=== PATIENT | male | born 1955 | race Hispanic/Latino ===

== ENCOUNTER 2016-10-16 15:32 | Observation (INO) | payer MEDICARE ==
[2016-10-16 15:43] VITALS: BMI 37.2
--- NOTE | 2016-10-16 16:02 | ED PDOC ---
Arrival/HPI - General Chief Complaint: Groin Pain Time Seen by Provider: 10/16/16 15:49 Historian: Patient - History of Present Illness Narrative History of Present Illness (Text): 10/16/16 15:58 60yo male with PMHx of hypertension, CAD with cardiac stent, TIA BIBA for right groin pain that radiates anteriorly to his lower leg. He notes history of chronic back pain. States he took Oxycodone today without relieve. He is currently under a care of a pain management. Denies previous history of this pain in the past. He denies calf pain, redness, abdominal pain, nausea, vomiting , any other complaint. Past Medical History - Provider Review Nursing Documentation Reviewed: Yes - Infectious Disease Hx of Infectious Diseases: None - Tetanus Immunization Tetanus Immunization: Unknown - Cardiac Hx Cardiac Disorders: Yes Hx Circulatory Problems: Yes Hx Congestive Heart Failure: Yes Hx Hypertension: Yes - Pulmonary Hx Pneumonia: Yes - Neurological Hx Dizziness: Yes Hx Transient Ischemic Attacks (TIA): Yes - HEENT Hx HEENT Disorder: No - Renal Hx Renal Disorder: No - Endocrine/Metabolic Hx Diabetes Mellitus Type 1: Yes (insulin dependant) - Hematological/Oncological Hx Anemia: Yes Hx Blood Transfusions: Yes (2012) - Integumentary Hx Dermatological Disorder: No Other/Comment: cellulitis rle, gangrene 1st and 2nd toes r ft, dressing intact to right foot, large dressing to inner right leg from thigh to knee - Musculoskeletal/Rheumatological Hx Falls: Yes - Gastrointestinal Hx Gastrointestinal Disorders: No - Genitourinary/Gynecological Hx Genitourinary Disorders: No - Psychiatric Hx Anxiety: Yes Hx Bipolar Disorder: Yes Hx Depression: Yes Hx Emotional Abuse: No Hx Physical Abuse: No Hx Schizophrenia: Yes Hx Substance Use: No - Surgical History Hx Cardiac Catheterization: Yes Hx Coronary Artery Bypass Graft: Yes Hx Coronary Stent: Yes Hx Orthopedic Surgery: Yes Other/Comment: graft in left leg - Anesthesia Hx Anesthesia: Yes Hx Anesthesia Reactions: No Hx Malignant Hyperthermia: No - Suicidal Assessment Feels Threatened In Home Enviroment: No Family/Social History - Physician Review Nursing Documentation Reviewed: Yes Family/Social History: Unknown Family HX Smoking Status: Former Smoker Hx Alcohol Use: (will be sober 25 yrs 11/07/2016) Hx Substance Use: No Hx Substance Use Treatment: No Allergies/Home Meds Allergies/Adverse Reactions: Allergies No Known Allergies Allergy (Verified 10/16/16 15:43) Home Medications: Home Meds Medication Instructions Recorded Confirmed Insulin Detemir [Levemir] 85 unit SC TID 12/31/15 10/16/16 Omeprazole 20 mg PO DAILY 12/31/15 10/16/16 Insulin Aspart, Recombinant 45 unit SQ ACTID 01/20/16 10/16/16 [Novolog] Liraglutide [Victoza 2-Dangelo] 6 mg SC DAILY 01/20/16 10/16/16 Clopidogrel [Plavix] 75 mg PO DAILY 06/09/16 10/16/16 Losartan [Cozaar] 50 mg PO BID 06/09/16 10/16/16 Oxycodone HCl [Roxicodone] 5 mg PO TID PRN 10/16/16 10/16/16 Review of Systems - Physician Review All systems were reviewed & negative as marked: Yes - Review of Systems Constitutional: Normal Eyes: Normal ENT: Normal Respiratory: Normal Cardiovascular: Normal Gastrointestinal: Normal Genitourinary Male: Normal Musculoskeletal: Arthralgias (Right groin pain) Skin: Normal Neurological: Normal Endocrine: Normal Hemo/Lymphatic: Normal Psychiatric: Normal Physical Exam Vital Signs Reviewed: Yes Vital Signs Temp Pulse Resp BP Pulse Ox 10/16/16 17:18 87 18 183/90 H 95 10/16/16 15:35 98.1 F 93 H 15 189/105 H 95 Temperature: Afebrile Blood Pressure: Normal Pulse: Regular Respiratory Rate: Normal Appearance: Positive for: Well-Appearing, Non-Toxic, Comfortable Pain Distress: None Mental Status: Positive for: Alert and Oriented X 3 - Systems Exam Head: Present: Atraumatic, Normocephalic Pupils: Present: PERRL Extroacular Muscles: Present: EOMI Conjunctiva: Present: Normal Mouth: Present: Moist Mucous Membranes Neck: Present: Normal Range of Motion Respiratory/Chest: Present: Clear to Auscultation, Good Air Exchange. No: Respiratory Distress, Accessory Muscle Use Cardiovascular: Present: Regular Rate and Rhythm, Normal S1, S2. No: Murmurs Abdomen: Present: Normal Bowel Sounds. No: Tenderness, Distention, Peritoneal Signs Back: Present: Normal Inspection Upper Extremity: Present: Normal Inspection. No: Cyanosis, Edema Lower Extremity: Present: NORMAL PULSES, Normal ROM, Tenderness (Right groin), Neurovascularly Intact. No: Edema, CALF TENDERNESS, Cyanosis, German's Sign, Swelling, Temperature Abnormalties Neurological: Present: GCS=15, CN II-XII Intact, Speech Normal Skin: Present: Warm, Dry, Normal Color. No: Rashes Psychiatric: Present: Alert, Oriented x 3, Normal Insight, Normal Concentration Medical Decision Making ED Course and Treatment: 10/16/16 17:54 Pt in ED for right groin pain that radiates to his lower leg. Hip CT was negative. Percocet was given for pain. On re evaluation patient states he still have pain. Patient's called and expressed concern about her . States he has been unable to move from a chair in few days. Also notes elevated BP and BS today. states the FS was in the 300's today and BP was 200/110 at home. Lab was ordered EKG NSR with left ventricular hypertrophy @ 89bpm his BP was 183/90 in ED Pt will be placed in OBS for intractable pain Case was DW Dr. jarrell, who was covering Dr. Cavazos and he accepted admission. - Lab Interpretations Lab Results: Lab Results 10/16/16 17:26: POC Glucose (mg/dL) 322 H - RAD Interpretation Radiology Orders: 10/16/16 15:49 CT HIP W/O CONTRAST BILATERAL [CT] Stat - Medication Orders Current Medication Orders: Discontinued Medications Oxycodone/Acetaminophen (Percocet 5/325 Mg Tab) 1 tab PO STAT STA Stop: 10/16/16 17:06 Last Admin: 10/16/16 17:21 Dose: 1 tab Disposition/Present on Arrival - Present on Arrival Any Indicators Present on Arrival: No History of DVT/PE: No History of Uncontrolled Diabetes: No Urinary Catheter: No History of Decub. Ulcer: No History Surgical Site Infection Following: None - Disposition Have Diagnosis and Disposition been Completed?: Yes Diagnosis: Hyperglycemia, Intractable pain Disposition: HOSPITALIZED Disposition Time: 18:00 Condition: STABLE Referrals: Rasta Cavazos MD [Primary Care Provider] - Follow up with primary
--- NOTE | 2016-10-16 17:01 | CT ---
PROCEDURE: CT hip without intravenous or IV contrast HISTORY: Right hip/pelvic Pain. No history of recent/ related trauma provided COMPARISON: None. No plain film radiographs available for correlation. TECHNIQUE: 2.5 mm axial acquisition and display. Coronal and sagittal reconstructions. Dose report (mGy-cm): 1057.74 FINDINGS: There are no osseous abnormalities to suggest fracture. The pelvic ring is intact. Preserved femoral-acetabular relationship. Negative study for protrusio, subluxation or dislocation. Degenerative changes: Mild and bilaterally symmetrical. No lytic or blastic abnormalities. Unremarkable pelvic viscera as visualized. This includes prostate, urinary bladder, seminal vesicles. Pelvic loops of colon, small bowel and appendix within normal limits without focal or diffuse abnormalities. Incidental finding(s): Postoperative findings likely related to vascular surgery bilateral inguinal region. IMPRESSION: No acute findings related to/accounting for the clinical presentation.
[2016-10-16] MEDS ORDERED: Oxycodone/Acetaminophen 5/325 mg Tab PO STA (17:05)
[2016-10-16 17:55] LABS: ADD MANUAL DIFF? NO
[2016-10-16 17:58] LABS: BASO # 0.03 K/mm3 (0.0-2.0); BASO % 0.3 % (0.0-3.0); EOS % 0.4 % (1.5-5.0); GRAN # 8.84 (1.4-6.5); GRAN % 84.5 % (50.0-68.0); HEMATOCRIT 38.6 % (42.0-52.0); LYMPH % 9.9 % (22.0-35.0); MEAN CELL VOLUME 83.2 fL (80.0-105.0); MEAN CORPUSCULAR HEMOGLOBIN 29.7 pg (25.0-35.0); MEAN CORPUSCULAR HGB CONC 35.8 g/dl (31.0-37.0); MEAN PLATELET VOLUME 9.4 fl (7.0-11.0); MONO # 0.5 (0.1-0.6); MONO % 4.9 % (1.0-6.0); PLATELET COUNT 241 10^3/uL (120.0-450.0); RED CELL DISTRIBUTION WIDTH 14.3 % (11.5-14.5); URINE BILIRUBIN NEGATIVE (NEGATIVE); URINE BLOOD MODERATE (NEGATIVE); URINE GLUCOSE (UA) >=1000 mg/dL (NEGATIVE); URINE KETONE TRACE mg/dL (NEGATIVE); URINE LEUKOCYTE ESTERASE NEGATIVE Leu/uL (NEGATIVE); URINE PROTEIN 100 mg/dL (<30 mg/dL); URINE UROBILINOGEN 0.2 E.U./dL (<1 E.U./dL); WHITE BLOOD COUNT 10.5 10^3/ul (4.5-11.0)
[2016-10-16 18:00] LABS: URINE APPEARANCE CLEAR (CLEAR); URINE COLOR YELLOW (YELLOW)
[2016-10-16 18:03] LABS: URINE BACTERIA FEW (NEG); URINE WBC 0 - 2 /hpf (0-6)
[2016-10-16 18:04] LABS: URINE AMORPHOUS SEDIMENT FEW
[2016-10-16 18:10] LABS: ALB/GLOB RATIO 1.1 (1.1-1.8); ALKALINE PHOSPHATASE 109 U/L (38-133); ALT/SGPT 32 U/L (7-56); AST/SGOT 27 U/L (15-59); BILIRUBIN,TOTAL 0.8 mg/dL (0.2-1.3); BLOOD UREA NITROGEN 14 mg/dL (7-21); CALCIUM 9.6 mg/dL (8.4-10.5); CARBON DIOXIDE 22 mmol/L (21-33); CHLORIDE 100 mmol/L (98-107); GFR AFRICAN-AMERICAN > 60; POTASSIUM 4.3 mmol/L (3.6-5.0); SODIUM 133 mmol/L (132-148); TOTAL PROTEIN 8.1 g/dL (5.8-8.3)
[2016-10-16 18:13] LABS: INR 1.06 (0.93-1.08); PARTIAL THROMBOPLASTIN TIME 27.1 Seconds (23.7-30.8)
[2016-10-16 18:16] LABS: GLUCOSE,RANDOM 390 mg/dL (70-110)
[2016-10-16 18:22] LABS: TROPONIN I 0.02 ng/mL
[2016-10-16] MEDS: Insulin Regular 1 UNITS/0.01 ML ML IV STA ×2 (18:25→18:31)
[2016-10-16] MEDS ORDERED: oxyCODONE 5 mg Immediate Release Tab PO PRN (18:44)
[2016-10-16] MEDS: Insulin Reg-HIGH-Coverage SC SCH (22:54)
[2016-10-17] MEDS ORDERED: Insulin Regular 1 UNITS/0.01 ML ML SC STA (08:05)
[2016-10-17] MEDS: Insulin Reg-HIGH-Coverage SC SCH ×3 (08:18→17:06)
[2016-10-17] MEDS: Insulin Lispro 1 UNITS/0.01 ML SC SCH ×2 (09:14→12:30)
[2016-10-17 09:49] VITALS: BP 196/114; PULSE 81; RESP 18; TEMP 97.6; O2SAT 96
[2016-10-17] MEDS ORDERED: LIRAGLUTIDE 6 MG SC SCH (10:00)
--- NOTE | 2016-10-17 10:48 | CARD ---
APPROVED REPORT EKG Measurement Heart [id number] DC 170P50 [id number] <Conclusion> Normal sinus rhythm PRWP IVCD Left anterior fascicular block STTW changes c/w ischemia Prolonged QTc
--- NOTE | 2016-10-17 15:22 | HP ---
A 60-year-old white male admitted to the hospital with right lower extremity pain, difficulty walking . 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 The patient had a negative CT of the hip on admission. His laboratory data showed abelino vated blood sugar, normal H and H, normal liver enzymes. The patient also is somewhat hypertensive. Blood pressure is as high as 171/95. The blood sugars will be controlled. The patient will be eval uated by physical therapy and Dr. Norman. He will be discharged home if patient is able to sta nd and walk. PHYSICAL EXAMINATION: GENERAL: Shows a well-developed, but obese white male, in mild distress. HEENT: Essentially within normal limits. HEART: Regular sinus rhythm, , no murmurs. CHEST: Clear to auscultation and percussion. ABDOMEN: Obese but benign. EXTREMITIES: Without cyanosis, clubbing, edema. There are some missing toes bilaterally. Pulses ar e weak bilaterally, but present. There is some decreased strength in the right lower extremity secon karon to pain. There is normal range of motion. There is some difficulty on straight leg raise. IMPRESSION: Sciatica versus bursitis of the right hip, uncontrolled diabetes, uncontrolled blood pre ssure in a 60-year-old white male. Rasta Cavazos MD cc: [id number] TT: 10/17/2016 15:22:13 en
[2016-10-18] MEDS ORDERED: LIRAGLUTIDE 6 MG SC SCH (10:00)
== END 2016-10-17 16:30 | disposition home or self-care (01) ==
LOC: ED 15:32 → ERH 18:08 → 3RSO 21:33
PROVIDERS: ADMIT Internal Medicine; ATTEND Internal Medicine
DX: M54.31 Sciatica, right side (principal); M70.71 Other bursitis of hip, right hip; E10.65 Type 1 diabetes mellitus with hyperglycemia; F20.9 Schizophrenia, unspecified; F31.9 Bipolar disorder, unspecified; I11.0 Hypertensive heart disease with heart failure; I50.9 Heart failure, unspecified; I25.10 Atherosclerotic heart disease of native coronary artery without angina pectoris; Z79.02 Long term (current) use of antithrombotics/antiplatelets; Z79.4 Long term (current) use of insulin; Z79.899 Other long term (current) drug therapy; Z86.73 Personal history of transient ischemic attack (TIA), and cerebral infarction without residual deficits; Z87.01 Personal history of pneumonia (recurrent); Z95.1 Presence of aortocoronary bypass graft; Z95.5 Presence of coronary angioplasty implant and graft; R42 Dizziness and giddiness; D64.9 Anemia, unspecified; L03.115 Cellulitis of right lower limb; I96 Gangrene, not elsewhere classified; F41.9 Anxiety disorder, unspecified; Z87.891 Personal history of nicotine dependence; R40.2412 Glasgow coma scale score 13-15, at arrival to emergency department; I51.7 Cardiomegaly
CPT/HCPCS: 73700; 80053; 81001; 82550; 82553; 82948; 83615; 84484; 85025; 85610; 85730; 93005; 97161; 99283; G0378; G8978; G8979; G8980

== ENCOUNTER 2016-11-07 19:27 | Emergency (ER) | payer MEDICARE ==
[2016-11-07 19:34] VITALS: TEMP 98.7; BMI 35.9
[2016-11-07 20:14] VITALS: RESP 18
[2016-11-07] MEDS ORDERED: Sodium Chloride 0.9% 1,000 ML IV SCH (21:19)
[2016-11-07 21:47] LABS: BASO # 0.02 K/mm3 (0.0-2.0); BASO % 0.3 % (0.0-3.0); EOS # 0.2 (0.0-0.7); EOS % 2.4 % (1.5-5.0); GRAN # 4.56 (1.4-6.5); GRAN % 69.3 % (50.0-68.0); HEMOGLOBIN 11.4 gm/dL (14.0-18.0); LYMPH # 1.4 (1.2-3.4); LYMPH % 20.9 % (22.0-35.0); MEAN CELL VOLUME 85.4 fL (80.0-105.0); MEAN CORPUSCULAR HEMOGLOBIN 29.2 pg (25.0-35.0); MEAN CORPUSCULAR HGB CONC 34.2 g/dl (31.0-37.0); MEAN PLATELET VOLUME 9.2 fl (7.0-11.0); MONO # 0.5 (0.1-0.6); MONO % 7.1 % (1.0-6.0); PLATELET COUNT 231 10^3/uL (120.0-450.0); WHITE BLOOD COUNT 6.6 10^3/ul (4.5-11.0)
[2016-11-07 21:55] LABS: ALBUMIN 3.7 g/dL (3.0-4.8); ALT/SGPT 25 U/L (7-56); AST/SGOT 22 U/L (15-59); BLOOD UREA NITROGEN 16 mg/dL (7-21); CALCIUM 8.8 mg/dL (8.4-10.5); GFR AFRICAN-AMERICAN > 60; GFR NON-AFRICAN AMERICAN > 60
--- NOTE | 2016-11-07 22:26 | ED PDOC ---
Arrival/HPI - General Historian: Patient <Rupal Messina PA-C - Last Filed: 11/07/16 22:18> <Kulwinder Gordon - Last Filed: 11/07/16 22:49> - General Chief Complaint: Wound Check Time Seen by Provider: 11/07/16 20:32 - History of Present Illness Narrative History of Present Illness (Text): 11/07/16 22:29 60-year-old male with past medical history diabetes and hypertension, presents for evaluation of redness to the right foot where his right great toe and second toe was amputated, states that the amputation was performed on April 2016. Otherwise the patient denies any fever, chills, pain, joint pain or swelling. Has no other complaints. Podiatry [facility] (Rupal Messina PA-C) Past Medical History - Provider Review Nursing Documentation Reviewed: Yes - Infectious Disease Hx of Infectious Diseases: None - Tetanus Immunization Tetanus Immunization: Unknown - Cardiac Hx Cardiac Disorders: Yes Hx Congestive Heart Failure: Yes Hx Hypertension: Yes - Pulmonary Hx Respiratory Disorders: Yes Hx Pneumonia: Yes - Neurological Hx Neurological Disorder: Yes Hx Dizziness: Yes Hx Transient Ischemic Attacks (TIA): Yes - HEENT Hx HEENT Disorder: No - Renal Hx Renal Disorder: No - Endocrine/Metabolic Hx Diabetes Mellitus Type 1: Yes (insulin dependant) - Hematological/Oncological Hx Anemia: Yes Hx Blood Transfusions: Yes (2012) - Integumentary Hx Dermatological Disorder: No Other/Comment: cellulitis rle,. gangrene 1st and 2nd toes R foot (toes amputated in apr 2016) - Musculoskeletal/Rheumatological Hx Musculoskeletal Disorders: Yes Hx Falls: Yes - Gastrointestinal Hx Gastrointestinal Disorders: No - Genitourinary/Gynecological Hx Genitourinary Disorders: No - Psychiatric Hx Psychophysiologic Disorder: Yes Hx Anxiety: Yes Hx Bipolar Disorder: Yes Hx Depression: Yes Hx Emotional Abuse: No Hx Physical Abuse: No Hx Schizophrenia: Yes Hx Substance Use: No - Surgical History Hx Cardiac Catheterization: Yes Hx Coronary Artery Bypass Graft: Yes Hx Coronary Stent: Yes Hx Orthopedic Surgery: Yes Other/Comment: graft in left leg. 1st and 2nd toes amputated on R foot in Apr 2016 - Anesthesia Hx Anesthesia: Yes Hx Anesthesia Reactions: No Hx Malignant Hyperthermia: No - Suicidal Assessment Feels Threatened In Home Enviroment: No <Rupal Messina PA-C - Last Filed: 11/07/16 22:18> Family/Social History - Physician Review Nursing Documentation Reviewed: Yes Family/Social History: No Known Family HX Smoking Status: Former Smoker Hx Alcohol Use: No Hx Substance Use: No Hx Substance Use Treatment: No <Rupal Messina PA-C - Last Filed: 11/07/16 22:18> Allergies/Home Meds <Rupal Messina PA-C - Last Filed: 11/07/16 22:18> <Kulwinder Gordon - Last Filed: 11/07/16 22:49> Allergies/Adverse Reactions: Allergies No Known Allergies Allergy (Verified 11/07/16 19:34) Home Medications: Home Meds Medication Instructions Recorded Confirmed Clopidogrel [Plavix] 75 mg PO DAILY 11/07/16 11/07/16 Dexlansoprazole [Dexilant] 60 mg PO DAILY 11/07/16 11/07/16 Insulin Aspart, Recombinant 45 units SQ TID 11/07/16 11/07/16 [Novolog] Insulin Detemir [Levemir] 85 units SQ BID 11/07/16 11/07/16 Isosorbide [Isosorbide] 60 mg PO DAILY 11/07/16 11/07/16 Liraglutide [Victoza 2-Dangelo] 0.6 mg SQ BID 11/07/16 11/07/16 Losartan [Cozaar] 50 mg PO BID 11/07/16 11/07/16 Pregabalin [Lyrica] 75 mg PO BID 11/07/16 11/07/16 Risperidone [Risperdal] 1 mg PO HS 11/07/16 11/07/16 Tamsulosin [Flomax] 0.4 mg PO TID 11/07/16 11/07/16 oxyCODONE [oxyCODONE Immediate 1 tab PO DAILY 11/07/16 11/07/16 Release Tab] Review of Systems - Review of Systems Constitutional: Normal. absent: Fatigue, Weight Change, Fevers Musculoskeletal: Normal, Arthralgias. absent: Back Pain, Neck Pain Skin: Normal. absent: Rash, Pruritis, Skin Lesions <Rupal Messina PA-C - Last Filed: 11/07/16 22:18> Physical Exam Finger Stick Blood Glucose: 310 <Rupal Messina PA-C - Last Filed: 11/07/16 22:18> <Kulwinder Gordon - Last Filed: 11/07/16 22:49> - Physical Exam Narrative Physical Exam (Text): 11/07/16 22:27 GENERAL APPEARANCE: Patient is awake, alert, oriented x 3, in no acute distress. SKIN: Warm, dry, (-) skin lesions or rashes. LOWER EXTREMITY: (-) Tenderness, (-) swelling, (-) ecchymosis, (+) erythema to the wound edges of the R foot at the amputation site with scant amount of yellow serosanguinous d/c, (-) crepitus, (-) deformity. Tendon function intact. (-) distal neurovascular deficit. +2 point discrimination. Remainder of foot, digits and ankle: (-) injury except. (Rupal Messina PA-C ) Vital Signs Temp Pulse Resp BP Pulse Ox 11/07/16 20:14 79 18 167/97 H 99 11/07/16 19:34 98.7 F 88 19 169/100 H 99 Medical Decision Making <Rupal Messina PA-C - Last Filed: 11/07/16 22:18> <Kulwinder Gordon - Last Filed: 11/07/16 22:49> ED Course and Treatment: 11/07/16 22:21 60-year-old male with past medical history diabetes and hypertension, presents for evaluation of redness to the right foot where his right great toe and second toe was amputated, states that the amputation was performed on April 2016. Based on history to consider cellulitis, wound infection, and osteomyelitis. FS 310. Call placed to Dr. Car. Wound culture and clean dressing applied to the wound. Case discussed with Dr. Car she recommends at this time to order labs, x- ray of the right foot, states as long as the labs and x-rays are normal and show no acute findings, the patient can be discharged on Augmentin and she will follow-up with the patient in 2 days for reevaluation of the wound care center. Labs, right foot x-ray ordered. XR right foot: amputation noted of the distal 1st phalanx and 2nd phalanx, no fracture, no evidence of osteomyelitis, as read by HUGO. Lab results are reviewed, glucose 237, rest of the labs are within normal limits. x-ray results show no acute findings. Diagnostic results discussed with the patient in great detail. Further plan of care for outpatient follow-up with Dr. Car discussed with patient and he agrees with current plan and disposition. Prescription provided for Augmentin. Patient states he fully agrees with and understands discharge instructions. States that he agrees with the plan and disposition. Verbalized and repeated discharge instructions and plan. I have given the patient opportunity to ask any additional questions. Follow up with Dr. Singh in 2 days without fail. Advised to take medication as prescribed. Return to the emergency room at any time for any new or worsening symptoms. (Siddharth DUMONT,Rupal Perez) - Lab Interpretations Lab Results: 11/07/16 21:33 11/07/16 21:33 Lab Results 11/07/16 21:33: Sodium 135, Potassium 4.1, Chloride 103, Carbon Dioxide 23, Anion Gap 13, BUN 16, Creatinine 1.1, Est GFR ( Amer) > 60, Est GFR (Non- Af Amer) > 60, Random Glucose 237 H, Calcium 8.8, Total Bilirubin 0.5, AST 22, ALT 25, Alkaline Phosphatase 80, Total Protein 7.3, Albumin 3.7, Globulin 3.6, Albumin/Globulin Ratio 1.0 L 11/07/16 21:33: WBC 6.6 D, RBC 3.90, Hgb 11.4 L, Hct 33.3 L, MCV 85.4, MCH 29.2 , MCHC 34.2, RDW 14.0, Plt Count 231, MPV 9.2, Gran % 69.3 H, Lymph % (Auto) 20.9 L, Grand % (Auto) 7.1 H, Eos % (Auto) 2.4, Baso % (Auto) 0.3, Gran # 4.56, Lymph # 1.4, Grand # 0.5, Eos # 0.2, Baso # 0.02 - RAD Interpretation Radiology Orders: 11/07/16 21:18 FOOT RIGHT 3 VIEWS ROUTINE [RAD] Stat - Medication Orders Current Medication Orders: Sodium Chloride (Sodium Chloride 0.9%) 1,000 mls @ 1,000 mls/hr IV .Q1H LANRE Last Admin: 11/07/16 21:38 Dose: 1,000 mls/hr Discontinued Medications Amoxicillin/Clavulanate Potassium (Augmentin 500 Mg-125 Mg Tab) 1 tab PO STAT STA PRN Reason: Protocol Stop: 11/07/16 22:32 - PA / [employer] / Resident Statement COLBY has reviewed & agrees with the documentation as recorded. <Rupal Messina PA-C - Last Filed: 11/07/16 22:18> - PA / [employer] / Resident Statement COLBY has reviewed & agrees with the documentation as recorded. COLBY has examined the patient and agrees with the treatment plan. <Kulwinder Gordon - Last Filed: 11/07/16 22:49> Disposition/Present on Arrival - Present on Arrival Any Indicators Present on Arrival: Yes History of DVT/PE: No History of Uncontrolled Diabetes: Yes Urinary Catheter: No History of Decub. Ulcer: No History Surgical Site Infection Following: None - Disposition Have Diagnosis and Disposition been Completed?: Yes Disposition Time: 22:00 Patient Plan: Discharge <Rupal Messina PA-C - Last Filed: 11/07/16 22:18> <Kulwinder Gordon - Last Filed: 11/07/16 22:49> - Disposition Diagnosis: Wound infection Patient Problems: Current Active Problems Problem Status Onset Wound infection Acute Condition: STABLE Discharge Instructions (ExitCare): Wound Infection (ED), Acute Wound Care (ED) Print Language: ESTONIAN Additional Instructions: Thank you for letting us take care of you today. You were treated for wound infection of the right foot status post toe amputation. The emergency medical care you received today was directed at your acute symptoms. If you were prescribed any medication, please fill it and take as directed. It may take several days for your symptoms to resolve. Return to the Emergency Department if your symptoms worsen, do not improve, or if you have any other problems. Please contact your foot doctor in 2 days for re-evaluation and follow up. Bring any paperwork you were given at discharge with you along with any medications you are taking to your follow up visit. Our treatment cannot replace ongoing medical care by a primary care provider (PCP) outside of the emergency department. Thank you for allowing the [facility] team to be part of your care today. Prescriptions: Amoxicillin/Potassium Clav [Augmentin 500-125 Tablet] 1 each PO TID #30 tablet Referrals: Connie Car DPM [Primary Care Provider] - Follow up with primary Forms: WORK NOTE
[2016-11-07] MEDS ORDERED: Amoxicillin-Clav 500-125 mg Tab PO STA (22:31)
[2016-11-07 23:27] VITALS: BP 162/90; PULSE 80; O2SAT 100
--- NOTE | 2016-11-08 10:47 | RAD ---
PROCEDURE: Right Foot Radiographs. HISTORY: pain COMPARISON: 05/04/2016 FINDINGS: BONES: The patient is status post amputation of 1st and 2nd digits at the level of the distal end of the metatarsal. There is no acute fracture identified. There is periosteal reaction seen about the proximal and distal diaphysis of 1st metatarsal and its medial aspect and about the distal aspect of the metatarsal at its lateral aspect. This is a nonspecific finding. . There is periosteal reaction seen about the distal aspect of 2nd metatarsal, as on prior examination. No periosteal reaction is appreciated elsewhere. JOINTS: Normal. SOFT TISSUES: Soft tissue swelling anterior to the amputation site of 1st and 2nd metatarsal. Nonspecific. OTHER FINDINGS: None. IMPRESSION: Status post amputation 1st and 2nd distal metatarsals. Periosteal reaction about 1st and 2nd metatarsal. First metatarsal periosteal reaction is new. This is a nonspecific finding. Consider osteomyelitis.
== END 2016-11-07 23:10 | disposition home or self-care (01) ==
LOC: ED 19:27
DX: T81.4XXA Infection following a procedure, initial encounter (principal); Y83.8 Other surgical procedures as the cause of abnormal reaction of the patient, or of later complication, without mention of misadventure at the time of the procedure; Y92.89 Other specified places as the place of occurrence of the external cause; I10 Essential (primary) hypertension; E11.9 Type 2 diabetes mellitus without complications; Z79.4 Long term (current) use of insulin

== ENCOUNTER 2016-12-05 19:18 | Observation (INO) | payer MEDICARE, OTHER ==
[2016-12-05 19:36] VITALS: BMI 37.4
--- NOTE | 2016-12-05 20:22 | ED PDOC ---
Arrival/HPI - General Chief Complaint: High Blood Sugar Time Seen by Provider: 12/05/16 19:29 Historian: Patient - History of Present Illness Narrative History of Present Illness (Text): 12/05/16 20:00 Malik Holley is a 61 year old male, whose past medical history includes hypertension, diabetes,CAD,CABG and peripheral vascular disease, presents to the Emergency department complaining of elevated blood sugar in the 400's and elevation of blood pressure. Patient reports feeling dizzy,faint at times today.States that he is compliant with his medication. Patient denies chest pain , shortness of breath, headache, fever, chills, cough, nausea, vomiting, diarrhea, abdominal pain, or other complaints. Time/Duration: Other (earlier today) Symptom Onset: Sudden Symptom Course: Unchanged Modifying Factors (Text): None Associated Symptoms (Text): dizziness and elevated blood pressure Past Medical History - Provider Review Nursing Documentation Reviewed: Yes - Infectious Disease Hx of Infectious Diseases: None - Tetanus Immunization Tetanus Immunization: Unknown - Cardiac Hx Cardiac Disorders: Yes Hx Congestive Heart Failure: Yes Hx Hypertension: Yes Other/Comment: open heart srugery. 3 stents - Pulmonary Hx Respiratory Disorders: Yes Hx Pneumonia: Yes Other/Comment: Former smoker - Neurological Hx Neurological Disorder: Yes Hx Dizziness: Yes Hx Transient Ischemic Attacks (TIA): Yes - HEENT Hx HEENT Disorder: No - Renal Hx Renal Disorder: No - Endocrine/Metabolic Hx Diabetes Mellitus Type 1: Yes (insulin dependant) - Hematological/Oncological Hx Anemia: Yes Hx Blood Transfusions: Yes (2012) - Integumentary Hx Dermatological Disorder: No Other/Comment: cellulitis rle,. gangrene 1st and 2nd toes R foot (toes amputated in apr 2016) - Musculoskeletal/Rheumatological Hx Musculoskeletal Disorders: Yes Hx Falls: Yes - Gastrointestinal Hx Gastrointestinal Disorders: No - Genitourinary/Gynecological Hx Genitourinary Disorders: No - Psychiatric Hx Psychophysiologic Disorder: Yes Hx Anxiety: Yes Hx Bipolar Disorder: Yes Hx Depression: Yes Hx Emotional Abuse: No Hx Physical Abuse: No Hx Schizophrenia: Yes Hx Substance Use: No - Surgical History Hx Cardiac Catheterization: Yes Hx Coronary Artery Bypass Graft: Yes Hx Coronary Stent: Yes Hx Orthopedic Surgery: Yes Other/Comment: graft in left leg. 1st and 2nd toes amputated on R foot in Apr 2016 - Anesthesia Hx Anesthesia: Yes Hx Anesthesia Reactions: No Hx Malignant Hyperthermia: No - Suicidal Assessment Feels Threatened In Home Enviroment: No Family/Social History - Physician Review Nursing Documentation Reviewed: Yes Family/Social History: Unknown Family HX Smoking Status: Former Smoker Hx Alcohol Use: Yes (former) Hx Substance Use: No Hx Substance Use Treatment: No Allergies/Home Meds Allergies/Adverse Reactions: Allergies No Known Allergies Allergy (Verified 11/07/16 19:34) Home Medications: Home Meds Medication Instructions Recorded Confirmed Clopidogrel [Plavix] 75 mg PO DAILY 11/07/16 12/05/16 Dexlansoprazole [Dexilant] 60 mg PO DAILY 11/07/16 12/05/16 Insulin Aspart, Recombinant 45 units SQ TID 11/07/16 12/05/16 [Novolog] Insulin Detemir [Levemir] 85 units SQ BID 11/07/16 12/05/16 Isosorbide [Isosorbide] 60 mg PO DAILY 11/07/16 12/05/16 Liraglutide [Victoza 2-Dangelo] 0.6 mg SQ BID 11/07/16 12/05/16 Losartan [Cozaar] 50 mg PO BID 11/07/16 12/05/16 Pregabalin [Lyrica] 75 mg PO BID 11/07/16 12/05/16 Risperidone [Risperdal] 1 mg PO HS 11/07/16 12/05/16 Tamsulosin [Flomax] 0.4 mg PO DAILY 11/07/16 12/05/16 Furosemide [Lasix] 1 tab PO DAILY 12/05/16 12/05/16 Metoprolol Tartrate [Lopressor] 1 cap PO BID 12/05/16 12/05/16 Potassium Chloride [Klor-Con 10] 1 cap PO DAILY 12/05/16 12/05/16 oxyCODONE/Acetaminophen [Percocet 1 cap PO BID 12/05/16 12/05/16 5/325 mg Tab] Review of Systems - Physician Review All systems were reviewed & negative as marked: Yes - Review of Systems Constitutional: Other (elevated blood sugar and slight elevated blood pressure) . absent: Fevers Respiratory: absent: SOB Cardiovascular: absent: Chest Pain Neurological: Dizziness Physical Exam Vital Signs Temp Pulse Resp BP Pulse Ox 12/05/16 22:29 91 H 16 179/92 H 97 12/05/16 22:15 83 16 174/108 H 97 12/05/16 21:18 87 191/101 H 12/05/16 20:45 82 16 197/100 H 97 12/05/16 19:29 98.2 F 80 18 130/102 H 99 Temperature: Afebrile Blood Pressure: Hypertensive Pulse: Regular Respiratory Rate: Normal Appearance: Positive for: Well-Appearing, Non-Toxic, Comfortable Pain Distress: None Mental Status: Positive for: Alert and Oriented X 3 Finger Stick Blood Glucose: 461 - Systems Exam Head: Present: Atraumatic, Normocephalic Pupils: Present: PERRL Extroacular Muscles: Present: EOMI Conjunctiva: Present: Normal Mouth: Present: Moist Mucous Membranes Neck: Present: Normal Range of Motion Respiratory/Chest: Present: Clear to Auscultation, Good Air Exchange. No: Respiratory Distress, Accessory Muscle Use Cardiovascular: Present: Regular Rate and Rhythm, Normal S1, S2. No: Murmurs Abdomen: Present: Normal Bowel Sounds. No: Tenderness, Distention, Peritoneal Signs Back: Present: Normal Inspection Upper Extremity: Present: Normal Inspection. No: Cyanosis, Edema Lower Extremity: Present: Normal Inspection. No: Edema Neurological: Present: GCS=15, CN II-XII Intact, Speech Normal Skin: Present: Warm, Dry, Normal Color. No: Rashes Psychiatric: Present: Alert, Oriented x 3, Normal Insight, Normal Concentration Medical Decision Making ED Course and Treatment: 12/05/16 20:10 Impression: 61 year old male with dizziness and elevated blood sugar and blood pressure. Plan: -- EKG -- CT Head without contrast -- Labs -- Reassess and disposition Progress Notes: EKG: Ordered, reviewed, and independently interpreted the EKG. Rate : 87 BPM Rhythm : NSR Interpretation : LVH and inferior infarct. 12/05/16 23:04 CT Head results reviewed: Dictated and Authenticated by: Zhou Zraco MD FINDINGS: Brain: Mild atrophy. No intracranial hemorrhage. No mass. Calcifications of basal ganglia, occipital lobes, cerebellum, stable. Several scattered foci of decreased attenuation within periventricular/subcortical white matter. No definite edema. Ventricles: No hydrocephalus. Bones/joints: No acute fracture. Soft tissues: Unremarkable. Vasculature: Atherosclerotic disease of intracranial arteries. Sinuses: No acute sinusitis. Mastoid air cells: No mastoid effusion. Orbits: Unremarkable as visualized. IMPRESSION: 1. Nonspecific white matter changes. Acute infarction may be CT occult within first 24 hours. If a focal deficit persists, consider followup CT or MRI for further evaluation. 2. Incidental/non-acute findings are described above. 12/05/16 23:[address] Cavazos who is aware and agrees with the plan to observe patient at telemetry for near-syncope. Accepts patient under his service. - Lab Interpretations Lab Results: 12/05/16 20:20 12/05/16 20:20 Lab Results 12/05/16 20:20: WBC 7.7, RBC 4.20, Hgb 12.3 L, Hct 34.7 L, MCV 82.6, MCH 29.3, MCHC 35.4, RDW 13.4, Plt Count 235, MPV 9.5 12/05/16 20:20: Sodium 131 L, Potassium 4.4, Chloride 95 L, Carbon Dioxide 26, Anion Gap 14, BUN 23 H, Creatinine 1.2, Est GFR ( Amer) > 60, Est GFR ( Non-Af Amer) > 60, Random Glucose 525 H* D, Calcium 9.3, Total Bilirubin 0.7, AST 29, ALT 26, Alkaline Phosphatase 95, Lactate Dehydrogenase 355, Total Creatine Kinase 41, Troponin I < 0.01 D, Total Protein 8.0, Albumin 4.1, Globulin 3.8, Albumin/Globulin Ratio 1.1 12/05/16 20:20: PT 11.2, INR 1.04, APTT 26.1 12/05/16 19:26: POC Glucose (mg/dL) 461 H* I have reviewed the lab results: Yes - RAD Interpretation Radiology Orders: 12/05/16 19:36 HEAD W/O CONTRAST [CT] Stat 12/05/16 21:53 CHEST PORTABLE [RAD] Stat Making Line Worker: Radiologist - EKG Interpretation Interpreted by ED Physician: Yes Type: 12 lead EKG - Medication Orders Current Medication Orders: Sodium Chloride (Sodium Chloride 0.9%) 1,000 mls @ 100 mls/hr IV .Q10H [facility] Last Admin: 12/05/16 22:29 Dose: 100 mls/hr Insulin Human Regular (Humulin R Med) 0 units SC ACHS [facility] PRN Reason: Protocol Discontinued Medications Clonidine HCl (Catapres) 0.2 mg PO STAT STA Stop: 12/05/16 20:46 Last Admin: 12/05/16 21:18 Dose: 0.2 mg Insulin Human Regular (Humulin R) 10 units SC STAT STA Stop: 12/05/16 21:32 Last Admin: 12/05/16 22:23 Dose: 10 units - Scribe Statement The provider has reviewed the documentation as recorded by the Scribe 12/05/2016 Reina Wendy Provider Scribe Attestation: All medical record entries made by the Scribe were at my direction and personally dictated by me. I have reviewed the chart and agree that the record accurately reflects my personal performance of the history, physical exam, medical decision making, and the department course for this patient. I have also personally directed, reviewed, and agree with the discharge instructions and disposition. Disposition/Present on Arrival - Present on Arrival Any Indicators Present on Arrival: No History of DVT/PE: No History of Uncontrolled Diabetes: Yes Urinary Catheter: No History of Decub. Ulcer: No History Surgical Site Infection Following: None - Disposition Have Diagnosis and Disposition been Completed?: Yes Diagnosis: Near syncope, Uncontrolled diabetes mellitus Disposition: HOSPITALIZED Disposition Time: 23:10 Patient Plan: Observation Condition: STABLE Referrals: Rasta Cavazos MD [Primary Care Provider] - Follow up with primary Forms: [employer] (Congolese)
[2016-12-05 20:29] LABS: HEMATOCRIT 34.7 % (42.0-52.0); MEAN CELL VOLUME 82.6 fL (80.0-105.0); MEAN CORPUSCULAR HEMOGLOBIN 29.3 pg (25.0-35.0); MEAN CORPUSCULAR HGB CONC 35.4 g/dl (31.0-37.0); MEAN PLATELET VOLUME 9.5 fl (7.0-11.0); RED CELL DISTRIBUTION WIDTH 13.4 % (11.5-14.5); WHITE BLOOD COUNT 7.7 10^3/ul (4.5-11.0)
[2016-12-05 20:41] LABS: INR 1.04 (0.93-1.08); PARTIAL THROMBOPLASTIN TIME 26.1 Seconds (23.7-30.8)
[2016-12-05 20:50] LABS: ALB/GLOB RATIO 1.1 (1.1-1.8); ALKALINE PHOSPHATASE 95 U/L (38-133); ALT/SGPT 26 U/L (7-56); AST/SGOT 29 U/L (15-59); BILIRUBIN,TOTAL 0.7 mg/dL (0.2-1.3); BLOOD UREA NITROGEN 23 mg/dL (7-21); CALCIUM 9.3 mg/dL (8.4-10.5); CARBON DIOXIDE 26 mmol/L (21-33); CHLORIDE 95 mmol/L (98-107); GFR AFRICAN-AMERICAN > 60; POTASSIUM 4.4 mmol/L (3.6-5.0); SODIUM 131 mmol/L (132-148)
[2016-12-05 20:53] LABS: GLUCOSE,RANDOM 525 mg/dL (70-110)
[2016-12-05 21:04] LABS: TROPONIN I < 0.01 ng/mL
[2016-12-05] MEDS ORDERED: Insulin Regular 1 UNITS/0.01 ML ML SC STA (21:31)
--- NOTE | 2016-12-05 22:24 | CT ---
EXAM: CT Head Without Intravenous Contrast CLINICAL HISTORY: 61 years old, male; Pain; Headache; Tension TECHNIQUE: Axial computed tomography images of the head/brain without intravenous contrast. This CT exam was performed using one or more of the following dose reduction techniques: automated exposure control, adjustment of the mA and/or kV according to patient size, and/or use of iterative reconstruction technique. COMPARISON: CT - HEAD W/O (CODE STROKE) 06/09/2016 12:51:22 PM FINDINGS: Brain: Mild atrophy. No intracranial hemorrhage. No mass. Calcifications of basal ganglia, occipital lobes, cerebellum, stable. Several scattered foci of decreased attenuation within periventricular/subcortical white matter. No definite edema. Ventricles: No hydrocephalus. Bones/joints: No acute fracture. Soft tissues: Unremarkable. Vasculature: Atherosclerotic disease of intracranial arteries. Sinuses: No acute sinusitis. Mastoid air cells: No mastoid effusion. Orbits: Unremarkable as visualized. IMPRESSION: 1. Nonspecific white matter changes. Acute infarction may be CT occult within first 24 hours. If a focal deficit persists, consider followup CT or MRI for further evaluation. 2. Incidental/non-acute findings are described above.
[2016-12-05] MEDS: Sodium Chloride 0.9% 1,000 ML IV SCH (22:29)
[2016-12-06] MEDS: Sodium Chloride 0.9% 1,000 ML IV SCH ×3 (05:06→19:59)
[2016-12-06] MEDS ORDERED: Insulin Reg-MEDIUM-Coverage SC SCH (07:30)
--- NOTE | 2016-12-06 07:59 | RAD ---
HISTORY: dizzy COMPARISON: Portable chest radiograph 06/09/2016. FINDINGS: LUNGS: No active pulmonary disease. Improved history volume noted. PLEURA: No significant pleural effusion identified, no pneumothorax apparent. CARDIOVASCULAR: Normal. OSSEOUS STRUCTURES: Median sternotomy again evident. VISUALIZED UPPER ABDOMEN: Normal. OTHER FINDINGS: None. IMPRESSION: No acute cardiopulmonary disease appreciated in the interval. Improved inspiratory volume is noted bilaterally.
--- NOTE | 2016-12-06 09:58 | CARD ---
APPROVED REPORT EKG Measurement Heart [id number] <Conclusion> Normal sinus rhythm Left anterior fascicular block PRWP STTW changes c/w ischemia No change except normal QTC now.
[2016-12-06] MEDS ORDERED: Insulin Lispro 1 UNITS/0.01 ML SC SCH (10:00)
[2016-12-06] MEDS ORDERED: Insulin Detemir 100 units/ml Vial (Levemir) SC SCH (10:00)
[2016-12-06] MEDS: Potassium Chloride 10 mEq ER Tab PO SCH (10:12)
[2016-12-06] MEDS: Insulin Detemir 100 units/ml Vial (Levemir) SC SCH ×2 (10:22→21:43)
[2016-12-06] MEDS: Insulin Lispro 1 UNITS/0.01 ML SC SCH ×2 (11:48→18:10)
[2016-12-06] MEDS: Insulin Lispro (humaLOG) LOW Coverage SC SCH ×3 (11:49→21:43)
[2016-12-06] MEDS ORDERED: Oxycodone/Acetaminophen 10/325 mg Tab PO STA (20:19)
--- NOTE | 2016-12-06 20:23 | CP.PCM.PN ---
Subjective - Date & Time of Evaluation Date of Evaluation: 12/06/16 Time of Evaluation: 20:19 - Subjective Subjective: Patient was seen because he requested pain medication for his foot. Has no other complaints now. Denies chest pain, sob. ROS:Negative except as mentioned above. This 61 year old white male was admitted Has PMH of HTN, obesity, IDDM, CAD S/P stent, PVD S/P stent, bipolar disorder, amputation of several toes of both feet, renal insufficiency. Objective - Vital Signs/Intake and Output Vital Signs (last 24 hours): Temp Pulse Resp BP Pulse Ox 98.7 F 71 18 131/59 L 97 12/06/16 17:52 12/06/16 18:11 12/06/16 17:52 12/06/16 18:11 12/06/16 12:00 Intake and Output: 12/06/16 12/07/16 18:59 06:59 Intake Total 960 Output Total 1175 Balance -215 - Medications Medications: Current Medications Clopidogrel Bisulfate (Plavix) 75 mg PO DAILY [facility] Last Admin: 12/06/16 10:10 Dose: 75 mg Furosemide (Lasix) 40 mg PO DAILY [facility] Last Admin: 12/06/16 10:28 Dose: 40 mg Sodium Chloride (Sodium Chloride 0.9%) 1,000 mls @ 100 mls/hr IV .Q10H [facility] Last Admin: 12/06/16 19:59 Dose: Not Given Insulin Detemir (Levemir) 90 unit SC Q12H [facility] Last Admin: 12/06/16 10:22 Dose: 90 unit Insulin Human Lispro (Humalog Low) 0 units SC ACHS [facility] PRN Reason: Protocol Last Admin: 12/06/16 18:14 Dose: Not Given Insulin Human Lispro (Humalog) 40 units SC AC [facility] Last Admin: 12/06/16 18:10 Dose: 40 units Isosorbide Mononitrate (Imdur) 60 mg PO DAILY [facility] Last Admin: 12/06/16 10:12 Dose: 60 mg Losartan Potassium (Cozaar) 50 mg PO BID [facility] Last Admin: 12/06/16 18:11 Dose: 50 mg Metoprolol Tartrate (Lopressor) 25 mg PO BID [facility] Last Admin: 12/06/16 18:11 Dose: 25 mg Pantoprazole Sodium (Protonix Ec Tab) 40 mg PO DAILY [facility] Potassium Chloride (Klor-Con 10) 10 meq PO DAILY [facility] Last Admin: 12/06/16 10:12 Dose: 10 meq Pregabalin (Lyrica) 75 mg PO BID [facility] Last Admin: 12/06/16 18:11 Dose: 75 mg Risperidone (Risperdal Tab) 1 mg PO HS [facility] PRN Reason: Protocol Tamsulosin HCl (Flomax) 0.4 mg PO DAILY [facility] Last Admin: 12/06/16 10:13 Dose: 0.4 mg - Labs Labs: PT 11.2 Seconds (9.9-11.8) 12/05/16 20:20 INR 1.04 (0.93-1.08) 12/05/16 20:20 APTT 26.1 Seconds (23.7-30.8) 12/05/16 20:20 Most Recent Lab Values WBC 7.7 10^3/ul (4.5-11.0) 12/05/16 20:20 RBC 4.20 10^6/uL (3.5-6.1) 12/05/16 20:20 Hgb 12.3 gm/dL (14.0-18.0) L 12/05/16 20:20 Hct 34.7 % (42.0-52.0) L 12/05/16 20:20 MCV 82.6 fL (80.0-105.0) 12/05/16 20:20 MCH 29.3 pg (25.0-35.0) 12/05/16 20:20 MCHC 35.4 g/dl (31.0-37.0) 12/05/16 20:20 RDW 13.4 % (11.5-14.5) 12/05/16 20:20 Plt Count 235 10^3/uL (120.0-450.0) 12/05/16 20:20 MPV 9.5 fl (7.0-11.0) 12/05/16 20:20 PT 11.2 Seconds (9.9-11.8) 12/05/16 20:20 INR 1.04 (0.93-1.08) 12/05/16 20:20 APTT 26.1 Seconds (23.7-30.8) 12/05/16 20:20 Sodium 131 mmol/L (132-148) L 12/05/16 20:20 Potassium 4.4 mmol/L (3.6-5.0) 12/05/16 20:20 Chloride 95 mmol/L (98-107) L 12/05/16 20:20 Carbon Dioxide 26 mmol/L (21-33) 12/05/16 20:20 Anion Gap 14 (10-20) 12/05/16 20:20 BUN 23 mg/dL (7-21) H 12/05/16 20:20 Creatinine 1.2 mg/dL (0.5-1.4) 12/05/16 20:20 Est GFR ( Amer) > 60 12/05/16 20:20 Est GFR (Non-Af Amer) > 60 12/05/16 20:20 POC Glucose (mg/dL) 86 mg/dL (65-110) 12/06/16 21:27 Random Glucose 525 mg/dL (70-110) H* D 12/05/16 20:20 Calcium 9.3 mg/dL (8.4-10.5) 12/05/16 20:20 Total Bilirubin 0.7 mg/dL (0.2-1.3) 12/05/16 20:20 AST 29 U/L (15-59) 12/05/16 20:20 ALT 26 U/L (7-56) 12/05/16 20:20 Alkaline Phosphatase 95 U/L (38-133) 12/05/16 20:20 Lactate Dehydrogenase 355 U/L (333-699) 12/05/16 20:20 Total Creatine Kinase 41 U/L (35-230) 12/05/16 20:20 Troponin I < 0.01 ng/mL D 12/05/16 20:20 Total Protein 8.0 g/dL (5.8-8.3) 12/05/16 20:20 Albumin 4.1 g/dL (3.0-4.8) 12/05/16 20:20 Globulin 3.8 gm/dL 12/05/16 20:20 Albumin/Globulin Ratio 1.1 (1.1-1.8) 12/05/16 20:20 - Constitutional Appears: Well, No Acute Distress - Head Exam Head Exam: ATRAUMATIC, NORMAL INSPECTION, NORMOCEPHALIC - Eye Exam Eye Exam: Normal appearance - ENT Exam ENT Exam: Normal External Ear Exam - Neck Exam Neck Exam: Normal Inspection - Cardiovascular Exam Cardiovascular Exam: absent: JVD - GI/Abdominal Exam GI & Abdominal Exam: absent: Distended - Rectal Exam Rectal Exam: Deferred - Exam Additional comments: Deferred. - Extremities Exam Additional comments: Right foot 3rd toe redness positive. right foot hallux and 2nd toe have been amputated. - Back Exam Back Exam: NORMAL INSPECTION - Neurological Exam Neurological Exam: Alert, Oriented x3 - Psychiatric Exam Psychiatric exam: Normal Affect, Normal Mood - Skin Skin Exam: Normal Color Assessment and Plan - Assessment and Plan (Free Text) Assessment: Foot pain. IDDM. Obesity. HTN. CAD. PVD. Plan: Percocet I PO stat. Continue present management.
--- NOTE | 2016-12-07 01:20 | HP ---
HISTORY OF PRESENT ILLNESS: The patient is a 61-year-old white male with a long history of insulin-dependent diabetes mellitus, coronary artery disease status post stents, peripheral vascular disease status post PTCA and amputation of several toes of both feet, history of bipolar disorder, hypertension, orthostatic hypotension, mild renal insufficiency and poorly controlled diabetes. The patient was complaining over the last 24 to 48 hours of headaches, dizziness and was found to have blood sugars over 400 and approaching 500 an elevated blood sugar by the visiting nurse. The patient was unable to be controlled at home, was brought to the emergency room, again was found to be severely hyperglycemic and hypertensive and admitted to hospital. PHYSICAL EXAMINATION GENERAL: This is a well-developed, slightly obese white male in no apparent distress. HEENT: . CARDIOPULMONARY: Regular sinus. No S3, S4, murmur. CHEST: Clear to auscultation and percussion. ABDOMEN: Obese, but benign. EXTREMITIES: No cyanosis, clubbing or edema. There is ongoing podiatric treatment of the right foot for recent history of cellulitis and ischemic joint disease. There were several missing toes on both feet. NEUROLOGIC: Grossly intact. LABORATORY DATA: On admission showed a 525 blood sugar which is now 236. BUN and creatinine normal. Troponin has been negative. He did have a head CT which showed mild atrophy. No mass. No hemorrhage. Definitely calcification and perivascular subcortical white matter disease, no hydrocephalus, otherwise unremarkable. Chest x-ray was normal. IMPRESSION: The patient admitted to emergency room. As his blood sugars attempted to be controlled, his blood pressure medications restarted and increased to control his blood pressure. PLAN: To control blood sugars, endocrinology consult, blood pressure control, podiatry consultation and beginning of physical therapy. Rasta Cavazos MD
[2016-12-07] MEDS: Sodium Chloride 0.9% 1,000 ML IV SCH (01:50)
--- NOTE | 2016-12-07 01:59 | CON ---
ENDOCRINOLOGY CONSULTATION ROOM: 276. HISTORY OF PRESENT ILLNESS: This is a 61-year-old male with known history of type 2 insulin-requiring diabetes and hypertension with significant cardiac vasculopathy who presents with near syncopal episode and associated hyperglycemic acceleration and is now being referred for diabetic evaluation and management. PAST MEDICAL HISTORY: As mentioned above history of type 2 insulin-requiring diabetes on high-dose insulin drug combination using Levemir at 85 units subcutaneous t.i.d. with NovoLog given at 45 units subcutaneous t.i.d. before meals as noted. He is also on Victoza injection given at 0.6 mg subcutaneous twice daily as ordered. History of diabetic retinopathy, polyneuropathy and nephropathy as noted. He also has painful nocturnal paresthesias and has been using Lyrica given at 75 mg b.i.d., history of coronary artery disease with previous coronary artery bypass graft surgery and subsequent stent placement for stenosis, history of transient ischemic events with prior cerebrovascular disease as noted, history of significant peripheral arterial disease and vasculopathy and had a prior toe amputation first and second toe of the right foot in 2016, history of COPD related to nicotine dependence, history of generalized anxiety and depression currently on Risperdal medication as noted. FAMILY HISTORY: Positive for hypertension and diabetes. SOCIAL HISTORY: Patient admits to previous nicotine dependence, but quit 13 years ago. The patient has a supportive family. Otherwise, no known substance abuse. REVIEW OF SYSTEMS: As mentioned above, admits to generalized body weakness with easy fatigability and tiredness and suboptimal energy level. Also admits to episodic bouts dizziness and lightheadedness, worse on the day of admission with an apparent near syncopal event. No recent chest pain, palpitations or PND. His oral intake has been variable and suboptimal with nausea, dyspepsia and vague upper abdominal pain. He also admits to habitual constipation with persistent polyuria, nocturia, and polydipsia. PHYSICAL EXAMINATION: GENERAL: This is an overweight male, in no apparent distress. VITAL SIGNS: Blood pressure 190/112, pulse of 76 per minute and regular, temperature is 99, respirations are 20, height is 5 feet 8 inches, weight is 243 pounds. HEENT: Head normocephalic. Eyes anicteric with pink conjunctivae. Funduscopy not possible at this time. Ears, nose and throat otherwise normal. NECK: Supple. Thyroid gland is normal in size. No carotid bruits or cervical adenopathy. CARDIOPULMONARY: Adynamic precordium. S1 and S2 is rapid and regular. LUNGS: Clear to auscultation. ABDOMEN: Flat and soft with positive bowel sounds. EXTREMITIES: No peripheral edema. Pulses are +2 bilaterally. LABORATORY DATA: Chemistry showed BUN of 23, sodium 131, potassium 4.4, chloride 95, CO2 of 27, glucose 525, creatinine 1.2. His glucose levels have ranged from 227 to 318 and 361 mg/dL. ASSESSMENT: This is a 61-year-old male with uncontrolled, decompensated type 2 insulin-requiring diabetes with detrimental increased insulin resistance and presenting here with persistent hyperglycemic acceleration and a witnessed near syncopal event, currently undergoing neurological workup. He also has diabetic microvascular complications of retinopathy, polyneuropathy and early nephropathy. He also has microvascular complications of cerebrovascular disease with previous transient ischemic event and significant coronary artery disease with prior coronary artery bypass graft surgery and subsequent stent placement with marked peripheral arterial vasculopathy and prior toe amputation of the right first and second toe. Plan and management was discussed with the patent and staff. We will modify his current basal and bolus insulin regimen and modify the Humalog to 40 units subcutaneous t.i.d. before meals as ordered to start today. We will also modify the Levemir to 90 units subcutaneous every 12 hours at 10 a.m. and 10 p.m. daily as ordered. We will modify the coverage scale to avoid hypoglycemia and detailed orders have been given. We will discuss with the patient the possibility of using an insulin pump for more optimal metabolic control as indicated. We will obtain serial chemistries and supplement accordingly as needed. We will followup again with the patient. Maki Marmolejo MD
[2016-12-07 06:12] VITALS: O2SAT 94
[2016-12-07 07:02] LABS: ALB/GLOB RATIO 0.9 (1.1-1.8); ALKALINE PHOSPHATASE 82 U/L (38-133); ALT/SGPT 24 U/L (7-56); AST/SGOT 21 U/L (15-59); BILIRUBIN,TOTAL 0.5 mg/dL (0.2-1.3); BLOOD UREA NITROGEN 16 mg/dL (7-21); CALCIUM 8.4 mg/dL (8.4-10.5); CARBON DIOXIDE 23 mmol/L (21-33); CHLORIDE 102 mmol/L (98-107); CHOLESTEROL 149 mg/dL (130-200); GFR AFRICAN-AMERICAN > 60; GLUCOSE,RANDOM 172 mg/dL (70-110); POTASSIUM 3.6 mmol/L (3.6-5.0); SODIUM 134 mmol/L (132-148); TOTAL PROTEIN 6.8 g/dL (5.8-8.3)
[2016-12-07] MEDS: Insulin Lispro (humaLOG) LOW Coverage SC SCH ×2 (07:46→11:49)
[2016-12-07] MEDS: Insulin Lispro 1 UNITS/0.01 ML SC SCH ×2 (07:56→12:07)
[2016-12-07] MEDS: Potassium Chloride 10 mEq ER Tab PO SCH (09:30)
[2016-12-07] MEDS: Insulin Detemir 100 units/ml Vial (Levemir) SC SCH (09:41)
[2016-12-07] MEDS ORDERED: Pantoprazole 40 mg EC Tab PO SCH (10:00)
--- NOTE | 2016-12-07 10:20 | PN ---
DATE: SUBJECTIVE: A 61-year-old male admitted to the hospital with hypertension and hyperglycemia. The patient is markedly improved today. Blood sugar is down to 172. PHYSICAL EXAMINATION GENERAL: He is awake, alert and oriented x3. VITAL SIGNS: Blood pressure is down to 133/75. The patient is afebrile. Vital signs stable. NEUROLOGIC: Grossly intact CHEST: Clear to auscultation and percussion. HEART: Regular sinus rhythm. unremarkable DIAGNOSTIC DATA: X-rays including CT of the head, chest x-ray were normal. The patient is seen in consultation by Dr. Chaves for his chronic ongoing ischemic and diabetic foot disease. The patient is tolerating diet well. The patient most likely will be discharged after seen by Dr. Chaves today. Rasta Cavazos MD
[2016-12-07 12:09] VITALS: BP 156/87; PULSE 68; RESP 20; TEMP 98.6
--- NOTE | 2016-12-07 13:36 | RAD ---
PROCEDURE: Right Foot Radiographs. HISTORY: right 2nd toe ulcer COMPARISON: 11/29/2016 FINDINGS: BONES: There has been amputation at the level of the neck of the 1st and 2nd metatarsal JOINTS: Normal. SOFT TISSUES: Normal. OTHER FINDINGS: None. IMPRESSION: There has been amputation at the level of the neck of the 1st and 2nd metatarsal
--- NOTE | 2016-12-07 15:11 | CON ---
HISTORY OF PRESENT ILLNESS: A 61-year-old male, well known to the [facility] team, seen at bedside for consultation, evaluation and management of chronic diabetic ulceration to his right amputation site and his hallux and on a dorsal aspect of his second toe. PAST MEDICAL HISTORY: Significant for long-standing uncontrolled insulin-dependant diabetes with peripheral arterial disease and peripheral neuropathy, essential hypertension, and cardiac vasculopathy. SOCIAL HISTORY: The patient was a former heavy smoker; quit approximately 13 years ago. Denies illicit drug use. Does not drink alcohol. FAMILY HISTORY: Has a strong family history for diabetes and hypertension. HOME MEDICATIONS: Noted in JUL. ALLERGIES: THE PATIENT HAS NO KNOWN DRUG ALLERGIES. PHYSICAL EXAMINATION: VITAL SIGNS: Reveal temperature of 98.9, pulse rate of 65, blood pressure of 133/75, respiratory rate of 18. LABORATORY FINDINGS: Reveal a white count of 7.7, hemoglobin of 12.3, hematocrit of 34.7 and platelet count of 235. OBJECTIVE: Nonpalpable pedal pulses noted bilaterally. Absent pedal hair growth noted bilaterally. The patient is unable to detect 5.07 gram monofilament wire testing bilaterally. There is no amputated right hallux. Right hallux amputation side presents with a small non-stageable ulceration that measures approximately 0.3 x 0.3 x 0.2 cm. The base of the ulceration is granular with minimal serous drainage. The wound does not probe to tendon or bone. There is no purulence. Right second digit presents with a full thickness ulceration at the proximal interphalangeal joint dorsally that measures approximately 0.3 x 0.3 x 0.2 cm. The base of the ulceration is a mixture of fibrotic and necrotic tissue. There is no drainage. There is no purulence. The wound does not probe to tendon or bone. ASSESSMENT: Diabetic ulcerations to the right foot with no clinical signs of acute bacterial infection. PLAN: The patient was examined. The wounds were cleansed with normal sterile saline. We applied to the right second digit with a dry sterile dressing and a dry sterile dressing to the resolving hallux ulceration. We will order x-rays to rule out osteomyelitis at the right second digit. The patient will be seen in followup daily. Gerson Chaves DPM [facility] # [id number] KADEEM
--- NOTE | 2016-12-07 19:05 | PN ---
LOCATION: Room 276. SUBJECTIVE: This is a 61-year-old male with recent uncontrolled type 2 insulin requiring diabetes, presenting here with near syncope and undergoing a cardiac and neurologic workup and is also being followed closely for metabolic management. His glycemic levels are fluctuating but much improved at this time and the latest glucose levels have ranged from 86 to 196 mg/dL. The latest chemistry shows a BUN of 16, sodium 134, potassium 3.6, chloride 102, CO2 of 23, glucose 122, and creatinine 1.1. His TSH is 3.29. ASSESSMENT: This is a 61-year-old male with uncontrolled and decompensated type 2 insulin requiring diabetes with tremendous increased insulin resistance and very hefty insulin requirements as noted. He also is diabetic microvascular complications of retinopathy, polyneuropathy, and nephropathy. As noted, he also has diabetic macrovascular complications of coronary artery disease with the previous coronary artery bypass graft surgery and stent placement with cerebrovascular disease in the previous transient ischemic event and also underlying peripheral arterial disease and vasculopathy with previous toe amputations in the right foot as mentioned. PLAN OF MANAGEMENT: As discussed with the patient and staff, we will modify his current basal and bolus insulin regimen and keep the same dose to allow for dose equilibration with Levemir to be given as 90 units subQ every 12 hours at 10 a.m. and 10 p.m. daily as ordered. We will continue the Humalog given as 40 units subQ t.i.d. before meals as given. We will modify the coverage scale using a low-dose algorithm to avoid hypoglycemia and detailed orders have been given. We will obtain serial chemistries and supplement accordingly as needed. We will follow. Maki Marmolejo MD
--- NOTE | 2016-12-08 04:13 | DS ---
HISTORY OF PRESENT ILLNESS: A 61-year-old white male with insulin-dependent diabetes mellitus, peripheral vascular disease and CAD. The patient was admitted with hypertension and hyperglycemia, improved significantly. He is being discharged home in improved condition. He was seen in consultation by Dr. Chaves. Enzymes were negative. CT of the head and chest were normal and vital signs were stable. The patient will be discharged home in improved condition to follow as an outpatient. FINAL DISCHARGE DIAGNOSES: Accelerated hypertension, hyperglycemia, insulin-dependent diabetes mellitus, coronary artery diseases, peripheral vascular disease, diabetic ischemic foot disease, obesity and bipolar depression. Rasta Cavazos MD
== END 2016-12-07 16:26 | disposition home or self-care (01) ==
LOC: ED 19:18 → ERH 23:06 → 2RSO 12-06 00:37
PROVIDERS: ADMIT Internal Medicine; ATTEND Internal Medicine
DX: E11.65 Type 2 diabetes mellitus with hyperglycemia (principal); E11.621 Type 2 diabetes mellitus with foot ulcer; L97.519 Non-pressure chronic ulcer of other part of right foot with unspecified severity; E11.51 Type 2 diabetes mellitus with diabetic peripheral angiopathy without gangrene; E11.42 Type 2 diabetes mellitus with diabetic polyneuropathy; E11.21 Type 2 diabetes mellitus with diabetic nephropathy; E11.319 Type 2 diabetes mellitus with unspecified diabetic retinopathy without macular edema; R55 Syncope and collapse; I25.10 Atherosclerotic heart disease of native coronary artery without angina pectoris; F31.9 Bipolar disorder, unspecified; J44.9 Chronic obstructive pulmonary disease, unspecified; F41.9 Anxiety disorder, unspecified; I10 Essential (primary) hypertension; Z79.4 Long term (current) use of insulin; E66.9 Obesity, unspecified; Z89.422 Acquired absence of other left toe(s); Z89.421 Acquired absence of other right toe(s); Z95.5 Presence of coronary angioplasty implant and graft; Z95.1 Presence of aortocoronary bypass graft; Z87.891 Personal history of nicotine dependence
CPT/HCPCS: 36415; 70450; 71010; 73630; 80053; 80061; 82550; 82948; 83036; 83615; 84443; 84484; 85027; 85610; 85730; 93005; 96372; 99285; G0378; J7040

== ENCOUNTER 2017-07-04 14:25 | Inpatient (IN) | payer MEDICARE, OTHER ==
--- NOTE | 2017-07-04 14:58 | ED PDOC ---
Arrival/HPI - General Chief Complaint: Medical Clearance Time Seen by Provider: 07/04/17 14:33 Historian: Patient - History of Present Illness Narrative History of Present Illness (Text): 07/04/17 14:54 Malik Holley is a 61 year old male, whose past medical history includes hypertension, diabetes,CAD,CABG and peripheral vascular disease, presents to the Emergency department complaining of generalized weakness since yesterday. Patient stated symptoms have been progressively worsen. He feels his blood pressure is low, and he is urinating " a lot". He feels his "sugar is elevated ". Patient stated to be compliant with his medication. Patient denies sob, cp , abdominal pain, hematuria, dysuria, syncope, n/v, dizziness or abnormal gait. Time/Duration: Other (see hpi) Context: Home Past Medical History - Provider Review Nursing Documentation Reviewed: Yes - Infectious Disease Hx of Infectious Diseases: None - Tetanus Immunization Tetanus Immunization: Unknown - Cardiac Hx Cardiac Disorders: Yes Hx Hypertension: Yes - Pulmonary Hx Respiratory Disorders: Yes Hx Pneumonia: Yes - Neurological Hx Neurological Disorder: Yes Hx Transient Ischemic Attacks (TIA): Yes - HEENT Hx HEENT Disorder: No - Renal Hx Renal Disorder: No - Endocrine/Metabolic Hx Endocrine Disorders: Yes Hx Diabetes Mellitus Type 1: Yes (insulin dependant) - Hematological/Oncological Hx Blood Disorders: Yes Hx Anemia: Yes - Integumentary Hx Dermatological Disorder: No Other/Comment: cellulitis rle,. gangrene 1st and 2nd toes R foot (toes amputated in apr 2016) - Musculoskeletal/Rheumatological Hx Musculoskeletal Disorders: Yes Hx Unsteady Gait: Yes (cane/walker) - Gastrointestinal Hx Gastrointestinal Disorders: Yes Hx Gastroesophageal Reflux: Yes - Genitourinary/Gynecological Hx Genitourinary Disorders: No Hx Prostate Problems: No - Psychiatric Hx Psychophysiologic Disorder: Yes Hx Substance Use: No - Surgical History Hx Amputation: No Other/Comment: toes apmutated on R foot due to diabetes. - Anesthesia Hx Anesthesia: Yes Hx Anesthesia Reactions: No Hx Malignant Hyperthermia: No - Suicidal Assessment Feels Threatened In Home Enviroment: No Family/Social History - Physician Review Nursing Documentation Reviewed: Yes Family/Social History: Other (noncontributory) Smoking Status: Former Smoker Hx Alcohol Use: Yes (former) Hx Substance Use: No Hx Substance Use Treatment: No Allergies/Home Meds Allergies/Adverse Reactions: Allergies No Known Allergies Allergy (Verified 07/04/17 14:39) Home Medications: Home Meds Medication Instructions Recorded Confirmed Clopidogrel [Plavix] 75 mg PO DAILY 11/07/16 12/05/16 Dexlansoprazole [Dexilant] 60 mg PO DAILY 11/07/16 12/05/16 Insulin Aspart, Recombinant 45 units SQ TID 11/07/16 12/05/16 [Novolog] Isosorbide 60 mg PO DAILY 11/07/16 12/05/16 Liraglutide [Victoza 2-Dangelo] 0.6 mg SQ BID 11/07/16 12/05/16 Losartan [Cozaar] 50 mg PO BID 11/07/16 12/05/16 Tamsulosin [Flomax] 0.4 mg PO DAILY 11/07/16 12/05/16 Furosemide [Lasix] 1 tab PO DAILY 12/05/16 12/05/16 Metoprolol Tartrate [Lopressor] 1 cap PO BID 12/05/16 12/05/16 oxyCODONE/Acetaminophen [Percocet 1 cap PO BID 12/05/16 12/05/16 5/325 mg Tab] Review of Systems - Review of Systems Constitutional: Fatigue. absent: Weight Change, Fevers Eyes: Normal ENT: Normal. absent: Sore Throat, Rhinorrhea Respiratory: Normal. absent: SOB, Cough, Sputum, Wheezing Cardiovascular: Normal. absent: Chest Pain, Palpitations Gastrointestinal: Normal. absent: Abdominal Pain, Nausea, Vomiting Genitourinary Male: Normal. absent: Dysuria, Frequency, Hematuria Musculoskeletal: Normal. absent: Back Pain, Neck Pain Skin: Normal. absent: Rash Neurological: absent: Headache, Dizziness, Focal Weakness, Gait Changes, Speech Changes, Facial Droop, Disequilibrium, Seizure Endocrine: Normal Hemo/Lymphatic: Normal Psychiatric: Normal Physical Exam Vital Signs Temp Pulse Resp BP Pulse Ox 07/04/17 17:08 68 18 136/65 99 07/04/17 14:44 98.0 F 70 18 138/66 99 Temperature: Afebrile Blood Pressure: Normal Pulse: Regular Respiratory Rate: Normal Appearance: Positive for: Well-Appearing, Non-Toxic, Comfortable Pain Distress: None Mental Status: Positive for: Alert and Oriented X 3 Finger Stick Blood Glucose: 208 - Systems Exam Head: Present: Atraumatic, Normocephalic Pupils: Present: PERRL Extroacular Muscles: Present: EOMI Conjunctiva: Present: Normal Mouth: Present: Moist Mucous Membranes Neck: Present: Normal Range of Motion Respiratory/Chest: Present: Clear to Auscultation, Good Air Exchange. No: Respiratory Distress, Accessory Muscle Use, Wheezes, Retracting, Rhonchi Cardiovascular: Present: Regular Rate and Rhythm, Normal S1, S2. No: Murmurs Abdomen: Present: Normal Bowel Sounds. No: Tenderness, Distention, Peritoneal Signs, Rebound, Guarding Back: Present: Normal Inspection. No: CVA Tenderness Upper Extremity: Present: Normal Inspection, Normal ROM, NORMAL PULSES, Neurovascularly Intact, Capillary Refill < 2s. No: Cyanosis, Edema Lower Extremity: Present: Normal Inspection, NORMAL PULSES, Normal ROM. No: Edema Neurological: Present: GCS=15, CN II-XII Intact, Speech Normal, Motor Func Grossly Intact, Normal Sensory Function, Normal Cerebellar Funct, Gait Normal Skin: Present: Warm, Dry, Normal Color. No: Rashes Psychiatric: Present: Alert, Oriented x 3, Normal Insight, Normal Concentration Medical Decision Making ED Course and Treatment: 07/04/17 18:15 I spoke with Courtney Mccrary, Nurse practitioner, who is taking calls from Dr. Cavazos's office. I reviewed case with her including labs, cxr, and regarding generalized weakness, with elevated BNP. And changes of EKG with t- wave inversion , not seen on previous EKG. She agrees with remote telemetry, admission. Re-evaluation Time: 18:18 Reassessment Condition: Re-examined, Improving,but remains with symptoms - Lab Interpretations Lab Results: 07/04/17 15:20 07/04/17 15:20 Lab Results 07/04/17 15:20: Sodium 137, Potassium 4.9, Chloride 100, Carbon Dioxide 27, Anion Gap 15, BUN 16, Creatinine 1.5, Est GFR ( Amer) 58, Est GFR (Non- Af Amer) 48, Random Glucose 308 H* D, Calcium 10.0, Total Bilirubin 0.8, AST 25 , ALT 37, Alkaline Phosphatase 123, Lactate Dehydrogenase 450, Total Creatine Kinase 42, Troponin I 0.02 D, NT-Pro-B Natriuret Pep 1190 H, Total Protein 7.9 , Albumin 4.1, Globulin 3.9, Albumin/Globulin Ratio 1.1 07/04/17 15:20: WBC 9.6 D, RBC 4.75, Hgb 14.2, Hct 40.9 L, MCV 86.1, MCH 29.9, MCHC 34.7, RDW 14.5, Plt Count 254, MPV 9.8, Gran % 81.8 H, Lymph % (Auto) 11.9 L, [place] % (Auto) 5.0, Eos % (Auto) 0.9 L, Baso % (Auto) 0.4, Gran # 7.87 H, Lymph # (Auto) 1.1 L, [place] # (Auto) 0.5, Eos # (Auto) 0.1, Baso # (Auto) 0.04 07/04/17 14:39: POC Glucose (mg/dL) 208 H I have reviewed the lab results: Yes Interpretation: Abnormal lab values - RAD Interpretation Narrative RAD Interpretations (Text): 07/04/17 15:09 Chest x-rays: NAD Radiology Orders: 07/04/17 14:52 CHEST PORTABLE [RAD] Stat - EKG Interpretation Interpreted by ED Physician: Yes (Sinus bradycardia @ [address] changes) Type: 12 lead EKG Comparison: Different from prev. EKG (new t-wave inversions, V1, V2, V3) Disposition/Present on Arrival - Present on Arrival Any Indicators Present on Arrival: No History of DVT/PE: No History of Uncontrolled Diabetes: Yes Urinary Catheter: No History of Decub. Ulcer: No History Surgical Site Infection Following: None - Disposition Have Diagnosis and Disposition been Completed?: Yes Diagnosis: Generalized weakness, Hyperglycemia, CHF exacerbation Disposition: HOSPITALIZED Disposition Time: 18:21 Patient Plan: Admission Condition: STABLE Discharge Instructions (ExitCare): Weakness (ED), Heart Failure (ED) Referrals: [facility], [Non-Staff] - Follow up with primary Rasta Cavazos MD [Primary Care Provider] - Follow up with primary Forms: [facility] (Cuban)
[2017-07-04 15:38] LABS: BASO # 0.04 K/mm3 (0.0-2.0); BASO % 0.4 % (0.0-3.0); EOS # 0.1 (0.0-0.7); EOS % 0.9 % (1.5-5.0); GRAN # 7.87 (1.4-6.5); GRAN % 81.8 % (50.0-68.0); HEMOGLOBIN 14.2 g/dL (14.0-18.0); LYMPH # 1.1 (1.2-3.4); LYMPH % 11.9 % (22.0-35.0); MEAN CELL VOLUME 86.1 fl (80.0-105.0); MEAN CORPUSCULAR HEMOGLOBIN 29.9 pg (25.0-35.0); MEAN CORPUSCULAR HGB CONC 34.7 g/dl (31.0-37.0); MEAN PLATELET VOLUME 9.8 fl (7.0-11.0); MONO # 0.5 (0.1-0.6); RBC 4.75 10^6/uL (3.5-6.1); RED CELL DISTRIBUTION WIDTH 14.5 % (11.5-14.5); WHITE BLOOD COUNT 9.6 10^3/ul (4.5-11.0)
--- NOTE | 2017-07-04 15:40 | RAD ---
HISTORY: generalized weakness COMPARISON: 12/05/2016 FINDINGS: LUNGS: No active pulmonary disease. PLEURA: No significant pleural effusion identified, no pneumothorax apparent. CARDIOVASCULAR: Mild cardiomegaly OSSEOUS STRUCTURES: Sternal wires VISUALIZED UPPER ABDOMEN: Normal. OTHER FINDINGS: None. IMPRESSION: No active disease.
[2017-07-04 16:16] LABS: ALB/GLOB RATIO 1.1 (1.1-1.8); ALBUMIN 4.1 g/dL (3.0-4.8); TROPONIN I 0.02 ng/mL
[2017-07-04] MEDS: Sodium Chloride 0.9% 1,000 ML IV STA ×2 (19:11→22:40)
--- NOTE | 2017-07-04 21:14 | CT ---
EXAM: CT Head Without Intravenous Contrast EXAM DATE/TIME: 07/04/2017 6:46 PM CLINICAL HISTORY: 61 years old, male; Signs and symptoms; Malaise or fatigue; Additional info: Generalized weakness TECHNIQUE: Axial computed tomography images of the head/brain without intravenous contrast. All CT scans at this facility use one or more dose reduction techniques, viz.: automated exposure control; ma/kV adjustment per patient size (including targeted exams where dose is matched to indication; i.e. head); or iterative reconstruction technique. COMPARISON: Prior head CT of 2016-12-05 FINDINGS: BRAIN: Stable appearance of extensive calcifications in the cerebellum bilaterally, involving the deep cerebellar nuclei, symmetric in appearance. Stable appearance of faint, curvilinear areas of hyperdensity in the occipital lobes bilaterally, greater on the right, which have a gyriform configuration, and most likely represent bilateral chronic cortical calcification. Areas of hypodensity in the white matter bilaterally, nonspecific in appearance, but most likely representing chronic small vessel ischemic changes, in a patient of this age. No significant acute abnormality identified. No acute hemorrhage seen within the brain. No acute extra-axial fluid collections visualized. No evidence of significant mass effect within the brain. VENTRICLES: No evidence of significant hydrocephalus. BONES/JOINTS: No acute fractures or other acute bony abnormality noted. SOFT TISSUES: No acute abnormality of the visualized soft tissues is seen. VASCULATURE: Atherosclerotic calcification. SINUSES: Visualized paranasal sinuses appear clear. MASTOID AIR CELLS: Mastoid air cells appear clear. IMPRESSION: - No acute findings seen within the brain. - Stable appearance of the brain compared to a prior CT. - Chronic cortical calcifications in the occipital lobes bilaterally, of uncertain etiology, but could represent cortical laminar necrosis related to a remote episode of cerebral hypoperfusion. - Extensive bilateral cerebellar calcifications, which may be physiologic in nature. - See above for remaining findings.
[2017-07-04] MEDS ORDERED: Oxycodone/Acetaminophen 5/325 mg Tab PO PRN (23:46)
[2017-07-05 00:07] VITALS: BMI 35.9
[2017-07-05] MEDS ORDERED: Insulin Detemir 100 units/ml Vial (Levemir) SC SCH (00:15)
--- NOTE | 2017-07-05 08:41 | CARD ---
APPROVED REPORT EKG Measurement Heart [id number] <Conclusion> Normal sinus rhythm with sinus arrhythmia Inferior infarct, age undetermined ST & T wave abnormality, LVH.
[2017-07-05] MEDS: Insulin Detemir 100 units/ml Vial (Levemir) SC SCH ×2 (09:05→21:41)
[2017-07-05] MEDS ORDERED: Insulin Lispro 1 UNITS/0.01 ML SC SCH ×2 (10:00)
[2017-07-05] MEDS ORDERED: INSULIN ASPART RECOMBINANT SQ SCH (10:00)
[2017-07-05] MEDS ORDERED: ISOSORBIDE 60 MG PO SCH (10:00)
[2017-07-05] MEDS: Potassium Chloride 10 mEq ER Tab PO SCH (10:01)
[2017-07-05 11:22] LABS: ALBUMIN 3.4 g/dL (3.0-4.8); ALT/SGPT 28 U/L (7-56); AST/SGOT 18 U/L (17-59); BLOOD UREA NITROGEN 15 mg/dL (7-21); CALCIUM 8.9 mg/dL (8.4-10.5); GFR AFRICAN-AMERICAN > 60; GFR NON-AFRICAN AMERICAN > 60
[2017-07-05 11:32] LABS: TROPONIN I 0.02 ng/mL
[2017-07-05] MEDS: Insulin Lispro 1 UNITS/0.01 ML SC SCH ×2 (11:43→17:28)
[2017-07-05] MEDS: Insulin Lispro (humaLOG) LOW Coverage SC SCH ×2 (17:07→21:41)
--- NOTE | 2017-07-05 20:53 | HP ---
HISTORY OF PRESENT ILLNESS: A 61-year-old white male with history of bipolar depression; CAD, history of open heart surgery; history of diabetic foot infection; insulin-dependent diabetes mellitus, poorly controlled; peripheral vascular disease; hypertension. The patient was seen recently in the office complaining of some shortness of breath. The patient was found to have blood sugars over 600 and became more severely short of breath, came to the hospital, found to have BNP elevated over 1200 consistent with congestive heart failure. Normal chest x-ray, normal BUN and creatinine, normal white count, H and H 14.2 and 40.9, blood pressure 105/65. Patient was admitted with mild congestive heart failure and severely uncontrolled hyperglycemia without DKA. Patient states that he has not been feeling well over the last 3 to 7 days. He denies fever or chills, did complain of shortness of breath. No chest pain. Positive lightheadedness, dizziness, and poorly controlled blood sugar. FAMILY HISTORY: Unremarkable. SOCIAL HISTORY: There is no travel history. PAST SURGICAL HISTORY: Only for heart surgery, diabetic foot infections and amputations, and recently healed foot infection. The patient is ambulatory and walking with a walker. PHYSICAL EXAMINATION: GENERAL: Shows a well-developed, slightly obese white male, in mild distress. HEENT: Essentially within normal limits. HEART: Regular sinus rhythm with ectopy. CHEST: Shows decreased breath sounds with some creps at both bases. ABDOMEN: Obese, soft, benign. EXTREMITIES: Without cyanosis, clubbing, or edema. There are poor pulses bilaterally and decreased sensation bilaterally consistent with diabetic neuropathy. IMPRESSION: Hyperglycemia, poorly controlled diabetes mellitus, mild congestive heart failure, coronary artery disease, bipolar depression, peripheral vascular disease, diabetic foot infection, and peripheral neuropathy. Rasta Cavazos MD
--- NOTE | 2017-07-05 23:30 | CON ---
DATE: 07/05/2017 REQUESTING PHYSICIAN: Dr. Cavazos. REASON FOR CONSULTATION: Syncope. HISTORY OF PRESENT ILLNESS: This is a 61-year-old man with complex past medical history including prior PCI with coronary bypass surgery, peripheral vascular disease, diabetes, and hypertension as well as prior syncope who was admitted after a near syncopal event at home. He also complains of generalized weakness. He had a syncopal event several months ago, but did not seek medical attention at that time. He denies any chest pain. He is unaware of any palpitations. PAST MEDICAL HISTORY: His past history is notable for the problems mentioned above. He has undergone prior peripheral vascular intervention as well as amputation of the two toes on his right foot. His gait is unstable and he requires a brace on his right leg. CURRENT MEDICATIONS AT HOME: Include Plavix, Dexilant, insulin, isosorbide, Victoza, Cozaar, Flomax, Lasix, metoprolol, and Percocet. ALLERGIES: NONE. SOCIAL HISTORY: He is a former smoker. He also has a history of alcohol abuse in the past. FAMILY HISTORY: Both parents were from age-related illness. REVIEW OF SYSTEMS: Ten-point review of systems is, otherwise, unremarkable. PHYSICAL EXAMINATION: GENERAL: He is a middle-aged male who appears comfortable at rest. VITAL SIGNS: His blood pressure is 132/70. The pulse is 70 in sinus, respirations of 16. He is afebrile. HEENT: No JVD. CHEST: Bilateral scattered rhonchi. HEART: PMI displaced laterally with systolic murmur in the lower left sternal border. ABDOMEN: Soft, nontender. Normoactive bowel sounds. EXTREMITIES: No edema. Amputation of the first two toes on the right foot are noted. Diminished pulses are noted distally. PSYCHIATRIC: Normal mood and affect. NEUROLOGIC: No gross motor or sensory is appreciable. DIAGNOSTIC DATA: Potassium is 3.8, BUN and creatinine 15 and 1.1, glucose 289. White count 9.6, hemoglobin and hematocrit 14.2 and 40.9 with a platelet count of 254,000. Two sets of cardiac enzymes were negative. BNP is 1190. Chest x-ray is a poor quality film with under penetration. Cardiac silhouette appears normal. Lung hoang appear unremarkable, but are not adequately visualized. Electrocardiogram reveals sinus rhythm with remote possibility for myocardial infarction, nonspecific ST-T abnormalities as well as LVH. IMPRESSION: 1. Near syncope, etiology unclear. 2. Known coronary artery disease, status post prior bypass surgery, appears stable at present. 3. Gait instability due to neuropathy and prior amputation. 4. History of diabetes with evidence of end-organ damage. RECOMMENDATIONS: Telemetry monitoring should continue. An echocardiogram will be ordered and reviewed. His current medications should continue for now. Further recommendations will be made based upon the review of the above and his clinical course. Thank you for this consultation. Santhosh Vazquez MD MTDD
--- NOTE | 2017-07-05 23:53 | CON ---
DATE: ENDOCRINOLOGY CONSULTATION LOCATION: Room 362. HISTORY OF PRESENT ILLNESS: This is a 61-year-old male with known history of type 2 insulin-requiring diabetes, admitted here with generalized body weakness and supervening hyperglycemic accelerations and is now being referred for diabetic evaluation and management. PAST MEDICAL HISTORY: As mentioned above, history of type 2 insulin-requiring diabetes, actually on a combination of Levemir given as 90 units b.i.d. with NovoLog given as 45 units b.i.d. as noted; history of hypertensive cardiovascular disease and dyslipidemia; history of previous transient ischemic event with no residual weakness; also history of coronary artery disease with coronary artery bypass graft surgery and also significant peripheral arterial disease and vasculopathy. He underwent a prior amputation of the first and second toes in the right foot as noted. History of previous admissions for right lower extremity cellulitis as noted. FAMILY HISTORY: Positive for hypertension and diabetes. SOCIAL HISTORY: Patient admits to being a previous smoker, but has quit some years ago, has a supportive family otherwise and no other substance use. REVIEW OF SYSTEMS: As mentioned above. Admits to generalized body weakness with progressively worsening dizziness and lightheadedness, worse on the day of admission. Also admits to bifrontal headaches and visual blurring as noted. No chest pains or palpitations or PNDs, but admits to progressive shortness of breath especially on exertion. His oral intake has been variable with nausea and dyspepsia and episodic vague upper abdominal pain. Also admits to persistent polyuria and nocturia as noted. Also admits to habitual constipation. PHYSICAL EXAMINATION: GENERAL: This is an overweight male, in no apparent distress. VITAL SIGNS: Blood pressure of 150/90, pulse of 80 beats per minute and regular, temperature 98, respirations 20, height is 5 feet 8 inches, weight is 236 pounds. HEENT: Head normocephalic. Eyes anicteric with pink conjunctivae. Funduscopy not possible at this time. Ears, nose and throat otherwise normal. NECK: Supple. Thyroid gland is normal size. No carotid bruits or cervical adenopathy. CARDIOPULMONARY: Some adynamic precordium. S1, S2 is rapid and regular. LUNGS: Clear to auscultation. ABDOMEN: Flat, soft with positive bowel sounds. EXTREMITIES: No peripheral edema. Pulses are diminished peripherally. LABORATORY DATA: Chemistry showed initial BUN of 16, sodium 137, potassium 4.9, chloride 100, CO2 of 27, glucose 308 and creatinine 1.5. His ProBNP is 1190. The subsequent glucose levels have ranged from 226 to 294 mg/dL. ASSESSMENT: This is a 61-year-old male with recent uncontrolled type 2 insulin requiring diabetes, presenting here with generalized body weakness and supervening congestive heart failure on the background of significant ischemic cardiomyopathy as noted. He also has diabetic microvascular complications of retinopathy and polyneuropathy with diabetic microvascular complications of cerebrovascular disease with coronary artery disease and peripheral arterial disease and vasculopathy as mentioned. PLAN OF MANAGEMENT: As discussed with the patient's staff, we will modify his current insulin regimen as he clearly has marked insulin resistance with supervening higher insulin requirements as noted thereof to override the underlying insulin resistance. We will add Humalog given as 12 units subcu at lunch time to start today as ordered. We will also increase the Humalog to 48 units subcu b.i.d. before breakfast and dinner as ordered to start tonight. We will modify the coverage scale to obviate hypoglycemia and detailed orders have been given for very low-dose algorithm using Humalog insulin as ordered. We will continue the basal insulin with Levemir given as 90 units subcu every 12 hours as ordered. We will obtain serial chemistries and supplement accordingly needed. We will also obtain a hemoglobin A1c if not already ordered to document his previous outpatient diabetic control. A lipid panel and thyroid studies will also be ordered for tomorrow. We will initiate diabetic education and dietary instructions also at the time of this admission. Maki Marmolejo MD
[2017-07-06 08:41] LABS: ALBUMIN 3.3 g/dL (3.0-4.8); ALT/SGPT 27 U/L (7-56); AST/SGOT 20 U/L (17-59); BLOOD UREA NITROGEN 17 mg/dL (7-21); CALCIUM 8.9 mg/dL (8.4-10.5); GFR AFRICAN-AMERICAN > 60; GFR NON-AFRICAN AMERICAN > 60; HDL CHOLESTEROL 28 mg/dL (29-60)
[2017-07-06] MEDS: Insulin Lispro (humaLOG) LOW Coverage SC SCH ×4 (08:48→22:20)
--- NOTE | 2017-07-06 08:51 | CP.PCM.PN ---
Subjective - Date & Time of Evaluation Date of Evaluation: 07/06/17 Time of Evaluation: 07:00 - Subjective Subjective: Stable on 3R. He feels better. No CP or SOB. V/S noted. RSR PE: Lungs: clear Cor.: S1S2 Abd.: benign Ext.: no edema Neuro.: alert Labs noted. Echo done. Will read. Objective - Vital Signs/Intake and Output Vital Signs (last 24 hours): Temp Pulse Resp BP Pulse Ox 97.5 F L 80 18 153/74 H 97 07/06/17 08:31 07/06/17 08:31 07/06/17 08:31 07/06/17 08:31 07/06/17 08:31 Intake and Output: 07/06/17 07/06/17 06:59 18:59 Intake Total 400 Balance 400 - Medications Medications: Current Medications Clopidogrel Bisulfate (Plavix) 75 mg PO DAILY [facility] Last Admin: 07/05/17 10:03 Dose: 75 mg Furosemide (Lasix) 40 mg PO DAILY [facility] Last Admin: 07/05/17 10:01 Dose: 40 mg Insulin Detemir (Levemir) 90 unit SC Q12H [facility] Last Admin: 07/05/17 21:41 Dose: Not Given Insulin Human Lispro (Humalog) 12 units SC ACL [facility] Last Admin: 07/05/17 11:43 Dose: 12 units Insulin Human Lispro (Humalog) 48 units SC ACBD [facility] Last Admin: 07/05/17 17:28 Dose: 48 units Insulin Human Lispro (Humalog Low) 0 units SC ACHS [facility] PRN Reason: Protocol Last Admin: 07/05/17 21:41 Dose: Not Given Isosorbide Mononitrate (Imdur) 60 mg PO DAILY [facility] Last Admin: 07/05/17 10:01 Dose: 60 mg Losartan Potassium (Cozaar) 50 mg PO BID [facility] Last Admin: 07/05/17 17:36 Dose: Not Given Metoprolol Tartrate (Lopressor) 25 mg PO BID [facility] Last Admin: 07/05/17 17:37 Dose: Not Given Non-Formulary Medication (Dexlansoprazole [Dexilant]) 60 mg PO DAILY [facility] Last Admin: 07/05/17 10:00 Dose: Not Given Oxycodone/Acetaminophen (Percocet 5/325 Mg Tab) 1 tab PO Q6H PRN PRN Reason: Pain, severe (8-10) Stop: 07/07/17 23:47 Last Admin: 07/05/17 00:24 Dose: 1 tab Potassium Chloride (Klor-Con 10) 10 meq PO DAILY [facility] Last Admin: 07/05/17 10:01 Dose: 10 meq Pregabalin (Lyrica) 75 mg PO BID [facility] Last Admin: 07/05/17 17:35 Dose: 75 mg Risperidone (Risperdal Tab) 1 mg PO HS [facility] PRN Reason: Protocol Last Admin: 07/05/17 20:55 Dose: 1 mg Tamsulosin HCl (Flomax) 0.4 mg PO DAILY [facility] Last Admin: 07/05/17 10:00 Dose: 0.4 mg - Labs Labs: 07/06/17 08:00 Assessment and Plan - Assessment and Plan (Free Text) Assessment: Weakness/Unstable Gait/Syncope CAD/PCI/CABG 2011 Diabetes PN PAD/Toes amputated right LE HBP COPD/Former smoker H/O ETOH Plan: As per Endocrine/Dr. Dirk SKINNER as carina Check postural V/S Continue current cardiac meds Will read echo
[2017-07-06 08:52] LABS: LDL CHOLESTEROL 124 mg/dL (0-129)
--- NOTE | 2017-07-06 09:00 | CARD ---
APPROVED REPORT EXAM: Two-dimensional and M-mode echocardiogram with Doppler and color Doppler. Other Information Quality : AverageRhythm : INDICATION Syncope 2D DIMENSIONS Left Atrium (2D)4.2 (1.6-4.0cm)IVSd1.3 (0.7-1.1cm) LVDd5.1 (3.9-5.9cm)PWd1.3 (0.7-1.1cm) LVDs3.7 (2.5-4.0cm)FS (%) 26.3 % LVEF (%)51.0 (>50%) M-Mode DIMENSIONS Aortic Root3.40 (2.2-3.7cm)Aortic Cusp Exc.1.80 (1.5-2.0cm) Aortic Valve AoV Peak Shspgxtz809.0cm/s Mitral Valve MV E Iyarsxdz48.3cm/sMV A Xmhmhlck82.6cm/sE/A ratio1.3 TDI Lateral E' Peak V8.29cm/sMedial E' Peak V4.68cm/sE/Lateral E'11.0 E/Medial E'19.5 Pulmonary Valve PV Peak Xjkutdjz33.3cm/sPV Peak Grad.2mmHg Tricuspid Valve TR Peak Aqmmfqna189cc/sRAP [id number] Peak Gr.35mmHg [id number] LEFT VENTRICLE The left ventricle is normal size. There is mild concentric left ventricular hypertrophy. The left ventricular function is normal. The left ventricular ejection fraction is within the normal range. There is normal LV segmental wall motion. RIGHT VENTRICLE The right ventricle is normal size. ATRIA The left atrium is mildly dilated. The right atrium size is normal. The interatrial septum is intact with no evidence for an atrial septal defect. AORTIC VALVE The aortic valve is normal in structure. MITRAL VALVE The mitral valve is normal in structure. Mitral regurgitation is trace. TRICUSPID VALVE The tricuspid valve is normal in structure. There is mild tricuspid regurgitation. PULMONIC VALVE The pulmonic valve is not well visualized. GREAT VESSELS The aortic root is normal in size. PERICARDIAL EFFUSION There is no pericardial effusion. <Conclusion> The left ventricle is normal size. There is mild concentric left ventricular hypertrophy. The left ventricular function is normal.
[2017-07-06] MEDS: Insulin Lispro 1 UNITS/0.01 ML SC SCH ×3 (09:36→17:22)
[2017-07-06] MEDS: Potassium Chloride 10 mEq ER Tab PO SCH (09:37)
[2017-07-06] MEDS: Insulin Detemir 100 units/ml Vial (Levemir) SC SCH ×2 (09:38→21:14)
--- NOTE | 2017-07-07 02:27 | PN ---
DATE: ENDOCRINOLOGY FOLLOWUP NOTE SUBJECTIVE: This is a 61-year-old male with recent uncontrolled type 2 insulin-requiring diabetes, presenting here with congestive heart failure and underlying generalized body weakness and is now being followed closely for metabolic management. His glycemic levels are fluctuating, but much improved at this time and the latest glucose levels have ranged from 129 to 201 mg/dL. His latest chemistry showed a BUN of 17, sodium 141, potassium 4.1, chloride 109, CO2 21, glucose 146 and creatinine 1.2. So at this time, we will continue the same modified basal and bolus insulin regimen to allow for dose equilibration and keep him on the Humalog given as 48 units a.c. breakfast and 12 units a.c. lunch and 48 units a.c. dinner as ordered. We will continue also the basal insulin given twice daily with Levemir given as 90 units every 12 hours at 10:00 a.m. and 10:00 p.m. daily as ordered. We will also continue the low-dose correction scale using insulin as given. We will obtain serial chemistries and supplement accordingly needed. We will follow with you. Maki Marmolejo MD
--- NOTE | 2017-07-07 07:28 | DS ---
SUMMARY: A 61-year-old white male. The patient admitted with hyperglycemia, blood sugar is over 600, mild congestive heart failure. The patient has done well. Blood sugars are under 150. He is controlled. He has blood sugar . He has been tolerating physical therapy and occupational therapy. Patient was seen in consultation by Dr. Maki Marmolejo and Dr. Marino. The patient will be discharged home in improved condition to follow a diabetic diet. No snacks. No sugars. Insulin 90 units twice a day and before both meals. FINAL DISCHARGE DIAGNOSES: Poorly controlled insulin-dependent diabetes mellitus, hyperglycemia, congestive heart failure, coronary artery disease, bipolar depression, peripheral vascular disease and diabetic neuropathy. Rasta Cavazos MD
--- NOTE | 2017-07-07 08:26 | CP.PCM.PN ---
Subjective - Date & Time of Evaluation Date of Evaluation: 07/07/17 Time of Evaluation: 07:00 - Subjective Subjective: Stable on 3R. He feels better. No CP or SOB. V/S noted. RSR PE: Lungs: clear Cor.: S1S2 Abd.: benign Ext.: no edema Neuro.: alert I/O 120/925 recorded Labs noted. Echo: Nl LV with mild conc. LVH Objective - Vital Signs/Intake and Output Vital Signs (last 24 hours): Temp Pulse Resp BP Pulse Ox 98.1 F 77 19 137/65 98 07/06/17 16:00 07/06/17 18:00 07/06/17 16:00 07/06/17 17:23 07/06/17 16:00 Intake and Output: 07/07/17 07/07/17 06:59 18:59 Intake Total 540 120 Output Total 600 925 Balance -60 -805 - Medications Medications: Current Medications Clopidogrel Bisulfate (Plavix) 75 mg PO DAILY [facility] Last Admin: 07/06/17 09:40 Dose: 75 mg Furosemide (Lasix) 40 mg PO DAILY [facility] Last Admin: 07/06/17 09:37 Dose: 40 mg Insulin Detemir (Levemir) 90 unit SC Q12H [facility] Last Admin: 07/06/17 21:14 Dose: 90 unit Insulin Human Lispro (Humalog) 12 units SC ACL [facility] Last Admin: 07/06/17 12:08 Dose: 12 units Insulin Human Lispro (Humalog) 48 units SC ACBD [facility] Last Admin: 07/06/17 17:22 Dose: 48 units Insulin Human Lispro (Humalog Low) 0 units SC ACHS [facility] PRN Reason: Protocol Last Admin: 07/06/17 22:20 Dose: Not Given Isosorbide Mononitrate (Imdur) 60 mg PO DAILY [facility] Last Admin: 07/06/17 09:37 Dose: 60 mg Losartan Potassium (Cozaar) 50 mg PO BID [facility] Last Admin: 07/06/17 17:21 Dose: 50 mg Metoprolol Tartrate (Lopressor) 25 mg PO BID [facility] Last Admin: 07/06/17 17:23 Dose: 25 mg Non-Formulary Medication (Dexlansoprazole [Dexilant]) 60 mg PO DAILY [facility] Last Admin: 07/06/17 17:22 Dose: Not Given Oxycodone/Acetaminophen (Percocet 5/325 Mg Tab) 1 tab PO Q6H PRN PRN Reason: Pain, severe (8-10) Stop: 07/07/17 23:47 Last Admin: 07/05/17 00:24 Dose: 1 tab Potassium Chloride (Klor-Con 10) 10 meq PO DAILY [facility] Last Admin: 07/06/17 09:37 Dose: 10 meq Pregabalin (Lyrica) 75 mg PO BID [facility] Last Admin: 07/06/17 17:23 Dose: 75 mg Risperidone (Risperdal Tab) 1 mg PO HS [facility] PRN Reason: Protocol Last Admin: 07/06/17 22:24 Dose: 1 mg Tamsulosin HCl (Flomax) 0.4 mg PO DAILY [facility] Last Admin: 07/06/17 09:36 Dose: 0.4 mg - Labs Labs: 07/06/17 08:00 Assessment and Plan - Assessment and Plan (Free Text) Assessment: Weakness/Unstable Gait/Syncope CAD/PCI/CABG 2012 Diabetes, improved BS's now PN PAD/Toes amputated right LE HBP COPD/Former smoker H/O ETOH Plan: As per Endocrine/Dr. Dirk SKINNER as carina Continue current cardiac meds Home vs. Rehab being decided Out-pt cardiology F/U in our office if he wants.
[2017-07-07 08:36] VITALS: BP 160/95; PULSE 102; RESP 20; TEMP 98.4; O2SAT 97
[2017-07-07] MEDS: Insulin Lispro 1 UNITS/0.01 ML SC SCH (09:32)
[2017-07-07] MEDS: Potassium Chloride 10 mEq ER Tab PO SCH (09:33)
[2017-07-07] MEDS: Insulin Lispro (humaLOG) LOW Coverage SC SCH (09:33)
[2017-07-07] MEDS: Insulin Detemir 100 units/ml Vial (Levemir) SC SCH (09:34)
--- NOTE | 2017-07-07 14:30 | PN ---
DATE: SUBJECTIVE: This 61-year-old white male did not get discharged home yesterday because of evaluation by Physical Therapy the patient needed [facility]. The patient is being transferred to [facility] today. His blood sugars are better controlled. PHYSICAL EXAMINATION VITAL SIGNS: Stable. CHEST: Clear to auscultation and percussion. EXTREMITIES: Without cyanosis, clubbing or edema. IMPRESSION 1. Uncontrolled diabetes mellitus. 2. Peripheral vascular disease. Rasta Cavazos MD
--- NOTE | 2017-07-10 09:48 | PN ---
DATE: 07/07/2017 LOCATION: Room 362. SUBJECTIVE: This is a 61-year-old male with recent uncontrolled type 2 insulin-requiring diabetes, now being followed closely for metabolic management. His glucose levels are fluctuating but much improved at this time and the latest glucose levels have ranged from 92-121 and 154 mg/dL. His latest chemistry showed a BUN of 17, sodium 141, potassium 4.1, chloride 109, CO2 of 21, glucose 146 and creatinine 1.2. His hemoglobin A1c is 12.5%, which is actually markedly elevated and indicative of suboptimal metabolic control of his diabetic condition even prior to this admission. So at this time, we will continue the modified basal and bolus insulin regimen and keep his Levemir at 90 units subcu every 12 hours at 10:00 a.m. and 10:00 p.m. daily as given. We will also continue the Humalog given at a dosing of 48 units a.c. breakfast, 12 units a.c. lunch and 48 units a.c. dinner as ordered. We will titrate incrementally as indicated to optimize metabolic control. We will obtain serial chemistries and supplement accordingly as needed. We will follow this. Maki Marmolejo MD
== END 2017-07-07 12:35 | DRG 639 ==
LOC: ED 14:25 → ERH 18:22 → 3RNO 22:18
PROVIDERS: ADMIT Internal Medicine; ATTEND Internal Medicine
DX: E11.65 Type 2 diabetes mellitus with hyperglycemia (principal); I11.0 Hypertensive heart disease with heart failure; I50.9 Heart failure, unspecified; E11.42 Type 2 diabetes mellitus with diabetic polyneuropathy; E11.51 Type 2 diabetes mellitus with diabetic peripheral angiopathy without gangrene; E11.319 Type 2 diabetes mellitus with unspecified diabetic retinopathy without macular edema; I25.5 Ischemic cardiomyopathy; I25.10 Atherosclerotic heart disease of native coronary artery without angina pectoris; F31.9 Bipolar disorder, unspecified; R26.81 Unsteadiness on feet; J44.9 Chronic obstructive pulmonary disease, unspecified; R55 Syncope and collapse; Z79.4 Long term (current) use of insulin; Z95.1 Presence of aortocoronary bypass graft; Z87.891 Personal history of nicotine dependence

== ENCOUNTER 2017-12-23 20:46 | Inpatient (IN) | payer MEDICARE, OTHER ==
[2017-12-23 20:47] VITALS: BMI 25.5
[2017-12-23] MEDS ORDERED: Nitroglycerin 2% Ointment Foilpak UD TOP STA (21:03)
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
[2017-12-23 21:19] LABS: BASO # 0.04 K/mm3 (0.0-2.0); BASO % 0.4 % (0.0-3.0); EOS # 0.1 (0.0-0.7); EOS % 1.2 % (1.5-5.0); GRAN # 6.84 (1.4-6.5); GRAN % 74.5 % (50.0-68.0); LYMPH # 1.5 (1.2-3.4); LYMPH % 16.5 % (22.0-35.0); MEAN CELL VOLUME 81.4 fl (80.0-105.0); MEAN CORPUSCULAR HEMOGLOBIN 28.8 pg (25.0-35.0); MEAN CORPUSCULAR HGB CONC 35.4 g/dl (31.0-37.0); MEAN PLATELET VOLUME 9.6 fl (7.0-11.0); MONO # 0.7 (0.1-0.6); MONO % 7.4 % (1.0-6.0); RBC 4.51 10^6/uL (3.5-6.1); RED CELL DISTRIBUTION WIDTH 14.4 % (11.5-14.5); WHITE BLOOD COUNT 9.2 10^3/ul (4.5-11.0)
[2017-12-23 21:29] LABS: INR 1.15; PARTIAL THROMBOPLASTIN TIME 28.9 Seconds (25.1-36.5); PROTHROMBIN TIME 13.2 SECONDS (9.4-12.5)
[2017-12-23 21:38] LABS: ALBUMIN 3.8 g/dL (3.0-4.8); ALT/SGPT 17 U/L (7-56); AST/SGOT 22 U/L (17-59); BLOOD UREA NITROGEN 25 mg/dL (7-21); CALCIUM 9.5 mg/dL (8.4-10.5); GFR AFRICAN-AMERICAN > 60; GFR NON-AFRICAN AMERICAN 51
[2017-12-23 21:49] LABS: TROPONIN I < 0.01 ng/mL
[2017-12-23] MEDS ORDERED: Nitroglycerin 50mg in D5W 50 MG/250 ML BOTTLE IV PRN (21:49)
[2017-12-23] MEDS ORDERED: Aspirin 325 mg EC Tablets PO STA (22:03)
[2017-12-24] MEDS ORDERED: Insulin Reg-LOW-Coverage SC SCH (07:30)
--- NOTE | 2017-12-24 08:44 | CP.PCM.CON ---
History of Present Illness - History of Present Illness History of Present Illness: Awake, alert, complaints of chest pressure Reason for consultation:Cardiac evaluation of chest pain, history of coronary artery disease Brief history of present illness: A 62 year old male who came in to the ER due to chest pain at rest, while watching television. mid chest, non radiating. 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 Calzada Review of Systems - Review of Systems All systems: reviewed and no additional remarkable complaints except Review of Systems: HPI Past Patient History - Infectious Disease Hx of Infectious Diseases: None - Tetanus Immunizations Tetanus Immunization: Unknown - Past Social History Smoking Status: Former Smoker - CARDIAC Hx Cardiac Disorders: Yes Hx Hypertension: Yes Hx Peripheral Edema: Yes (PITTING) Hx Peripheral Vascular Disease: Yes (STENT TO RIGHT LEG) - PULMONARY Hx Respiratory Disorders: Yes Hx Pneumonia: Yes - NEUROLOGICAL Hx Neurological Disorder: Yes HX Cerebrovascular Accident: Yes Hx Transient Ischemic Attacks (TIA): Yes - HEENT Hx HEENT Problems: No - RENAL Hx Chronic Kidney Disease: No - ENDOCRINE/METABOLIC Hx Endocrine Disorders: Yes Hx Diabetes Mellitus Type 1: Yes - HEMATOLOGICAL/ONCOLOGICAL Hx Blood Disorders: Yes Hx Anemia: Yes (BLOOD TRANSFUSION) - INTEGUMENTARY Hx Dermatological Problems: Yes - MUSCULOSKELETAL/RHEUMATOLOGICAL Hx Falls: Yes - GASTROINTESTINAL Hx Gastrointestinal Disorders: Yes Hx Gastroesophageal Reflux: Yes - GENITOURINARY/GYNECOLOGICAL Hx Genitourinary Disorders: Yes Hx Prostate Problems: Yes (BPH) - PSYCHIATRIC Hx Substance Use: No - SURGICAL HISTORY Hx Surgeries: Yes Hx Amputation: Yes (RIGHT FIRST AND SECOND DIGIT) Hx Coronary Stent: Yes (2) Hx Open Heart Surgery: Yes - ANESTHESIA Hx Anesthesia: Yes Hx Anesthesia Reactions: No Hx Malignant Hyperthermia: No Meds Allergies/Adverse Reactions: Allergies Allergy/AdvReac Type Severity Reaction Status Date / Time No Known Allergies Allergy Verified 12/23/17 20:51 - Medications Medications: Current Medications Acetaminophen (Tylenol 325mg Tab) 650 mg PO Q4H PRN PRN Reason: Pain, Mild (1-3) Nitroglycerin/Dextrose (Nitroglycerin 50 Mg/250 Ml D5w) 50 mg in 250 mls @ 1.5 mls/hr IV .Q24H PRN; Protocol; 5 MCG/MIN PRN Reason: Systolic Blood Pressure Last Titration: 12/23/17 23:39 Dose: 10 mcg/min, 3 mls/hr Insulin Human Regular (Humulin R Low) 0 units SC ACHS [facility] PRN Reason: Protocol Last Admin: 12/24/17 08:09 Dose: 2 unit Physical Exam - Constitutional Appears: No Acute Distress - Eye Exam Eye Exam: Normal appearance - ENT Exam ENT Exam: Mucous Membranes Moist - Respiratory Exam Respiratory Exam: Decreased Breath Sounds, NORMAL BREATHING PATTERN - Cardiovascular Exam Cardiovascular Exam: REGULAR RHYTHM, +S1, +S2 Additional comments: chest pressure mid chest - GI/Abdominal Exam GI & Abdominal Exam: Normal Bowel Sounds, Soft - Neurological Exam Neurological exam: Alert, Oriented x3 - Psychiatric Exam Psychiatric exam: Normal Affect - Skin Skin Exam: Dry, Warm Results - Vital Signs Recent Vital Signs: Last Vital Signs Temp 98 F 12/24/17 06:00 Pulse 99 H 12/24/17 06:00 Resp 20 12/24/17 06:00 BP 148/106 H 12/24/17 06:00 Pulse Ox 97 12/24/17 06:00 - Labs Result Diagrams: 12/23/17 20:54 12/23/17 20:54 Assessment & Plan - Assessment and Plan (Free Text) Assessment: A 62 year old male who came in to the ER due to chest pain at rest, while watching television. mid chest, non radiating. history of coronary artery disease,post stents, open heart surgery, diabetes, peripheral vascular disease, post stent of right leg (03/2016) hypertension, bipolar disease,former smoker, CVA/TIA,anemia,GERD, BPH, right first and 2nd toe amputation.Admitted for unstable angina, started on nitroglycerin drip. [place] [facility] [place] [facility] [place] ECHO- LVEF 51 % Trace MR/TR, RVSP 45 mmHg 08/06/15-Stress test- Abnormal myocardial perfusion fixed mid anterior defectsuggestive of previous NC LVEF 53% 08/05/15-Carotid studies- 40 -59% proximal right ICA stenosis 20-39% proximal left ICA stenosis antegrade flow in both vertebral arteries Plan: Unstable angina, on Nitroglycerin Drip Increase Nitro drip Complaints of chest pressure non radiating at rest Troponin normal x 1 , will order 2 more levels Will order Stress test If abnormal troponin levels, will do cardiac cath in AM On Lipitor 20 mg daily,Plavix 75 mg daily,Lasix 40 mg daily, Lisinopril 40 mg daily Lopressor 50 mg BID Heart rate controlled Blood pressure uncontrolled, give morning antihypertensive, will reevaluate and adjust medications TSH and lipid panel continue current treatment Continue current medications Will follow up Plan and treatment discussed with Dr. Calzada Thank you for the opportunity of taking care of Mr. Malik Holley. - Date & Time Date: 12/24/17 Time: 07:00
--- NOTE | 2017-12-24 09:09 | RAD ---
Date of service: 12/23/2017 PROCEDURE: CHEST RADIOGRAPH, 1 VIEW HISTORY: Chest pain COMPARISON: Comparison chest 11/24/2017 FINDINGS: LUNGS: Mild bibasilar atelectasis and or scarring left greater than right. PLEURA: There appears to some mild pleural thickening right CP angle region. . CARDIOVASCULAR: Cardiomegaly. Sternotomy wires and CABG clips present OSSEOUS STRUCTURES: No significant abnormalities. VISUALIZED UPPER ABDOMEN: Normal. OTHER FINDINGS: None. IMPRESSION: Mild bibasilar atelectasis and or scarring left greater than right. Suspect mild right pleural thickening
[2017-12-24] MEDS ORDERED: Non Formulary Medication (Simvastatin [Zocor] 40 MG) PO SCH (10:00)
[2017-12-24] MEDS ORDERED: INSULIN ASPART RECOMBINANT SQ SCH (10:00)
[2017-12-24 10:15] LABS: TROPONIN I 0.06 ng/mL
[2017-12-24] MEDS: Enoxaparin 100 mg Syringe SC SCH ×2 (10:37→21:39)
--- NOTE | 2017-12-24 11:20 | CARD ---
APPROVED REPORT Date of service: 12/23/2017 EKG Measurement Heart [id number] ID [id number] <Conclusion> Sinus rhythm with premature atrial complexes Left anterior fascicular block Left ventricular hypertrophy with repolarization abnormality Inferior infarct, age undetermined Abnormal ECG
[2017-12-24] MEDS: Insulin Lispro (humaLOG) LOW Coverage SC SCH ×3 (12:18→21:39)
[2017-12-24] MEDS: Insulin Lispro 1 UNITS/0.01 ML SC SCH ×2 (12:25→17:00)
[2017-12-24 17:08] LABS: TROPONIN I 0.14 ng/mL
--- NOTE | 2017-12-24 19:56 | US ---
HISTORY: Leg pain and swelling. Evaluate for DVT PHYSICIAN(S): Gianni Massey MD. TECHNIQUE: Duplex sonography and color-flow Doppler with graded compression were used to evaluate the deep venous systems of both lower extremities. The exam is limited by body habitus and edema. FINDINGS: The visualized deep venous systems of both lower extremities are sonographically normal and compressible. Normal wave forms and augmentation are seen. There is no sonographic evidence for deep venous thrombosis in the visualized segments of both lower extremities. IMPRESSION: No sonographic evidence for deep venous thrombosis in the visualized segments of both lower extremities.
--- NOTE | 2017-12-24 22:15 | HP ---
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 Patient is wearing a right foot brace because of footdrop. He was admitted with recurrent chest pain, shortness of breath, nausea, some diaphoresis. He has a history of CAD and stent in the past. Patient has symptoms over the last 4 to 5 days. Denies any syncope, any fever, chills, nausea, vomiting or diarrhea. PHYSICAL EXAMINATION: GENERAL: Shows a well-developed, but slightly obese white male in no apparent distress. HEENT: Essentially within normal limits. HEART: Regular sinus rhythm. No significant murmurs. CHEST: Clear to auscultation and percussion. NECK: Carotids are without bruits. EXTREMITIES: Show decreased pulse bilaterally. Multiple toe amputations bilaterally, right foot brace for footdrop. Decreased sensation bilaterally. NEUROLOGIC: Otherwise grossly intact. IMPRESSION: This is a 62-year-old white male with insulin-dependent diabetes mellitus, peripheral neuropathy, diabetic foot infections, ischemic heart disease in the past, bipolar, depression, hypertension, admitted with chest pain. Rasta Cavazos MD
[2017-12-25 06:22] LABS: BASO # 0.03 K/mm3 (0.0-2.0); BASO % 0.3 % (0.0-3.0); EOS # 0.2 (0.0-0.7); EOS % 1.8 % (1.5-5.0); GRAN # 6.78 (1.4-6.5); GRAN % 77.4 % (50.0-68.0); HEMOGLOBIN 12.5 g/dL (14.0-18.0); LYMPH # 1.3 (1.2-3.4); LYMPH % 15.2 % (22.0-35.0); MEAN CELL VOLUME 81.8 fl (80.0-105.0); MEAN CORPUSCULAR HEMOGLOBIN 28.7 pg (25.0-35.0); MEAN CORPUSCULAR HGB CONC 35.1 g/dl (31.0-37.0); MEAN PLATELET VOLUME 9.3 fl (7.0-11.0); MONO # 0.5 (0.1-0.6); MONO % 5.3 % (1.0-6.0); RBC 4.35 10^6/uL (3.5-6.1); RED CELL DISTRIBUTION WIDTH 14.3 % (11.5-14.5); WHITE BLOOD COUNT 8.8 10^3/ul (4.5-11.0)
[2017-12-25 06:33] LABS: ALBUMIN 3.4 g/dL (3.0-4.8); ALT/SGPT 29 U/L (7-56); AST/SGOT 17 U/L (17-59); BLOOD UREA NITROGEN 19 mg/dL (7-21); CALCIUM 8.7 mg/dL (8.4-10.5); GFR AFRICAN-AMERICAN > 60; GFR NON-AFRICAN AMERICAN > 60; HDL CHOLESTEROL 26 mg/dL (29-60)
[2017-12-25 06:43] LABS: LDL CHOLESTEROL 102 mg/dL (0-129)
[2017-12-25 06:44] LABS: TROPONIN I 0.08 ng/mL
[2017-12-25] MEDS: Insulin Lispro (humaLOG) LOW Coverage SC SCH ×4 (07:47→23:04)
--- NOTE | 2017-12-25 07:47 | CP.PCM.PN ---
Subjective - Date & Time of Evaluation Date of Evaluation: 12/25/17 Time of Evaluation: 06:35 - Subjective Subjective: No distress, awake, alert, mild chest pressure Reason for consultation:Cardiac evaluation of chest pain, history of coronary artery disease, CVA, PVD, diabetes Seen and examined by me and Dr. Calzada Objective - Vital Signs/Intake and Output Vital Signs (last 24 hours): Temp Pulse Resp BP Pulse Ox 97.8 F 73 20 166/95 H 97 12/25/17 06:00 12/25/17 06:00 12/25/17 06:00 12/25/17 06:00 12/25/17 06:00 Intake and Output: 12/25/17 12/25/17 06:59 18:59 Intake Total 72 Balance 72 - Medications Medications: Current Medications Acetaminophen (Tylenol 325mg Tab) 650 mg PO Q4H PRN PRN Reason: Pain, Mild (1-3) Atorvastatin Calcium (Lipitor) 20 mg PO DIN [facility] Last Admin: 12/24/17 17:42 Dose: 20 mg Clopidogrel Bisulfate (Plavix) 75 mg PO DAILY [facility] Last Admin: 12/24/17 10:42 Dose: 75 mg Furosemide (Lasix) 40 mg PO DAILY [facility] Last Admin: 12/24/17 10:41 Dose: 40 mg Nitroglycerin/Dextrose (Nitroglycerin 50 Mg/250 Ml D5w) 50 mg in 250 mls @ 1.5 mls/hr IV .Q24H PRN; Protocol; 5 MCG/MIN PRN Reason: Systolic Blood Pressure Last Titration: 12/23/17 23:39 Dose: 10 mcg/min, 3 mls/hr Insulin Human Lispro (Humalog Low) 0 units SC ACHS [facility] PRN Reason: Protocol Last Admin: 12/24/17 21:39 Dose: Not Given Insulin Human Lispro (Humalog) 45 units SC BIDAC [facility] Last Admin: 12/24/17 17:00 Dose: Not Given Lisinopril (Zestril) 40 mg PO DAILY [facility] Last Admin: 12/24/17 10:41 Dose: 40 mg Metoprolol Tartrate (Lopressor) 50 mg PO BID [facility] Last Admin: 12/24/17 17:42 Dose: 50 mg - Labs Labs: 12/25/17 05:40 12/25/17 05:40 PT 13.2 SECONDS (9.4-12.5) H 12/23/17 20:54 INR 1.15 12/23/17 20:54 APTT 28.9 Seconds (25.1-36.5) 12/23/17 20:54 - Constitutional Appears: No Acute Distress - Eye Exam Eye Exam: Normal appearance - ENT Exam ENT Exam: Mucous Membranes Moist - Respiratory Exam Respiratory Exam: Decreased Breath Sounds, NORMAL BREATHING PATTERN - Cardiovascular Exam Cardiovascular Exam: REGULAR RHYTHM, +S1, +S2 Additional comments: mild chest pressure better than yesterday but still there - GI/Abdominal Exam GI & Abdominal Exam: Soft, Normal Bowel Sounds - Extremities Exam Extremities Exam: Normal Capillary Refill - Neurological Exam Neurological Exam: Alert, Awake, Oriented x3 - Psychiatric Exam Psychiatric exam: Normal Affect - Skin Skin Exam: Dry, Warm Assessment and Plan - Assessment and Plan (Free Text) Assessment: A 62 year old male who came in to the ER due to chest pain at rest, while watching television. mid chest, non radiating. 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 - ECHO- LVEF 51 %, Trace MR/TR, RVSP 45 mmHg. Plan: For cardiac cath today, keep NPO NSTEMI, positive troponin Unstable angina, on Nitroglycerin Drip Still complaining of chest pressure but less than yesterday at rest Continue Nitroglycerin drip On Lipitor 20 mg daily,Plavix 75 mg daily,Lasix 40 mg daily, Lisinopril 40 mg daily Lopressor 50 mg BID Heart rate controlled Normal TSH level Continue current treatment Continue current medications Will follow up Plan and treatment discussed with Dr. Calzada
[2017-12-25] MEDS: Insulin Lispro 1 UNITS/0.01 ML SC SCH ×2 (07:55→16:38)
[2017-12-25 08:08] LABS: PH,URINE 6.5 (4.7-8.0); URINE BILIRUBIN NEGATIVE (NEGATIVE); URINE BLOOD SMALL (NEGATIVE); URINE GLUCOSE (UA) >=1000 mg/dL (NEGATIVE); URINE LEUKOCYTE ESTERASE NEGATIVE Leu/uL (NEGATIVE); URINE PROTEIN 100 mg/dL (<30 mg/dL)
[2017-12-25 08:12] LABS: URINE APPEARANCE CLEAR (CLEAR); URINE COLOR YELLOW (YELLOW)
[2017-12-25 08:24] LABS: URINE WBC NEGATIVE /hpf (0-6)
--- NOTE | 2017-12-25 09:46 | PN ---
Copied To: Rasta Cavazos MD Attending MD: Rasta Cavazos MD DATE: 12/25/2017 SUBJECTIVE: This is a 62-year-old white male with history of CAD, bipolar, depression, insulin-dependent diabetes mellitus, peripheral vascular disease, hypertension. The patient admitted with nonspecific chest pain. He has had a catheterization today by Dr. Calzada. Otherwise, mental status is stable. PHYSICAL EXAMINATION: GENERAL: The patient is in no distress. VITAL SIGNS: Stable. Blood pressure is 166/95. CHEST: Clear to auscultation and percussion. HEART: Regular sinus rhythm. Rasta Cavazos MD
[2017-12-25] MEDS ORDERED: Verapamil 2 ML ONE (14:31)
[2017-12-25] MEDS ORDERED: Lidocaine PF 2% (5 ml) Inj (For Cardiac Arrhy) ONE (14:31)
[2017-12-25] MEDS ORDERED: Iodixanol 320 MG/ML 200 ML BOTTLE IV ONE (14:32)
[2017-12-25] MEDS ORDERED: Iohexol 350mgl/ml 50 ML ONE (14:32)
[2017-12-25] MEDS ORDERED: Nitroglycerin 50mg in D5W 50 MG/250 ML BOTTLE IV ONE (14:32)
[2017-12-25] MEDS ORDERED: Iodixanol 320 MG/ML 100 ML BOTTLE IV ONE (14:32)
[2017-12-25] MEDS ORDERED: Midazolam 2 MG/2 ML VIAL ONE (14:49)
[2017-12-25] MEDS ORDERED: Eptifibatide 20 mg/10mL Inj IVP ONE (15:20)
[2017-12-25] MEDS ORDERED: Sodium Chloride 0.9% 1,000 ML IV SCH (16:00)
--- NOTE | 2017-12-25 16:30 | CPOSTOP ---
Copied To: Lizzy Calzada MD Attending MD: Lizzy Calzada MD DATE: 12/25/2017 CARDIOVASCULAR LAB POST PROCEDURE NOTE DICTATING PHYSICIAN: Lizzy Calzada MD CUSTOM DECORATING CONSULTANT: SUZANNE Amin. TYPE OF ANESTHESIA: Moderate conscious sedation, total 2 mg of Versed and 100 of fentanyl given. PRE-PROCEDURE DIAGNOSES: Unstable angina, non-ST segment myocardial infarction. PROCEDURES PERFORMED: 1. Left heart catheterization. 2. Left internal mammary artery injection. 3. Saphenous vein graft injection. 4. Stenting of circumflex. 5. Platelet reactivity units test for aggregation of platelet. FINDINGS: Significant disease, proximal circumflex of 80% stenosis. FINAL DIAGNOSIS: Multivessel coronary artery disease. POST PROCEDURE CONDITION: The patient's condition is stable. VASCULAR ACCESS SITE: Left radial. CLOSURE DEVICE: TR band. TOTAL RADIATION DOSE: 66412.2 milligray unit. TOTAL FLUORO TIME: 9.2 minutes. Lizzy Calzada MD
--- NOTE | 2017-12-25 17:02 | CARD ---
APPROVED REPORT Date of service: 12/25/2017 Procedure(s) performed: Left Heart Catheterization BEDOYA Angiogram SVG Angiogram PTCA with Stenting of Mid CX PRU......265 ( Pt. is resistance to plavix) HISTORY The patient is a 62 year-old male with a history of : previous FL (> 7 days), previous CHF, peripheral vascular disease, diabetes mellitus with insulin treatment , tobacco history() : The patient is a former smoker , previous PCI (The PCI date was 06/08/2012), hypertension , previous CABG (The CABG date was 06/08/2011), dyslipidemia , cerebrovascular disease , Admitted with ACS/ NSTEMI. INDICATION The indication(s) include : non-STEMI . CASE TECHNIQUE The patient was brought urgently to the Cardiac Catheterization Laboratory in a fasting state and was prepped and draped in a sterile manner. The left wrist was infiltrated with 2% Lidocaine subcutaneous anesthesia. A 6FR GLIDESHEATH ACCESS KIT sheath was inserted into the left radial artery without difficulty. Coronary angiography was performed using coronary diagnostic catheters. The left coronary system was accessed and visualized with a Diagnostic ,5 Fr JL 4 catheter. The right coronary system was accessed and visualized with a Diagnostic ,5 Fr JR 4 catheter. The left ventricle was accessed and visualized with a 5 Fr Pigtail 145 (Angled) catheter. The left internal mammary artery was accessed and visualized with a Diagnostic ,5 Fr JR 4 catheter. The saphenous vein graft was accessed and visualized with a Diagnostic ,5 Fr JR 4 catheter. The saphenous vein graft was accessed and visualized with a Diagnostic ,6 Fr MPA 1 catheter. Left ventricular/Aortic Valve gradient assessed on pullback. Closure device was deployed with a Fr TR Band (Large) without any complications. The patient tolerated the procedure well and there were no complications associated with the procedure. Vessel Analysis The patient's coronary anatomy is co-dominant. The left main coronary artery is a large size vessel with intimal irregularities. The left main bifurcates to the left anterior descending and circumflex. The left anterior descending artery is a medium size vessel with diffuse calcification noted throughout this vessel and with significant stenosis. There is a 100% stenosis in the mid segment. The first diagonal branch is a small size vessel with diffuse calcification noted throughout this vessel and without significant stenosis. The circumflex artery is a large size vessel with diffuse calcification noted throughout this vessel and with significant stenosis. There is a 80% stenosis in the mid segment. Very distal Occluded The first obtuse marginal branch is a medium size vessel with diffuse calcification noted throughout this vessel and with significant stenosis. There is a 100% stenosis in the proximal segment. The second obtuse marginal branch is a medium size vessel with diffuse calcification noted throughout this vessel and without significant stenosis. The left posterior descending artery is a medium size vessel with diffuse calcification noted throughout this vessel and with significant stenosis. There is a 100% stenosis in the proximal segment. The right coronary artery is a medium size vessel with diffuse calcification noted throughout this vessel and with significant stenosis. There is a 100% stenosis in the proximal segment. The left internal mammary artery to the mid left anterior descending artery segment is patent but distal LAD occluded. The saphenous vein graft to the distal right coronary artery is patent . The saphenous vein graft to the sequential to OM1 and L PDA is patent . Left Ventricle The left ventricle is borderline in size with mildly decreased contractility. Ischemic cardiomyopathy. The left ventricular ejection fraction is estimated to be 45%. The left ventricular end diastolic pressure is 20 mmHg. There was no gradient across the aortic valve upon pullback. PCI Technique Lesion Anticoagulation was achieved with Heparin anf integrellin Bollus. Percutaneous coronary intervention was performed on the mid circumflex artery segment. The lesion stenosis prior to intervention was 80% with WALDO 2 flow. A 6 Fr JL 4 Guide Catheter was used to engage the ostium. A Luge 182 Interventional Guidewire was used to cross the lesion. BALLOON DILATION A Balloon catheter 2.5 x 10 mm Sprinter RX was inserted and inflated up to 10.00atm for 12seconds. STENT DEPLOYMENT A drug-eluting stent STENT RESOLUTE ELIANA 2.75 X15 was inserted and inflated up to 12.00atm for 14seconds. POST STENT DEPLOYMENT BALLOON DILATION A Balloon catheter 3.0 x 9 mm Sprinter NC was inserted and inflated up to 13.00atm for 20seconds. Final angiography reveals 0 % stenosis with WALDO 3 flow. Conclusion [place] triple vessel Diz. Mid LAD, Distal Cx and proximal RCA 100% occluded BEDOYA to LAD patent but Distal LAD Occuded SVG to Distal RCA is patent SVG to Om1 and R PDA sequential is patent Mildly decreased Lv Fx. Ef-45%, EDP-20 mmof hg Mid Cx has 805 stenosis with Hazzyness thought to be culprit for NSTEMI successful PTCA with BRUCE of Mid Cx . Pt./ is resistence to plavix ,PRU..265 ( normal <195) Recommendations Cardiac Rehabilitation Referral Aggressive Medical TherapyCardiac Risk Reduction Program Weight Loss Reduction Program Continue Asa 81 mg po daily and Brilinta 90 mg po daily for one year, the baby Asa alone. echo to assess LV Fx. CC; Steph Burciaga MD/ TIFFANI Hart MD
--- NOTE | 2017-12-25 19:52 | CARD ---
APPROVED REPORT Date of service: 12/25/2017 EKG Measurement Heart [id number] <Conclusion> Normal sinus rhythm Left anterior fascicular block Left ventricular hypertrophy with QRS widening and repolarization abnormality Abnormal ECG
[2017-12-25 20:56] LABS: BASO # 0.03 K/mm3 (0.0-2.0); BASO % 0.4 % (0.0-3.0); EOS # 0.2 (0.0-0.7); GRAN # 5.59 (1.4-6.5); GRAN % 71.6 % (50.0-68.0); HEMOGLOBIN 11.8 g/dL (14.0-18.0); LYMPH # 1.6 (1.2-3.4); LYMPH % 20.1 % (22.0-35.0); MEAN CELL VOLUME 82.3 fl (80.0-105.0); MEAN CORPUSCULAR HGB CONC 35.2 g/dl (31.0-37.0); MEAN PLATELET VOLUME 9.1 fl (7.0-11.0); MONO # 0.5 (0.1-0.6); MONO % 5.9 % (1.0-6.0); RBC 4.07 10^6/uL (3.5-6.1); RED CELL DISTRIBUTION WIDTH 14.5 % (11.5-14.5); WHITE BLOOD COUNT 7.8 10^3/ul (4.5-11.0)
[2017-12-25 21:06] LABS: BLOOD UREA NITROGEN 17 mg/dL (7-21); CALCIUM 8.6 mg/dL (8.4-10.5); GFR AFRICAN-AMERICAN > 60; GFR NON-AFRICAN AMERICAN > 60
[2017-12-26 02:17] VITALS: RESP 20
[2017-12-26 05:59] VITALS: TEMP 98.1; O2SAT 99
--- NOTE | 2017-12-26 07:23 | CP.PCM.PN ---
Subjective - Date & Time of Evaluation Date of Evaluation: 12/26/17 Time of Evaluation: 06:25 - Subjective Subjective: No distress, awake, alert, denies chest pain,feels better Reason for consultation and follow up:Cardiac evaluation of chest pain, post PTCA of history of coronary artery disease, CVA, PVD, diabetes Seen and examined by me and Dr. Calzada Objective - Vital Signs/Intake and Output Vital Signs (last 24 hours): Temp Pulse Resp BP Pulse Ox 98.1 F 70 20 173/110 H 99 12/26/17 05:58 12/26/17 06:35 12/26/17 05:58 12/26/17 06:35 12/26/17 05:58 Intake and Output: 12/26/17 12/26/17 06:59 18:59 Intake Total 720 Output Total 800 Balance -80 - Medications Medications: Current Medications Acetaminophen (Tylenol 325mg Tab) 650 mg PO Q4H PRN PRN Reason: Pain, Mild (1-3) Aspirin (Aspirin Chewable) 81 mg PO DAILY [facility] Last Admin: 12/25/17 10:12 Dose: Not Given Atorvastatin Calcium (Lipitor) 20 mg PO DIN [facility] Last Admin: 12/25/17 16:39 Dose: 20 mg Furosemide (Lasix) 40 mg PO DAILY [facility] Last Admin: 12/25/17 10:12 Dose: Not Given Insulin Human Lispro (Humalog Low) 0 units SC ACHS [facility] PRN Reason: Protocol Last Admin: 12/25/17 23:04 Dose: Not Given Insulin Human Lispro (Humalog) 45 units SC BIDAC [facility] Last Admin: 12/25/17 16:38 Dose: 45 units Lisinopril (Zestril) 40 mg PO DAILY [facility] Last Admin: 12/25/17 10:11 Dose: Not Given Metoprolol Tartrate (Lopressor) 50 mg PO BID [facility] Last Admin: 12/25/17 17:38 Dose: 50 mg Ticagrelor (Brilinta) 90 mg PO BID [facility] Last Admin: 12/25/17 17:33 Dose: Not Given - Labs Labs: 12/25/17 20:45 12/25/17 20:45 PT 13.2 SECONDS (9.4-12.5) H 12/23/17 20:54 INR 1.15 12/23/17 20:54 APTT 28.9 Seconds (25.1-36.5) 12/23/17 20:54 - Extremities Exam Extremities Exam: Normal Capillary Refill Additional comments: left radial positive pulses, no bleeding, no hematoma Assessment and Plan - Assessment and Plan (Free Text) Assessment: A 62 year old male who came in to the ER due to chest pain at rest, while watching television. mid chest, non radiating. 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 - ECHO- LVEF 51 %, Trace MR/TR, RVSP 45 mmHg.NSTEMI, positive troponin Unstable angina, on Nitroglycerin Drip, Cardiac cath/PTCA done yesterday. Plan: Denies chest pain,feels good Post cardiac cath and PTCA with BRUCE of the mid circumflex (85% stenosis) Left radial no bleeding,no hematoma, positive pluses On Lipitor 20 mg daily,Lasix 40 mg daily, Lisinopril 40 mg daily Lopressor 50 mg BID, Brilinta 90 mg BID Resistant to Plavix, on Brilinta Heart rate controlled Uncontrolled blood pressure, Hydralazine 10 mg IV ordered Continue current treatment Continue current medications Possible discharge Will follow up Plan and treatment discussed with Dr. Calzada
[2017-12-26 07:38] LABS: BASO # 0.01 K/mm3 (0.0-2.0); BASO % 0.1 % (0.0-3.0); EOS # 0.2 (0.0-0.7); EOS % 2.4 % (1.5-5.0); GRAN # 5.79 (1.4-6.5); GRAN % 72.5 % (50.0-68.0); HEMOGLOBIN 12.4 g/dL (14.0-18.0); LYMPH # 1.5 (1.2-3.4); LYMPH % 18.5 % (22.0-35.0); MEAN CELL VOLUME 82.8 fl (80.0-105.0); MEAN CORPUSCULAR HEMOGLOBIN 28.4 pg (25.0-35.0); MEAN CORPUSCULAR HGB CONC 34.3 g/dl (31.0-37.0); MEAN PLATELET VOLUME 9.5 fl (7.0-11.0); MONO # 0.5 (0.1-0.6); MONO % 6.5 % (1.0-6.0); RBC 4.37 10^6/uL (3.5-6.1); RED CELL DISTRIBUTION WIDTH 14.4 % (11.5-14.5)
[2017-12-26 08:04] LABS: BLOOD UREA NITROGEN 14 mg/dL (7-21); CALCIUM 8.7 mg/dL (8.4-10.5); GFR AFRICAN-AMERICAN > 60; GFR NON-AFRICAN AMERICAN > 60
[2017-12-26] MEDS: Insulin Lispro 1 UNITS/0.01 ML SC SCH (08:17)
[2017-12-26] MEDS: Insulin Lispro (humaLOG) LOW Coverage SC SCH ×2 (08:17→12:21)
--- NOTE | 2017-12-26 09:20 | PN ---
Copied To: Rasta Cavazos MD Attending MD: Rasta Cavazos MD DATE: 12/26/2017 SUBJECTIVE: This is a 62-year-old white male admitted to the hospital with chest pain, history of CAD. The patient was taken to Physician Interventional Cardiologist by Dr. Calzada yesterday, was found to have a left circumflex lesion, was stented and returned to the floor. The patient also had an echocardiogram done to assess his LV function. The patient is comfortable. He has no chest pain. PHYSICAL EXAMINATION: VITAL SIGNS: He does have elevated blood pressure of 173/110, temperature is 98.1, pulse is 70. Otherwise, physical examination is unchanged. CHEST: Clear to auscultation. HEART: Regular sinus rhythm. EXTREMITIES: Without cyanosis, clubbing or edema. LABORATORY DATA: Unremarkable. BUN and creatinine are stable at 14 and 1. ASSESSMENT AND PLAN: The patient will be started on some physical therapy and a walker will be used to get him out of bed to walk, to assess any residual chest pain and his blood pressure will need to be addressed far as increase the medications to control his blood pressure. Rasta Cavazos MD
[2017-12-26 09:29] VITALS: BP 159/79; PULSE 78
--- NOTE | 2017-12-26 11:25 | CARD ---
APPROVED REPORT Date of service: 12/26/2017 EKG Measurement Heart [id number] <Conclusion> Normal sinus rhythm with sinus arrhythmia Left anterior fascicular block ST & T wave abnormality, consider lateral ischemia Abnormal ECG
== END 2017-12-26 13:04 | disposition home or self-care (01) | DRG 247 ==
LOC: ED 20:46 → ERH 22:00 → 2RSO 12-24 00:13 → OBSVTOIN 12-24 16:30
PROVIDERS: ADMIT Internal Medicine; ATTEND Internal Medicine
PROC: 027034Z Dilation of Coronary Artery, One Artery with Drug-eluting Intraluminal Device, Percutaneous Approach (ICD-10-PCS; principal; 2017-12-25)
PROC: 4A023N7 Measurement of Cardiac Sampling and Pressure, Left Heart, Percutaneous Approach (ICD-10-PCS; 2017-12-25)
PROC: B211YZZ Fluoroscopy of Multiple Coronary Arteries using Other Contrast (ICD-10-PCS; 2017-12-25)
PROC: B215YZZ Fluoroscopy of Left Heart using Other Contrast (ICD-10-PCS; 2017-12-25)
PROC: 3E033PZ Introduction of Platelet Inhibitor into Peripheral Vein, Percutaneous Approach (ICD-10-PCS; 2017-12-25)
PROC: B212YZZ Fluoroscopy of Single Coronary Artery Bypass Graft using Other Contrast (ICD-10-PCS; 2017-12-25)
PROC: B218YZZ Fluoroscopy of Left Internal Mammary Bypass Graft using Other Contrast (ICD-10-PCS; 2017-12-25)
DX: I21.4 Non-ST elevation (NSTEMI) myocardial infarction (principal); I25.110 Atherosclerotic heart disease of native coronary artery with unstable angina pectoris; I50.9 Heart failure, unspecified; I11.0 Hypertensive heart disease with heart failure; E78.5 Hyperlipidemia, unspecified; E11.51 Type 2 diabetes mellitus with diabetic peripheral angiopathy without gangrene; E11.42 Type 2 diabetes mellitus with diabetic polyneuropathy; I25.5 Ischemic cardiomyopathy; I25.82 Chronic total occlusion of coronary artery; N40.0 Benign prostatic hyperplasia without lower urinary tract symptoms; K21.9 Gastro-esophageal reflux disease without esophagitis; F31.9 Bipolar disorder, unspecified; Z79.4 Long term (current) use of insulin; I25.2 Old myocardial infarction; Z95.5 Presence of coronary angioplasty implant and graft; Z95.1 Presence of aortocoronary bypass graft; Z86.73 Personal history of transient ischemic attack (TIA), and cerebral infarction without residual deficits; Z87.891 Personal history of nicotine dependence; Z79.02 Long term (current) use of antithrombotics/antiplatelets; Z89.421 Acquired absence of other right toe(s)

== ENCOUNTER 2018-03-29 17:31 | Inpatient (IN) | payer MEDICARE, OTHER ==
[2018-03-29 17:41] VITALS: BMI 33.7
[2018-03-29] MEDS ORDERED: Sodium Chloride 0.9% 500 ML IV STA (17:58)
[2018-03-29 18:21] LABS: BASO # 0.03 K/mm3 (0.0-2.0); BASO % 0.4 % (0.0-3.0); EOS # 0.1 (0.0-0.7); GRAN # 6.47 (1.4-6.5); GRAN % 76.8 % (50.0-68.0); HEMOGLOBIN 13.1 g/dL (14.0-18.0); LYMPH # 1.3 (1.2-3.4); LYMPH % 15.5 % (22.0-35.0); MEAN CELL VOLUME 85.7 fl (80.0-105.0); MEAN CORPUSCULAR HEMOGLOBIN 29.8 pg (25.0-35.0); MEAN CORPUSCULAR HGB CONC 34.7 g/dl (31.0-37.0); MEAN PLATELET VOLUME 9.6 fl (7.0-11.0); MONO # 0.5 (0.1-0.6); MONO % 6.3 % (1.0-6.0); RBC 4.4 10^6/uL (3.5-6.1); RED CELL DISTRIBUTION WIDTH 13.5 % (11.5-14.5); WHITE BLOOD COUNT 8.4 10^3/uL (4.5-11.0)
[2018-03-29 18:23] LABS: ALBUMIN 3.5 g/dL (3.0-4.8); ALT/SGPT 24 U/L (7-56); AST/SGOT 17 U/L (17-59); BLOOD UREA NITROGEN 20 mg/dL (7-21); CALCIUM 8.7 mg/dL (8.4-10.5); GFR NON-AFRICAN AMERICAN 51
[2018-03-29 18:25] LABS: INR 1.1; PARTIAL THROMBOPLASTIN TIME 28.5 Seconds (25.1-36.5); PROTHROMBIN TIME 12.6 SECONDS (9.4-12.5)
[2018-03-29] MEDS ORDERED: Insulin Regular 1 UNITS/0.01 ML ML SC STA (18:28)
--- NOTE | 2018-03-29 18:36 | ED PDOC ---
Arrival/HPI - General Chief Complaint: Lower Extremity Problem/Injury Time Seen by Provider: 03/29/18 17:33 Historian: Patient - History of Present Illness Narrative History of Present Illness (Text): 03/29/18 18:33 62yr old male with hx of DM, HTN, CAD presents today with 1 day history of right 3rd toe redness, swelling and draining wound with purulent discharge and foul smell. pt states that he only takes his insulin once a day and family states his sugars haven't been controlled. pt denies fever/chills. c/o pain to the calf with redness to right lower leg and redness and swelling to the right 3rd toe. no medications taken at home. pt states he doesn't have sensation in both feet due to his DM. Past Medical History - Provider Review Nursing Documentation Reviewed: Yes - Travel History Have you recently traveled outside [place] w/in the past 3 mons?: No - Infectious Disease Hx of Infectious Diseases: None - Tetanus Immunization Tetanus Immunization: Unknown - Cardiac Hx Circulatory Problems: Yes (stents in legs) Hx Hypertension: Yes Hx Peripheral Edema: No - Pulmonary Hx Respiratory Disorders: No - Neurological HX Cerebrovascular Accident: No - HEENT Hx HEENT Disorder: No - Renal Hx Renal Disorder: No - Endocrine/Metabolic Hx Endocrine Disorders: Yes Hx Diabetes Mellitus Type 1: Yes - Hematological/Oncological Hx Blood Disorders: No Hx Blood Transfusions: No Hx Shingles: No - Integumentary Hx Dermatological Disorder: No - Musculoskeletal/Rheumatological Hx Arthritis: No Hx Back Pain: No Hx Falls: No Hx Unsteady Gait: No - Gastrointestinal Hx Gastrointestinal Disorders: No - Genitourinary/Gynecological Hx Genitourinary Disorders: No Hx Prostate Problems: No - Psychiatric Hx Psychophysiologic Disorder: (depression) Hx Emotional Abuse: No Hx Substance Use: No - Surgical History Hx Amputation: No Hx Coronary Stent: Yes Hx Open Heart Surgery: Yes - Anesthesia Hx Anesthesia: Yes Hx Anesthesia Reactions: No Hx Malignant Hyperthermia: No - Suicidal Assessment Feels Threatened In Home Enviroment: No Family/Social History - Physician Review Nursing Documentation Reviewed: Yes Family/Social History: Unknown Family HX Smoking Status: Former Smoker Hx Alcohol Use: No Hx Substance Use: No Hx Substance Use Treatment: No Allergies/Home Meds Allergies/Adverse Reactions: Allergies No Known Allergies Allergy (Verified 03/29/18 17:47) Home Medications: Home Meds Medication Instructions Recorded Confirmed Furosemide [Lasix] 1 tab PO DAILY 12/05/16 03/29/18 Metoprolol Tartrate [Lopressor] 100 mg PO BID 12/05/16 03/29/18 Simvastatin [Zocor] 40 mg PO DAILY 12/23/17 03/29/18 Dexlansoprazole [Dexilant] 60 mg PO DAILY 03/29/18 03/29/18 Empagliflozin [Jardiance] 10 mg PO DAILY 03/29/18 03/29/18 Insulin Glargine,Hum.rec.anlog 90 unit SQ BID 03/29/18 03/29/18 [Touavila Solemily] Liraglutide [Victoza 2-Dangelo] 0.6 mg SQ BID 03/29/18 03/29/18 metFORMIN [glucOPHAGE] 500 mg PO BID 03/29/18 03/29/18 traMADol [Ultram] 50 mg PO PRN PRN 03/29/18 03/29/18 Review of Systems - Review of Systems Constitutional: absent: Fatigue, Fevers Respiratory: absent: SOB, Cough Cardiovascular: absent: Chest Pain, Palpitations Gastrointestinal: absent: Abdominal Pain, Nausea, Vomiting Genitourinary Male: absent: Dysuria Musculoskeletal: Arthralgias Skin: Skin Lesions, Cellulitis Neurological: absent: Headache, Dizziness Psychiatric: absent: Anxiety, Depression Physical Exam Vital Signs Reviewed: Yes Vital Signs Temp Pulse Resp BP Pulse Ox 03/29/18 17:44 97.9 F 85 18 184/93 H 99 Temperature: Afebrile Blood Pressure: Hypertensive Pulse: Regular Respiratory Rate: Normal Appearance: Positive for: Well-Appearing, Non-Toxic, Comfortable Pain Distress: None Mental Status: Positive for: Alert and Oriented X 3 Finger Stick Blood Glucose: 461 - Systems Exam Head: Present: Atraumatic Mouth: Present: Moist Mucous Membranes Neck: Present: Normal Range of Motion Respiratory/Chest: Present: Clear to Auscultation, Good Air Exchange. No: Respiratory Distress, Accessory Muscle Use Cardiovascular: Present: Regular Rate and Rhythm, Normal S1, S2. No: Murmurs Abdomen: No: Tenderness Back: Present: Normal Inspection Upper Extremity: Present: Normal ROM Lower Extremity: Present: Swelling, Erythema (there is erythema and edema noted to the right calf + warmth. there is erythema and edema noted the right 3rd toe; + dime sized wound with purulent discharge noted to dorsal aspect of toe. decreased sensation. cap refill < 2. ), Capillary Refill < 2 s. No: CALF TENDERNESS, Tenderness, Temperature Abnormalties Skin: Present: Warm, Dry Psychiatric: Present: Alert, Oriented x 3 Medical Decision Making ED Course and Treatment: 03/29/18 18:40 62yr old male with DM with wound to right 3rd toe with erythema, swelling and purulent discharge. cbc: wnl cmp glucose; 523 blood cultures pending. vancomycin and zosyn started IV pt given NS iv bolus and 6 units regular insulin SQ. xray right foot: 1st and 2nd toe amputations; no Fx. cxr: wnl ekg; NSR at 83b/m let anterior fascicular block, qtc 484. case discussed with dr. issa; Hospitalist service is covering today. dr. issa accepts admission. impression; toe infection, toe ulcer, hyperglycemia admit to med/surg - Lab Interpretations Lab Results: 03/29/18 17:55 03/29/18 17:55 Lab Results 03/29/18 17:55: WBC 8.4, RBC 4.40, Hgb 13.1 L, Hct 37.7 L, MCV 85.7, MCH 29.8, MCHC 34.7, RDW 13.5, Plt Count 265, MPV 9.6, Gran % 76.8 H, Lymph % (Auto) 15.5 L, [place] % (Auto) 6.3 H, Eos % (Auto) 1.0 L, Baso % (Auto) 0.4, Gran # 6.47, Lymph # (Auto) 1.3, [place] # (Auto) 0.5, Eos # (Auto) 0.1, Baso # (Auto) 0.03 03/29/18 17:55: Sodium 133, Potassium 4.5, Chloride 99, Carbon Dioxide 26, Anion Gap 13, BUN 20, Creatinine 1.4, Est GFR ( Amer) > 60, Est GFR (Non-Af Amer) 51, Random Glucose 523 H* D, Calcium 8.7, Total Bilirubin 0.5, AST 17, ALT 24, Alkaline Phosphatase 99, Total Protein 7.1, Albumin 3.5, Globulin 3.6, Albumin/Globulin Ratio 1.0 L 03/29/18 17:55: PT 12.6 H, INR 1.10, APTT 28.5 03/29/18 17:48: POC Glucose (mg/dL) 461 H* - RAD Interpretation Radiology Orders: 03/29/18 18:25 FOOT RIGHT 3 VIEWS ROUTINE [RAD] Stat DUPLEX LOWER EXTRM VEIN RIGHT [US] Stat - Medication Orders Current Medication Orders: Discontinued Medications Sodium Chloride (Sodium Chloride 0.9%) 500 mls @ 999 mls/hr IV .Q31M STA Stop: 03/29/18 18:28 Insulin Human Regular (Humulin R) 6 units SC STAT STA Stop: 03/29/18 18:29 Disposition/Present on Arrival - Present on Arrival Any Indicators Present on Arrival: Yes History of DVT/PE: No History of Uncontrolled Diabetes: Yes Urinary Catheter: No History of Decub. Ulcer: No History Surgical Site Infection Following: None - Disposition Have Diagnosis and Disposition been Completed?: Yes Diagnosis: Cellulitis, Toe ulcer, Hyperglycemia Disposition: HOSPITALIZED Disposition Time: 18:42 Patient Plan: Admission Patient Problems: Current Active Problems Problem Status Onset Cellulitis Acute Hyperglycemia Acute Toe ulcer Acute Condition: FAIR Discharge Instructions (ExitCare): Cellulitis (ED) Referrals: Rasta Cavazos MD [Primary Care Provider] - Follow up with primary Forms: edulio (Bel[place]ian)
[2018-03-29] MEDS ORDERED: Vancomycin 1gm in NS 250ml 1 GM/250 ML BAG IVPB STA (18:57)
[2018-03-29] MEDS ORDERED: Piperacillin/Tazobact 3.375 gm 100 ML IVPB STA (18:57)
[2018-03-29] MEDS ORDERED: Dextrose 50% SYRINGE Inj (50 ml) IV PRN (19:54)
[2018-03-29] MEDS: Insulin Lispro 1 UNITS/0.01 ML SC SCH (20:49)
[2018-03-29] MEDS: Sodium Chloride 0.9% 1,000 ML IV SCH (20:50)
--- NOTE | 2018-03-29 21:05 | CP.PCM.HP ---
<Ricardo Martinez - Last Filed: 03/29/18 20:53> History of Present Illness - History of Present Illness History of Present Illness: Ricardo Martinez PGY1 H&P for Dr. Murcia Pt is a 62M with PMH HTN, DM, CAD who presents to ED with R third toe wound. He reports previous history of wound in the toe, which has resolved. He reports draining of green pus and swelling of the toes since yesterday. He does not recall any abrasions or trauma to the area. He reports some mild soreness in the toes. He did not try any wound care at home. Pt denies fever, chills, abdominal pain, nausea, vomiting, diarrhea, dysuria. SxH: R 1st and 2nd toe amputations SocH: former smoker, 36 pack-year, former etoh use, denies recreational drug use FamH: mom , lung [place], dad , [place] Allergies: NKDA PMD: Dirk Carpenter [employer]: Josep Present on Admission - Present on Admission Any Indicators Present on Admission: Yes History of Uncontrolled Diabetes: Yes Review of Systems - Review of Systems Review of Systems: as per HPI Past Patient History - Infectious Disease Hx of Infectious Diseases: None - Tetanus Immunizations Tetanus Immunization: Unknown - Past Social History Smoking Status: Former Smoker - CARDIAC Hx Circulatory Problems: Yes (stents in legs) Hx Hypertension: Yes Hx Peripheral Edema: No - PULMONARY Hx Respiratory Disorders: No - NEUROLOGICAL HX Cerebrovascular Accident: No - HEENT Hx HEENT Problems: No - RENAL Hx Chronic Kidney Disease: No - ENDOCRINE/METABOLIC Hx Endocrine Disorders: Yes Hx Diabetes Mellitus Type 1: Yes - HEMATOLOGICAL/ONCOLOGICAL Hx Blood Disorders: No Hx Blood Transfusions: No Hx Shingles: No - INTEGUMENTARY Hx Dermatological Problems: No - MUSCULOSKELETAL/RHEUMATOLOGICAL Hx Arthritis: No Hx Back Pain: No Hx Falls: No Hx Unsteady Gait: No - GASTROINTESTINAL Hx Gastrointestinal Disorders: No - GENITOURINARY/GYNECOLOGICAL Hx Genitourinary Disorders: No Hx Prostate Problems: No - PSYCHIATRIC Hx Psychophysiologic Disorder: (depression) Hx Emotional Abuse: No Hx Substance Use: No - SURGICAL HISTORY Hx Amputation: No Hx Coronary Stent: Yes Hx Open Heart Surgery: Yes - ANESTHESIA Hx Anesthesia: Yes Hx Anesthesia Reactions: No Hx Malignant Hyperthermia: No Meds Allergies/Adverse Reactions: Allergies Allergy/AdvReac Type Severity Reaction Status Date / Time No Known Allergies Allergy Verified 03/29/18 17:47 Physical Exam - Constitutional Appears: Well, No Acute Distress - Head Exam Head Exam: ATRAUMATIC, NORMOCEPHALIC - Eye Exam Eye Exam: EOMI, Normal appearance Pupil Exam: NORMAL ACCOMODATION - ENT Exam ENT Exam: Mucous Membranes Moist - Respiratory Exam Respiratory Exam: Clear to Auscultation Bilateral, NORMAL BREATHING PATTERN. absent: Decreased Breath Sounds, Rales, Rhonchi, Wheezes - Cardiovascular Exam Cardiovascular Exam: REGULAR RHYTHM, +S1, +S2. absent: Gallop, Rubs, Systolic Murmur - GI/Abdominal Exam GI & Abdominal Exam: Normal Bowel Sounds, Soft. absent: Distended, Tenderness - Extremities Exam Extremities exam: Positive for: pedal edema Additional comments: R foot: 2cm wound on 3rd toe, with minimal surrounding erythema. granulation tissue noted. no draining noted. b/l LE: multiple healing ulcers - Neurological Exam Neurological exam: Alert, Motor Sensory Deficit, Oriented x3 - Expanded Neurological Exam Expanded Cranial nerves: EOM's Intact: Normal, Facial Sensation: Normal Sensory exam: Lower Extremity 2 Point Discrimination: Abnormal Left, Abnormal Right, Lower Extremity Light Touch: Abnormal Left, Abnormal Right, Lower Extremity Pin Prick: Abnormal Left, Abnormal Right, Upper Extremity 2 Point Discrimination: Abnormal Left, Abnormal Right, Upper Extremity Light Touch: Abnormal Left, Abnormal Right, Upper Extremity Pin Prick: Abnormal Left, Abnormal Right - Psychiatric Exam Psychiatric exam: Normal Affect, Normal Mood - Skin Skin Exam: Dry Results - Vital Signs Recent Vital Signs: Last Vital Signs Temp 97.9 F 03/29/18 17:44 Pulse 75 03/29/18 19:11 Resp 18 03/29/18 17:44 BP 166/86 H 03/29/18 19:11 Pulse Ox 99 03/29/18 19:11 - Labs Result Diagrams: 03/29/18 17:55 03/29/18 17:55 Labs: Laboratory Results - last 24 hr 03/29/18 03/29/18 03/29/18 17:48 17:55 17:55 WBC RBC Hgb Hct MCV MCH MCHC RDW Plt Count MPV Gran % Lymph % (Auto) [place] % (Auto) Eos % (Auto) Baso % (Auto) Gran # Lymph # (Auto) [place] # (Auto) Eos # (Auto) Baso # (Auto) PT 12.6 H INR 1.10 APTT 28.5 Sodium 133 Potassium 4.5 Chloride 99 Carbon Dioxide 26 Anion Gap 13 BUN 20 Creatinine 1.4 Est GFR ( Amer) > 60 Est GFR (Non-Af Amer) 51 POC Glucose (mg/dL) 461 H* Random Glucose 523 H* D Calcium 8.7 Total Bilirubin 0.5 AST 17 ALT 24 Alkaline Phosphatase 99 Total Protein 7.1 Albumin 3.5 Globulin 3.6 Albumin/Globulin Ratio 1.0 L 03/29/18 17:55 WBC 8.4 RBC 4.40 Hgb 13.1 L Hct 37.7 L MCV 85.7 MCH 29.8 MCHC 34.7 RDW 13.5 Plt Count 265 MPV 9.6 Gran % 76.8 H Lymph % (Auto) 15.5 L [place] % (Auto) 6.3 H Eos % (Auto) 1.0 L Baso % (Auto) 0.4 Gran # 6.47 Lymph # (Auto) 1.3 [place] # (Auto) 0.5 Eos # (Auto) 0.1 Baso # (Auto) 0.03 PT INR APTT Sodium Potassium Chloride Carbon Dioxide Anion Gap BUN Creatinine Est GFR ( Amer) Est GFR (Non-Af Amer) POC Glucose (mg/dL) Random Glucose Calcium Total Bilirubin AST ALT Alkaline Phosphatase Total Protein Albumin Globulin Albumin/Globulin Ratio Assessment & Plan - Assessment and Plan (Free Text) Assessment: 62M with PMH HTN, DM, CAD who presents to ED with R third toe wound admitted for further evaluation and treatment Plan: R 3rd Toe Wound - pt reports drainage at home - afebrile, no leukocytosis - no warmth to area - r/o osteomyelitis - XRay R foot: f/u reading - US RLE: f/u report - pt given vanc and zosyn in ED - hold antibiotics at this time, f/u ID recs - keep legs elevated - warm compresses as needed - f/u wound Cx, BCx - f/u ESR, CRP - ID consulted, Dr. Otero- f/u recs for antibiotics - Podiatry consulted, Dr. Car -f/u recs for further imaging and management DM - pt reports poor diet today - pt with peripheral neuropathy - HbA1c 12/23 12.4 - levemir 15u SC HS - humalog 5u SC AC - low dose sliding scale - hypoglycemia protocol - diabetes education - f/u HbA1c HTN - continue home lopressor 100mg po BID - continue home lasix 20mg po dialy CAD - continue home brilinta 90mg po BID - continue lipitor 20mg po HS PPX: GI: Protonix DVT: SCDs not indicated due to neuropathy, hold anticoagulation for potential future podiatry procedure HHD, carb consistent Case reviewed with Dr. Murcia <Phoenix Murcia - Last Filed: 03/30/18 02:25> Results - Vital Signs Recent Vital Signs: Last Vital Signs Temp 97.9 F 03/29/18 17:44 Pulse 75 03/29/18 19:11 Resp 20 03/30/18 01:45 BP 166/86 H 03/29/18 19:11 Pulse Ox 99 03/29/18 19:11 - Labs Result Diagrams: 03/29/18 17:55 03/29/18 17:55 Labs: Laboratory Results - last 24 hr 03/29/18 03/29/18 03/29/18 17:48 17:55 17:55 WBC RBC Hgb Hct MCV MCH MCHC RDW Plt Count MPV Gran % Lymph % (Auto) [place] % (Auto) Eos % (Auto) Baso % (Auto) Gran # Lymph # (Auto) [place] # (Auto) Eos # (Auto) Baso # (Auto) ESR PT 12.6 H INR 1.10 APTT 28.5 Sodium 133 Potassium 4.5 Chloride 99 Carbon Dioxide 26 Anion Gap 13 BUN 20 Creatinine 1.4 Est GFR ( Amer) > 60 Est GFR (Non-Af Amer) 51 POC Glucose (mg/dL) 461 H* Random Glucose 523 H* D Calcium 8.7 Total Bilirubin 0.5 AST 17 ALT 24 Alkaline Phosphatase 99 Total Protein 7.1 Albumin 3.5 Globulin 3.6 Albumin/Globulin Ratio 1.0 L Urine Color Urine Appearance Urine pH Ur Specific [place] Urine Protein Urine Glucose (UA) Urine Ketones Urine Blood Urine Nitrate Urine Bilirubin Urine Urobilinogen Ur Leukocyte Esterase Urine RBC Urine WBC Ur Epithelial Cells Urine Bacteria 03/29/18 03/29/18 03/29/18 17:55 20:55 20:55 WBC 8.4 RBC 4.40 Hgb 13.1 L Hct 37.7 L MCV 85.7 MCH 29.8 MCHC 34.7 RDW 13.5 Plt Count 265 MPV 9.6 Gran % 76.8 H Lymph % (Auto) 15.5 L [place] % (Auto) 6.3 H Eos % (Auto) 1.0 L Baso % (Auto) 0.4 Gran # 6.47 Lymph # (Auto) 1.3 [place] # (Auto) 0.5 Eos # (Auto) 0.1 Baso # (Auto) 0.03 ESR 77 H PT INR APTT Sodium Potassium Chloride Carbon Dioxide Anion Gap BUN Creatinine Est GFR ( Amer) Est GFR (Non-Af Amer) POC Glucose (mg/dL) Random Glucose Calcium Total Bilirubin AST ALT Alkaline Phosphatase Total Protein Albumin Globulin Albumin/Globulin Ratio Urine Color Yellow Urine Appearance Clear Urine pH 6.5 Ur Specific [place] 1.015 Urine Protein 100 H Urine Glucose (UA) >=1000 Urine Ketones Negative Urine Blood Small H Urine Nitrate Negative Urine Bilirubin Negative Urine Urobilinogen 0.2 Ur Leukocyte Esterase Negative Urine RBC 0 - 2 Urine WBC 0 - 2 Ur Epithelial Cells 0 - 2 Urine Bacteria Neg 03/29/18 23:22 WBC RBC Hgb Hct MCV MCH MCHC RDW Plt Count MPV Gran % Lymph % (Auto) [place] % (Auto) Eos % (Auto) Baso % (Auto) Gran # Lymph # (Auto) [place] # (Auto) Eos # (Auto) Baso # (Auto) ESR PT INR APTT Sodium Potassium Chloride Carbon Dioxide Anion Gap BUN Creatinine Est GFR ( Amer) Est GFR (Non-Af Amer) POC Glucose (mg/dL) 126 H Random Glucose Calcium Total Bilirubin AST ALT Alkaline Phosphatase Total Protein Albumin Globulin Albumin/Globulin Ratio Urine Color Urine Appearance Urine pH Ur Specific [place] Urine Protein Urine Glucose (UA) Urine Ketones Urine Blood Urine Nitrate Urine Bilirubin Urine Urobilinogen Ur Leukocyte Esterase Urine RBC Urine WBC Ur Epithelial Cells Urine Bacteria Attending/Attestation - Attestation I have personally seen and examined this patient.: Yes I have fully participated in the care of the patient.: Yes I have reviewed all pertinent clinical information: Yes Notes (Text): 03/30/18 02:23 Patient was seen when he was in bed #5 in the ER. Medical record was reviewed. Patient also gives history of CABG, CAD, Right leg stent placement. Agree with history, physical examination,assessment and plan.
[2018-03-29 21:20] LABS: PH,URINE 6.5 (4.7-8.0); URINE BILIRUBIN NEGATIVE (NEGATIVE); URINE BLOOD SMALL (NEGATIVE); URINE GLUCOSE (UA) >=1000 mg/dL (NEGATIVE); URINE LEUKOCYTE ESTERASE NEGATIVE Leu/uL (NEGATIVE); URINE PROTEIN 100 mg/dL (<30 mg/dL); URINE UROBILINOGEN 0.2 E.U./dL (<1 E.U./dL)
[2018-03-29 21:23] LABS: URINE APPEARANCE CLEAR (CLEAR); URINE COLOR YELLOW (YELLOW)
[2018-03-29] MEDS ORDERED: Insulin Detemir 100 units/ml Vial (Levemir) SC SCH (22:00)
[2018-03-29 22:16] LABS: URINE BACTERIA NEG (NEG); URINE EPITHELIAL CELLS 0 - 2 /hpf (0-5); URINE RBC 0 - 2 /hpf (0-2); URINE WBC 0 - 2 /hpf (0-6)
[2018-03-29] MEDS: Insulin Detemir 100 units/ml Vial (Levemir) SC SCH (23:24)
[2018-03-29] MEDS: Insulin Lispro (humaLOG) LOW Coverage SC SCH (23:24)
[2018-03-29] MEDS ORDERED: Morphine 2 mg/ml ISec IVP ONE (23:30)
[2018-03-30] MEDS: Sodium Chloride 0.9% 1,000 ML IV SCH ×2 (00:45→05:26)
[2018-03-30] MEDS: Pantoprazole 40 mg EC Tab PO SCH ×2 (05:20→17:44)
[2018-03-30] MEDS ORDERED: Sodium Chloride 0.9% 1,000 ML IV SCH (06:21)
[2018-03-30 07:27] LABS: BASO # 0.04 K/mm3 (0.0-2.0); BASO % 0.5 % (0.0-3.0); EOS # 0.2 (0.0-0.7); EOS % 2.3 % (1.5-5.0); GRAN # 6.13 (1.4-6.5); GRAN % 73.9 % (50.0-68.0); HEMOGLOBIN 13.3 g/dL (14.0-18.0); LYMPH # 1.4 (1.2-3.4); LYMPH % 16.6 % (22.0-35.0); MEAN CELL VOLUME 85.3 fl (80.0-105.0); MEAN CORPUSCULAR HEMOGLOBIN 29.7 pg (25.0-35.0); MEAN CORPUSCULAR HGB CONC 34.8 g/dl (31.0-37.0); MEAN PLATELET VOLUME 9.4 fl (7.0-11.0); MONO # 0.6 (0.1-0.6); MONO % 6.7 % (1.0-6.0); RBC 4.48 10^6/uL (3.5-6.1); RED CELL DISTRIBUTION WIDTH 13.6 % (11.5-14.5); WHITE BLOOD COUNT 8.3 10^3/uL (4.5-11.0)
[2018-03-30 07:50] LABS: BLOOD UREA NITROGEN 16 mg/dL (7-21); CALCIUM 8.5 mg/dL (8.4-10.5); GFR NON-AFRICAN AMERICAN > 60
[2018-03-30] MEDS: Insulin Lispro (humaLOG) LOW Coverage SC SCH ×2 (08:24→12:10)
[2018-03-30] MEDS: Insulin Lispro 1 UNITS/0.01 ML SC SCH ×3 (08:28→17:43)
--- NOTE | 2018-03-30 08:42 | RAD ---
HISTORY: DM/foot infection COMPARISON: Chest x-ray performed 12/23/17 TECHNIQUE: Chest, one view. FINDINGS: Examination limited by habitus and patient obliquity. LUNGS: Opacity noted at the right lateral lower lobe, favored to reflect overlying soft tissue. Please note that chest x-ray has limited sensitivity for the detection of pulmonary masses. PLEURA: Small right pleural effusion/pleural thickening. No definite pneumothorax . CARDIOVASCULAR: Median sternotomy wires. Heart size appears top normal. Atherosclerotic calcifications of the aorta. OSSEOUS STRUCTURES: Degenerative changes. VISUALIZED UPPER ABDOMEN: Unremarkable. OTHER FINDINGS: None. IMPRESSION: Opacity at the lateral right lower lung field likely related to overlying soft tissue. Recommend follow-up chest PA and lateral or CT of the chest for further evaluation. Small right pleural effusion/pleural thickening.
--- NOTE | 2018-03-30 09:14 | CARD ---
APPROVED REPORT Date of service: 03/29/2018 EKG Measurement Heart [id number] <Conclusion> Normal sinus rhythm LAD ILBBB STTW changes c/w ischemia No change
--- NOTE | 2018-03-30 09:27 | RAD ---
Date of service: 03/29/2018 PROCEDURE: Right Foot Radiographs. HISTORY: 3rd toe infection COMPARISON: 05/24/2017 FINDINGS: BONES: Previous amputations of the 1st and 2nd toes and distal metatarsals. No evidence of osteomyelitis JOINTS: Normal. SOFT TISSUES: Normal. OTHER FINDINGS: None. IMPRESSION: No evidence of osteomyelitis
--- NOTE | 2018-03-30 11:35 | US ---
PROCEDURE: Right lower extremity venous US HISTORY: Leg pain and swelling. Evaluate for DVT. PHYSICIAN(S): Gianni Massey M.D. TECHNIQUE: Duplex sonography and color-flow Doppler with graded compression were used to evaluate the deep venous system of the right lower extremity. The exam is somewhat limited by edema. FINDINGS: The visualized deep venous system of the right lower extremity is sonographically normal and compressible. Normal waveforms and augmentation are seen. There is no sonographic evidence for deep venous thrombosis in the visualized segments of the right lower extremity. IMPRESSION: 1. No sonographic evidence for deep venous thrombosis in the visualized segments of the right lower extremity.
--- NOTE | 2018-03-30 12:43 | CP.PCM.PN ---
<Marcus Villagran - Last Filed: 03/30/18 12:40> Subjective - Date & Time of Evaluation Date of Evaluation: 03/30/18 Time of Evaluation: 08:00 - Subjective Subjective: Marcus Villagran PGY-1 Progress Note for Hospitalist Service Patient seen and evaluated at bedside. No acute events reported overnight. Patient denies chest pain, palpitations, leg pain, shortness of breath. Pending podiatry evaluation. Objective - Vital Signs/Intake and Output Vital Signs (last 24 hours): Temp Pulse Resp BP Pulse Ox 97.6 F 69 20 178/93 H 100 03/30/18 08:21 03/30/18 08:21 03/30/18 08:21 03/30/18 09:28 03/30/18 08:21 - Medications Medications: Current Medications Atorvastatin Calcium (Lipitor) 20 mg PO HS [facility] Last Admin: 03/29/18 23:55 Dose: 20 mg Dextrose (Dextrose 50% Inj) 0 ml IV STAT PRN; Protocol PRN Reason: Hypoglycemia Protocol Furosemide (Lasix) 20 mg PO DAILY [facility] Last Admin: 03/30/18 09:28 Dose: 20 mg Dextrose (Dextrose 5% In Water 1000 Ml) 1,000 mls @ 0 mls/hr IV .Q0M PRN; Protocol PRN Reason: Hypoglycemia Protocol Insulin Detemir (Levemir) 15 unit SC [facility] Last Admin: 03/29/18 23:24 Dose: Not Given Insulin Human Lispro (Humalog Low) 0 units SC [facility]; Protocol Last Admin: 03/30/18 12:10 Dose: 2 units Insulin Human Lispro (Humalog) 5 units SC AC [facility] Last Admin: 03/30/18 12:11 Dose: 5 units Metoprolol Tartrate (Lopressor) 100 mg PO BID [facility] Last Admin: 03/30/18 09:26 Dose: 100 mg Pantoprazole Sodium (Protonix Ec Tab) 40 mg PO 0600,1600 [facility] Last Admin: 03/30/18 05:20 Dose: 40 mg Ticagrelor (Brilinta) 90 mg PO BID [facility] Last Admin: 03/30/18 09:28 Dose: 90 mg Tramadol HCl (Ultram) 50 mg PO Q6 PRN PRN Reason: Pain, moderate (4-7) - Labs Labs: 03/30/18 07:00 03/30/18 07:00 PT 12.6 SECONDS (9.4-12.5) H 03/29/18 17:55 INR 1.10 03/29/18 17:55 APTT 28.5 Seconds (25.1-36.5) 03/29/18 17:55 - Additional Findings Additional findings: - Constitutional Appears: Well, No Acute Distress - Head Exam Head Exam: ATRAUMATIC, NORMOCEPHALIC - Eye Exam Eye Exam: EOMI, Normal appearance Pupil Exam: NORMAL ACCOMODATION - ENT Exam ENT Exam: Mucous Membranes Moist - Respiratory Exam Respiratory Exam: Clear to Auscultation Bilateral, NORMAL BREATHING PATTERN. absent: Decreased Breath Sounds, Rales, Rhonchi, Wheezes - Cardiovascular Exam Cardiovascular Exam: REGULAR RHYTHM, +S1, +S2. absent: Gallop, Rubs, Systolic Murmur - GI/Abdominal Exam GI & Abdominal Exam: Normal Bowel Sounds, Soft. absent: Distended, Tenderness - Extremities Exam Extremities exam: Positive for: pedal edema Additional comments: R foot: 2cm wound on 3rd toe, with minimal surrounding erythema. granulation tissue noted. no draining noted. b/l LE: multiple healing ulcers - Neurological Exam Neurological exam: Alert, Motor Sensory Deficit, Oriented x3 Cranial nerves: EOM's Intact: Normal, Facial Sensation: Normal - Psychiatric Exam Psychiatric exam: Normal Affect, Normal Mood - Skin Skin Exam: Dry Assessment and Plan - Assessment and Plan (Free Text) Assessment: 62M with PMH HTN, DM, CAD with hx of CABG who presents with R third toe wound admitted for further evaluation and treatment. Past history of 1st and 2nd R toe amputations. Plan: R 3rd Toe Wound - pt reports drainage at home, currently no drainage - afebrile, no leukocytosis, no warmth to area - XRay R foot: no evidence of OM - US RLE: no DVT - pt given vanc and zosyn in ED - hold antibiotics at this time - keep legs elevated - f/u wound Cx, BCx - ESR-77, CRP elevated at 15 - ID consulted, Dr. Otero- to begin Cefepime 1 gm IV q8. F/u further recommendations. - Podiatry consulted, Dr. Car -f/u recs for further imaging and management Uncontrolled DM - pt with peripheral neuropathy - HbA1c 13.5 this admission - levemir 15u SC HS - humalog 5u SC AC - insulin sliding scale changed to medium coverage - hypoglycemia protocol, diabetes education HTN - continue home lopressor 100mg po BID - continue home lasix 20mg po dialy CAD, hx CABG - continue home brilinta 90mg po BID, consider starting home aspirin vs DAPT pending Podiatry and Cardio recs for ? procedure - continue lipitor 20mg po HS PPX: GI: Protonix DVT: Heparin SC DVT ppx HHD, carb consistent Patient seen, case reviewed, and plan approved by Dr. Gonzales. Marcus Villagran, PGY-1 <Alejandro Gonzales - Last Filed: 03/30/18 16:00> Objective - Vital Signs/Intake and Output Vital Signs (last 24 hours): Temp Pulse Resp BP Pulse Ox 97.6 F 69 20 178/93 H 100 03/30/18 08:21 03/30/18 08:21 03/30/18 08:21 03/30/18 09:28 03/30/18 08:21 - Medications Medications: Current Medications Atorvastatin Calcium (Lipitor) 20 mg PO HS [facility] Last Admin: 03/29/18 23:55 Dose: 20 mg Dextrose (Dextrose 50% Inj) 0 ml IV STAT PRN; Protocol PRN Reason: Hypoglycemia Protocol Furosemide (Lasix) 20 mg PO DAILY [facility] Last Admin: 03/30/18 09:28 Dose: 20 mg Heparin Sodium (Porcine) (Heparin) 5,000 units SC Q8 [facility]; Protocol Last Admin: 03/30/18 13:35 Dose: 5,000 units Dextrose (Dextrose 5% In Water 1000 Ml) 1,000 mls @ 0 mls/hr IV .Q0M PRN; Protocol PRN Reason: Hypoglycemia Protocol Cefepime HCl (Maxipime 1gm) 1 gm in 100 mls @ 100 mls/hr IVPB Q8 [facility]; Protocol Last Admin: 03/30/18 13:35 Dose: 100 mls/hr Insulin Detemir (Levemir) 15 unit SC HS [facility] Last Admin: 03/29/18 23:24 Dose: Not Given Insulin Human Lispro (Humalog) 5 units SC AC [facility] Last Admin: 03/30/18 12:11 Dose: 5 units Insulin Human Lispro (Humalog Med) 0 units SC ACHS [facility]; Protocol Metoprolol Tartrate (Lopressor) 100 mg PO BID [facility] Last Admin: 03/30/18 09:26 Dose: 100 mg Pantoprazole Sodium (Protonix Ec Tab) 40 mg PO 0600,1600 [facility] Last Admin: 03/30/18 05:20 Dose: 40 mg Ticagrelor (Brilinta) 90 mg PO BID [facility] Last Admin: 03/30/18 09:28 Dose: 90 mg Tramadol HCl (Ultram) 50 mg PO Q6 PRN PRN Reason: Pain, moderate (4-7) Last Admin: 03/30/18 14:35 Dose: 50 mg - Labs Labs: 03/30/18 07:00 03/30/18 07:00 PT 12.6 SECONDS (9.4-12.5) H 03/29/18 17:55 INR 1.10 03/29/18 17:55 APTT 28.5 Seconds (25.1-36.5) 03/29/18 17:55 Attending/Attestation - Attestation I have personally seen and examined this patient.: Yes I have fully participated in the care of the patient.: Yes I have reviewed all pertinent clinical information, including history, physical exam and plan: Yes Notes (Text): 03/30/18 15:55 62 year old male with past medical history of hypertension, diabetes, history of 1st/2nd right toe amputations and CAD s/p CABG who presented with right third toe wound. He is on iv antibiotics, pending wound culture. ID and podiatry evaluation are requested. Doppler was negative for DCVT. MRI is ordered to rule out osteomyelitis. If podiatry is planning for any procedure aspirin/brilinta may need to be held. Continue with humalog and levemir for diabetes. Continue with lopressor for hypertension. Alejandro Gonzales MD Hospitalist.
[2018-03-30] MEDS ORDERED: Cefepime 1gm in NS 100ml 1 GM/100 ML BAG IVPB SCH (14:00)
--- NOTE | 2018-03-30 14:23 | RAD ---
Date of service: 03/30/2018 HISTORY: ? RLL opacity COMPARISON: 03/29/2018 TECHNIQUE: Chest PA and lateral FINDINGS: LUNGS: No active pulmonary disease. PLEURA: No significant pleural effusion identified. No pneumothorax apparent. CARDIOVASCULAR: Aortic calcification Mild cardiomegaly no pulmonary vascular congestion. OSSEOUS STRUCTURES: Sternal wires VISUALIZED UPPER ABDOMEN: Normal. OTHER FINDINGS: None. IMPRESSION: No active disease.
--- NOTE | 2018-03-30 15:41 | CP.PCM.CON ---
<Chema Snyder - Last Filed: 03/30/18 15:28> History of Present Illness - History of Present Illness History of Present Illness: Podiatry consult notes for attending Adolph Chaves: 62 y/o M with PMH HTN, DM, CAD seen and evaluated at the bedside for R third toe wound. patient states that his R 3rd toe is draining of green pus and swollen since yesterday. He does not recall any abrasions or trauma to the area. He states that he has some mild soreness in the toes. He did not try any wound care at home. patient states that he is following up with Dr. Chaves. Patient denies any recent F/N/V/F/CP. Patient denies any other pedal complainmt at this time. PMH HTN, DM, CAD PSH: R 1st and 2nd toe amputations Allergies: NKDA Social Hx: former smoker 36 pack-year stopped 7 years ago, former EtoH use stopped 26 years ago, denies illicit drug use Review of Systems - Review of Systems Review of Systems: As per HPI - Constitutional Constitutional: As Per HPI Past Patient History - Infectious Disease Hx of Infectious Diseases: None - Tetanus Immunizations Tetanus Immunization: Unknown - Past Social History Smoking Status: Former Smoker - CARDIAC Hx Cardiac Disorders: Yes Hx Angina: No Hx Cardia Arrhythmia: No Hx Circulatory Problems: Yes Hx Congestive Heart Failure: Yes Hx Heart Murmur: No Hx Heart Transplant: No Hx Hypercholesterolemia: Yes Hx Hypertension: Yes Hx Internal Defibrillator: No Hx Mitral Valve Prolapse: No Hx Peripheral Edema: Yes Hx Peripheral Vascular Disease: Yes - PULMONARY Hx Respiratory Disorders: No Hx Asthma: No Hx Bronchitis: No Hx Chronic Obstructive Pulmonary Disease (COPD): Yes Hx Emphysema: No Hx Pneumonia: Yes Hx Respiratory Aspiration: No Hx Respiratory Tract Infection: No Hx Sleep Apnea: Yes Hx Tuberculosis: No - NEUROLOGICAL Hx Neurological Disorder: No Hx Alzheimer's Disease: No HX Cerebrovascular Accident: Yes Hx Dementia: No Hx Dizziness: No Hx Meningitis: No Hx Migraine: No Hx Parkinson's Disease: No Hx Seizures: No Hx Transient Ischemic Attacks (TIA): No - HEENT Hx HEENT Problems: No 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) Hx Cataracts: No Hx Deafness: No Hx Difficulty Chewing: No Hx Epistaxis: No Hx Glaucoma: No Hx Macular Degeneration: No - RENAL Hx Chronic Kidney Disease: No Hx Dialysis: No Hx Kidney Stones: No Hx Neurogenic Bladder: No Hx Pyelonephritis: No Hx Renal (Kidney) Cancer: No Hx Renal Failure: No - ENDOCRINE/METABOLIC Hx Endocrine Disorders: No Hx Adrenal Cancer: No Hx Diabetes Insipidus: No Hx Diabetes Mellitus Type 1: No Hx Diabetes Mellitus Type 2: Yes Hx Hyperthyroidism: No Hx Hypothyroidism: No Hx Systemic Lupus Erythematosus: No - HEMATOLOGICAL/ONCOLOGICAL Hx Blood Disorders: No Hx AIDS: No Hx Anemia: No Hx Cancer: No Hx Chemotherapy: No Hx Cirrhosis: No Hx Hemophilia: No Hx Hepatitis A: No Hx Hepatitis B: No Hx Hepatitis C: No Hx Human Immunodeficiency Virus (HIV): No Hx Metastesis: No Hx Shingles: No Hx Sickle Cell Disease: No Hx Unexplained Bleeding: No - INTEGUMENTARY Hx Dermatological Problems: No Hx Basil Cell: No Hx Eczema: No Hx Melanoma: No Hx Psoriasis: No Hx Squamous Cell: No - MUSCULOSKELETAL/RHEUMATOLOGICAL Hx Musculoskeletal Disorders: No Hx Arthritis: Yes Hx Back Pain: No Hx Degenerative Joint Disease: No Hx Falls: Yes Hx Fractures: No Hx Gout: No Hx Herniated Disk: No Hx Myasthenia Gravis: No Hx Osteoarthritis: No Hx Osteomyelitis: No Hx Osteoporosis: No Hx Rhabdomyolysis: No Hx Spinal Stenosis: No Hx Unsteady Gait: No - GASTROINTESTINAL Hx Gastrointestinal Disorders: No Hx Colostomy: No Hx Crohn's Disease: No Hx Diverticulitis: No Hx Gall Bladder Disease: No Hx Gastroesophageal Reflux: No Hx Ileostomy: No Hx Liver Failure: No Hx Pancreatitis: No HX Swallowing Problems: No Hx Ulcer: No - GENITOURINARY/GYNECOLOGICAL Hx Genitourinary Disorders: No Hx Hematuria: No Hx Incontinence: No Hx Prostate Problems: No Hx Sexually Transmitted Disorders: No Hx Urinary Tract Infection: No - PSYCHIATRIC Hx Psychophysiologic Disorder: Yes Hx Anxiety: Yes Hx Bipolar Disorder: Yes Hx Depression: Yes Hx Emotional Abuse: No Hx Hallucinations: No Hx Panic Symptoms: No Hx Paranoia: No Hx Post Traumatic Stress Disorder: No Hx Psychosis: No Hx Physical Abuse: No Hx Schizophrenia: Yes Hx Sexual Abuse: No - SURGICAL HISTORY Hx Surgeries: Yes Hx Amputation: No Hx Appendectomy: No Hx Cardiac Catheterization: No Hx Coronary Stent: Yes (3 stents) Hx Gastric Bypass Surgery: No Hx Hysterectomy: No Hx Joint Replacement: No Hx Kidney Transplant: No Hx Liver Transplant: No Hx Mastectomy: No Hx Musculoskeletal Surgery: No Hx Open Heart Surgery: No Hx Orthopedic Surgery: No Hx Splenectomy: No Hx Valve Replacement: No - ANESTHESIA Hx Anesthesia: Yes Hx Anesthesia Reactions: No Hx Malignant Hyperthermia: No Meds Allergies/Adverse Reactions: Allergies Allergy/AdvReac Type Severity Reaction Status Date / Time No Known Allergies Allergy Verified 03/29/18 17:47 - Medications Medications: Current Medications Atorvastatin Calcium (Lipitor) 20 mg PO HS [facility] Last Admin: 03/29/18 23:55 Dose: 20 mg Dextrose (Dextrose 50% Inj) 0 ml IV STAT PRN; Protocol PRN Reason: Hypoglycemia Protocol Furosemide (Lasix) 20 mg PO DAILY [facility] Last Admin: 03/30/18 09:28 Dose: 20 mg Heparin Sodium (Porcine) (Heparin) 5,000 units SC Q8 [facility]; Protocol Last Admin: 03/30/18 13:35 Dose: 5,000 units Dextrose (Dextrose 5% In Water 1000 Ml) 1,000 mls @ 0 mls/hr IV .Q0M PRN; Protocol PRN Reason: Hypoglycemia Protocol Cefepime HCl (Maxipime 1gm) 1 gm in 100 mls @ 100 mls/hr IVPB Q8 [facility]; Protocol Last Admin: 03/30/18 13:35 Dose: 100 mls/hr Insulin Detemir (Levemir) 15 unit SC [facility] Last Admin: 03/29/18 23:24 Dose: Not Given Insulin Human Lispro (Humalog) 5 units SC [facility] Last Admin: 03/30/18 12:11 Dose: 5 units Insulin Human Lispro (Humalog Med) 0 units SC ACHS [facility]; Protocol Metoprolol Tartrate (Lopressor) 100 mg PO BID [facility] Last Admin: 03/30/18 09:26 Dose: 100 mg Pantoprazole Sodium (Protonix Ec Tab) 40 mg PO 0600,1600 [facility] Last Admin: 03/30/18 05:20 Dose: 40 mg Ticagrelor (Brilinta) 90 mg PO BID [facility] Last Admin: 03/30/18 09:28 Dose: 90 mg Tramadol HCl (Ultram) 50 mg PO Q6 PRN PRN Reason: Pain, moderate (4-7) Last Admin: 03/30/18 14:35 Dose: 50 mg Physical Exam - Constitutional Appears: Well, Non-toxic, No Acute Distress - Head Exam Head Exam: ATRAUMATIC, NORMOCEPHALIC - Extremities Exam Additional comments: Right lower extremity focused exam: Vasc: DP and PT pulses faintly palpable. Cap refill < 3 sec to remaining digits. Skin temperature warm to cool from proximal to distal. mile erythema noted to the R LE. Neuro: Gross and protective sensations are grossly diminished Derm:scar of previous 1st and 2nd metatarsal amputations noted. There is an superficial ulceration approximetly 0.4 cm x 0.3 cm x 0.2 cm noted to the tip of the 3rd toe. No malodor, positive purulence, No probe to bone. erythema noted to the 3rd toe proximal to the ulcer MSK: Muscle power intact 5/5 to all major muscle groups b/l. no pain on palpating the R periulcerative area. - Neurological Exam Neurological exam: Alert, Oriented x3 - Psychiatric Exam Psychiatric exam: Normal Affect, Normal Mood Results - Vital Signs Recent Vital Signs: Last Vital Signs Temp 97.6 F 03/30/18 08:21 Pulse 69 03/30/18 08:21 Resp 20 03/30/18 08:21 BP 178/93 H 03/30/18 09:28 Pulse Ox 100 03/30/18 08:21 - Labs Result Diagrams: 03/30/18 07:00 03/30/18 07:00 Labs: Laboratory Results - last 24 hr 03/29/18 03/29/18 03/29/18 17:48 17:55 17:55 WBC RBC Hgb Hct MCV MCH MCHC RDW Plt Count MPV Gran % Lymph % (Auto) Jennings % (Auto) Eos % (Auto) Baso % (Auto) Gran # Lymph # (Auto) Jennings # (Auto) Eos # (Auto) Baso # (Auto) ESR PT 12.6 H INR 1.10 APTT 28.5 Sodium 133 Potassium 4.5 Chloride 99 Carbon Dioxide 26 Anion Gap 13 BUN 20 Creatinine 1.4 Est GFR ( Amer) > 60 Est GFR (Non-Af Amer) 51 POC Glucose (mg/dL) 461 H* Random Glucose 523 H* D Hemoglobin A1c Calcium 8.7 Total Bilirubin 0.5 AST 17 ALT 24 Alkaline Phosphatase 99 C-React Prot High Sens Total Protein 7.1 Albumin 3.5 Globulin 3.6 Albumin/Globulin Ratio 1.0 L Urine Color Urine Appearance Urine pH Ur Specific Homer Urine Protein Urine Glucose (UA) Urine Ketones Urine Blood Urine Nitrate Urine Bilirubin Urine Urobilinogen Ur Leukocyte Esterase Urine RBC Urine WBC Ur Epithelial Cells Urine Bacteria 03/29/18 03/29/18 03/29/18 17:55 18:00 19:57 WBC 8.4 RBC 4.40 Hgb 13.1 L Hct 37.7 L MCV 85.7 MCH 29.8 MCHC 34.7 RDW 13.5 Plt Count 265 MPV 9.6 Gran % 76.8 H Lymph % (Auto) 15.5 L Jennings % (Auto) 6.3 H Eos % (Auto) 1.0 L Baso % (Auto) 0.4 Gran # 6.47 Lymph # (Auto) 1.3 Jennings # (Auto) 0.5 Eos # (Auto) 0.1 Baso # (Auto) 0.03 ESR PT INR APTT Sodium Potassium Chloride Carbon Dioxide Anion Gap BUN Creatinine Est GFR ( Amer) Est GFR (Non-Af Amer) POC Glucose (mg/dL) 302 H Random Glucose Hemoglobin A1c 13.5 H Calcium Total Bilirubin AST ALT Alkaline Phosphatase C-React Prot High Sens Total Protein Albumin Globulin Albumin/Globulin Ratio Urine Color Urine Appearance Urine pH Ur Specific Homer Urine Protein Urine Glucose (UA) Urine Ketones Urine Blood Urine Nitrate Urine Bilirubin Urine Urobilinogen Ur Leukocyte Esterase Urine RBC Urine WBC Ur Epithelial Cells Urine Bacteria 03/29/18 03/29/18 03/29/18 20:55 20:55 20:55 WBC RBC Hgb Hct MCV MCH MCHC RDW Plt Count MPV Gran % Lymph % (Auto) Jennings % (Auto) Eos % (Auto) Baso % (Auto) Gran # Lymph # (Auto) Jennings # (Auto) Eos # (Auto) Baso # (Auto) ESR 77 H PT INR APTT Sodium Potassium Chloride Carbon Dioxide Anion Gap BUN Creatinine Est GFR ( Amer) Est GFR (Non-Af Amer) POC Glucose (mg/dL) Random Glucose Hemoglobin A1c Calcium Total Bilirubin AST ALT Alkaline Phosphatase C-React Prot High Sens > 15.00 H Total Protein Albumin Globulin Albumin/Globulin Ratio Urine Color Yellow Urine Appearance Clear Urine pH 6.5 Ur Specific Homer 1.015 Urine Protein 100 H Urine Glucose (UA) >=1000 Urine Ketones Negative Urine Blood Small H Urine Nitrate Negative Urine Bilirubin Negative Urine Urobilinogen 0.2 Ur Leukocyte Esterase Negative Urine RBC 0 - 2 Urine WBC 0 - 2 Ur Epithelial Cells 0 - 2 Urine Bacteria Neg 03/29/18 03/30/18 03/30/18 23:22 07:00 07:00 WBC 8.3 RBC 4.48 Hgb 13.3 L Hct 38.2 L MCV 85.3 MCH 29.7 MCHC 34.8 RDW 13.6 Plt Count 236 MPV 9.4 Gran % 73.9 H Lymph % (Auto) 16.6 L Jennings % (Auto) 6.7 H Eos % (Auto) 2.3 Baso % (Auto) 0.5 Gran # 6.13 Lymph # (Auto) 1.4 Jennings # (Auto) 0.6 Eos # (Auto) 0.2 Baso # (Auto) 0.04 ESR PT INR APTT Sodium 136 Potassium 4.5 Chloride 106 Carbon Dioxide 25 Anion Gap 10 BUN 16 Creatinine 1.0 Est GFR ( Amer) > 60 Est GFR (Non-Af Amer) > 60 POC Glucose (mg/dL) 126 H Random Glucose 278 H Hemoglobin A1c Calcium 8.5 Total Bilirubin AST ALT Alkaline Phosphatase C-React Prot High Sens Total Protein Albumin Globulin Albumin/Globulin Ratio Urine Color Urine Appearance Urine pH Ur Specific Homer Urine Protein Urine Glucose (UA) Urine Ketones Urine Blood Urine Nitrate Urine Bilirubin Urine Urobilinogen Ur Leukocyte Esterase Urine RBC Urine WBC Ur Epithelial Cells Urine Bacteria 03/30/18 03/30/18 07:41 11:37 WBC RBC Hgb Hct MCV MCH MCHC RDW Plt Count MPV Gran % Lymph % (Auto) Jennings % (Auto) Eos % (Auto) Baso % (Auto) Gran # Lymph # (Auto) Jennings # (Auto) Eos # (Auto) Baso # (Auto) ESR PT INR APTT Sodium Potassium Chloride Carbon Dioxide Anion Gap BUN Creatinine Est GFR ( Amer) Est GFR (Non-Af Amer) POC Glucose (mg/dL) 252 H 248 H Random Glucose Hemoglobin A1c Calcium Total Bilirubin AST ALT Alkaline Phosphatase C-React Prot High Sens Total Protein Albumin Globulin Albumin/Globulin Ratio Urine Color Urine Appearance Urine pH Ur Specific Homer Urine Protein Urine Glucose (UA) Urine Ketones Urine Blood Urine Nitrate Urine Bilirubin Urine Urobilinogen Ur Leukocyte Esterase Urine RBC Urine WBC Ur Epithelial Cells Urine Bacteria Assessment & Plan - Assessment and Plan (Free Text) Assessment: 62 y/o M patient seen and evaluated in the bedside for R 3rd toe infected ulcer Plan: Patient seen and evaluated at the bedside Plan discussed in details with attending Dr. Chaves Charts, labs and vitals reviewed; afebrile, No leukocytosis R foot x-ray: no evidence of OM R LE venous duplex: No evidence of DVT Ordered b/L MEGAN/PVR R foot cleaned with saline then dressed using xeroform and DSD. Wound culture collected from the ulcer and set to lab Ordered surgical shoe b/l. Patient to ambulate in the surgical shoe Podiatry will follow up the patient while patient is in house - Date & Time Date: 03/30/18 Time: 15:29 <Gerson Chaves - Last Filed: 03/31/18 08:40> Meds - Medications Medications: Current Medications Atorvastatin Calcium (Lipitor) 20 mg PO HS [facility] Last Admin: 03/30/18 22:23 Dose: 20 mg Dextrose (Dextrose 50% Inj) 0 ml IV STAT PRN; Protocol PRN Reason: Hypoglycemia Protocol Furosemide (Lasix) 20 mg PO DAILY [facility] Last Admin: 03/30/18 09:28 Dose: 20 mg Heparin Sodium (Porcine) (Heparin) 5,000 units SC Q8 [facility]; Protocol Last Admin: 03/31/18 05:47 Dose: 5,000 units Dextrose (Dextrose 5% In Water 1000 Ml) 1,000 mls @ 0 mls/hr IV .Q0M PRN; Protocol PRN Reason: Hypoglycemia Protocol Cefazolin Sodium/Dextrose (Ancef Iv 2 Gm Duplex) 2 gm in 50 mls @ 50 mls/hr IVPB Q8 [facility]; Protocol Last Admin: 03/31/18 05:46 Dose: 50 mls/hr Insulin Detemir (Levemir) 15 unit SC HS [facility] Last Admin: 03/30/18 22:22 Dose: 15 units Insulin Human Lispro (Humalog) 5 units SC AC [facility] Last Admin: 03/31/18 08:30 Dose: Not Given Insulin Human Lispro (Humalog Med) 0 units SC ACHS [facility]; Protocol Last Admin: 03/30/18 21:55 Dose: Not Given Metoprolol Tartrate (Lopressor) 100 mg PO BID [facility] Last Admin: 03/30/18 17:44 Dose: 100 mg Pantoprazole Sodium (Protonix Ec Tab) 40 mg PO 0600,1600 [facility] Last Admin: 03/31/18 05:47 Dose: 40 mg Ticagrelor (Brilinta) 90 mg PO BID [facility] Last Admin: 03/30/18 18:24 Dose: 90 mg Tramadol HCl (Ultram) 50 mg PO Q6 PRN PRN Reason: Pain, moderate (4-7) Last Admin: 03/30/18 14:35 Dose: 50 mg Results - Vital Signs Recent Vital Signs: Last Vital Signs Temp 97.6 F 03/30/18 08:21 Pulse 60 03/31/18 07:16 Resp 20 03/30/18 08:21 BP 175/88 H 03/31/18 07:16 Pulse Ox 100 03/30/18 08:21 - Labs Result Diagrams: 03/31/18 07:00 03/31/18 07:00 Labs: Laboratory Results - last 24 hr 03/29/18 03/29/18 03/30/18 18:00 20:55 11:37 WBC RBC Hgb Hct MCV MCH MCHC RDW Plt Count MPV Gran % Lymph % (Auto) Jennings % (Auto) Eos % (Auto) Baso % (Auto) Gran # Lymph # (Auto) Jennings # (Auto) Eos # (Auto) Baso # (Auto) Sodium Potassium Chloride Carbon Dioxide Anion Gap BUN Creatinine Est GFR ( Amer) Est GFR (Non-Af Amer) POC Glucose (mg/dL) 248 H Random Glucose Hemoglobin A1c 13.5 H Calcium C-React Prot High Sens > 15.00 H 03/30/18 03/30/18 03/31/18 16:17 21:26 07:00 WBC 7.1 RBC 4.70 Hgb 13.6 L Hct 40.2 L MCV 85.5 MCH 28.9 MCHC 33.8 RDW 13.5 Plt Count 254 MPV 9.6 Gran % 71.4 H Lymph % (Auto) 18.3 L Jennings % (Auto) 7.2 H Eos % (Auto) 2.5 Baso % (Auto) 0.6 Gran # 5.08 Lymph # (Auto) 1.3 Jennings # (Auto) 0.5 Eos # (Auto) 0.2 Baso # (Auto) 0.04 Sodium Potassium Chloride Carbon Dioxide Anion Gap BUN Creatinine Est GFR ( Amer) Est GFR (Non-Af Amer) POC Glucose (mg/dL) 213 H 201 H Random Glucose Hemoglobin A1c Calcium C-React Prot High Sens 03/31/18 07:00 WBC RBC Hgb Hct MCV MCH MCHC RDW Plt Count MPV Gran % Lymph % (Auto) Jennings % (Auto) Eos % (Auto) Baso % (Auto) Gran # Lymph # (Auto) Jennings # (Auto) Eos # (Auto) Baso # (Auto) Sodium 135 Potassium 3.5 L Chloride 104 Carbon Dioxide 23 Anion Gap 11 BUN 17 Creatinine 1.0 Est GFR ( Amer) > 60 Est GFR (Non-Af Amer) > 60 POC Glucose (mg/dL) Random Glucose 242 H Hemoglobin A1c Calcium 8.4 C-React Prot High Sens Attending/Attestation - Attestation I have personally seen and examined this patient.: Yes I have fully participated in the care of the patient.: Yes I have reviewed all pertinent clinical information: Yes
--- NOTE | 2018-03-30 17:21 | CP.PCM.CON ---
History of Present Illness - History of Present Illness History of Present Illness: Infectious Disease Consultation: March 30, 2018 62 yo male with extensive medical history of DM, HTN, CAD, and tobacco use history presenting with erythema, induration, and swelling of the 3rd toe of the right foot. He states green pus from the wound area. The patient is not a well controlled diabetic. Drainage from nail bed of the 3rd toe as well. The patient is accompanied by his daughter. No other complaints at this time. The patient has a history of noncompliance with changes for his health and diabetic control. PMHx: DM, CAD, PVD, Bipolar disorder, orthostatic hypotension, mild renal insufficiency Poor diabetic control. PSHx: multiple toe amputations such as 1st and 2nd toe amputation in the right foot. Allergies: NKDA Social Hx: No EtOH or illicit drug use Ex-smoker. 20 pack year history. Stopped 7 years ago. Active Medications Atorvastatin Calcium (Lipitor) 20 mg PO HS [facility] Last Admin: 03/29/18 23:55 Dose: 20 mg Dextrose (Dextrose 50% Inj) 0 ml IV STAT PRN; Protocol PRN Reason: Hypoglycemia Protocol Furosemide (Lasix) 20 mg PO DAILY [facility] Last Admin: 03/30/18 09:28 Dose: 20 mg Heparin Sodium (Porcine) (Heparin) 5,000 units SC Q8 [facility]; Protocol Last Admin: 03/30/18 13:35 Dose: 5,000 units Dextrose (Dextrose 5% In Water 1000 Ml) 1,000 mls @ 0 mls/hr IV .Q0M PRN; Protocol PRN Reason: Hypoglycemia Protocol Cefepime HCl (Maxipime 1gm) 1 gm in 100 mls @ 100 mls/hr IVPB Q8 [facility]; Protocol Last Admin: 03/30/18 13:35 Dose: 100 mls/hr Insulin Detemir (Levemir) 15 unit SC HS [facility] Last Admin: 03/29/18 23:24 Dose: Not Given Insulin Human Lispro (Humalog) 5 units SC AC [facility] Last Admin: 03/30/18 12:11 Dose: 5 units Insulin Human Lispro (Humalog Med) 0 units SC ACHS [facility]; Protocol Metoprolol Tartrate (Lopressor) 100 mg PO BID [facility] Last Admin: 03/30/18 09:26 Dose: 100 mg Pantoprazole Sodium (Protonix Ec Tab) 40 mg PO 0600,1600 [facility] Last Admin: 03/30/18 05:20 Dose: 40 mg Ticagrelor (Brilinta) 90 mg PO BID [facility] Last Admin: 03/30/18 09:28 Dose: 90 mg Tramadol HCl (Ultram) 50 mg PO Q6 PRN PRN Reason: Pain, moderate (4-7) Last Admin: 03/30/18 14:35 Dose: 50 mg Family Hx: none given ROS: No fevers, chills, nausea, vomiting, diarrhea, headaches, dizziness, chest pain, abdominal pain, melena, hematuria, hematemesis, hematochezia, depression, anxiety. Past Patient History - Infectious Disease Hx of Infectious Diseases: None - Tetanus Immunizations Tetanus Immunization: Unknown - Past Social History Smoking Status: Former Smoker - CARDIAC Hx Cardiac Disorders: Yes Hx Angina: No Hx Cardia Arrhythmia: No Hx Circulatory Problems: Yes Hx Congestive Heart Failure: Yes Hx Heart Murmur: No Hx Heart Transplant: No Hx Hypercholesterolemia: Yes Hx Hypertension: Yes Hx Internal Defibrillator: No Hx Mitral Valve Prolapse: No Hx Peripheral Edema: Yes Hx Peripheral Vascular Disease: Yes - PULMONARY Hx Respiratory Disorders: No Hx Asthma: No Hx Bronchitis: No Hx Chronic Obstructive Pulmonary Disease (COPD): Yes Hx Emphysema: No Hx Pneumonia: Yes Hx Respiratory Aspiration: No Hx Respiratory Tract Infection: No Hx Sleep Apnea: Yes Hx Tuberculosis: No - NEUROLOGICAL Hx Neurological Disorder: No Hx Alzheimer's Disease: No HX Cerebrovascular Accident: Yes Hx Dementia: No Hx Dizziness: No Hx Meningitis: No Hx Migraine: No Hx Parkinson's Disease: No Hx Seizures: No Hx Transient Ischemic Attacks (TIA): No - HEENT Hx HEENT Problems: No 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) Hx Cataracts: No Hx Deafness: No Hx Difficulty Chewing: No Hx Epistaxis: No Hx Glaucoma: No Hx Macular Degeneration: No - RENAL Hx Chronic Kidney Disease: No Hx Dialysis: No Hx Kidney Stones: No Hx Neurogenic Bladder: No Hx Pyelonephritis: No Hx Renal (Kidney) Cancer: No Hx Renal Failure: No - ENDOCRINE/METABOLIC Hx Endocrine Disorders: No Hx Adrenal Cancer: No Hx Diabetes Insipidus: No Hx Diabetes Mellitus Type 1: No Hx Diabetes Mellitus Type 2: Yes Hx Hyperthyroidism: No Hx Hypothyroidism: No Hx Systemic Lupus Erythematosus: No - HEMATOLOGICAL/ONCOLOGICAL Hx Blood Disorders: No Hx AIDS: No Hx Anemia: No Hx Cancer: No Hx Chemotherapy: No Hx Cirrhosis: No Hx Hemophilia: No Hx Hepatitis A: No Hx Hepatitis B: No Hx Hepatitis C: No Hx Human Immunodeficiency Virus (HIV): No Hx Metastesis: No Hx Shingles: No Hx Sickle Cell Disease: No Hx Unexplained Bleeding: No - INTEGUMENTARY Hx Dermatological Problems: No Hx Basil Cell: No Hx Eczema: No Hx Melanoma: No Hx Psoriasis: No Hx Squamous Cell: No - MUSCULOSKELETAL/RHEUMATOLOGICAL Hx Musculoskeletal Disorders: No Hx Arthritis: Yes Hx Back Pain: No Hx Degenerative Joint Disease: No Hx Falls: Yes Hx Fractures: No Hx Gout: No Hx Herniated Disk: No Hx Myasthenia Gravis: No Hx Osteoarthritis: No Hx Osteomyelitis: No Hx Osteoporosis: No Hx Rhabdomyolysis: No Hx Spinal Stenosis: No Hx Unsteady Gait: No - GASTROINTESTINAL Hx Gastrointestinal Disorders: No Hx Colostomy: No Hx Crohn's Disease: No Hx Diverticulitis: No Hx Gall Bladder Disease: No Hx Gastroesophageal Reflux: No Hx Ileostomy: No Hx Liver Failure: No Hx Pancreatitis: No HX Swallowing Problems: No Hx Ulcer: No - GENITOURINARY/GYNECOLOGICAL Hx Genitourinary Disorders: No Hx Hematuria: No Hx Incontinence: No Hx Prostate Problems: No Hx Sexually Transmitted Disorders: No Hx Urinary Tract Infection: No - PSYCHIATRIC Hx Psychophysiologic Disorder: Yes Hx Anxiety: Yes Hx Bipolar Disorder: Yes Hx Depression: Yes Hx Emotional Abuse: No Hx Hallucinations: No Hx Panic Symptoms: No Hx Paranoia: No Hx Post Traumatic Stress Disorder: No Hx Psychosis: No Hx Physical Abuse: No Hx Schizophrenia: Yes Hx Sexual Abuse: No - SURGICAL HISTORY Hx Surgeries: Yes Hx Amputation: No Hx Appendectomy: No Hx Cardiac Catheterization: No Hx Coronary Stent: Yes (3 stents) Hx Gastric Bypass Surgery: No Hx Hysterectomy: No Hx Joint Replacement: No Hx Kidney Transplant: No Hx Liver Transplant: No Hx Mastectomy: No Hx Musculoskeletal Surgery: No Hx Open Heart Surgery: No Hx Orthopedic Surgery: No Hx Splenectomy: No Hx Valve Replacement: No - ANESTHESIA Hx Anesthesia: Yes Hx Anesthesia Reactions: No Hx Malignant Hyperthermia: No Meds Allergies/Adverse Reactions: Allergies Allergy/AdvReac Type Severity Reaction Status Date / Time No Known Allergies Allergy Verified 03/29/18 17:47 - Medications Medications: Current Medications Atorvastatin Calcium (Lipitor) 20 mg PO HS [facility] Last Admin: 03/29/18 23:55 Dose: 20 mg Dextrose (Dextrose 50% Inj) 0 ml IV STAT PRN; Protocol PRN Reason: Hypoglycemia Protocol Furosemide (Lasix) 20 mg PO DAILY [facility] Last Admin: 03/30/18 09:28 Dose: 20 mg Heparin Sodium (Porcine) (Heparin) 5,000 units SC Q8 [facility]; Protocol Last Admin: 03/30/18 13:35 Dose: 5,000 units Dextrose (Dextrose 5% In Water 1000 Ml) 1,000 mls @ 0 mls/hr IV .Q0M PRN; Protocol PRN Reason: Hypoglycemia Protocol Cefepime HCl (Maxipime 1gm) 1 gm in 100 mls @ 100 mls/hr IVPB Q8 [facility]; Protocol Last Admin: 03/30/18 13:35 Dose: 100 mls/hr Insulin Detemir (Levemir) 15 unit SC HS [facility] Last Admin: 03/29/18 23:24 Dose: Not Given Insulin Human Lispro (Humalog) 5 units SC AC [facility] Last Admin: 03/30/18 12:11 Dose: 5 units Insulin Human Lispro (Humalog Med) 0 units SC ACHS [facility]; Protocol Metoprolol Tartrate (Lopressor) 100 mg PO BID [facility] Last Admin: 03/30/18 09:26 Dose: 100 mg Pantoprazole Sodium (Protonix Ec Tab) 40 mg PO 0600,1600 [facility] Last Admin: 03/30/18 05:20 Dose: 40 mg Ticagrelor (Brilinta) 90 mg PO BID [facility] Last Admin: 03/30/18 09:28 Dose: 90 mg Tramadol HCl (Ultram) 50 mg PO Q6 PRN PRN Reason: Pain, moderate (4-7) Last Admin: 03/30/18 14:35 Dose: 50 mg Physical Exam - Constitutional Appears: Non-toxic, No Acute Distress, Chronically Ill - Head Exam Head Exam: ATRAUMATIC, NORMOCEPHALIC - Eye Exam Eye Exam: EOMI, PERRL Pupil Exam: NORMAL ACCOMODATION, PERRL - ENT Exam ENT Exam: Mucous Membranes Moist, Normal External Ear Exam, TM's Normal Bilaterally - Neck Exam Neck exam: Positive for: Full Rom, Normal Inspection - Respiratory Exam Respiratory Exam: Clear to Auscultation Bilateral, NORMAL BREATHING PATTERN. absent: Rales, Rhonchi, Wheezes - Cardiovascular Exam Cardiovascular Exam: REGULAR RHYTHM, RRR, +S1, +S2 - GI/Abdominal Exam GI & Abdominal Exam: Normal Bowel Sounds, Soft. absent: Distended, Tenderness - Extremities Exam Extremities exam: Positive for: joint swelling, pedal edema Additional comments: R foot: 2cm wound on 3rd toe, with minimal surrounding erythema. granulation tissue noted. no draining noted. Vasc: DP and PT pulses faintly palpable. Cap refill < 3 sec to remaining digits. Skin temperature warm to cool from proximal to distal. mile erythema noted to the R LE. Neuro: Gross and protective sensations are grossly diminished. Severe peripheral neuropathy. Derm:scar of previous 1st and 2nd metatarsal amputations noted. There is an superficial ulceration approximetly 0.4 cm x 0.3 cm x 0.2 cm noted to the tip of the 3rd toe. No malodor, positive purulence, No probe to bone. erythema noted to the 3rd toe proximal to the ulcer MSK: Muscle power intact 5/5 to all major muscle groups b/l. no pain on palpating the R periulcerative area. b/l LE: multiple healing ulcers - Neurological Exam Neurological exam: Alert, CN II-XII Intact, Oriented x3 - Psychiatric Exam Psychiatric exam: Normal Affect, Normal Mood - Skin Additional comments: As above. Results - Vital Signs Recent Vital Signs: Last Vital Signs Temp 97.6 F 03/30/18 08:21 Pulse 69 03/30/18 08:21 Resp 20 03/30/18 08:21 BP 178/93 H 03/30/18 09:28 Pulse Ox 100 03/30/18 08:21 - Labs Result Diagrams: 03/30/18 07:00 03/30/18 07:00 Labs: Laboratory Results - last 24 hr 03/29/18 03/29/18 03/29/18 17:48 17:55 17:55 WBC RBC Hgb Hct MCV MCH MCHC RDW Plt Count MPV Gran % Lymph % (Auto) Randall % (Auto) Eos % (Auto) Baso % (Auto) Gran # Lymph # (Auto) Randall # (Auto) Eos # (Auto) Baso # (Auto) ESR PT 12.6 H INR 1.10 APTT 28.5 Sodium 133 Potassium 4.5 Chloride 99 Carbon Dioxide 26 Anion Gap 13 BUN 20 Creatinine 1.4 Est GFR ( Amer) > 60 Est GFR (Non-Af Amer) 51 POC Glucose (mg/dL) 461 H* Random Glucose 523 H* D Hemoglobin A1c Calcium 8.7 Total Bilirubin 0.5 AST 17 ALT 24 Alkaline Phosphatase 99 C-React Prot High Sens Total Protein 7.1 Albumin 3.5 Globulin 3.6 Albumin/Globulin Ratio 1.0 L Urine Color Urine Appearance Urine pH Ur Specific [place] Urine Protein Urine Glucose (UA) Urine Ketones Urine Blood Urine Nitrate Urine Bilirubin Urine Urobilinogen Ur Leukocyte Esterase Urine RBC Urine WBC Ur Epithelial Cells Urine Bacteria 03/29/18 03/29/18 03/29/18 17:55 18:00 19:57 WBC 8.4 RBC 4.40 Hgb 13.1 L Hct 37.7 L MCV 85.7 MCH 29.8 MCHC 34.7 RDW 13.5 Plt Count 265 MPV 9.6 Gran % 76.8 H Lymph % (Auto) 15.5 L Randall % (Auto) 6.3 H Eos % (Auto) 1.0 L Baso % (Auto) 0.4 Gran # 6.47 Lymph # (Auto) 1.3 Randall # (Auto) 0.5 Eos # (Auto) 0.1 Baso # (Auto) 0.03 ESR PT INR APTT Sodium Potassium Chloride Carbon Dioxide Anion Gap BUN Creatinine Est GFR ( Amer) Est GFR (Non-Af Amer) POC Glucose (mg/dL) 302 H Random Glucose Hemoglobin A1c 13.5 H Calcium Total Bilirubin AST ALT Alkaline Phosphatase C-React Prot High Sens Total Protein Albumin Globulin Albumin/Globulin Ratio Urine Color Urine Appearance Urine pH Ur Specific [place] Urine Protein Urine Glucose (UA) Urine Ketones Urine Blood Urine Nitrate Urine Bilirubin Urine Urobilinogen Ur Leukocyte Esterase Urine RBC Urine WBC Ur Epithelial Cells Urine Bacteria 03/29/18 03/29/18 03/29/18 20:55 20:55 20:55 WBC RBC Hgb Hct MCV MCH MCHC RDW Plt Count MPV Gran % Lymph % (Auto) Randall % (Auto) Eos % (Auto) Baso % (Auto) Gran # Lymph # (Auto) Randall # (Auto) Eos # (Auto) Baso # (Auto) ESR 77 H PT INR APTT Sodium Potassium Chloride Carbon Dioxide Anion Gap BUN Creatinine Est GFR ( Amer) Est GFR (Non-Af Amer) POC Glucose (mg/dL) Random Glucose Hemoglobin A1c Calcium Total Bilirubin AST ALT Alkaline Phosphatase C-React Prot High Sens > 15.00 H Total Protein Albumin Globulin Albumin/Globulin Ratio Urine Color Yellow Urine Appearance Clear Urine pH 6.5 Ur Specific [place] 1.015 Urine Protein 100 H Urine Glucose (UA) >=1000 Urine Ketones Negative Urine Blood Small H Urine Nitrate Negative Urine Bilirubin Negative Urine Urobilinogen 0.2 Ur Leukocyte Esterase Negative Urine RBC 0 - 2 Urine WBC 0 - 2 Ur Epithelial Cells 0 - 2 Urine Bacteria Neg 03/29/18 03/30/18 03/30/18 23:22 07:00 07:00 WBC 8.3 RBC 4.48 Hgb 13.3 L Hct 38.2 L MCV 85.3 MCH 29.7 MCHC 34.8 RDW 13.6 Plt Count 236 MPV 9.4 Gran % 73.9 H Lymph % (Auto) 16.6 L Randall % (Auto) 6.7 H Eos % (Auto) 2.3 Baso % (Auto) 0.5 Gran # 6.13 Lymph # (Auto) 1.4 Randall # (Auto) 0.6 Eos # (Auto) 0.2 Baso # (Auto) 0.04 ESR PT INR APTT Sodium 136 Potassium 4.5 Chloride 106 Carbon Dioxide 25 Anion Gap 10 BUN 16 Creatinine 1.0 Est GFR ( Amer) > 60 Est GFR (Non-Af Amer) > 60 POC Glucose (mg/dL) 126 H Random Glucose 278 H Hemoglobin A1c Calcium 8.5 Total Bilirubin AST ALT Alkaline Phosphatase C-React Prot High Sens Total Protein Albumin Globulin Albumin/Globulin Ratio Urine Color Urine Appearance Urine pH Ur Specific [place] Urine Protein Urine Glucose (UA) Urine Ketones Urine Blood Urine Nitrate Urine Bilirubin Urine Urobilinogen Ur Leukocyte Esterase Urine RBC Urine WBC Ur Epithelial Cells Urine Bacteria 03/30/18 03/30/18 07:41 11:37 WBC RBC Hgb Hct MCV MCH MCHC RDW Plt Count MPV Gran % Lymph % (Auto) Randall % (Auto) Eos % (Auto) Baso % (Auto) Gran # Lymph # (Auto) Randall # (Auto) Eos # (Auto) Baso # (Auto) ESR PT INR APTT Sodium Potassium Chloride Carbon Dioxide Anion Gap BUN Creatinine Est GFR ( Amer) Est GFR (Non-Af Amer) POC Glucose (mg/dL) 252 H 248 H Random Glucose Hemoglobin A1c Calcium Total Bilirubin AST ALT Alkaline Phosphatase C-React Prot High Sens Total Protein Albumin Globulin Albumin/Globulin Ratio Urine Color Urine Appearance Urine pH Ur Specific [place] Urine Protein Urine Glucose (UA) Urine Ketones Urine Blood Urine Nitrate Urine Bilirubin Urine Urobilinogen Ur Leukocyte Esterase Urine RBC Urine WBC Ur Epithelial Cells Urine Bacteria Assessment & Plan - Assessment and Plan (Free Text) Assessment: 62 yo male who is a known poorly controlled diabetic with history of right 3rd toe infections that I last saw at the beginning of this year. History of Klesiella and MSSA growth sensitive to Ancef. Thankfully, the patient still maintains good renal function. Start patient on Ancef for antibiotic coverage as we wait for cultures to return. Supportive care. Thank you for allowing me to participate in the care of the patient, we will follow with you.
[2018-03-30] MEDS: Insulin Lispro (humaLOG) MEDIUM Coverage SC SCH ×2 (17:43→21:55)
[2018-03-30] MEDS: ceFAZolin IV 2 gm in Dextrose 2 GM/50 ML BAG IVPB SCH (22:21)
[2018-03-30] MEDS: Insulin Detemir 100 units/ml Vial (Levemir) SC SCH (22:22)
[2018-03-30] MEDS ORDERED: Morphine 2 mg/ml ISec IVP ONE (23:21)
[2018-03-31] MEDS: ceFAZolin IV 2 gm in Dextrose 2 GM/50 ML BAG IVPB SCH ×3 (05:46→21:54)
[2018-03-31] MEDS: Pantoprazole 40 mg EC Tab PO SCH ×2 (05:47→16:27)
[2018-03-31] MEDS ORDERED: EnalaprilAT 1.25 mg/ml Inj IVP STA (06:02)
--- NOTE | 2018-03-31 06:50 | CP.PCM.PN ---
<Yuriy Howard L - Last Filed: 03/31/18 18:20> Subjective - Date & Time of Evaluation Date of Evaluation: 03/31/18 Time of Evaluation: 06:50 - Subjective Subjective: Resident Progress Note for Hospitalist Service Patient examined at bedside. Patient states he had severe pain overnight which was controlled after morphine. Offers no other complaints at this time. Denies headache, dizziness, chest pain, shortness of breath, abdominal pain, dysuria. Objective - Vital Signs/Intake and Output Vital Signs (last 24 hours): Temp Pulse Resp BP Pulse Ox 97.6 F 69 20 177/102 H 100 03/30/18 08:21 03/30/18 08:21 03/30/18 08:21 03/31/18 06:25 03/30/18 08:21 Intake and Output: 03/30/18 03/31/18 18:59 06:59 Intake Total 960 Output Total 750 Balance 210 - Medications Medications: Current Medications Atorvastatin Calcium (Lipitor) 20 mg PO HS [facility] Last Admin: 03/30/18 22:23 Dose: 20 mg Dextrose (Dextrose 50% Inj) 0 ml IV STAT PRN; Protocol PRN Reason: Hypoglycemia Protocol Furosemide (Lasix) 20 mg PO DAILY [facility] Last Admin: 03/30/18 09:28 Dose: 20 mg Heparin Sodium (Porcine) (Heparin) 5,000 units SC Q8 [facility]; Protocol Last Admin: 03/31/18 05:47 Dose: 5,000 units Dextrose (Dextrose 5% In Water 1000 Ml) 1,000 mls @ 0 mls/hr IV .Q0M PRN; Protocol PRN Reason: Hypoglycemia Protocol Cefazolin Sodium/Dextrose (Ancef Iv 2 Gm Duplex) 2 gm in 50 mls @ 50 mls/hr IVPB Q8 [facility]; Protocol Last Admin: 03/31/18 05:46 Dose: 50 mls/hr Insulin Detemir (Levemir) 15 unit SC HS [facility] Last Admin: 03/30/18 22:22 Dose: 15 units Insulin Human Lispro (Humalog) 5 units SC AC [facility] Last Admin: 03/30/18 17:43 Dose: 5 units Insulin Human Lispro (Humalog Med) 0 units SC ACHS [facility]; Protocol Last Admin: 03/30/18 21:55 Dose: Not Given Metoprolol Tartrate (Lopressor) 100 mg PO BID [facility] Last Admin: 03/30/18 17:44 Dose: 100 mg Pantoprazole Sodium (Protonix Ec Tab) 40 mg PO 0600,1600 [facility] Last Admin: 03/31/18 05:47 Dose: 40 mg Ticagrelor (Brilinta) 90 mg PO BID [facility] Last Admin: 03/30/18 18:24 Dose: 90 mg Tramadol HCl (Ultram) 50 mg PO Q6 PRN PRN Reason: Pain, moderate (4-7) Last Admin: 03/30/18 14:35 Dose: 50 mg - Labs Labs: 03/30/18 07:00 03/30/18 07:00 PT 12.6 SECONDS (9.4-12.5) H 03/29/18 17:55 INR 1.10 03/29/18 17:55 APTT 28.5 Seconds (25.1-36.5) 03/29/18 17:55 - Additional Findings Additional findings: - Constitutional Appears: Well, No Acute Distress - Head Exam Head Exam: ATRAUMATIC, NORMOCEPHALIC - Eye Exam Eye Exam: EOMI, Normal appearance Pupil Exam: NORMAL ACCOMODATION - ENT Exam ENT Exam: Mucous Membranes Moist - Respiratory Exam Respiratory Exam: Clear to Auscultation Bilateral, NORMAL BREATHING PATTERN. absent: Decreased Breath Sounds, Rales, Rhonchi, Wheezes - Cardiovascular Exam Cardiovascular Exam: REGULAR RHYTHM, +S1, +S2. absent: Gallop, Rubs, Systolic Murmur - GI/Abdominal Exam GI & Abdominal Exam: Normal Bowel Sounds, Soft. absent: Distended, Tenderness - Extremities Exam Extremities exam: Positive for: pedal edema Additional comments: R foot: 2cm wound on 3rd toe, with minimal surrounding erythema. granulation tissue noted. no draining noted. b/l LE: multiple healing ulcers - Neurological Exam Neurological exam: Alert, Motor Sensory Deficit, Oriented x3 Cranial nerves: EOM's Intact: Normal, Facial Sensation: Normal - Psychiatric Exam Psychiatric exam: Normal Affect, Normal Mood - Skin Skin Exam: Dry Assessment and Plan - Assessment and Plan (Free Text) Assessment: 62M with PMH HTN, DM, CAD with hx of CABG who presents with R third toe wound admitted for further evaluation and treatment. Past history of 1st and 2nd R toe amputations. Plan: Right 3rd Toe Wound - pt reports drainage at home, currently no drainage - afebrile, no leukocytosis, no warmth to area - XRay R foot: no evidence of OM - US RLE: no DVT - pt given vanc and zosyn in ED - hold antibiotics at this time - keep legs elevated - f/u wound Cx, BCx - ESR-77, CRP elevated at 15 - ID consulted, Dr. Otero- to begin Cefepime 1 gm IV q8. F/u further recommendations. - Podiatry consulted, Dr. Car -f/u recs for further imaging and management Uncontrolled DM - pt with peripheral neuropathy - HbA1c 13.5 this admission - levemir 15u SC HS - humalog 5u SC AC - insulin sliding scale changed to medium coverage - hypoglycemia protocol, diabetes education HTN - continue home lopressor 100mg po BID - continue home lasix 20mg po dialy CAD, hx CABG - holding home brilinta 90mg po BID, consider starting home aspirin vs DAPT - Cardio consulted for clearance - continue lipitor 20mg po HS PPX: GI: Protonix DVT: Heparin SC DVT ppx HHD, carb consistent Patient seen, case reviewed, and plan approved by Dr. Christian Howard PGY-1 <Alejandro Gonzales - Last Filed: 03/31/18 18:59> Objective - Vital Signs/Intake and Output Vital Signs (last 24 hours): Temp Pulse Resp BP Pulse Ox 98.5 F 67 20 164/81 H 95 03/31/18 14:00 03/31/18 17:15 03/31/18 14:00 03/31/18 17:15 03/31/18 14:00 Intake and Output: 03/31/18 03/31/18 06:59 18:59 Intake Total 960 Output Total 750 Balance 210 - Medications Medications: Current Medications Aspirin (Aspirin Chewable) 81 mg PO DAILY [facility] Atorvastatin Calcium (Lipitor) 20 mg PO HS [facility] Last Admin: 03/30/18 22:23 Dose: 20 mg Dextrose (Dextrose 50% Inj) 0 ml IV STAT PRN; Protocol PRN Reason: Hypoglycemia Protocol Furosemide (Lasix) 20 mg PO DAILY [facility] Last Admin: 03/31/18 09:16 Dose: 20 mg Heparin Sodium (Porcine) (Heparin) 5,000 units SC Q8 [facility]; Protocol Last Admin: 03/31/18 14:21 Dose: 5,000 units Dextrose (Dextrose 5% In Water 1000 Ml) 1,000 mls @ 0 mls/hr IV .Q0M PRN; Protocol PRN Reason: Hypoglycemia Protocol Cefazolin Sodium/Dextrose (Ancef Iv 2 Gm Duplex) 2 gm in 50 mls @ 50 mls/hr IVPB Q8 [facility]; Protocol Last Admin: 03/31/18 14:21 Dose: 50 mls/hr Insulin Detemir (Levemir) 15 unit SC HS [facility] Last Admin: 03/30/18 22:22 Dose: 15 units Insulin Human Lispro (Humalog) 5 units SC AC [facility] Last Admin: 03/31/18 16:27 Dose: 5 units Insulin Human Lispro (Humalog Med) 0 units SC ACHS [facility]; Protocol Last Admin: 03/31/18 16:26 Dose: 5 units Metoprolol Tartrate (Lopressor) 100 mg PO BID [facility] Last Admin: 03/31/18 17:15 Dose: 100 mg Morphine Sulfate (Morphine) 2 mg IVP Q6H PRN PRN Reason: Pain, severe (8-10) Last Admin: 03/31/18 16:27 Dose: 2 mg Mupirocin (Bactroban Ointment) 0 gm TOP DAILY [facility] Last Admin: 03/31/18 10:15 Dose: Not Given Pantoprazole Sodium (Protonix Ec Tab) 40 mg PO 0600,1600 [facility] Last Admin: 03/31/18 16:27 Dose: 40 mg Ticagrelor (Brilinta) 90 mg PO BID [facility] Last Admin: 03/31/18 09:17 Dose: 90 mg Tramadol HCl (Ultram) 50 mg PO Q6 PRN PRN Reason: Pain, moderate (4-7) Last Admin: 03/30/18 14:35 Dose: 50 mg - Labs Labs: 03/31/18 07:00 03/31/18 07:00 PT 12.6 SECONDS (9.4-12.5) H 03/29/18 17:55 INR 1.10 03/29/18 17:55 APTT 28.5 Seconds (25.1-36.5) 03/29/18 17:55 Attending/Attestation - Attestation I have personally seen and examined this patient.: Yes I have fully participated in the care of the patient.: Yes I have reviewed all pertinent clinical information, including history, physical exam and plan: Yes Notes (Text): 03/31/18 18:56 62 year old male with past medical history of hypertension, diabetes, history of 1st/2nd right toe amputations and CAD s/p CABG who presented with right third toe wound infection. He is on iv antibiotics, pending wound culture which is so far growing Staph Auerus. ID and podiatry are following. Doppler was negative for DVT. He is pending arterial dopplers. MRI is also pending to rule out osteomyelitis. If podiatry is planning for any procedure aspirin/brilinta may need to be held in addition to cardiac clearance to be obtained. Continue with humalog and levemir for diabetes. Continue with lopressor for hypertension. Will replete and repeat potassium. Alejandro Gonzales MD Hospitalist.
[2018-03-31 07:40] LABS: BASO # 0.04 K/mm3 (0.0-2.0); BASO % 0.6 % (0.0-3.0); EOS # 0.2 (0.0-0.7); EOS % 2.5 % (1.5-5.0); GRAN # 5.08 (1.4-6.5); GRAN % 71.4 % (50.0-68.0); HEMOGLOBIN 13.6 g/dL (14.0-18.0); LYMPH # 1.3 (1.2-3.4); LYMPH % 18.3 % (22.0-35.0); MEAN CELL VOLUME 85.5 fl (80.0-105.0); MEAN CORPUSCULAR HEMOGLOBIN 28.9 pg (25.0-35.0); MEAN CORPUSCULAR HGB CONC 33.8 g/dl (31.0-37.0); MEAN PLATELET VOLUME 9.6 fl (7.0-11.0); MONO # 0.5 (0.1-0.6); MONO % 7.2 % (1.0-6.0); RBC 4.7 10^6/uL (3.5-6.1); RED CELL DISTRIBUTION WIDTH 13.5 % (11.5-14.5); WHITE BLOOD COUNT 7.1 10^3/uL (4.5-11.0)
[2018-03-31 08:01] LABS: BLOOD UREA NITROGEN 17 mg/dL (7-21); CALCIUM 8.4 mg/dL (8.4-10.5); GFR NON-AFRICAN AMERICAN > 60
[2018-03-31] MEDS ORDERED: Potassium Chloride 20 mEq ER Tab PO STA (08:11)
[2018-03-31] MEDS: Insulin Lispro 1 UNITS/0.01 ML SC SCH ×3 (08:30→16:27)
[2018-03-31] MEDS: Insulin Lispro (humaLOG) MEDIUM Coverage SC SCH ×4 (08:42→21:56)
[2018-03-31] MEDS: Mupirocin 2% Ointment 15 GM TUBE TOP SCH (10:15)
--- NOTE | 2018-03-31 12:04 | CP.PCM.PN ---
<Chema Snyder - Last Filed: 03/31/18 12:01> Subjective - Date & Time of Evaluation Date of Evaluation: 03/31/18 Time of Evaluation: 12:01 - Subjective Subjective: Podiatry consult notes for attending Adolph Chaves: 62 y/o M patient seen and evaluated at the bedside for R third toe wound. Patient was sitting the the chair at the bedside comfortably and NAD. patient states that he didn't have any pain in his right foot last night. Patient denies any overnight F/N/V/F/CP. Patient denies any other pedal complaint at this time. Objective - Vital Signs/Intake and Output Vital Signs (last 24 hours): Temp Pulse Resp BP Pulse Ox 97.4 F L 65 20 140/84 97 03/31/18 07:30 03/31/18 09:16 03/31/18 07:30 03/31/18 09:16 03/31/18 07:30 Intake and Output: 03/31/18 03/31/18 06:59 18:59 Intake Total 960 Output Total 750 Balance 210 - Medications Medications: Current Medications Atorvastatin Calcium (Lipitor) 20 mg PO HS [facility] Last Admin: 03/30/18 22:23 Dose: 20 mg Dextrose (Dextrose 50% Inj) 0 ml IV STAT PRN; Protocol PRN Reason: Hypoglycemia Protocol Furosemide (Lasix) 20 mg PO DAILY [facility] Last Admin: 03/31/18 09:16 Dose: 20 mg Heparin Sodium (Porcine) (Heparin) 5,000 units SC Q8 [facility]; Protocol Last Admin: 03/31/18 05:47 Dose: 5,000 units Dextrose (Dextrose 5% In Water 1000 Ml) 1,000 mls @ 0 mls/hr IV .Q0M PRN; Protocol PRN Reason: Hypoglycemia Protocol Cefazolin Sodium/Dextrose (Ancef Iv 2 Gm Duplex) 2 gm in 50 mls @ 50 mls/hr IVPB Q8 [facility]; Protocol Last Admin: 03/31/18 05:46 Dose: 50 mls/hr Insulin Detemir (Levemir) 15 unit SC HS [facility] Last Admin: 03/30/18 22:22 Dose: 15 units Insulin Human Lispro (Humalog) 5 units SC AC [facility] Last Admin: 03/31/18 08:30 Dose: Not Given Insulin Human Lispro (Humalog Med) 0 units SC ACHS [facility]; Protocol Last Admin: 03/31/18 08:42 Dose: 3 units Metoprolol Tartrate (Lopressor) 100 mg PO BID [facility] Last Admin: 03/31/18 09:16 Dose: 100 mg Mupirocin (Bactroban Ointment) 0 gm TOP DAILY [facility] Pantoprazole Sodium (Protonix Ec Tab) 40 mg PO 0600,1600 [facility] Last Admin: 03/31/18 05:47 Dose: 40 mg Ticagrelor (Brilinta) 90 mg PO BID [facility] Last Admin: 03/31/18 09:17 Dose: 90 mg Tramadol HCl (Ultram) 50 mg PO Q6 PRN PRN Reason: Pain, moderate (4-7) Last Admin: 03/30/18 14:35 Dose: 50 mg - Labs Labs: 03/31/18 07:00 03/31/18 07:00 PT 12.6 SECONDS (9.4-12.5) H 03/29/18 17:55 INR 1.10 03/29/18 17:55 APTT 28.5 Seconds (25.1-36.5) 03/29/18 17:55 - Constitutional Appears: Well, Non-toxic, No Acute Distress - Head Exam Head Exam: ATRAUMATIC, NORMOCEPHALIC - Extremities Exam Additional comments: Right lower extremity focused exam: Vasc: DP/PT pulses faintly palpable. Cap refill < 3 sec to remaining digits. Skin temperature warm to cool from proximal to distal. mile erythema noted to the R LE. Neuro: Gross and protective sensations are grossly diminished Derm:scar of previous 1st and 2nd metatarsal amputations noted. There is an superficial ulceration approximetly 0.4 cm x 0.3 cm x 0.2 cm noted to the tip of the 3rd toe. No malodor, positive purulence, No probe to bone. erythema noted to the 3rd toe proximal to the ulcer MSK: Muscle power intact 5/5 to all major muscle groups b/l. no pain on palpating the R periulcerative area. - Neurological Exam Neurological Exam: Alert, Awake, Oriented x3 - Psychiatric Exam Psychiatric exam: Normal Affect, Normal Mood Assessment and Plan - Assessment and Plan (Free Text) Assessment: 62 y/o M patient seen and evaluated in the bedside for R 3rd toe infected ulcer Plan: Patient seen and evaluated at the bedside Plan discussed in details with attending Dr. Chaves Charts, labs and vitals reviewed; afebrile, No leukocytosis R foot x-ray: no evidence of OM R LE venous duplex: No evidence of DVT b/L MEGAN/PVR; Pending R foot cleaned with saline then dressed using xeroform and DSD. Ordred bactroban ointment to be added to the dressing starting from tomorrow. Wound culture; Pending results Patient to continue ambulating in the surgical shoe Podiatry will follow up the patient while patient is in house <Gerson Chaves - Last Filed: 03/31/18 13:02> Objective - Vital Signs/Intake and Output Vital Signs (last 24 hours): Temp Pulse Resp BP Pulse Ox 97.4 F L 65 20 140/84 97 03/31/18 07:30 03/31/18 09:16 03/31/18 07:30 03/31/18 09:16 03/31/18 07:30 Intake and Output: 03/31/18 03/31/18 06:59 18:59 Intake Total 960 Output Total 750 Balance 210 - Medications Medications: Current Medications Atorvastatin Calcium (Lipitor) 20 mg PO HS [facility] Last Admin: 03/30/18 22:23 Dose: 20 mg Dextrose (Dextrose 50% Inj) 0 ml IV STAT PRN; Protocol PRN Reason: Hypoglycemia Protocol Furosemide (Lasix) 20 mg PO DAILY [facility] Last Admin: 03/31/18 09:16 Dose: 20 mg Heparin Sodium (Porcine) (Heparin) 5,000 units SC Q8 [facility]; Protocol Last Admin: 03/31/18 05:47 Dose: 5,000 units Dextrose (Dextrose 5% In Water 1000 Ml) 1,000 mls @ 0 mls/hr IV .Q0M PRN; Protocol PRN Reason: Hypoglycemia Protocol Cefazolin Sodium/Dextrose (Ancef Iv 2 Gm Duplex) 2 gm in 50 mls @ 50 mls/hr IVPB Q8 [facility]; Protocol Last Admin: 03/31/18 05:46 Dose: 50 mls/hr Insulin Detemir (Levemir) 15 unit SC HS [facility] Last Admin: 03/30/18 22:22 Dose: 15 units Insulin Human Lispro (Humalog) 5 units SC AC [facility] Last Admin: 03/31/18 12:12 Dose: Not Given Insulin Human Lispro (Humalog Med) 0 units SC ACHS [facility]; Protocol Last Admin: 03/31/18 12:16 Dose: 5 units Metoprolol Tartrate (Lopressor) 100 mg PO BID [facility] Last Admin: 03/31/18 09:16 Dose: 100 mg Mupirocin (Bactroban Ointment) 0 gm TOP DAILY [facility] Pantoprazole Sodium (Protonix Ec Tab) 40 mg PO 0600,1600 [facility] Last Admin: 03/31/18 05:47 Dose: 40 mg Ticagrelor (Brilinta) 90 mg PO BID [facility] Last Admin: 03/31/18 09:17 Dose: 90 mg Tramadol HCl (Ultram) 50 mg PO Q6 PRN PRN Reason: Pain, moderate (4-7) Last Admin: 03/30/18 14:35 Dose: 50 mg - Labs Labs: 03/31/18 07:00 03/31/18 07:00 PT 12.6 SECONDS (9.4-12.5) H 03/29/18 17:55 INR 1.10 03/29/18 17:55 APTT 28.5 Seconds (25.1-36.5) 03/29/18 17:55 Attending/Attestation - Attestation I have personally seen and examined this patient.: Yes I have fully participated in the care of the patient.: Yes I have reviewed all pertinent clinical information, including history, physical exam and plan: Yes
--- NOTE | 2018-03-31 15:15 | CP.PCM.PN ---
Subjective - Date & Time of Evaluation Date of Evaluation: 03/31/18 Time of Evaluation: 13:30 - Subjective Subjective: Infectious Disease Follow Up: March 31, 2018 62 yo male with extensive medical history of DM, HTN, CAD, and tobacco use history presenting with erythema, induration, and swelling of the 3rd toe of the right foot. He states green pus from the wound area. The patient is not a well controlled diabetic. Drainage from nail bed of the 3rd toe as well. The patient is accompanied by his daughter. No other complaints at this time. The patient has a history of noncompliance with changes for his health and diabetic control. Awaiting cultures Awaiting MRI. Objective - Vital Signs/Intake and Output Vital Signs (last 24 hours): Temp Pulse Resp BP Pulse Ox 97.4 F L 65 20 140/84 97 03/31/18 07:30 03/31/18 09:16 03/31/18 07:30 03/31/18 09:16 03/31/18 07:30 Intake and Output: 03/31/18 03/31/18 06:59 18:59 Intake Total 960 Output Total 750 Balance 210 - Medications Medications: Current Medications Atorvastatin Calcium (Lipitor) 20 mg PO HS [facility] Last Admin: 03/30/18 22:23 Dose: 20 mg Dextrose (Dextrose 50% Inj) 0 ml IV STAT PRN; Protocol PRN Reason: Hypoglycemia Protocol Furosemide (Lasix) 20 mg PO DAILY [facility] Last Admin: 03/31/18 09:16 Dose: 20 mg Heparin Sodium (Porcine) (Heparin) 5,000 units SC Q8 [facility]; Protocol Last Admin: 03/31/18 14:21 Dose: 5,000 units Dextrose (Dextrose 5% In Water 1000 Ml) 1,000 mls @ 0 mls/hr IV .Q0M PRN; Protocol PRN Reason: Hypoglycemia Protocol Cefazolin Sodium/Dextrose (Ancef Iv 2 Gm Duplex) 2 gm in 50 mls @ 50 mls/hr IVPB Q8 [facility]; Protocol Last Admin: 03/31/18 14:21 Dose: 50 mls/hr Insulin Detemir (Levemir) 15 unit SC HS [facility] Last Admin: 03/30/18 22:22 Dose: 15 units Insulin Human Lispro (Humalog) 5 units SC AC [facility] Last Admin: 03/31/18 12:12 Dose: Not Given Insulin Human Lispro (Humalog Med) 0 units SC ACHS [facility]; Protocol Last Admin: 03/31/18 12:16 Dose: 5 units Metoprolol Tartrate (Lopressor) 100 mg PO BID [facility] Last Admin: 03/31/18 09:16 Dose: 100 mg Mupirocin (Bactroban Ointment) 0 gm TOP DAILY [facility] Last Admin: 03/31/18 10:15 Dose: Not Given Pantoprazole Sodium (Protonix Ec Tab) 40 mg PO 0600,1600 [facility] Last Admin: 03/31/18 05:47 Dose: 40 mg Ticagrelor (Brilinta) 90 mg PO BID [facility] Last Admin: 03/31/18 09:17 Dose: 90 mg Tramadol HCl (Ultram) 50 mg PO Q6 PRN PRN Reason: Pain, moderate (4-7) Last Admin: 03/30/18 14:35 Dose: 50 mg - Labs Labs: 03/31/18 07:00 03/31/18 07:00 PT 12.6 SECONDS (9.4-12.5) H 03/29/18 17:55 INR 1.10 03/29/18 17:55 APTT 28.5 Seconds (25.1-36.5) 03/29/18 17:55 - Constitutional Appears: Non-toxic, No Acute Distress, Chronically Ill - Head Exam Head Exam: ATRAUMATIC, NORMOCEPHALIC - Eye Exam Eye Exam: EOMI, PERRL Pupil Exam: NORMAL ACCOMODATION, PERRL - ENT Exam ENT Exam: Mucous Membranes Moist, Normal External Ear Exam, TM's Normal Bilaterally - Neck Exam Neck Exam: Full ROM, Normal Inspection - Respiratory Exam Respiratory Exam: Clear to Ausculation Bilateral, NORMAL BREATHING PATTERN. absent: Rales, Rhonchi, Wheezes - Cardiovascular Exam Cardiovascular Exam: REGULAR RHYTHM, RRR, +S1, +S2 - GI/Abdominal Exam GI & Abdominal Exam: Soft, Normal Bowel Sounds. absent: Distended, Tenderness - Extremities Exam Extremities Exam: Joint Swelling, Pedal Edema Additional comments: R foot: 2cm wound on 3rd toe, with minimal surrounding erythema. granulation tissue noted. no draining noted. Vasc: DP and PT pulses faintly palpable. Cap refill < 3 sec to remaining digits. Skin temperature warm to cool from proximal to distal. mile erythema noted to t he R LE. Neuro: Gross and protective sensations are grossly diminished. Severe peripheral neuropathy. Derm:scar of previous 1st and 2nd metatarsal amputations noted. There is an superficial ulceration approximetly 0.4 cm x 0.3 cm x 0.2 cm noted to the tip of the 3rd toe. No malodor, positive purulence, No probe to bone. erythema noted to the 3rd toe proximal to the ulcer MSK: Muscle power intact 5/5 to all major muscle groups b/l. no pain on palpating the R periulcerative area. b/l LE: multiple healing ulcers - Neurological Exam Neurological Exam: Alert, Awake, CN II-XII Intact, Oriented x3 - Psychiatric Exam Psychiatric exam: Normal Affect, Normal Mood - Skin Additional comments: As above Assessment and Plan - Assessment and Plan (Free Text) Assessment: 62 yo male who is a known poorly controlled diabetic with history of right 3rd toe infections that I last saw at the beginning of this year. History of Klesiella and MSSA growth sensitive to Ancef. Thankfully, the patient still maintains good renal function. Start patient on Ancef for antibiotic coverage as we wait for cultures to return. Supportive care. MRI pending. Cultures pending. Thank you for allowing me to participate in the care of the patient, we will follow with you.
[2018-03-31] MEDS: Morphine 2 mg/ml ISec IVP PRN (16:27)
[2018-03-31] MEDS: Insulin Detemir 100 units/ml Vial (Levemir) SC SCH (21:57)
--- NOTE | 2018-04-01 02:22 | CON ---
DATE OF CONSULTATION: 03/31/2018 REASON FOR CONSULTATION: Preoperative evaluation. HISTORY OF PRESENT ILLNESS: The patient is a 62-year-old male who has a history of coronary artery disease, status post quadruple bypass surgery in 2011 followed by coronary stenting. The patient has peripheral vascular disease, underwent right first and second toe amputation and currently with infected right middle toe. The patient has a history of bilateral femoropopliteal bypass in the past. He presented because of right middle toe infection draining purulent discharge with foul smell. The patient denies retrosternal chest pain or shortness of breath. PAST MEDICAL HISTORY: Coronary artery disease, status post quadruple bypass surgery in 2011 followed by coronary stenting, history of diabetes mellitus, hyperlipidemia, hypertension, and history of bilateral femoropopliteal bypass surgery. SOCIAL HISTORY: Former smoker. MEDICATIONS: Ancef 2 g intravenously every 8 hours, Brilinta 90 mg p.o. twice a day, heparin 5000 units subcutaneously every 8 hours, Lasix 20 mg p.o. once a day, Lipitor 20 mg once a day, Lopressor 100 mg twice a day, morphine sulfate 2 mg intravenously every 6 hours p.r.n., Protonix 20 mg p.o. twice a day, Ultram 50 mg every 6 hours. PHYSICAL EXAMINATION: GENERAL: The patient is a middle-aged male who does not appear to be in acute distress. VITAL SIGNS: Blood pressure 164/81, heart rate 67, temperature 98.5, respirations 20. HEENT: Normocephalic. CHEST: Clear. HEART: S1 and S2 regular. ABDOMEN: Soft. EXTREMITIES: Dressing is applied to the right foot. LABORATORY DATA: INR is 1.1, PTT 28.5. Hemoglobin and hematocrit are 13.6 and 48.2. White count and platelet count are within normal limits. Today's SMA-7 is within normal limits except for glucose 242 and potassium of 3.5. EKG on admission revealed sinus rhythm, pericardial effusion, incomplete left bundle-branch block, ST-T wave changes consistent with ischemia, no change. The most recent echo was in 06/2017, which revealed mild concentric elevation with normal ejection fraction. The patient underwent cardiac catheterization in 12/2017 and underwent a successful PTCA with drug-eluting stent to the mid circumflex artery. ASSESSMENT: 1. Coronary artery disease, status post quadruple bypass surgery in 2013 with a recent drug-eluting stent of the circumflex artery in 12/2017. 2. Peripheral vascular disease with infected right middle toe, status post amputation of the right first and second toes. 3. Uncontrolled diabetes mellitus. 4. Hypertension. 5. Hyperlipidemia. RECOMMENDATIONS: Continue subcutaneous heparin 5000 International Units every 8 hours, Lasix 20 mg p.o. once a day, Lipitor 20 mg once a day, Lopressor 100 mg twice a day, Brilinta 90 mg twice a day. The patient did receive oral potassium replacement for his hypokalemia today. Start aspirin at 81 mg once a day. I recommend performing the incision and drainage or if needed the toe amputation without interruption of antiplatelet therapy if possible unless Dr. Calzada recommends otherwise. Flo Mcintosh MD
[2018-04-01] MEDS: ceFAZolin IV 2 gm in Dextrose 2 GM/50 ML BAG IVPB SCH ×3 (05:17→21:56)
[2018-04-01] MEDS: Pantoprazole 40 mg EC Tab PO SCH ×2 (05:17→17:44)
--- NOTE | 2018-04-01 07:19 | CP.PCM.PN ---
<AnitaPatriciastephen L - Last Filed: 04/01/18 12:46> Subjective - Date & Time of Evaluation Date of Evaluation: 04/01/18 Time of Evaluation: 08:00 - Subjective Subjective: Resident Progress Note for Hospitalist Service Patient examined at bedside. States he has RLE pain. Offers no other complaints at this time. Denies fevers, chills, chest pain, shortness of breath, abdominal pain, dysuria. Objective - Vital Signs/Intake and Output Vital Signs (last 24 hours): Temp Pulse Resp BP Pulse Ox 98 F 71 20 132/78 95 03/31/18 21:52 03/31/18 21:52 03/31/18 21:52 03/31/18 21:52 03/31/18 21:52 Intake and Output: 04/01/18 04/01/18 06:59 18:59 Output Total 800 Balance -800 - Medications Medications: Current Medications Aspirin (Aspirin Chewable) 81 mg PO DAILY [facility] Atorvastatin Calcium (Lipitor) 20 mg PO HS [facility] Last Admin: 03/31/18 21:59 Dose: 20 mg Dextrose (Dextrose 50% Inj) 0 ml IV STAT PRN; Protocol PRN Reason: Hypoglycemia Protocol Furosemide (Lasix) 20 mg PO DAILY [facility] Last Admin: 03/31/18 09:16 Dose: 20 mg Heparin Sodium (Porcine) (Heparin) 5,000 units SC Q8 [facility]; Protocol Last Admin: 04/01/18 05:17 Dose: 5,000 units Dextrose (Dextrose 5% In Water 1000 Ml) 1,000 mls @ 0 mls/hr IV .Q0M PRN; Protocol PRN Reason: Hypoglycemia Protocol Cefazolin Sodium/Dextrose (Ancef Iv 2 Gm Duplex) 2 gm in 50 mls @ 50 mls/hr IVPB Q8 [facility]; Protocol Last Admin: 04/01/18 05:17 Dose: 50 mls/hr Insulin Detemir (Levemir) 15 unit SC HS [facility] Last Admin: 03/31/18 21:57 Dose: 15 units Insulin Human Lispro (Humalog) 5 units SC AC [facility] Last Admin: 03/31/18 16:27 Dose: 5 units Insulin Human Lispro (Humalog Med) 0 units SC ACHS [facility]; Protocol Last Admin: 03/31/18 21:56 Dose: Not Given Metoprolol Tartrate (Lopressor) 100 mg PO BID [facility] Last Admin: 03/31/18 17:15 Dose: 100 mg Morphine Sulfate (Morphine) 2 mg IVP Q6H PRN PRN Reason: Pain, severe (8-10) Last Admin: 03/31/18 16:27 Dose: 2 mg Mupirocin (Bactroban Ointment) 0 gm TOP DAILY [facility] Last Admin: 03/31/18 10:15 Dose: Not Given Pantoprazole Sodium (Protonix Ec Tab) 40 mg PO 0600,1600 [facility] Last Admin: 04/01/18 05:17 Dose: 40 mg Ticagrelor (Brilinta) 90 mg PO BID [facility] Last Admin: 03/31/18 09:17 Dose: 90 mg Tramadol HCl (Ultram) 50 mg PO Q6 PRN PRN Reason: Pain, moderate (4-7) Last Admin: 03/30/18 14:35 Dose: 50 mg - Labs Labs: 03/31/18 07:00 03/31/18 07:00 PT 12.6 SECONDS (9.4-12.5) H 03/29/18 17:55 INR 1.10 03/29/18 17:55 APTT 28.5 Seconds (25.1-36.5) 03/29/18 17:55 - Additional Findings Additional findings: - Constitutional Appears: Well, No Acute Distress - Head Exam Head Exam: ATRAUMATIC, NORMOCEPHALIC - Eye Exam Eye Exam: EOMI, Normal appearance - ENT Exam ENT Exam: Mucous Membranes Moist - Respiratory Exam Respiratory Exam: Clear to Auscultation Bilateral, NORMAL BREATHING PATTERN - Cardiovascular Exam Cardiovascular Exam: REGULAR RHYTHM, +S1, +S2 - GI/Abdominal Exam GI & Abdominal Exam: Normal Bowel Sounds, Soft - Extremities Exam Extremities exam: Positive for: pedal edema Additional comments: R foot: 2cm wound on 3rd toe, with minimal surrounding erythema. granulation tissue noted. no draining noted. b/l LE: multiple healing ulcers - Neurological Exam Neurological exam: Alert, Motor Sensory Deficit, Oriented x3 - Psychiatric Exam Psychiatric exam: Normal Affect, Normal Mood - Skin Skin Exam: Dry Assessment and Plan - Assessment and Plan (Free Text) Assessment: 62M with PMH HTN, DM, CAD with hx of CABG who presents with R third toe wound admitted for further evaluation and treatment. Past history of 1st and 2nd R toe amputations. Plan: Right 3rd Toe Wound - afebrile, no leukocytosis, no warmth to area - XRay R foot: no evidence of OM - US RLE: no DVT - pt given vanc and zosyn in ED - ESR-77, CRP 15 (H) - ID consulted- to begin - Cefazolin 2 gm IV Q8H - Podiatry consulted. Recs appreciated. - BCx NG to date, wound culture shows staph aureus - followup MRI, ultrasound of RLE Uncontrolled DM - pt with peripheral neuropathy - HbA1c 13.5 this admission - levemir 15u SC HS - humalog 5u SC AC adjusted to 7.5 u as POC glucose in 200s - medium coverage ISS - hypoglycemia protocol, diabetes education HTN - continue home lopressor 100mg po BID - continue home lasix 20mg po dialy CAD, hx CABG - continue brilinta 90mg po BID per cardio recs - aspirin 81 mg PO daily, lipitor 20 mg PO HS - Cardio recommends surgical intervention without interruption of antiplatelet therapy PPX: GI: Protonix DVT: Heparin SC DVT ppx HHD, carb consistent Patient seen, case reviewed, and plan approved by Dr. Christian Howard PGY-1 <Alejandro Gonzales - Last Filed: 04/01/18 16:43> Objective - Vital Signs/Intake and Output Vital Signs (last 24 hours): Temp Pulse Resp BP Pulse Ox 98.1 F 50 L 20 137/72 97 04/01/18 14:00 04/01/18 14:00 04/01/18 14:00 04/01/18 14:00 04/01/18 14:00 Intake and Output: 04/01/18 04/01/18 06:59 18:59 Output Total 800 Balance -800 - Medications Medications: Current Medications Aspirin (Aspirin Chewable) 81 mg PO DAILY [facility] Last Admin: 04/01/18 09:37 Dose: 81 mg Atorvastatin Calcium (Lipitor) 20 mg PO HS [facility] Last Admin: 03/31/18 21:59 Dose: 20 mg Dextrose (Dextrose 50% Inj) 0 ml IV STAT PRN; Protocol PRN Reason: Hypoglycemia Protocol Furosemide (Lasix) 20 mg PO DAILY [facility] Last Admin: 04/01/18 09:40 Dose: 20 mg Gabapentin (Neurontin) 100 mg PO TID [facility]; Protocol Heparin Sodium (Porcine) (Heparin) 5,000 units SC Q8 [facility]; Protocol Last Admin: 04/01/18 14:04 Dose: 5,000 units Dextrose (Dextrose 5% In Water 1000 Ml) 1,000 mls @ 0 mls/hr IV .Q0M PRN; Protocol PRN Reason: Hypoglycemia Protocol Cefazolin Sodium/Dextrose (Ancef Iv 2 Gm Duplex) 2 gm in 50 mls @ 50 mls/hr IVPB Q8 [facility]; Protocol Last Admin: 04/01/18 14:00 Dose: 50 mls/hr Insulin Detemir (Levemir) 15 unit SC HS [facility] Last Admin: 03/31/18 21:57 Dose: 15 units Insulin Human Lispro (Humalog Med) 0 units SC ACHS [facility]; Protocol Last Admin: 04/01/18 12:27 Dose: 3 units Insulin Human Lispro (Humalog) 7.5 units SC AC [facility] Metoprolol Tartrate (Lopressor) 100 mg PO BID [facility] Last Admin: 04/01/18 09:38 Dose: 100 mg Morphine Sulfate (Morphine) 2 mg IVP Q6H PRN PRN Reason: Pain, severe (8-10) Last Admin: 03/31/18 16:27 Dose: 2 mg Mupirocin (Bactroban Ointment) 0 gm TOP DAILY [facility] Last Admin: 04/01/18 12:21 Dose: 1 applic Pantoprazole Sodium (Protonix Ec Tab) 40 mg PO 0600,1600 [facility] Last Admin: 04/01/18 05:17 Dose: 40 mg Ticagrelor (Brilinta) 90 mg PO BID [facility] Last Admin: 04/01/18 12:24 Dose: 90 mg Tramadol HCl (Ultram) 50 mg PO Q6 PRN PRN Reason: Pain, moderate (4-7) Last Admin: 04/01/18 09:39 Dose: 50 mg Vitamin A (Vitamin A & D Oint Ud Foilpak) 1 ea TOP DAILY PRN PRN Reason: Dry skin - Labs Labs: 04/01/18 07:00 04/01/18 07:00 PT 12.6 SECONDS (9.4-12.5) H 03/29/18 17:55 INR 1.10 03/29/18 17:55 APTT 28.5 Seconds (25.1-36.5) 03/29/18 17:55 Attending/Attestation - Attestation I have personally seen and examined this patient.: Yes I have fully participated in the care of the patient.: Yes I have reviewed all pertinent clinical information, including history, physical exam and plan: Yes Notes (Text): 04/01/18 16:39 62 year old male with past medical history of hypertension, diabetes, history of 1st/2nd right toe amputations and CAD s/p CABG who presented with right third toe wound infection. He is on iv antibiotics. Wound culture which is growing Staph Auerus. ID and podiatry are following. Doppler was negative for DVT. He is pending arterial dopplers. MRI was done today with pending report. If podiatry is planning for any procedure will need to discuss with Dr. Calzada if/when to hold aspirin/brilinta. Continue with humalog and levemir for diabetes. Continue with lopressor for hypertension. PMD Dr. Cavazos, whom we are covering, will resume care tomorrow. Alejandro Gonzales MD Hospitalist.
[2018-04-01 08:00] LABS: BASO # 0.05 K/mm3 (0.0-2.0); BASO % 0.6 % (0.0-3.0); EOS # 0.2 (0.0-0.7); EOS % 2.7 % (1.5-5.0); GRAN # 5.79 (1.4-6.5); GRAN % 74.3 % (50.0-68.0); HEMOGLOBIN 13.4 g/dL (14.0-18.0); LYMPH # 1.3 (1.2-3.4); LYMPH % 16.6 % (22.0-35.0); MEAN CELL VOLUME 85.5 fl (80.0-105.0); MEAN CORPUSCULAR HEMOGLOBIN 29.5 pg (25.0-35.0); MEAN CORPUSCULAR HGB CONC 34.4 g/dl (31.0-37.0); MEAN PLATELET VOLUME 9.6 fl (7.0-11.0); MONO # 0.5 (0.1-0.6); MONO % 5.8 % (1.0-6.0); RBC 4.55 10^6/uL (3.5-6.1); RED CELL DISTRIBUTION WIDTH 13.6 % (11.5-14.5); WHITE BLOOD COUNT 7.8 10^3/uL (4.5-11.0)
[2018-04-01 08:07] LABS: BLOOD UREA NITROGEN 18 mg/dL (7-21); CALCIUM 8.5 mg/dL (8.4-10.5); GFR NON-AFRICAN AMERICAN > 60
[2018-04-01] MEDS: Insulin Lispro (humaLOG) MEDIUM Coverage SC SCH ×4 (09:27→22:04)
[2018-04-01] MEDS: Insulin Lispro 1 UNITS/0.01 ML SC SCH ×3 (09:28→17:32)
[2018-04-01] MEDS: Mupirocin 2% Ointment 15 GM TUBE TOP SCH (12:21)
--- NOTE | 2018-04-01 13:40 | CP.PCM.PN ---
<Chema Snyder - Last Filed: 04/01/18 13:34> Subjective - Date & Time of Evaluation Date of Evaluation: 04/01/18 Time of Evaluation: 13:34 - Subjective Subjective: Podiatry progress notes for attending Adolph Chaves: 62 y/o M patient seen and evaluated at the bedside for R third toe infected wound. Patient was sitting the the chair at the bedside comfortably and NAD. patient states that he didn't have any pain in his right foot last night. Patient denies any overnight F/N/V/C or SOB. Patient denies any other pedal complaint at this time. Objective - Vital Signs/Intake and Output Vital Signs (last 24 hours): Temp Pulse Resp BP Pulse Ox 97.6 F 64 20 158/83 H 98 04/01/18 06:00 04/01/18 09:38 04/01/18 06:00 04/01/18 09:40 04/01/18 06:00 Intake and Output: 04/01/18 04/01/18 06:59 18:59 Output Total 800 Balance -800 - Medications Medications: Current Medications Aspirin (Aspirin Chewable) 81 mg PO DAILY [facility] Last Admin: 04/01/18 09:37 Dose: 81 mg Atorvastatin Calcium (Lipitor) 20 mg PO HS [facility] Last Admin: 03/31/18 21:59 Dose: 20 mg Dextrose (Dextrose 50% Inj) 0 ml IV STAT PRN; Protocol PRN Reason: Hypoglycemia Protocol Furosemide (Lasix) 20 mg PO DAILY [facility] Last Admin: 04/01/18 09:40 Dose: 20 mg Heparin Sodium (Porcine) (Heparin) 5,000 units SC Q8 [facility]; Protocol Last Admin: 04/01/18 05:17 Dose: 5,000 units Dextrose (Dextrose 5% In Water 1000 Ml) 1,000 mls @ 0 mls/hr IV .Q0M PRN; Protocol PRN Reason: Hypoglycemia Protocol Cefazolin Sodium/Dextrose (Ancef Iv 2 Gm Duplex) 2 gm in 50 mls @ 50 mls/hr IVPB Q8 [facility]; Protocol Last Admin: 04/01/18 05:17 Dose: 50 mls/hr Insulin Detemir (Levemir) 15 unit SC HS [facility] Last Admin: 03/31/18 21:57 Dose: 15 units Insulin Human Lispro (Humalog Med) 0 units SC ACHS [facility]; Protocol Last Admin: 04/01/18 12:27 Dose: 3 units Insulin Human Lispro (Humalog) 7.5 units SC [facility] Metoprolol Tartrate (Lopressor) 100 mg PO BID [facility] Last Admin: 04/01/18 09:38 Dose: 100 mg Morphine Sulfate (Morphine) 2 mg IVP Q6H PRN PRN Reason: Pain, severe (8-10) Last Admin: 03/31/18 16:27 Dose: 2 mg Mupirocin (Bactroban Ointment) 0 gm TOP DAILY [facility] Last Admin: 04/01/18 12:21 Dose: 1 applic Pantoprazole Sodium (Protonix Ec Tab) 40 mg PO 0600,1600 [facility] Last Admin: 04/01/18 05:17 Dose: 40 mg Ticagrelor (Brilinta) 90 mg PO BID [facility] Last Admin: 04/01/18 12:24 Dose: 90 mg Tramadol HCl (Ultram) 50 mg PO Q6 PRN PRN Reason: Pain, moderate (4-7) Last Admin: 04/01/18 09:39 Dose: 50 mg - Labs Labs: 04/01/18 07:00 04/01/18 07:00 PT 12.6 SECONDS (9.4-12.5) H 03/29/18 17:55 INR 1.10 03/29/18 17:55 APTT 28.5 Seconds (25.1-36.5) 03/29/18 17:55 - Constitutional Appears: Well, Non-toxic, No Acute Distress - Head Exam Head Exam: ATRAUMATIC, NORMOCEPHALIC - Extremities Exam Additional comments: Right lower extremity focused exam: Vasc: DP/PT pulses faintly palpable. Cap refill < 3 sec to remaining digits. Skin temperature warm to cool from proximal to distal. mile erythema noted to the R LE. Neuro: Gross and protective sensations are grossly diminished Derm:scar of previous 1st and 2nd metatarsal amputations noted. There is an superficial ulceration approximetly 0.4 cm x 0.3 cm x 0.2 cm noted to the tip of the 3rd toe. No malodor, positive purulence, No probe to bone. erythema noted to the 3rd toe proximal to the ulcer MSK: Muscle power intact 5/5 to all major muscle groups b/l. no pain on palpating the R periulcerative area. - Neurological Exam Neurological Exam: Alert, Awake, Oriented x3 - Psychiatric Exam Psychiatric exam: Normal Affect, Normal Mood Assessment and Plan - Assessment and Plan (Free Text) Assessment: 62 y/o M patient seen and evaluated in the bedside for R 3rd toe infected ulcer. Plan: Patient seen and evaluated at the bedside with Dr. Chaves Plan discussed in details with attending Dr. Chaves Charts, labs and vitals reviewed; afebrile, No leukocytosis R foot x-ray: no evidence of OM R LE venous duplex: No evidence of DVT b/L MEGAN/PVR; Pending R foot MRI; Pending official report R foot cleaned with saline then dressed using bactroban, xeroform and DSD. Wound culture; [place]. aureus Contine Abx as per ID Patient to continue ambulating in the surgical shoe Podiatry will follow up the patient while patient is in house <Gerson Chaves - Last Filed: 04/02/18 10:16> Objective - Vital Signs/Intake and Output Vital Signs (last 24 hours): Temp Pulse Resp BP Pulse Ox 97.6 F 65 20 164/88 H 96 04/02/18 06:00 04/02/18 09:38 04/02/18 06:00 04/02/18 09:38 04/02/18 06:00 Intake and Output: 04/02/18 04/02/18 06:59 18:59 Intake Total 360 Output Total 1000 Balance -640 - Medications Medications: Current Medications Aspirin (Aspirin Chewable) 81 mg PO DAILY [facility] Last Admin: 04/02/18 09:37 Dose: 81 mg Atorvastatin Calcium (Lipitor) 20 mg PO HS [facility] Last Admin: 04/01/18 21:56 Dose: 20 mg Dextrose (Dextrose 50% Inj) 0 ml IV STAT PRN; Protocol PRN Reason: Hypoglycemia Protocol Furosemide (Lasix) 20 mg PO DAILY [facility] Last Admin: 04/02/18 09:37 Dose: 20 mg Gabapentin (Neurontin) 100 mg PO TID [facility]; Protocol Last Admin: 04/02/18 09:38 Dose: 100 mg Heparin Sodium (Porcine) (Heparin) 5,000 units SC Q8 [facility]; Protocol Last Admin: 04/02/18 05:19 Dose: 5,000 units Dextrose (Dextrose 5% In Water 1000 Ml) 1,000 mls @ 0 mls/hr IV .Q0M PRN; Protocol PRN Reason: Hypoglycemia Protocol Cefazolin Sodium/Dextrose (Ancef Iv 2 Gm Duplex) 2 gm in 50 mls @ 50 mls/hr IVPB Q8 [facility]; Protocol Last Admin: 04/02/18 05:19 Dose: 50 mls/hr Insulin Detemir (Levemir) 15 unit SC HS [facility] Last Admin: 04/01/18 21:57 Dose: 15 units Insulin Human Lispro (Humalog Med) 0 units SC ACHS [facility]; Protocol Last Admin: 04/02/18 08:34 Dose: 1 units Insulin Human Lispro (Humalog) 7.5 units SC AC [facility] Last Admin: 04/02/18 08:33 Dose: 7.5 units Metoprolol Tartrate (Lopressor) 100 mg PO BID [facility] Last Admin: 04/02/18 09:38 Dose: 100 mg Morphine Sulfate (Morphine) 2 mg IVP Q6H PRN PRN Reason: Pain, severe (8-10) Last Admin: 04/02/18 09:38 Dose: 2 mg Mupirocin (Bactroban Ointment) 0 gm TOP DAILY [facility] Last Admin: 04/02/18 10:12 Dose: 1 applic Pantoprazole Sodium (Protonix Ec Tab) 40 mg PO 0600,1600 [facility] Last Admin: 04/02/18 05:20 Dose: 40 mg Ticagrelor (Brilinta) 90 mg PO BID [facility] Last Admin: 04/02/18 09:37 Dose: 90 mg Tramadol HCl (Ultram) 50 mg PO Q6 PRN PRN Reason: Pain, moderate (4-7) Last Admin: 04/01/18 09:39 Dose: 50 mg Vitamin A (Vitamin A & D Oint Ud Foilpak) 1 ea TOP DAILY PRN PRN Reason: Dry skin Last Admin: 04/01/18 17:44 Dose: 1 ea - Labs Labs: 04/01/18 07:00 04/01/18 07:00 PT 12.6 SECONDS (9.4-12.5) H 03/29/18 17:55 INR 1.10 03/29/18 17:55 APTT 28.5 Seconds (25.1-36.5) 03/29/18 17:55 Attending/Attestation - Attestation I have personally seen and examined this patient.: Yes I have fully participated in the care of the patient.: Yes I have reviewed all pertinent clinical information, including history, physical exam and plan: Yes
--- NOTE | 2018-04-01 14:55 | PN ---
DATE: 04/01/2018 SUBJECTIVE: The patient denies any chest pain or shortness of breath. He underwent right foot MRI. The report is still pending. PHYSICAL EXAMINATION: VITAL SIGNS: Blood pressure 158/83, heart rate 64, temperature 97.6, respirations 20. HEENT: Normocephalic. CHEST: Clear. HEART: S1, S2 regular. EXTREMITIES: 1+ edema. Dressing is applied to the right foot. LABORATORY DATA: Hemoglobin and hematocrit is 15.4 and 38.9, white count and platelet count are within normal. Today's SMA-7 is within normal limits except for glucose 129. ASSESSMENT: 1. Coronary artery disease, status post quadruple bypass surgery in 2014 with recent stenting of left circumflex artery with drug-eluting stent in December of this year. 2. Peripheral vascular disease with infected right middle toe, status post amputation of right first and second toes 3. Uncontrolled diabetes mellitus. 4. Hypertension and hyperlipidemia. RECOMMENDATIONS: Case was discussed with Dr. Gonzales. The patient will be maintained on aspirin and Brilinta until evaluated by Dr. Calzada tomorrow. Continue subcutaneous heparin 5000 units every 8 hours, Lasix 20 mg p.o. once a day and Lopressor 100 mg twice a day and IV Ancef at 2 g every 8 hours. Flo Mcintosh MD
[2018-04-01] MEDS ORDERED: Vitamins A & D Oint UD Foilpak TOP PRN (15:01)
--- NOTE | 2018-04-01 18:08 | CP.PCM.PN ---
Subjective - Date & Time of Evaluation Date of Evaluation: 04/01/18 Time of Evaluation: 16:30 - Subjective Subjective: Infectious Disease Follow Up: April 01, 2018 62 yo male with extensive medical history of DM, HTN, CAD, and tobacco use history presenting with erythema, induration, and swelling of the 3rd toe of the right foot. He states green pus from the wound area. The patient is not a well controlled diabetic. Drainage from nail bed of the 3rd toe as well. The patient is accompanied by his daughter. No other complaints at this time. The patient has a history of noncompliance with changes for his health and diabetic control. Awaiting cultures MRI done, reading pending. Objective - Vital Signs/Intake and Output Vital Signs (last 24 hours): Temp Pulse Resp BP Pulse Ox 98.1 F 50 L 20 137/72 97 04/01/18 14:00 04/01/18 17:42 04/01/18 14:00 04/01/18 17:42 04/01/18 14:00 Intake and Output: 04/01/18 04/01/18 06:59 18:59 Output Total 800 Balance -800 - Medications Medications: Current Medications Aspirin (Aspirin Chewable) 81 mg PO DAILY [facility] Last Admin: 04/01/18 09:37 Dose: 81 mg Atorvastatin Calcium (Lipitor) 20 mg PO HS [facility] Last Admin: 03/31/18 21:59 Dose: 20 mg Dextrose (Dextrose 50% Inj) 0 ml IV STAT PRN; Protocol PRN Reason: Hypoglycemia Protocol Furosemide (Lasix) 20 mg PO DAILY [facility] Last Admin: 04/01/18 09:40 Dose: 20 mg Gabapentin (Neurontin) 100 mg PO TID [facility]; Protocol Last Admin: 04/01/18 17:34 Dose: 100 mg Heparin Sodium (Porcine) (Heparin) 5,000 units SC Q8 [facility]; Protocol Last Admin: 04/01/18 14:04 Dose: 5,000 units Dextrose (Dextrose 5% In Water 1000 Ml) 1,000 mls @ 0 mls/hr IV .Q0M PRN; Protocol PRN Reason: Hypoglycemia Protocol Cefazolin Sodium/Dextrose (Ancef Iv 2 Gm Duplex) 2 gm in 50 mls @ 50 mls/hr IVPB Q8 [facility]; Protocol Last Admin: 04/01/18 14:00 Dose: 50 mls/hr Insulin Detemir (Levemir) 15 unit SC HS [facility] Last Admin: 03/31/18 21:57 Dose: 15 units Insulin Human Lispro (Humalog Med) 0 units SC ACHS [facility]; Protocol Last Admin: 04/01/18 17:34 Dose: Not Given Insulin Human Lispro (Humalog) 7.5 units SC AC [facility] Last Admin: 04/01/18 17:32 Dose: 7.5 units Metoprolol Tartrate (Lopressor) 100 mg PO BID [facility] Last Admin: 04/01/18 17:42 Dose: 100 mg Morphine Sulfate (Morphine) 2 mg IVP Q6H PRN PRN Reason: Pain, severe (8-10) Last Admin: 03/31/18 16:27 Dose: 2 mg Mupirocin (Bactroban Ointment) 0 gm TOP DAILY [facility] Last Admin: 04/01/18 12:21 Dose: 1 applic Pantoprazole Sodium (Protonix Ec Tab) 40 mg PO 0600,1600 [facility] Last Admin: 04/01/18 17:44 Dose: 40 mg Ticagrelor (Brilinta) 90 mg PO BID [facility] Last Admin: 04/01/18 17:43 Dose: 90 mg Tramadol HCl (Ultram) 50 mg PO Q6 PRN PRN Reason: Pain, moderate (4-7) Last Admin: 04/01/18 09:39 Dose: 50 mg Vitamin A (Vitamin A & D Oint Ud Foilpak) 1 ea TOP DAILY PRN PRN Reason: Dry skin Last Admin: 04/01/18 17:44 Dose: 1 ea - Labs Labs: 04/01/18 07:00 04/01/18 07:00 PT 12.6 SECONDS (9.4-12.5) H 03/29/18 17:55 INR 1.10 03/29/18 17:55 APTT 28.5 Seconds (25.1-36.5) 03/29/18 17:55 - Constitutional Appears: Non-toxic, No Acute Distress, Chronically Ill - Head Exam Head Exam: ATRAUMATIC, NORMOCEPHALIC - Eye Exam Eye Exam: EOMI, PERRL Pupil Exam: NORMAL ACCOMODATION, PERRL - ENT Exam ENT Exam: Mucous Membranes Moist, Normal External Ear Exam, TM's Normal Bilaterally - Neck Exam Neck Exam: Full ROM, Normal Inspection - Respiratory Exam Respiratory Exam: Clear to Ausculation Bilateral, NORMAL BREATHING PATTERN. absent: Rales, Rhonchi, Wheezes - Cardiovascular Exam Cardiovascular Exam: REGULAR RHYTHM, RRR, +S1, +S2 - GI/Abdominal Exam GI & Abdominal Exam: Soft, Normal Bowel Sounds. absent: Distended, Tenderness - Extremities Exam Extremities Exam: Joint Swelling, Pedal Edema Additional comments: R foot: 2cm wound on 3rd toe, with minimal surrounding erythema. granulation tissue noted. no draining noted. Vasc: DP and PT pulses faintly palpable. Cap refill < 3 sec to remaining digits. Skin temperature warm to cool from proximal to distal. mile erythema noted to the R LE. Neuro: Gross and protective sensations are grossly diminished. Severe peripheral neuropathy. Derm:scar of previous 1st and 2nd metatarsal amputations noted. There is an superficial ulceration approximetly 0.4 cm x 0.3 cm x 0.2 cm noted to the tip of the 3rd toe. No malodor, positive purulence, No probe to bone. erythema noted to the 3rd toe proximal to the ulcer MSK: Muscle power intact 5/5 to all major muscle groups b/l. no pain on palpating the R periulcerative area. b/l LE: multiple healing ulcers - Neurological Exam Neurological Exam: Alert, Awake, CN II-XII Intact, Oriented x3 - Psychiatric Exam Psychiatric exam: Normal Affect, Normal Mood - Skin Additional comments: As above. Assessment and Plan - Assessment and Plan (Free Text) Assessment: 62 yo male who is a known poorly controlled diabetic with history of right 3rd toe infections that I last saw at the beginning of this year. History of Klesiella and MSSA growth sensitive to Ancef. Thankfully, the patient still maintains good renal function. Start patient on Ancef for antibiotic coverage as we wait for cultures to return. Supportive care. MRI readings pending. Cultures showing Staph Aureus. Showing MSSA. Maintaining Ancef. Thank you for allowing me to participate in the care of the patient, we will follow with you.
[2018-04-01] MEDS: Insulin Detemir 100 units/ml Vial (Levemir) SC SCH (21:57)
[2018-04-02] MEDS: ceFAZolin IV 2 gm in Dextrose 2 GM/50 ML BAG IVPB SCH ×3 (05:19→21:41)
[2018-04-02] MEDS: Pantoprazole 40 mg EC Tab PO SCH ×2 (05:20→16:42)
[2018-04-02] MEDS: Insulin Lispro 1 UNITS/0.01 ML SC SCH ×3 (08:33→16:41)
[2018-04-02] MEDS: Insulin Lispro (humaLOG) MEDIUM Coverage SC SCH ×4 (08:34→21:43)
[2018-04-02] MEDS: Morphine 2 mg/ml ISec IVP PRN ×2 (09:38→17:13)
[2018-04-02] MEDS: Mupirocin 2% Ointment 15 GM TUBE TOP SCH (10:12)
--- NOTE | 2018-04-02 13:13 | CP.PCM.PN ---
<Leyla Jarvis - Last Filed: 04/02/18 13:10> Subjective - Date & Time of Evaluation Date of Evaluation: 04/02/18 Time of Evaluation: 13:10 - Subjective Subjective: Podiatry progress notes for attending Dr. Car, 62 y/o M patient seen and evaluated at the bedside for R third toe infected wound. Patient was noted to be sitting ine chair at the bedside. Patient is resting comfortably, and in no acute distress. Patient complains of minimal pain. Patient denies any overnight F/N/V/C or SOB. Patient denies any other pedal complaint at this time. Objective - Vital Signs/Intake and Output Vital Signs (last 24 hours): Temp Pulse Resp BP Pulse Ox 97.6 F 65 20 164/88 H 96 04/02/18 06:00 04/02/18 09:38 04/02/18 06:00 04/02/18 09:38 04/02/18 06:00 Intake and Output: 04/02/18 04/02/18 06:59 18:59 Intake Total 360 Output Total 1000 Balance -640 - Medications Medications: Current Medications Aspirin (Aspirin Chewable) 81 mg PO DAILY [facility] Last Admin: 04/02/18 09:37 Dose: 81 mg Atorvastatin Calcium (Lipitor) 20 mg PO HS [facility] Last Admin: 04/01/18 21:56 Dose: 20 mg Dextrose (Dextrose 50% Inj) 0 ml IV STAT PRN; Protocol PRN Reason: Hypoglycemia Protocol Furosemide (Lasix) 20 mg PO DAILY [facility] Last Admin: 04/02/18 09:37 Dose: 20 mg Gabapentin (Neurontin) 100 mg PO TID [facility]; Protocol Last Admin: 04/02/18 09:38 Dose: 100 mg Heparin Sodium (Porcine) (Heparin) 5,000 units SC Q8 [facility]; Protocol Last Admin: 04/02/18 05:19 Dose: 5,000 units Dextrose (Dextrose 5% In Water 1000 Ml) 1,000 mls @ 0 mls/hr IV .Q0M PRN; Protocol PRN Reason: Hypoglycemia Protocol Cefazolin Sodium/Dextrose (Ancef Iv 2 Gm Duplex) 2 gm in 50 mls @ 50 mls/hr IV PB Q8 [facility]; Protocol Last Admin: 04/02/18 05:19 Dose: 50 mls/hr Insulin Detemir (Levemir) 15 unit SC [facility] Last Admin: 04/01/18 21:57 Dose: 15 units Insulin Human Lispro (Humalog Med) 0 units SC ACHS [facility]; Protocol Last Admin: 04/02/18 11:50 Dose: 1 units Insulin Human Lispro (Humalog) 7.5 units SC AC [facility] Last Admin: 04/02/18 11:51 Dose: 7.5 units Metoprolol Tartrate (Lopressor) 100 mg PO BID [facility] Last Admin: 04/02/18 09:38 Dose: 100 mg Morphine Sulfate (Morphine) 2 mg IVP Q6H PRN PRN Reason: Pain, severe (8-10) Last Admin: 04/02/18 09:38 Dose: 2 mg Mupirocin (Bactroban Ointment) 0 gm TOP DAILY [facility] Last Admin: 04/02/18 10:12 Dose: 1 applic Pantoprazole Sodium (Protonix Ec Tab) 40 mg PO 0600,1600 [facility] Last Admin: 04/02/18 05:20 Dose: 40 mg Ticagrelor (Brilinta) 90 mg PO BID [facility] Last Admin: 04/02/18 09:37 Dose: 90 mg Tramadol HCl (Ultram) 50 mg PO Q6 PRN PRN Reason: Pain, moderate (4-7) Last Admin: 04/01/18 09:39 Dose: 50 mg Vitamin A (Vitamin A & D Oint Ud Foilpak) 1 ea TOP DAILY PRN PRN Reason: Dry skin Last Admin: 04/01/18 17:44 Dose: 1 ea - Labs Labs: 04/01/18 07:00 04/01/18 07:00 PT 12.6 SECONDS (9.4-12.5) H 03/29/18 17:55 INR 1.10 03/29/18 17:55 APTT 28.5 Seconds (25.1-36.5) 03/29/18 17:55 - Constitutional Appears: Well, Non-toxic, No Acute Distress - Head Exam Head Exam: ATRAUMATIC, NORMOCEPHALIC - Extremities Exam Additional comments: Right lower extremity focused exam: Vasc: DP/PT pulses faintly palpable. Cap refill < 3 sec to remaining digits. Skin temperature warm to cool from proximal to distal. mile erythema noted to the R LE. Neuro: Gross and protective sensations are grossly diminished Derm: superficial ulceration measuring approximetly 0.4 cm x 0.3 cm x 0.2 cm n oted to the tip of the 3rd toe. No malodor, positive purulence, No probe to bone. erythema noted to the 3rd toe proximal to the ulcer MSK: Muscle power intact 5/5 to all major muscle groups b/l. no pain on palpating the R periulcerative area. - Neurological Exam Neurological Exam: Alert, Awake, Oriented x3 - Psychiatric Exam Psychiatric exam: Normal Affect, Normal Mood Assessment and Plan - Assessment and Plan (Free Text) Assessment: 62 y/o M patient seen and evaluated in the bedside for R 3rd toe infected ulcer. Plan: Patient seen and evaluated at the bedside with Dr. Car Plan discussed in details with attending Charts, labs and vitals reviewed: afebrile, absent leukocytosis R foot x-ray: no evidence of OM R LE venous duplex: No evidence of DVT MEGAN/PVR: R 0.53, L 0.49 Vascular consent placed for Dr. Massey- cristina appreciated Wound culture: [place]. aureus R foot MRI: Pending official report R foot cleaned with saline then dressed using bactroban, xeroform and DSD. Continue Abx as per ID Patient to continue ambulating in the surgical shoe Podiatry will follow up the patient while patient is in house <Connie Car - Last Filed: 04/05/18 07:55> Objective - Vital Signs/Intake and Output Vital Signs (last 24 hours): Temp Pulse Resp BP Pulse Ox 98.5 F 48 L 18 132/86 95 04/04/18 22:14 04/04/18 22:14 04/04/18 22:14 04/04/18 22:14 04/04/18 22:14 Intake and Output: 04/05/18 04/05/18 06:59 18:59 Intake Total 1220 Output Total 2300 Balance -1080 - Medications Medications: Current Medications Aspirin (Aspirin Chewable) 81 mg PO DAILY [facility] Last Admin: 04/04/18 09:45 Dose: 81 mg Atorvastatin Calcium (Lipitor) 20 mg PO HS [facility] Last Admin: 04/04/18 21:19 Dose: 20 mg Furosemide (Lasix) 20 mg PO DAILY [facility] Last Admin: 04/04/18 09:45 Dose: 20 mg Gabapentin (Neurontin) 100 mg PO TID [facility]; Protocol Last Admin: 04/04/18 17:07 Dose: 100 mg Cefazolin Sodium/Dextrose (Ancef Iv 2 Gm Duplex) 2 gm in 50 mls @ 50 mls/hr IVPB Q8 [facility]; Protocol Last Admin: 04/05/18 05:31 Dose: 50 mls/hr Sodium Chloride (Sodium Chloride 0.45%) 1,000 mls @ 80 mls/hr IV .[id number] [facility] Stop: 04/07/18 08:00 Insulin Detemir (Levemir) 20 unit SC HS [facility] Last Admin: 04/04/18 22:01 Dose: 20 units Insulin Human Lispro (Humalog Med) 0 units SC ACHS [facility]; Protocol Last Admin: 04/04/18 22:01 Dose: 2 units Losartan Potassium (Cozaar) 50 mg PO DAILY [facility] Last Admin: 04/04/18 12:08 Dose: 50 mg Metoprolol Tartrate (Lopressor) 100 mg PO BID [facility] Last Admin: 04/04/18 17:06 Dose: 100 mg Morphine Sulfate (Morphine) 1 mg IVP Q6H PRN PRN Reason: Pain, moderate (4-7) Multi-Ingredient Cream (Hydrocerin Cream) 0 ea TOP DAILY [facility] Mupirocin (Bactroban Ointment) 0 gm TOP DAILY [facility] Last Admin: 04/04/18 09:46 Dose: 1 applic Pantoprazole Sodium (Protonix Ec Tab) 40 mg PO 0600,1600 [facility] Last Admin: 04/05/18 05:31 Dose: 40 mg Ticagrelor (Brilinta) 90 mg PO BID [facility] Last Admin: 04/04/18 17:07 Dose: 90 mg Vitamin A (Vitamin A & D Oint Ud Foilpak) 1 ea TOP DAILY PRN PRN Reason: Dry skin Last Admin: 04/01/18 17:44 Dose: 1 ea - Labs Labs: 04/01/18 07:00 04/01/18 07:00 PT 12.6 SECONDS (9.4-12.5) H 03/29/18 17:55 INR 1.10 03/29/18 17:55 APTT 28.5 Seconds (25.1-36.5) 03/29/18 17:55 Attending/Attestation - Attestation I have personally seen and examined this patient.: Yes I have fully participated in the care of the patient.: Yes I have reviewed all pertinent clinical information, including history, physical exam and plan: Yes
--- NOTE | 2018-04-02 14:12 | MRI ---
Date of service: 04/01/2018 PROCEDURE: HISTORY: R/O R 3rd toe OM COMPARISON: TECHNIQUE: FINDINGS: Status post resection of the 1st and 2nd distal phalanges. Marrow edema noted within the 3rd distal and middle phalanges with surrounding soft tissue swelling consistent with osteomyelitis. Otherwise no gross tendinopathy. Dorsal and plantar subcutaneous fat is grossly unremarkable. IMPRESSION: Findings compatible with osteomyelitis of the 3rd middle and distal phalanges.
--- NOTE | 2018-04-02 14:44 | PN ---
DATE: 04/02/2018 SUBJECTIVE: A 60-year-old white male with a history of insulin-dependent diabetes mellitus, peripheral vascular disease, peripheral neuropathy, bipolar depression, CAD, history of stenting in the past. The patient is in the hospital with gangrene of the right third toe. The patient has a history of amputation in the past. He has been seen in consultation with Dr. Calzada clearing from Cardiology standpoint and also with Dr. Car for Podiatry. The patient is to schedule for possible amputation once he is cleared medically. PHYSICAL EXAMINATION: VITAL SIGNS: Stable. He is afebrile. ASSESSMENT AND PLAN: He was admitted with an elevated blood sugars, is down now to 229. BUN and creatinine is stable at 18 and 1.1. White count is 7.8. He is on intravenous antibiotics. He is getting blood thinners for circulation and antibiotics for the gangrene. He is medically stable and we will discuss with Dr. Calzada and Dr. Car to go ahead with his surgery. Rasta Cavazos MD
--- NOTE | 2018-04-02 17:51 | CP.PCM.PN ---
Subjective - Date & Time of Evaluation Date of Evaluation: 04/02/18 Time of Evaluation: 16:15 - Subjective Subjective: Infectious Disease Follow Up: April 02, 2018 62 yo male with extensive medical history of DM, HTN, CAD, and tobacco use history presenting with erythema, induration, and swelling of the 3rd toe of the right foot. He states green pus from the wound area. The patient is not a well controlled diabetic. Drainage from nail bed of the 3rd toe as well. The patient is accompanied by his daughter. No other complaints at this time. The patient has a history of noncompliance with changes for his health and diabetic control. Awaiting cultures MRI done showing right 3rd middle phalanges osteomyelitis. Objective - Vital Signs/Intake and Output Vital Signs (last 24 hours): Temp Pulse Resp BP Pulse Ox 98.4 F 64 20 137/71 97 04/02/18 14:00 04/02/18 17:12 04/02/18 14:00 04/02/18 17:12 04/02/18 14:00 Intake and Output: 04/02/18 04/02/18 06:59 18:59 Intake Total 360 Output Total 1000 Balance -640 - Medications Medications: Current Medications Aspirin (Aspirin Chewable) 81 mg PO DAILY [facility] Last Admin: 04/02/18 09:37 Dose: 81 mg Atorvastatin Calcium (Lipitor) 20 mg PO HS [facility] Last Admin: 04/01/18 21:56 Dose: 20 mg Dextrose (Dextrose 50% Inj) 0 ml IV STAT PRN; Protocol PRN Reason: Hypoglycemia Protocol Furosemide (Lasix) 20 mg PO DAILY [facility] Last Admin: 04/02/18 09:37 Dose: 20 mg Gabapentin (Neurontin) 100 mg PO TID [facility]; Protocol Last Admin: 04/02/18 17:13 Dose: 100 mg Heparin Sodium (Porcine) (Heparin) 5,000 units SC Q8 [facility]; Protocol Last Admin: 04/02/18 13:14 Dose: 5,000 units Dextrose (Dextrose 5% In Water 1000 Ml) 1,000 mls @ 0 mls/hr IV .Q0M PRN; Protocol PRN Reason: Hypoglycemia Protocol Cefazolin Sodium/Dextrose (Ancef Iv 2 Gm Duplex) 2 gm in 50 mls @ 50 mls/hr IVPB Q8 [facility]; Protocol Last Admin: 04/02/18 13:13 Dose: 50 mls/hr Insulin Detemir (Levemir) 15 unit SC HS [facility] Last Admin: 04/01/18 21:57 Dose: 15 units Insulin Human Lispro (Humalog Med) 0 units SC ACHS [facility]; Protocol Last Admin: 04/02/18 16:36 Dose: 1 units Insulin Human Lispro (Humalog) 7.5 units SC AC [facility] Last Admin: 04/02/18 16:41 Dose: 7.5 units Metoprolol Tartrate (Lopressor) 100 mg PO BID [facility] Last Admin: 04/02/18 17:12 Dose: 100 mg Morphine Sulfate (Morphine) 2 mg IVP Q6H PRN PRN Reason: Pain, severe (8-10) Last Admin: 04/02/18 17:13 Dose: 2 mg Mupirocin (Bactroban Ointment) 0 gm TOP DAILY [facility] Last Admin: 04/02/18 10:12 Dose: 1 applic Pantoprazole Sodium (Protonix Ec Tab) 40 mg PO 0600,1600 [facility] Last Admin: 04/02/18 16:42 Dose: 40 mg Ticagrelor (Brilinta) 90 mg PO BID [facility] Last Admin: 04/02/18 17:12 Dose: 90 mg Tramadol HCl (Ultram) 50 mg PO Q6 PRN PRN Reason: Pain, moderate (4-7) Last Admin: 04/01/18 09:39 Dose: 50 mg Vitamin A (Vitamin A & D Oint Ud Foilpak) 1 ea TOP DAILY PRN PRN Reason: Dry skin Last Admin: 04/01/18 17:44 Dose: 1 ea - Labs Labs: 04/01/18 07:00 04/01/18 07:00 PT 12.6 SECONDS (9.4-12.5) H 03/29/18 17:55 INR 1.10 03/29/18 17:55 APTT 28.5 Seconds (25.1-36.5) 03/29/18 17:55 - Constitutional Appears: Non-toxic, No Acute Distress, Chronically Ill - Head Exam Head Exam: ATRAUMATIC, NORMOCEPHALIC - Eye Exam Eye Exam: EOMI, PERRL Pupil Exam: NORMAL ACCOMODATION, PERRL - ENT Exam ENT Exam: Mucous Membranes Moist, Normal External Ear Exam, TM's Normal Bilaterally - Neck Exam Neck Exam: Full ROM, Normal Inspection - Respiratory Exam Respiratory Exam: Clear to Ausculation Bilateral, NORMAL BREATHING PATTERN. absent: Rales, Rhonchi, Wheezes - Cardiovascular Exam Cardiovascular Exam: REGULAR RHYTHM, RRR, +S1, +S2 - GI/Abdominal Exam GI & Abdominal Exam: Soft, Normal Bowel Sounds. absent: Distended, Tenderness - Extremities Exam Extremities Exam: Joint Swelling, Pedal Edema Additional comments: R foot: 2cm wound on 3rd toe, with minimal surrounding erythema. granulation tissue noted. no draining noted. Vasc: DP and PT pulses faintly palpable. Cap refill < 3 sec to remaining digits. Skin temperature warm to cool from proximal to distal. mile erythema noted to the R LE. Neuro: Gross and protective sensations are grossly diminished. Severe peripheral neuropathy. Derm:scar of previous 1st and 2nd metatarsal amputations noted. There is an superficial ulceration approximetly 0.4 cm x 0.3 cm x 0.2 cm noted to the tip of the 3rd toe. No malodor, positive purulence, No probe to bone. erythema noted to the 3rd toe proximal to the ulcer MSK: Muscle power intact 5/5 to all major muscle groups b/l. no pain on palpating the R periulcerative area. b/l LE: multiple healing ulcers - Neurological Exam Neurological Exam: Alert, Awake, CN II-XII Intact, Oriented x3 - Psychiatric Exam Psychiatric exam: Normal Affect, Normal Mood - Skin Additional comments: As above. Assessment and Plan - Assessment and Plan (Free Text) Assessment: 62 yo male who is a known poorly controlled diabetic with history of right 3rd toe infections that I last saw at the beginning of this year. History of Klesiella and MSSA growth sensitive to Ancef. Thankfully, the patient still maintains good renal function. Start patient on Ancef for antibiotic coverage as we wait for cultures to return. Supportive care. MRI readings showing osteomyelitis of the right 3rd middle phalanges. Cultures showing Staph Aureus. Showing MSSA. Maintaining Ancef. Will need at least 6 weeks of IV antibiotics possibly less if excision/amputation planned. Thank you for allowing me to participate in the care of the patient, we will follow with you.
--- NOTE | 2018-04-02 18:34 | US ---
PROCEDURE: Lower extremity MEGAN exam HISTORY: Peripheral vascular disease with pain and right foot ischemia. Previous right toe amputations. Diabetes. Previous smoker. PHYSICIAN(S): Gianni Massey MD. FINDINGS: The resting MEGAN's are severely abnormal: Right, 0.53 and left, 0.49 The brachial systolic pressures are symmetric. The low thigh pressures demonstrate significant gradients bilaterally. This is consistent with aortoiliac disease, greater on the right than the left. The calf PVR waveforms do not augment. This is consistent with bilateral SFA disease. The ankle and metatarsal waveforms are severely blunted bilaterally IMPRESSION: 1. Severely abnormal ABIs at rest 2. Aortoiliac disease. 3. Bilateral SFA disease.
[2018-04-02] MEDS: Insulin Detemir 100 units/ml Vial (Levemir) SC SCH (21:42)
--- NOTE | 2018-04-02 23:30 | CON ---
DATE: 04/02/2018 TIME: 06:48 p.m. CHIEF COMPLAINT/HISTORY OF PRESENT ILLNESS: Mr. Holley is a 62-year-old noncompliant vasculopath. I reviewed his angiogram performed in 03/2016. He had a diabetic foot ulcer at that time and subsequently required amputation of the right first and second toes. His angiogram demonstrated significant common femoral, SFA, and popliteal disease bilaterally. He underwent an angioplasty of the right common femoral artery followed by a right femoral-popliteal bypass performed by Dr. Dempsey. His wounds eventually healed. He now presents with ischemia of the right third digit. His MEGAN/PVR exam is severely abnormal and demonstrates aortoiliac, femoropopliteal, and tibial disease. Unfortunately, Mr. Holley's revascularization options may be extremely limited. I will order an MRA runoff to evaluate inflow. His femoral-popliteal graft is likely occluded. A repeat operation of the right leg may be difficult to accomplish. His clinical situation was discussed with Kalina Car and Dirk. Gianni Massey MD [facility]
[2018-04-03] MEDS: Pantoprazole 40 mg EC Tab PO SCH ×2 (05:38→17:41)
[2018-04-03] MEDS: ceFAZolin IV 2 gm in Dextrose 2 GM/50 ML BAG IVPB SCH ×3 (05:39→21:42)
--- NOTE | 2018-04-03 07:32 | PN ---
DATE: 04/02/2018 REASON FOR CONSULTATION AND FOLLOWUP: History of coronary artery disease, CABG, severe PAD requiring amputation of right third toe. Denies any chest pain, shortness of breath, or any palpitation. PHYSICAL EXAMINATION: GENERAL: Not in apparent distress. VITAL SIGNS: Temperature afebrile, heart rate 65, blood pressure 164/88. HEENT: PERRLA. Extraocular muscles intact. NECK: Supple. No carotid bruits or thyromegaly. CHEST: Clear to auscultation. HEART: S1 and S2 regular. ABDOMEN: Soft. EXTREMITIES: Clubbing and cyanosis negative. Right toes in dressing status post amputation of the right first and second toes. LABORATORY DATA: Blood workup as follows, WBC , hemoglobin 13.4, hematocrit 38.9 and platelet count 249,000. Chemistry shows sodium 130, potassium 4, chloride 104, carbon dioxide 23, anion gap of 11, BUN 18 and creatinine 1.1. IMPRESSION: A 62-year-old male with past medical history significant for coronary artery disease status post coronary artery bypass graft in 2014, history of peripheral intervention, history of most recently stent to the circumflex was done in December 2017, history of peripheral artery disease status post amputation of first and second toes and now the third toe is gangrenous requiring amputation, diabetes, hypertension, hyperlipidemia, obesity, history of [place] tubal vessel disease, mid left anterior descending distal circumflex and proximal right coronary artery totally occluded, patent left internal mammary artery to left anterior descending, but distal left anterior descending occluded, distal right coronary artery patent, sequential is patent. ejection fraction 20%-30%, mid circumflex has 80% stenosis and haziness and thought to be the culprit for non-ST elevated myocardial infarction, successful percutaneous transluminal coronary angioplasty with BRUCE of the mid circumflex done. PRU test was done and found to be 265, which means the patient is started on Brilinta dated 12/25/2017. Now the patient has a gangrenous toes, but is less almost 3 months from Brilinta. We will discuss with Podiatry if need to hold, can be held and resumed back on Brilinta. when the patient brings his schedule, we will discuss with Podiatry. For now, continue aspirin. Continue Brilinta. Continue deep venous thrombosis prophylaxis. Continue beta-kojo. We will follow with you. Thank you, Dr. Cavazos, for providing us the opportunity in taking care of Malik Holley. We will clear the patient to go for surgery and timing of holding Brilinta should be . Lizzy Calzada MD
[2018-04-03] MEDS: Insulin Lispro (humaLOG) MEDIUM Coverage SC SCH ×4 (08:05→21:47)
[2018-04-03] MEDS: Insulin Lispro 1 UNITS/0.01 ML SC SCH ×3 (08:05→17:42)
[2018-04-03] MEDS: Morphine 2 mg/ml ISec IVP PRN (09:09)
[2018-04-03] MEDS: Mupirocin 2% Ointment 15 GM TUBE TOP SCH (09:10)
[2018-04-03] MEDS ORDERED: Gadodiamide 287 MG/ML VIAL (20ML) IV ONE (09:36)
--- NOTE | 2018-04-03 12:01 | CP.PCM.PN ---
Subjective - Date & Time of Evaluation Date of Evaluation: 04/03/18 Time of Evaluation: 08:50 - Subjective Subjective: pt is seen and examined at bedside. In no acute distress. Denies pain to R foot. Objective - Vital Signs/Intake and Output Vital Signs (last 24 hours): Temp Pulse Resp BP Pulse Ox 97.8 F 63 20 174/93 H 100 04/03/18 07:00 04/03/18 09:08 04/03/18 07:00 04/03/18 09:08 04/03/18 07:00 Intake and Output: 04/03/18 04/03/18 06:59 18:59 Intake Total 320 Output Total 550 Balance -230 - Medications Medications: Current Medications Aspirin (Aspirin Chewable) 81 mg PO DAILY [facility] Last Admin: 04/03/18 09:07 Dose: 81 mg Atorvastatin Calcium (Lipitor) 20 mg PO HS [facility] Last Admin: 04/02/18 21:41 Dose: 20 mg Dextrose (Dextrose 50% Inj) 0 ml IV STAT PRN; Protocol PRN Reason: Hypoglycemia Protocol Furosemide (Lasix) 20 mg PO DAILY [facility] Last Admin: 04/03/18 09:08 Dose: 20 mg Gabapentin (Neurontin) 100 mg PO TID [facility]; Protocol Last Admin: 04/03/18 09:08 Dose: 100 mg Heparin Sodium (Porcine) (Heparin) 5,000 units SC Q8 [facility]; Protocol Last Admin: 04/03/18 05:39 Dose: 5,000 units Dextrose (Dextrose 5% In Water 1000 Ml) 1,000 mls @ 0 mls/hr IV .Q0M PRN; Protocol PRN Reason: Hypoglycemia Protocol Cefazolin Sodium/Dextrose (Ancef Iv 2 Gm Duplex) 2 gm in 50 mls @ 50 mls/hr IVPB Q8 [facility]; Protocol Last Admin: 04/03/18 05:39 Dose: 50 mls/hr Insulin Detemir (Levemir) 15 unit SC HS [facility] Last Admin: 04/02/18 21:42 Dose: 15 units Insulin Human Lispro (Humalog Med) 0 units SC ACHS [facility]; Protocol Last Admin: 04/03/18 11:51 Dose: 3 units Insulin Human Lispro (Humalog) 8 units SC AC [facility] Last Admin: 04/03/18 11:51 Dose: 8 units Metoprolol Tartrate (Lopressor) 100 mg PO BID [facility] Last Admin: 04/03/18 09:08 Dose: 100 mg Morphine Sulfate (Morphine) 2 mg IVP Q6H PRN PRN Reason: Pain, severe (8-10) Last Admin: 04/03/18 09:09 Dose: 2 mg Mupirocin (Bactroban Ointment) 0 gm TOP DAILY [facility] Last Admin: 04/03/18 09:10 Dose: 1 applic Pantoprazole Sodium (Protonix Ec Tab) 40 mg PO 0600,1600 [facility] Last Admin: 04/03/18 05:38 Dose: 40 mg Ticagrelor (Brilinta) 90 mg PO BID [facility] Last Admin: 04/02/18 17:12 Dose: 90 mg Tramadol HCl (Ultram) 50 mg PO Q6 PRN PRN Reason: Pain, moderate (4-7) Last Admin: 04/01/18 09:39 Dose: 50 mg Vitamin A (Vitamin A & D Oint Ud Foilpak) 1 ea TOP DAILY PRN PRN Reason: Dry skin Last Admin: 04/01/18 17:44 Dose: 1 ea - Labs Labs: 04/01/18 07:00 04/01/18 07:00 PT 12.6 SECONDS (9.4-12.5) H 03/29/18 17:55 INR 1.10 03/29/18 17:55 APTT 28.5 Seconds (25.1-36.5) 03/29/18 17:55 - Constitutional Appears: Well, Non-toxic, No Acute Distress - Head Exam Head Exam: ATRAUMATIC, NORMAL INSPECTION, NORMOCEPHALIC - Eye Exam Eye Exam: Normal appearance, PERRL - ENT Exam ENT Exam: Mucous Membranes Moist, Normal Exam - Neck Exam Neck Exam: Full ROM - Respiratory Exam Respiratory Exam: Clear to Ausculation Bilateral, NORMAL BREATHING PATTERN - Cardiovascular Exam Cardiovascular Exam: REGULAR RHYTHM, +S1, +S2 - GI/Abdominal Exam GI & Abdominal Exam: Soft, Normal Bowel Sounds - Rectal Exam Rectal Exam: Deferred - Extremities Exam Additional comments: tip of R 3rd toe with ulcer. No foul smell or drainage noted. - Back Exam Back Exam: NORMAL INSPECTION - Neurological Exam Neurological Exam: Alert, Awake, Oriented x3 - Psychiatric Exam Psychiatric exam: Normal Affect, Normal Mood - Skin Skin Exam: Normal Color, Warm Assessment and Plan - Assessment and Plan (Free Text) Assessment: 62 y.o. male with pmhx of DM, HTN, CAD w/ hx of quadruple bypass surgery, and PVD presented in ED due to R 3rd toe redness, swelling, with purulent drainage that is foul smelling. MRI of R foot showed osteo of the 3rd middle and distal phalanges. Plan: Pending MRA of lower ext Vascular, Podiatry, ID and Cardio on consult C/W antibiotics per ID Per Cardio, can hold Brilinta 48hrs prior to date of surgery (if surgery is needed) Will continue to follow
--- NOTE | 2018-04-03 12:21 | PN ---
DATE: 04/03/2018 SUBJECTIVE: This is a 62-year-old white male with peripheral vascular disease, gangrenous toe of the right foot. Discussion with Dr. Gianni Massey today about an MRA to assess the previous graft that was done in [address] Bustillo. The patient has decreased ABIs on the both legs and with possible gangrenous toe and possible osteomyelitis. The patient is being assessed for possible revascularization or BKA of the right leg. PHYSICAL EXAMINATION: VITAL SIGNS: Stable. The patient will be having his MRA done today. ASSESSMENT AND PLAN: The plan is to continue IV antibiotics and blood sugar control and antiplatelet medications. The patient's medications are unchanged. The patient is in minimal distress. Plan is for MRA and followup. Rasta Cavazos MD
--- NOTE | 2018-04-03 14:07 | MRI ---
Date of service: 04/03/2018 PROCEDURE: MR angiography of the lower extremities with and without contrast HISTORY: PVD. rt foot ischemia. Prev rt fem-pop COMPARISON: TECHNIQUE: MR angiography of the abdominal aorta and lower extremities was performed with and without IV contrast. 20 cc of Omniscan were injected. FINDINGS: There is some venous overlap in the abdomen and pelvis which degrades the arterial images. There occlusion of the right external iliac. There is also occlusion of the left common femoral artery. There is reconstitution of the profundus femoral arteries bilaterally. There is no visualization of the superficial femoral arteries. There is reconstitution of the right popliteal artery and there is 3 vessel runoff to the ankle. On the left side there is no reconstitution of the popliteal. Profundus and geniculate collaterals provide segmental reconstitution of the distal anterior and posterior tibial and peroneal arteries. There is no visualization of a femoral popliteal graft. IMPRESSION: Occlusive disease as described above
--- NOTE | 2018-04-03 16:03 | PN ---
DATE: 04/03/2018 REASON FOR CONSULTATION AND FOLLOWUP: Preoperative evaluation for possible third toe amputation, history of coronary artery disease, CABG, and history of PTCA of the circumflex in 12/2017. SUBJECTIVE: The patient denies any chest pain, shortness of breath, or any palpitation. OBJECTIVE: GENERAL: Not in apparent distress. VITAL SIGNS: Temperature afebrile, heart rate 73, and blood pressure 174/93. HEENT: PERRLA, extraocular muscles intact. NECK: Supple, no carotid bruits or thyromegaly. CHEST: Clear to auscultation. HEART: S1 and S2 regular. ABDOMEN: Soft. EXTREMITIES: Clubbing and cyanosis negative. Right foot is in dressing. LABORATORY DATA: Blood workup as follows: WBC 7.8, hemoglobin 13.5, hematocrit 38.9, and platelet count 249 as of 04/01/2018. Sodium 134, potassium 4, chloride 104, carbon dioxide 23, anion gap of 11, BUN 18, and creatinine 1.1. IMPRESSION AND PLAN: A 62-year-old male with past medical history significant for coronary artery disease, status post coronary artery bypass graft in 2014, history of peripheral intervention, history of most recently a stent to the circumflex in 12/2017, and history of peripheral artery disease, status post amputation of first and second toe, now the patient has osteomyelitis of the third toe. Discussed with Dr. Car that this patient needs amputation. The date needs to be ascertained so Brilinta can be on hold for 48 hours before the surgery. Otherwise, the patient be cleared for surgery. Cardiac catheterization revealed triple-vessel disease, mid left anterior descending, mid circumflex, and right coronary artery totally occluded, patent left internal mammary artery to left anterior descending, but distal diffusely diseased, saphenous vein graft to right coronary artery, a patent left descending sequential to obtuse marginal 1 and right posterior descending artery is patent, circumflex has 80% stenosis, which again thought to be the culprit for [id number] myocardial infarction. So, the patient underwent successful PTCA of mid circumflex to the drug-eluting stent dated 12/25/2017. At that time, platelet aggregation then found to be 265, normal being 195, which means, the patient is resistant to Plavix. So, the patient was started on Brilinta dated 12/25/2017. Plan is to continue aspirin and Brilinta for 1 year. Since the patient needs a surgery, Brilinta can be interrupted for 48 hours. The patient is cleared to go for surgery with [id number] risk because of very low-risk procedure, but underlying comorbidity. Discussed with the patient. We will follow with you. We will clear the patient with [id number] risk and hold Brilinta 48 hours before the surgery. We will put physician nurse communication order. Please notify Dr. Cavazos. Discussed with the patient as well. Thank you Dr. Cavazos for providing us the opportunity in taking care of the patient. Lizzy Calzada MD
--- NOTE | 2018-04-03 16:53 | CP.PCM.PN ---
<Leyla Jarvis - Last Filed: 04/03/18 16:50> Subjective - Date & Time of Evaluation Date of Evaluation: 04/03/18 Time of Evaluation: 16:50 - Subjective Subjective: Podiatry progress notes for attending Dr. Chaves 62 y/o M patient seen and evaluated at the bedside for R third toe infected wound. Patient was noted to be sitting ine chair at the bedside. Patient is resting comfortably, and in no acute distress. Patient complains of minimal pain. Patient denies any overnight F/N/V/C or SOB. Patient denies any other pedal complaint at this time. Objective - Vital Signs/Intake and Output Vital Signs (last 24 hours): Temp Pulse Resp BP Pulse Ox 98 F 54 L 18 137/71 98 04/03/18 13:49 04/03/18 13:49 04/03/18 13:49 04/03/18 13:49 04/03/18 13:49 Intake and Output: 04/03/18 04/03/18 06:59 18:59 Intake Total 320 Output Total 550 Balance -230 - Medications Medications: Current Medications Aspirin (Aspirin Chewable) 81 mg PO DAILY [facility] Last Admin: 04/03/18 09:07 Dose: 81 mg Atorvastatin Calcium (Lipitor) 20 mg PO HS [facility] Last Admin: 04/02/18 21:41 Dose: 20 mg Dextrose (Dextrose 50% Inj) 0 ml IV STAT PRN; Protocol PRN Reason: Hypoglycemia Protocol Furosemide (Lasix) 20 mg PO DAILY [facility] Last Admin: 04/03/18 09:08 Dose: 20 mg Gabapentin (Neurontin) 100 mg PO TID [facility]; Protocol Last Admin: 04/03/18 14:20 Dose: 100 mg Heparin Sodium (Porcine) (Heparin) 5,000 units SC Q8 [facility]; Protocol Last Admin: 04/03/18 14:20 Dose: 5,000 units Dextrose (Dextrose 5% In Water 1000 Ml) 1,000 mls @ 0 mls/hr IV .Q0M PRN; Protocol PRN Reason: Hypoglycemia Protocol Cefazolin Sodium/Dextrose (Ancef Iv 2 Gm Duplex) 2 gm in 50 mls @ 50 mls/hr IVPB Q8 [facility]; Protocol Last Admin: 04/03/18 14:19 Dose: 50 mls/hr Insulin Detemir (Levemir) 15 unit SC [facility] Last Admin: 04/02/18 21:42 Dose: 15 units Insulin Human Lispro (Humalog Med) 0 units SC ACHS [facility]; Protocol Last Admin: 04/03/18 11:51 Dose: 3 units Insulin Human Lispro (Humalog) 8 units SC AC [facility] Last Admin: 04/03/18 11:51 Dose: 8 units Metoprolol Tartrate (Lopressor) 100 mg PO BID [facility] Last Admin: 04/03/18 09:08 Dose: 100 mg Morphine Sulfate (Morphine) 2 mg IVP Q6H PRN PRN Reason: Pain, severe (8-10) Last Admin: 04/03/18 09:09 Dose: 2 mg Mupirocin (Bactroban Ointment) 0 gm TOP DAILY [facility] Last Admin: 04/03/18 09:10 Dose: 1 applic Pantoprazole Sodium (Protonix Ec Tab) 40 mg PO 0600,1600 [facility] Last Admin: 04/03/18 05:38 Dose: 40 mg Ticagrelor (Brilinta) 90 mg PO BID [facility] Last Admin: 04/02/18 17:12 Dose: 90 mg Tramadol HCl (Ultram) 50 mg PO Q6 PRN PRN Reason: Pain, moderate (4-7) Last Admin: 04/01/18 09:39 Dose: 50 mg Vitamin A (Vitamin A & D Oint Ud Foilpak) 1 ea TOP DAILY PRN PRN Reason: Dry skin Last Admin: 04/01/18 17:44 Dose: 1 ea - Labs Labs: 04/01/18 07:00 04/01/18 07:00 PT 12.6 SECONDS (9.4-12.5) H 03/29/18 17:55 INR 1.10 03/29/18 17:55 APTT 28.5 Seconds (25.1-36.5) 03/29/18 17:55 - Constitutional Appears: Well, Non-toxic, No Acute Distress - Head Exam Head Exam: ATRAUMATIC, NORMOCEPHALIC - Extremities Exam Additional comments: Right lower extremity focused exam: Vasc: DP/PT pulses faintly palpable. Cap refill < 3 sec to remaining digits. Skin temperature warm to cool from proximal to distal. mile erythema noted to the R LE. Neuro: Gross and protective sensations are grossly diminished Derm: superficial ulceration measuring approximetly 0.4 cm x 0.3 cm x 0.2 cm noted to the tip of the 3rd toe. No malodor, positive purulence, No probe to bone. erythema noted to the 3rd toe proximal to the ulcer MSK: Muscle power intact 5/5 to all major muscle groups b/l. no pain on palp ating the R periulcerative area. - Neurological Exam Neurological Exam: Alert, Awake, Oriented x3 - Psychiatric Exam Psychiatric exam: Normal Affect, Normal Mood Assessment and Plan - Assessment and Plan (Free Text) Assessment: 62 y/o M patient seen and evaluated in the bedside for R 3rd toe infected ulcer. Plan: Patient seen and evaluated at the bedside with Dr. Car Plan discussed in details with attending Charts, labs and vitals reviewed: afebrile, absent leukocytosis R foot x-ray: no evidence of OM R LE venous duplex: No evidence of DVT MEGAN/PVR: R 0.53, L 0.49 Vascular consent placed for Dr. Massey- cristina appreciated Wound culture: [place]. aureus R foot MRI: findings compatible with osteomyelitis of the 3rd middle and distal phalanges MRA: Occlusive disease R foot cleaned with saline then dressed using bactroban, xeroform and DSD. Continue Abx as per ID Vascular recommendations are appreciated- surgical plan pending at this time based on vascular recommendations Patient to continue ambulating in the surgical shoe Podiatry will follow up the patient while patient is in house <Gerson Chaves - Last Filed: 04/04/18 13:40> Objective - Vital Signs/Intake and Output Vital Signs (last 24 hours): Temp Pulse Resp BP Pulse Ox 98 F 55 L 20 160/90 H 98 04/04/18 07:00 04/04/18 09:44 04/04/18 07:00 04/04/18 09:45 04/04/18 07:00 Intake and Output: 04/04/18 04/04/18 06:59 18:59 Intake Total 720 Output Total 2700 Balance -1979 - Medications Medications: Current Medications Aspirin (Aspirin Chewable) 81 mg PO DAILY [facility] Last Admin: 04/04/18 09:45 Dose: 81 mg Atorvastatin Calcium (Lipitor) 20 mg PO HS [facility] Last Admin: 04/02/18 21:41 Dose: 20 mg Furosemide (Lasix) 20 mg PO DAILY [facility] Last Admin: 04/04/18 09:45 Dose: 20 mg Gabapentin (Neurontin) 100 mg PO TID [facility]; Protocol Last Admin: 04/04/18 13:31 Dose: 100 mg Cefazolin Sodium/Dextrose (Ancef Iv 2 Gm Duplex) 2 gm in 50 mls @ 50 mls/hr IVPB Q8 [facility]; Protocol Last Admin: 04/04/18 13:31 Dose: 50 mls/hr Insulin Detemir (Levemir) 20 unit SC HS [facility] Insulin Human Lispro (Humalog Med) 0 units SC ACHS [facility]; Protocol Last Admin: 04/04/18 12:07 Dose: 3 units Losartan Potassium (Cozaar) 50 mg PO DAILY [facility] Last Admin: 04/04/18 12:08 Dose: 50 mg Metoprolol Tartrate (Lopressor) 100 mg PO BID [facility] Last Admin: 04/04/18 09:44 Dose: 100 mg Morphine Sulfate (Morphine) 2 mg IVP Q6H PRN PRN Reason: Pain, severe (8-10) Last Admin: 04/04/18 08:22 Dose: 2 mg Morphine Sulfate (Morphine) 1 mg IM Q6H PRN PRN Reason: Pain, moderate (4-7) Mupirocin (Bactroban Ointment) 0 gm TOP DAILY [facility] Last Admin: 04/04/18 09:46 Dose: 1 applic Pantoprazole Sodium (Protonix Ec Tab) 40 mg PO 0600,1600 [facility] Last Admin: 04/04/18 05:54 Dose: 40 mg Ticagrelor (Brilinta) 90 mg PO BID [facility] Last Admin: 04/04/18 09:45 Dose: 90 mg Vitamin A (Vitamin A & D Oint Ud Foilpak) 1 ea TOP DAILY PRN PRN Reason: Dry skin Last Admin: 04/01/18 17:44 Dose: 1 ea - Labs Labs: 04/01/18 07:00 04/01/18 07:00 PT 12.6 SECONDS (9.4-12.5) H 03/29/18 17:55 INR 1.10 03/29/18 17:55 APTT 28.5 Seconds (25.1-36.5) 03/29/18 17:55 Attending/Attestation - Attestation I have personally seen and examined this patient.: Yes I have fully participated in the care of the patient.: Yes I have reviewed all pertinent clinical information, including history, physical exam and plan: Yes
--- NOTE | 2018-04-03 18:03 | CP.PCM.PN ---
Subjective - Date & Time of Evaluation Date of Evaluation: 04/03/18 Time of Evaluation: 15:30 - Subjective Subjective: Infectious Disease Follow Up: April 03, 2018 62 yo male with extensive medical history of DM, HTN, CAD, and tobacco use history presenting with erythema, induration, and swelling of the 3rd toe of the right foot. He states green pus from the wound area. The patient is not a well controlled diabetic. Drainage from nail bed of the 3rd toe as well. The patient is accompanied by his daughter. No other complaints at this time. The patient has a history of noncompliance with changes for his health and diabetic control. Awaiting cultures MRI done showing right 3rd middle phalanges osteomyelitis. Vascular workup in progress. Objective - Vital Signs/Intake and Output Vital Signs (last 24 hours): Temp Pulse Resp BP Pulse Ox 98 F 63 18 133/73 98 04/03/18 13:49 04/03/18 17:41 04/03/18 13:49 04/03/18 17:41 04/03/18 13:49 Intake and Output: 04/03/18 04/03/18 06:59 18:59 Intake Total 320 Output Total 550 Balance -230 - Medications Medications: Current Medications Aspirin (Aspirin Chewable) 81 mg PO DAILY [facility] Last Admin: 04/03/18 09:07 Dose: 81 mg Atorvastatin Calcium (Lipitor) 20 mg PO HS [facility] Last Admin: 04/02/18 21:41 Dose: 20 mg Dextrose (Dextrose 50% Inj) 0 ml IV STAT PRN; Protocol PRN Reason: Hypoglycemia Protocol Furosemide (Lasix) 20 mg PO DAILY [facility] Last Admin: 04/03/18 09:08 Dose: 20 mg Gabapentin (Neurontin) 100 mg PO TID [facility]; Protocol Last Admin: 04/03/18 17:42 Dose: 100 mg Heparin Sodium (Porcine) (Heparin) 5,000 units SC Q8 [facility]; Protocol Last Admin: 04/03/18 14:20 Dose: 5,000 units Dextrose (Dextrose 5% In Water 1000 Ml) 1,000 mls @ 0 mls/hr IV .Q0M PRN; Protocol PRN Reason: Hypoglycemia Protocol Cefazolin Sodium/Dextrose (Ancef Iv 2 Gm Duplex) 2 gm in 50 mls @ 50 mls/hr IVPB Q8 [facility]; Protocol Last Admin: 04/03/18 14:19 Dose: 50 mls/hr Insulin Detemir (Levemir) 15 unit SC HS [facility] Last Admin: 04/02/18 21:42 Dose: 15 units Insulin Human Lispro (Humalog Med) 0 units SC ACHS [facility]; Protocol Last Admin: 04/03/18 17:43 Dose: Not Given Insulin Human Lispro (Humalog) 8 units SC AC [facility] Last Admin: 04/03/18 17:42 Dose: 8 units Metoprolol Tartrate (Lopressor) 100 mg PO BID [facility] Last Admin: 04/03/18 17:41 Dose: 100 mg Morphine Sulfate (Morphine) 2 mg IVP Q6H PRN PRN Reason: Pain, severe (8-10) Last Admin: 04/03/18 09:09 Dose: 2 mg Mupirocin (Bactroban Ointment) 0 gm TOP DAILY [facility] Last Admin: 04/03/18 09:10 Dose: 1 applic Pantoprazole Sodium (Protonix Ec Tab) 40 mg PO 0600,1600 [facility] Last Admin: 04/03/18 17:41 Dose: 40 mg Ticagrelor (Brilinta) 90 mg PO BID [facility] Last Admin: 04/03/18 17:41 Dose: 90 mg Tramadol HCl (Ultram) 50 mg PO Q6 PRN PRN Reason: Pain, moderate (4-7) Last Admin: 04/01/18 09:39 Dose: 50 mg Vitamin A (Vitamin A & D Oint Ud Foilpak) 1 ea TOP DAILY PRN PRN Reason: Dry skin Last Admin: 04/01/18 17:44 Dose: 1 ea - Labs Labs: 04/01/18 07:00 04/01/18 07:00 PT 12.6 SECONDS (9.4-12.5) H 03/29/18 17:55 INR 1.10 03/29/18 17:55 APTT 28.5 Seconds (25.1-36.5) 03/29/18 17:55 - Constitutional Appears: Non-toxic, No Acute Distress, Chronically Ill - Head Exam Head Exam: ATRAUMATIC, NORMOCEPHALIC - Eye Exam Eye Exam: EOMI, PERRL Pupil Exam: NORMAL ACCOMODATION, PERRL - ENT Exam ENT Exam: Mucous Membranes Moist, Normal External Ear Exam, TM's Normal Bilaterally - Neck Exam Neck Exam: Full ROM, Normal Inspection - Respiratory Exam Respiratory Exam: Clear to Ausculation Bilateral, NORMAL BREATHING PATTERN. absent: Rales, Rhonchi, Wheezes - Cardiovascular Exam Cardiovascular Exam: REGULAR RHYTHM, RRR, +S1, +S2 - GI/Abdominal Exam GI & Abdominal Exam: Soft, Normal Bowel Sounds. absent: Distended, Tenderness - Extremities Exam Extremities Exam: Joint Swelling, Pedal Edema Additional comments: R foot: 2cm wound on 3rd toe, with minimal surrounding erythema. granulation tissue noted. no draining noted. Vasc: DP and PT pulses faintly palpable. Cap refill < 3 sec to remaining digits. Skin temperature warm to cool from proximal to distal. mile erythema noted to the R LE. Neuro: Gross and protective sensations are grossly diminished. Severe peripheral neuropathy. Derm:scar of previous 1st and 2nd metatarsal amputations noted. There is an superficial ulceration approximetly 0.4 cm x 0.3 cm x 0.2 cm noted to the tip of the 3rd toe. No malodor, positive purulence, No probe to bone. erythema noted to the 3rd toe proximal to the ulcer MSK: Muscle power intact 5/5 to all major muscle groups b/l. no pain on palpating the R periulcerative area. b/l LE: multiple healing ulcers - Neurological Exam Neurological Exam: Alert, Awake, CN II-XII Intact, Oriented x3 - Psychiatric Exam Psychiatric exam: Normal Affect, Normal Mood - Skin Additional comments: As above Assessment and Plan - Assessment and Plan (Free Text) Assessment: 62 yo male who is a known poorly controlled diabetic with history of right 3rd toe infections that I last saw at the beginning of this year. History of Klesiella and MSSA growth sensitive to Ancef. Thankfully, the patient still maintains good renal function. Start patient on Ancef for antibiotic coverage as we wait for cultures to return. Supportive care. MRI readings showing osteomyelitis of the right 3rd middle phalanges. Cultures showing Staph Aureus. Showing MSSA. Maintaining Ancef. Will need at least 6 weeks of IV antibiotics possibly less if excision/amputation planned. Awaiting vascular workup and recommendations. Thank you for allowing me to participate in the care of the patient, we will follow with you.
[2018-04-03] MEDS: Insulin Detemir 100 units/ml Vial (Levemir) SC SCH (21:41)
[2018-04-04] MEDS: Pantoprazole 40 mg EC Tab PO SCH ×2 (05:54→17:07)
[2018-04-04] MEDS: ceFAZolin IV 2 gm in Dextrose 2 GM/50 ML BAG IVPB SCH ×3 (05:54→21:20)
[2018-04-04] MEDS: Insulin Lispro (humaLOG) MEDIUM Coverage SC SCH ×4 (08:02→22:01)
[2018-04-04] MEDS: Insulin Lispro 1 UNITS/0.01 ML SC SCH (08:02)
[2018-04-04] MEDS: Morphine 2 mg/ml ISec IVP PRN ×2 (08:22→14:38)
[2018-04-04] MEDS ORDERED: Morphine 2 mg/ml ISec IM PRN (08:45)
[2018-04-04] MEDS: Mupirocin 2% Ointment 15 GM TUBE TOP SCH (09:46)
--- NOTE | 2018-04-04 11:31 | CP.PCM.PN ---
Subjective - Date & Time of Evaluation Date of Evaluation: 04/04/18 Time of Evaluation: 08:30 - Subjective Subjective: Clinical Care Coordination Note: pt seen and examined at bedside. In no acute distress. Denies pain to R foot. Objective - Vital Signs/Intake and Output Vital Signs (last 24 hours): Temp Pulse Resp BP Pulse Ox 98 F 55 L 20 160/90 H 98 04/04/18 07:00 04/04/18 09:44 04/04/18 07:00 04/04/18 09:45 04/04/18 07:00 Intake and Output: 04/04/18 04/04/18 06:59 18:59 Intake Total 720 Output Total 2700 Balance -1979 - Medications Medications: Current Medications Aspirin (Aspirin Chewable) 81 mg PO DAILY [facility] Last Admin: 04/04/18 09:45 Dose: 81 mg Atorvastatin Calcium (Lipitor) 20 mg PO HS [facility] Last Admin: 04/02/18 21:41 Dose: 20 mg Furosemide (Lasix) 20 mg PO DAILY [facility] Last Admin: 04/04/18 09:45 Dose: 20 mg Gabapentin (Neurontin) 100 mg PO TID [facility]; Protocol Last Admin: 04/04/18 09:45 Dose: 100 mg Cefazolin Sodium/Dextrose (Ancef Iv 2 Gm Duplex) 2 gm in 50 mls @ 50 mls/hr IVPB Q8 [facility]; Protocol Last Admin: 04/04/18 05:54 Dose: 50 mls/hr Insulin Detemir (Levemir) 20 unit SC HS [facility] Insulin Human Lispro (Humalog Med) 0 units SC ACHS [facility]; Protocol Last Admin: 04/04/18 08:02 Dose: 3 units Losartan Potassium (Cozaar) 50 mg PO DAILY [facility] Metoprolol Tartrate (Lopressor) 100 mg PO BID [facility] Last Admin: 04/04/18 09:44 Dose: 100 mg Morphine Sulfate (Morphine) 2 mg IVP Q6H PRN PRN Reason: Pain, severe (8-10) Last Admin: 04/04/18 08:22 Dose: 2 mg Morphine Sulfate (Morphine) 1 mg IM Q6H PRN PRN Reason: Pain, moderate (4-7) Mupirocin (Bactroban Ointment) 0 gm TOP DAILY [facility] Last Admin: 04/04/18 09:46 Dose: 1 applic Pantoprazole Sodium (Protonix Ec Tab) 40 mg PO 0600,1600 [facility] Last Admin: 04/04/18 05:54 Dose: 40 mg Ticagrelor (Brilinta) 90 mg PO BID [facility] Last Admin: 04/04/18 09:45 Dose: 90 mg Vitamin A (Vitamin A & D Oint Ud Foilpak) 1 ea TOP DAILY PRN PRN Reason: Dry skin Last Admin: 04/01/18 17:44 Dose: 1 ea - Labs Labs: 04/01/18 07:00 04/01/18 07:00 PT 12.6 SECONDS (9.4-12.5) H 03/29/18 17:55 INR 1.10 03/29/18 17:55 APTT 28.5 Seconds (25.1-36.5) 03/29/18 17:55 - Constitutional Appears: Well, Non-toxic, No Acute Distress - Head Exam Head Exam: ATRAUMATIC - Eye Exam Eye Exam: Normal appearance, PERRL - ENT Exam ENT Exam: Normal Exam - Neck Exam Neck Exam: Full ROM, Normal Inspection - Cardiovascular Exam Cardiovascular Exam: +S1, +S2 - GI/Abdominal Exam GI & Abdominal Exam: Soft, Normal Bowel Sounds - Rectal Exam Rectal Exam: Deferred - Extremities Exam Additional comments: tip of R 3rd toe with ulcer. No foul smell or drainage noted. - Neurological Exam Neurological Exam: Alert, Awake, Oriented x3 Assessment and Plan - Assessment and Plan (Free Text) Assessment: 62 y.o. male with pmhx of DM, HTN, CAD w/ hx of quadruple bypass surgery, and PVD presented in ED due to R 3rd toe redness, swelling, with purulent drainage that is foul smelling. MRI of R foot showed osteo of the 3rd middle and distal phalanges. Plan: MRA of lower ext showed occlusive disease Vascular, Podiatry, ID and Cardio on consult Toe WCx - staph aureus C/W antibiotics per ID C/W wound care per Podiatry Meds per MAR Will continue to follow
--- NOTE | 2018-04-04 11:41 | PN ---
DATE: 04/04/2018 SUBJECTIVE: A 62-year-old white male with insulin-dependent diabetes mellitus, peripheral vascular disease, gangrenous right third toe status post MRA with showing peripheral vascular disease bilaterally with reconstitution below the knee on the left, reconstitution below the knee on the right. However, there is the previous graft done on 2016 is occluded. There is severe occlusive disease of the right iliac and right femoral with some runoff below the knee and this was discussed with Dr. Gianni Massey. Patient possibly needs revascularization prior to any other surgery on his foot. Blood sugars are fairly well controlled. We will increase his dose of insulin , he is on Brilinta, antibiotics and pain medication. Patient is stable. He is tolerating the procedure well. PHYSICAL EXAMINATION VITAL SIGNS: Stable. ASSESSMENT AND PLAN: He has minimal pain using morphine on a p.r.n. basis or may be once a day. The plan will be to continue IV antibiotics and Brilinta at this point until further note as far as his possible surgery. Rasta Cavazos MD
--- NOTE | 2018-04-04 15:44 | PN ---
DATE: 04/04/2018 REASON FOR CONSULTATION: Followup, preop evaluation of possible third toe amputation, history of coronary artery disease, history of CABG, and history of PTCA of circumflex in 12/2017. SUBJECTIVE: The patient denies any chest pain, shortness of breath, or any palpitation. OBJECTIVE: GENERAL: Not in apparent distress, lying flat in the bed. VITAL SIGNS: Temperature afebrile, heart rate 55, and blood pressure 150/90. HEENT: PERRLA, intact. NECK: Supple. No carotid bruits or thyromegaly. CHEST: Clear to auscultation. HEART: S1, S2 regular. ABDOMEN: Soft. EXTREMITIES: Clubbing and cyanosis negative. LABORATORY DATA: Blood workup as follows: WBC 7.8, hemoglobin 13.4, hematocrit 38.9, and platelet count 249. Chemistries show sodium 134, potassium 4, chloride 104, carbon dioxide 23, anion gap of 11, BUN of 18, and creatinine 1.1. IMPRESSION: A 62-year-old male, obese with a past medical history significant for coronary artery disease, status post coronary artery bypass graft in 2014, history of peripheral intervention, multiple history of recent stent of the circumflex in 12/2017 when patient admitted with a [id number] myocardial infarction, history of peripheral arterial disease, history of amputation of first and second toes, and now the patient has osteomyelitis of third toe, is going for amputation. Discussed with Dr. Car. PLAN: Initial plan was to treat medically but now patient possibly is scheduled for amputation. Mentioned to the patient that the patient is currently on Brilinta after having non-STEMI and stenting to the circumflex on 12/25/2017, suggest to hold Brilinta 48 hours before the surgery, possible surgery is scheduled for next week. Continue aspirin and Brilinta. The patient is resistant to Plavix with the last catheterization done, PRU was tested, found to be 265. Which means, the patient is resistant to Plavix. Continue aspirin, continue Brilinta for now, continue gentle diet, discontinue atorvastatin, and continue metoprolol 100 mg b.i.d. If blood pressure is still elevated, we will start low-dose of losartan and follow up with you. Once again, as mentioned that the patient is cleared from cardiology point of view to go for amputation with moderate risk, but suggest to hold Brilinta 48 hours before the surgery. Thank you Dr. Cavazos for providing us the opportunity in taking care of this patient. Lizzy Calzada MD
--- NOTE | 2018-04-04 15:49 | CP.PCM.PN ---
<Leyla Jarvis - Last Filed: 04/04/18 15:44> Subjective - Date & Time of Evaluation Date of Evaluation: 04/04/18 Time of Evaluation: 15:44 - Subjective Subjective: Podiatry progress not for Dr. Car, 62 y/o male patient was seen and evaluated at bedside, sitting comfortably in chair. Patient denies any acute overnight events, any pain to his extremity, and f/v/n/sob/CP. Patient aware he will require penitentiary IV Abx at a subacute rehab facility Objective - Vital Signs/Intake and Output Vital Signs (last 24 hours): Temp Pulse Resp BP Pulse Ox 98 F 55 L 20 160/90 H 98 04/04/18 07:00 04/04/18 09:44 04/04/18 07:00 04/04/18 09:45 04/04/18 07:00 Intake and Output: 04/04/18 04/04/18 06:59 18:59 Intake Total 720 Output Total 2700 Balance -1979 - Medications Medications: Current Medications Aspirin (Aspirin Chewable) 81 mg PO DAILY [facility] Last Admin: 04/04/18 09:45 Dose: 81 mg Atorvastatin Calcium (Lipitor) 20 mg PO HS [facility] Last Admin: 04/02/18 21:41 Dose: 20 mg Furosemide (Lasix) 20 mg PO DAILY [facility] Last Admin: 04/04/18 09:45 Dose: 20 mg Gabapentin (Neurontin) 100 mg PO TID [facility]; Protocol Last Admin: 04/04/18 13:31 Dose: 100 mg Cefazolin Sodium/Dextrose (Ancef Iv 2 Gm Duplex) 2 gm in 50 mls @ 50 mls/hr IVPB Q8 [facility]; Protocol Last Admin: 04/04/18 13:31 Dose: 50 mls/hr Insulin Detemir (Levemir) 20 unit SC HS [facility] Insulin Human Lispro (Humalog Med) 0 units SC ACHS [facility]; Protocol Last Admin: 04/04/18 12:07 Dose: 3 units Losartan Potassium (Cozaar) 50 mg PO DAILY [facility] Last Admin: 04/04/18 12:08 Dose: 50 mg Metoprolol Tartrate (Lopressor) 100 mg PO BID [facility] Last Admin: 04/04/18 09:44 Dose: 100 mg Morphine Sulfate (Morphine) 2 mg IVP Q6H PRN PRN Reason: Pain, severe (8-10) Last Admin: 04/04/18 14:38 Dose: 2 mg Morphine Sulfate (Morphine) 1 mg IM Q6H PRN PRN Reason: Pain, moderate (4-7) Mupirocin (Bactroban Ointment) 0 gm TOP DAILY [facility] Last Admin: 04/04/18 09:46 Dose: 1 applic Pantoprazole Sodium (Protonix Ec Tab) 40 mg PO 0600,1600 [facility] Last Admin: 04/04/18 05:54 Dose: 40 mg Ticagrelor (Brilinta) 90 mg PO BID [facility] Last Admin: 04/04/18 09:45 Dose: 90 mg Vitamin A (Vitamin A & D Oint Ud Foilpak) 1 ea TOP DAILY PRN PRN Reason: Dry skin Last Admin: 04/01/18 17:44 Dose: 1 ea - Labs Labs: 04/01/18 07:00 04/01/18 07:00 PT 12.6 SECONDS (9.4-12.5) H 03/29/18 17:55 INR 1.10 03/29/18 17:55 APTT 28.5 Seconds (25.1-36.5) 03/29/18 17:55 - Constitutional Appears: Well, Non-toxic, No Acute Distress - Head Exam Head Exam: ATRAUMATIC, NORMOCEPHALIC - Extremities Exam Additional comments: Right lower extremity focused exam: Vasc: DP/PT pulses faintly palpable. Cap refill < 3 sec to remaining digits. Skin temperature warm to cool from proximal to distal. mile erythema noted to the R LE. Neuro: Gross and protective sensations are grossly diminished Derm: superficial ulceration measuring approximately 0.4 cm x 0.3 cm x 0.2 cm noted to the tip of the 3rd toe with sausaging of the 3rd digit, No malodor, minimal purulence, No probe to bone, erythema noted to the 3rd digit- improving MSK: Muscle power intact 5/5 to all major muscle groups b/l. no pain on palpating the R periulcerative area. - Neurological Exam Neurological Exam: Alert, Awake, Oriented x3 - Psychiatric Exam Psychiatric exam: Normal Affect, Normal Mood Assessment and Plan - Assessment and Plan (Free Text) Assessment: 62 y/o male seen and evaluated for ulceration to the right 3rd digit, with clinical osteomyelitis Plan: Patient seen and evaluated at the bedside with Dr. Car Plan discussed in details with attending Charts, labs and vitals reviewed: afebrile, absent leukocytosis R foot x-ray: no evidence of OM R LE venous duplex: No evidence of DVT MEGAN/PVR: R 0.53, L 0.49 Vascular consent placed for Dr. Anahi evans are appreciated Wound culture: [place]. aureus R foot MRI: findings compatible with osteomyelitis of the 3rd middle and distal phalanges MRA: Occlusive disease R foot cleaned with saline then dressed using bactroban, xeroform and DSD. Continue Abx as per ID Vascular recommendations are appreciated No plan for surgical intervention at this time as patient will require vascular work Patient will likely go to subacute rehab facility for infantry assaultman IV Abx Order placed for a PICC Bundle Patient to continue ambulating in the surgical shoe Podiatry will follow up the patient while patient is in house <Connie Car - Last Filed: 04/05/18 07:46> Objective - Vital Signs/Intake and Output Vital Signs (last 24 hours): Temp Pulse Resp BP Pulse Ox 98.5 F 48 L 18 132/86 95 04/04/18 22:14 04/04/18 22:14 04/04/18 22:14 04/04/18 22:14 04/04/18 22:14 Intake and Output: 04/05/18 04/05/18 06:59 18:59 Intake Total 1220 Output Total 2300 Balance -1080 - Medications Medications: Current Medications Aspirin (Aspirin Chewable) 81 mg PO DAILY [facility] Last Admin: 04/04/18 09:45 Dose: 81 mg Atorvastatin Calcium (Lipitor) 20 mg PO HS [facility] Last Admin: 04/04/18 21:19 Dose: 20 mg Furosemide (Lasix) 20 mg PO DAILY [facility] Last Admin: 04/04/18 09:45 Dose: 20 mg Gabapentin (Neurontin) 100 mg PO TID [facility]; Protocol Last Admin: 04/04/18 17:07 Dose: 100 mg Cefazolin Sodium/Dextrose (Ancef Iv 2 Gm Duplex) 2 gm in 50 mls @ 50 mls/hr IVPB Q8 [facility]; Protocol Last Admin: 04/05/18 05:31 Dose: 50 mls/hr Sodium Chloride (Sodium Chloride 0.45%) 1,000 mls @ 80 mls/hr IV .[id number] [facility] Stop: 04/07/18 08:00 Insulin Detemir (Levemir) 20 unit SC HS [facility] Last Admin: 04/04/18 22:01 Dose: 20 units Insulin Human Lispro (Humalog Med) 0 units SC ACHS [facility]; Protocol Last Admin: 04/04/18 22:01 Dose: 2 units Losartan Potassium (Cozaar) 50 mg PO DAILY [facility] Last Admin: 04/04/18 12:08 Dose: 50 mg Metoprolol Tartrate (Lopressor) 100 mg PO BID [facility] Last Admin: 04/04/18 17:06 Dose: 100 mg Morphine Sulfate (Morphine) 1 mg IVP Q6H PRN PRN Reason: Pain, moderate (4-7) Multi-Ingredient Cream (Hydrocerin Cream) 0 ea TOP DAILY [facility] Mupirocin (Bactroban Ointment) 0 gm TOP DAILY [facility] Last Admin: 04/04/18 09:46 Dose: 1 applic Pantoprazole Sodium (Protonix Ec Tab) 40 mg PO 0600,1600 [facility] Last Admin: 04/05/18 05:31 Dose: 40 mg Ticagrelor (Brilinta) 90 mg PO BID [facility] Last Admin: 04/04/18 17:07 Dose: 90 mg Vitamin A (Vitamin A & D Oint Ud Foilpak) 1 ea TOP DAILY PRN PRN Reason: Dry skin Last Admin: 04/01/18 17:44 Dose: 1 ea - Labs Labs: 04/01/18 07:00 04/01/18 07:00 PT 12.6 SECONDS (9.4-12.5) H 03/29/18 17:55 INR 1.10 03/29/18 17:55 APTT 28.5 Seconds (25.1-36.5) 03/29/18 17:55 Attending/Attestation - Attestation I have personally seen and examined this patient.: Yes I have fully participated in the care of the patient.: Yes I have reviewed all pertinent clinical information, including history, physical exam and plan: Yes Notes (Text): 04/05/18 07:45 pt has an occluded by-pass graft causing severe arterial deficiency to foot; Dr Massey will try and open some smaller artery if possible but the circulation to the foot is such that patient will not heal a digital amputation; the goal will be to do IV antibiotics 4-6 weeks for OM with good local care in hopes of resolving this wound; otherwise, pt will need BKA
--- NOTE | 2018-04-04 17:22 | CP.PCM.PN ---
Subjective - Date & Time of Evaluation Date of Evaluation: 04/04/18 Time of Evaluation: 15:30 - Subjective Subjective: Infectious Disease Follow Up: April 04, 2018 62 yo male with extensive medical history of DM, HTN, CAD, and tobacco use history presenting with erythema, induration, and swelling of the 3rd toe of the right foot. He states green pus from the wound area. The patient is not a well controlled diabetic. Drainage from nail bed of the 3rd toe as well. The patient is accompanied by his daughter. No other complaints at this time. The patient has a history of noncompliance with changes for his health and diabetic control. Awaiting cultures MRI done showing right 3rd middle phalanges osteomyelitis. Vascular workup in progress. No surgical interventions planned at this time. For CORBY and oysterman IV antibiotics. Objective - Vital Signs/Intake and Output Vital Signs (last 24 hours): Temp Pulse Resp BP Pulse Ox 97.8 F 55 L 20 160/83 H 98 04/04/18 14:00 04/04/18 14:00 04/04/18 14:00 04/04/18 14:00 04/04/18 14:00 Intake and Output: 04/04/18 04/04/18 06:59 18:59 Intake Total 720 Output Total 2700 Balance -1979 - Medications Medications: Current Medications Aspirin (Aspirin Chewable) 81 mg PO DAILY [facility] Last Admin: 04/04/18 09:45 Dose: 81 mg Atorvastatin Calcium (Lipitor) 20 mg PO HS [facility] Last Admin: 04/02/18 21:41 Dose: 20 mg Furosemide (Lasix) 20 mg PO DAILY [facility] Last Admin: 04/04/18 09:45 Dose: 20 mg Gabapentin (Neurontin) 100 mg PO TID [facility]; Protocol Last Admin: 04/04/18 17:07 Dose: 100 mg Cefazolin Sodium/Dextrose (Ancef Iv 2 Gm Duplex) 2 gm in 50 mls @ 50 mls/hr IVPB Q8 [facility]; Protocol Last Admin: 04/04/18 13:31 Dose: 50 mls/hr Insulin Detemir (Levemir) 20 unit SC HS [facility] Insulin Human Lispro (Humalog Med) 0 units SC ACHS [facility]; Protocol Last Admin: 04/04/18 12:07 Dose: 3 units Losartan Potassium (Cozaar) 50 mg PO DAILY [facility] Last Admin: 04/04/18 12:08 Dose: 50 mg Metoprolol Tartrate (Lopressor) 100 mg PO BID [facility] Last Admin: 04/04/18 17:06 Dose: 100 mg Morphine Sulfate (Morphine) 1 mg IVP Q6H PRN PRN Reason: Pain, moderate (4-7) Multi-Ingredient Cream (Hydrocerin Cream) 0 ea TOP DAILY [facility] Mupirocin (Bactroban Ointment) 0 gm TOP DAILY [facility] Last Admin: 04/04/18 09:46 Dose: 1 applic Pantoprazole Sodium (Protonix Ec Tab) 40 mg PO 0600,1600 [facility] Last Admin: 04/04/18 17:07 Dose: 40 mg Ticagrelor (Brilinta) 90 mg PO BID [facility] Last Admin: 04/04/18 17:07 Dose: 90 mg Vitamin A (Vitamin A & D Oint Ud Foilpak) 1 ea TOP DAILY PRN PRN Reason: Dry skin Last Admin: 04/01/18 17:44 Dose: 1 ea - Labs Labs: 04/01/18 07:00 04/01/18 07:00 PT 12.6 SECONDS (9.4-12.5) H 03/29/18 17:55 INR 1.10 03/29/18 17:55 APTT 28.5 Seconds (25.1-36.5) 03/29/18 17:55 - Constitutional Appears: Non-toxic, No Acute Distress, Chronically Ill - Head Exam Head Exam: ATRAUMATIC, NORMOCEPHALIC - Eye Exam Eye Exam: EOMI, PERRL Pupil Exam: NORMAL ACCOMODATION, PERRL - ENT Exam ENT Exam: Mucous Membranes Moist, Normal External Ear Exam, TM's Normal Bilaterally - Neck Exam Neck Exam: Full ROM, Normal Inspection - Respiratory Exam Respiratory Exam: Clear to Ausculation Bilateral, NORMAL BREATHING PATTERN. absent: Rales, Rhonchi, Wheezes - Cardiovascular Exam Cardiovascular Exam: REGULAR RHYTHM, RRR, +S1, +S2 - GI/Abdominal Exam GI & Abdominal Exam: Soft, Normal Bowel Sounds. absent: Distended, Tenderness - Extremities Exam Extremities Exam: Joint Swelling, Pedal Edema Additional comments: R foot: 2cm wound on 3rd toe, with minimal surrounding erythema. granulation tissue noted. no draining noted. Vasc: DP and PT pulses faintly palpable. Cap refill < 3 sec to remaining digits. Skin temperature warm to cool from proximal to distal. mile erythema noted to the R LE. Neuro: Gross and protective sensations are grossly diminished. Severe peripheral neuropathy. Derm:scar of previous 1st and 2nd metatarsal amputations noted. There is an superficial ulceration approximetly 0.4 cm x 0.3 cm x 0.2 cm noted to the tip of the 3rd toe. No malodor, positive purulence, No probe to bone. erythema noted to the 3rd toe proximal to the ulcer MSK: Muscle power intact 5/5 to all major muscle groups b/l. no pain on palpating the R periulcerative area. b/l LE: multiple healing ulcers - Neurological Exam Neurological Exam: Alert, Awake, CN II-XII Intact, Oriented x3 - Psychiatric Exam Psychiatric exam: Normal Affect, Normal Mood - Skin Additional comments: As above. Assessment and Plan - Assessment and Plan (Free Text) Assessment: 62 yo male who is a known poorly controlled diabetic with history of right 3rd toe infections that I last saw at the beginning of this year. History of Klesiella and MSSA growth sensitive to Ancef. Thankfully, the patient still maintains good renal function. Start patient on Ancef for antibiotic coverage as we wait for cultures to return. Supportive care. MRI readings showing osteomyelitis of the right 3rd middle phalanges. Cultures showing Staph Aureus. Showing MSSA. Maintaining Ancef. Will need at least 6 weeks of IV antibiotics possibly less if excision/amputation planned. Podiatry is not currently planning for surgical intervention. Awaiting vascular workup and recommendations. Thank you for allowing me to participate in the care of the patient, we will follow with you.
[2018-04-04] MEDS: Insulin Detemir 100 units/ml Vial (Levemir) SC SCH (22:01)
[2018-04-05] MEDS: Pantoprazole 40 mg EC Tab PO SCH ×2 (05:31→15:35)
[2018-04-05] MEDS: ceFAZolin IV 2 gm in Dextrose 2 GM/50 ML BAG IVPB SCH ×2 (05:31→15:33)
[2018-04-05] MEDS: Mupirocin 2% Ointment 15 GM TUBE TOP SCH (09:55)
[2018-04-05] MEDS: Hydrocerin(120 gm) TOP SCH (09:56)
--- NOTE | 2018-04-05 10:18 | CP.PCM.PN ---
Subjective - Date & Time of Evaluation Date of Evaluation: 04/05/18 Time of Evaluation: 10:14 - Subjective Subjective: Podiatry progress note for Dr. Car 62 y/o male patient was seen and evaluated at bedside for right 3rd digit wound. Patient is noted to be sitting comfortably in chair at bedside. patient denies any pain at this time. Patient states he has an angioplasty procedure tomorrow. Patient denies any other pedal complaints, denies F/N/V/SOB/CP Objective - Vital Signs/Intake and Output Vital Signs (last 24 hours): Temp Pulse Resp BP Pulse Ox 97.6 F 59 L 20 177/91 H 98 04/05/18 06:00 04/05/18 06:00 04/05/18 06:00 04/05/18 09:57 04/05/18 06:00 Intake and Output: 04/05/18 04/05/18 06:59 18:59 Intake Total 1220 Output Total 2300 Balance -1080 - Medications Medications: Current Medications Aspirin (Aspirin Chewable) 81 mg PO DAILY [facility] Last Admin: 04/05/18 09:55 Dose: 81 mg Atorvastatin Calcium (Lipitor) 20 mg PO HS [facility] Last Admin: 04/04/18 21:19 Dose: 20 mg Furosemide (Lasix) 20 mg PO DAILY [facility] Last Admin: 04/05/18 09:57 Dose: 20 mg Gabapentin (Neurontin) 100 mg PO TID [facility]; Protocol Last Admin: 04/05/18 09:57 Dose: 100 mg Cefazolin Sodium/Dextrose (Ancef Iv 2 Gm Duplex) 2 gm in 50 mls @ 50 mls/hr IVPB Q8 [facility]; Protocol Last Admin: 04/05/18 05:31 Dose: 50 mls/hr Sodium Chloride (Sodium Chloride 0.45%) 1,000 mls @ 80 mls/hr IV .[id number] [facility] Stop: 04/07/18 08:00 Insulin Detemir (Levemir) 20 unit SC HS [facility] Last Admin: 04/04/18 22:01 Dose: 20 units Insulin Human Lispro (Humalog Med) 0 units SC ACHS [facility]; Protocol Last Admin: 04/04/18 22:01 Dose: 2 units Losartan Potassium (Cozaar) 50 mg PO DAILY [facility] Last Admin: 04/05/18 09:56 Dose: 50 mg Metoprolol Tartrate (Lopressor) 100 mg PO BID [facility] Last Admin: 04/05/18 09:57 Dose: 100 mg Morphine Sulfate (Morphine) 1 mg IVP Q6H PRN PRN Reason: Pain, moderate (4-7) Multi-Ingredient Cream (Hydrocerin Cream) 0 ea TOP DAILY [facility] Last Admin: 04/05/18 09:56 Dose: 1 applic Mupirocin (Bactroban Ointment) 0 gm TOP DAILY [facility] Last Admin: 04/05/18 09:55 Dose: 1 applic Pantoprazole Sodium (Protonix Ec Tab) 40 mg PO 0600,1600 [facility] Last Admin: 04/05/18 05:31 Dose: 40 mg Ticagrelor (Brilinta) 90 mg PO BID [facility] Last Admin: 04/05/18 09:56 Dose: 90 mg Vitamin A (Vitamin A & D Oint Ud Foilpak) 1 ea TOP DAILY PRN PRN Reason: Dry skin Last Admin: 04/01/18 17:44 Dose: 1 ea - Labs Labs: 04/01/18 07:00 04/01/18 07:00 PT 12.6 SECONDS (9.4-12.5) H 03/29/18 17:55 INR 1.10 03/29/18 17:55 APTT 28.5 Seconds (25.1-36.5) 03/29/18 17:55 - Constitutional Appears: Well, Non-toxic, No Acute Distress - Head Exam Head Exam: ATRAUMATIC, NORMOCEPHALIC - Extremities Exam Additional comments: Right lower extremity focused exam: Vasc: DP/PT pulses faintly palpable. Cap refill < 3 sec to remaining digits. Skin temperature warm to cool from proximal to distal. mile erythema noted to the R LE. Neuro: Gross and protective sensations are grossly diminished Derm: superficial ulceration with scab formation measuring approximately 0.2 cm x 0.3 cm noted to the tip of the 3rd toe with sausaging of the 3rd digit, No malodor, minimal purulence, No probe to bone, decreasing erythema noted to the 3rd digit MSK: Muscle power intact 5/5 to all major muscle groups b/l. no pain on palpating the R periulcerative area. - Neurological Exam Neurological Exam: Alert, Awake, Oriented x3 - Psychiatric Exam Psychiatric exam: Normal Affect, Normal Mood Assessment and Plan - Assessment and Plan (Free Text) Assessment: 62 y/o male patient seen and evaluated for Right 3rd digit wound, improving Plan: Patient seen and evaluated at the bedside with Dr. Car Plan discussed in details with attending Charts, labs and vitals reviewed: afebrile, absent leukocytosis R foot x-ray: no evidence of OM R LE venous duplex: No evidence of DVT MEGAN/PVR: R 0.53, L 0.49 Vascular consent placed for Dr. Anahi evans are appreciated Wound culture: [place]. aureus R foot MRI: findings compatible with osteomyelitis of the 3rd middle and distal phalanges MRA: Occlusive disease R foot cleaned with saline then dressed using bactroban and DSD. Eucerin cream applied to bilateral lower extremity Continue Abx as per ID Vascular work-up in progress No plan for surgical intervention at this time Patient will likely go to subacute rehab facility for long term care pharmacist IV Abx Order placed for a PICC Bundle Patient to continue ambulating in the surgical shoe Podiatry will follow up the patient while patient is in house
--- NOTE | 2018-04-05 10:55 | CP.PCM.PN ---
Subjective - Date & Time of Evaluation Date of Evaluation: 04/05/18 Time of Evaluation: 07:55 - Subjective Subjective: Awake, alert, no distress Reason for consultation and follow up: Cardiac evaluation of coronary artery disease, post CABG, post stent of circumflex 12/2017. pre-op evaluation for 3rd toe amputation Seen and examined by me and Dr. Calzada Objective - Vital Signs/Intake and Output Vital Signs (last 24 hours): Temp Pulse Resp BP Pulse Ox 97.6 F 59 L 20 177/91 H 98 04/05/18 06:00 04/05/18 06:00 04/05/18 06:00 04/05/18 09:57 04/05/18 06:00 Intake and Output: 04/05/18 04/05/18 06:59 18:59 Intake Total 1220 Output Total 2300 Balance -1080 - Medications Medications: Current Medications Aspirin (Aspirin Chewable) 81 mg PO DAILY [facility] Last Admin: 04/05/18 09:55 Dose: 81 mg Atorvastatin Calcium (Lipitor) 20 mg PO HS [facility] Last Admin: 04/04/18 21:19 Dose: 20 mg Furosemide (Lasix) 20 mg PO DAILY [facility] Last Admin: 04/05/18 09:57 Dose: 20 mg Gabapentin (Neurontin) 100 mg PO TID [facility]; Protocol Last Admin: 04/05/18 09:57 Dose: 100 mg Cefazolin Sodium/Dextrose (Ancef Iv 2 Gm Duplex) 2 gm in 50 mls @ 50 mls/hr IVPB Q8 [facility]; Protocol Last Admin: 04/05/18 05:31 Dose: 50 mls/hr Sodium Chloride (Sodium Chloride 0.45%) 1,000 mls @ 80 mls/hr IV .[id number] [facility] Stop: 04/07/18 08:00 Insulin Detemir (Levemir) 20 unit SC HS [facility] Last Admin: 04/04/18 22:01 Dose: 20 units Insulin Human Lispro (Humalog Med) 0 units SC ACHS [facility]; Protocol Last Admin: 04/04/18 22:01 Dose: 2 units Losartan Potassium (Cozaar) 50 mg PO DAILY [facility] Last Admin: 04/05/18 09:56 Dose: 50 mg Metoprolol Tartrate (Lopressor) 100 mg PO BID [facility] Last Admin: 04/05/18 09:57 Dose: 100 mg Morphine Sulfate (Morphine) 1 mg IVP Q6H PRN PRN Reason: Pain, moderate (4-7) Multi-Ingredient Cream (Hydrocerin Cream) 0 ea TOP DAILY [facility] Last Admin: 04/05/18 09:56 Dose: 1 applic Mupirocin (Bactroban Ointment) 0 gm TOP DAILY [facility] Last Admin: 04/05/18 09:55 Dose: 1 applic Pantoprazole Sodium (Protonix Ec Tab) 40 mg PO 0600,1600 [facility] Last Admin: 04/05/18 05:31 Dose: 40 mg Ticagrelor (Brilinta) 90 mg PO BID [facility] Last Admin: 04/05/18 09:56 Dose: 90 mg Vitamin A (Vitamin A & D Oint Ud Foilpak) 1 ea TOP DAILY PRN PRN Reason: Dry skin Last Admin: 04/01/18 17:44 Dose: 1 ea - Labs Labs: 04/01/18 07:00 04/01/18 07:00 PT 12.6 SECONDS (9.4-12.5) H 03/29/18 17:55 INR 1.10 03/29/18 17:55 APTT 28.5 Seconds (25.1-36.5) 03/29/18 17:55 - Constitutional Appears: Non-toxic, No Acute Distress - Head Exam Head Exam: NORMAL INSPECTION, NORMOCEPHALIC - Eye Exam Eye Exam: Normal appearance Pupil Exam: NORMAL ACCOMODATION - ENT Exam ENT Exam: Mucous Membranes Moist, Normal Exam - Respiratory Exam Respiratory Exam: Clear to Ausculation Bilateral, NORMAL BREATHING PATTERN - Cardiovascular Exam Cardiovascular Exam: +S1, +S2 - GI/Abdominal Exam GI & Abdominal Exam: Soft, Normal Bowel Sounds - Extremities Exam Extremities Exam: Full ROM Additional comments: right foot dressing - Neurological Exam Neurological Exam: Alert, Awake, Oriented x3 - Psychiatric Exam Psychiatric exam: Normal Affect, Normal Mood - Skin Skin Exam: Dry, Normal Color, Warm Assessment and Plan - Assessment and Plan (Free Text) Assessment: a 62 year old male who came in to the ER due to right 3rd toe wound draining pus and swelling. 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 NSTEMI and stent of circumflex in 12/2017. History of hypertension,diabetes, former smoker. Admitted for 3rd toe osteomyelitis requiring long term care phlebotomist IV antibiotics. After completion of IV antibiotics, possible amputation of right 3rd toe. Also referred to Vascular for further workup. Plan: Denies chest pain, no distress Cardiac status stable Heart rate stable Blood pressure controlled Hold Brilinta 48 hours prior to surgery Continue IV antibiotics as per ID Control glucose Continue current treatment Continue current medications Will follow up May discharge from cardiac standpoint Plan and treatment discussed with Dr. Calzada
[2018-04-05] MEDS: Insulin Lispro (humaLOG) MEDIUM Coverage SC SCH ×3 (11:15→21:14)
[2018-04-05] MEDS: Morphine 2 mg/ml ISec IVP PRN (11:16)
[2018-04-05] MEDS: Sodium Chloride 0.45% 1,000 ML IV SCH ×2 (11:16→22:01)
--- NOTE | 2018-04-05 14:59 | PN ---
DATE: 04/05/2018 SUBJECTIVE: The patient's white count is 7.8. The patient is afebrile and vital signs are stable. Blood sugars have been controlled. Sed rate 77. Osteomyelitis of the toe on the MRI. Peripheral vascular disease on the MRA. The patient is planned for angioplasty by tomorrow. PICC line for long-term IV antibiotics and eventually possible revascularization and/or amputation if not successful with treatment of his osteomyelitis. The patient is stable, vital signs stable and the patient is several days procedure. PHYSICAL EXAMINATION: VITAL SIGNS: Stable. He is afebrile. CHEST: Clear to auscultation and percussion. HEART: Regular sinus rhythm. EXTREMITIES: Foot is gangrenous and inflamed right third toe and weak pulses bilaterally. The patient is in pain about 5 to 6/10. ASSESSMENT AND PLAN: Plan is to continue antibiotics, pain medication and prep for angioplasty in the morning. Rasta Cavazos MD
--- NOTE | 2018-04-05 15:34 | CP.PCM.PN ---
Subjective - Date & Time of Evaluation Date of Evaluation: 04/05/18 Time of Evaluation: 14:00 - Subjective Subjective: Infectious Disease Follow Up: April 05, 2018 62 yo male with extensive medical history of DM, HTN, CAD, and tobacco use history presenting with erythema, induration, and swelling of the 3rd toe of the right foot. He states green pus from the wound area. The patient is not a well controlled diabetic. Drainage from nail bed of the 3rd toe as well. The patient is accompanied by his daughter. No other complaints at this time. The patient has a history of noncompliance with changes for his health and diabetic control. Awaiting cultures MRI done showing right 3rd middle phalanges osteomyelitis. Vascular workup in progress. No surgical interventions planned at this time. 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 Objective - Vital Signs/Intake and Output Vital Signs (last 24 hours): Temp Pulse Resp BP Pulse Ox 98.2 F 49 L 20 140/95 H 99 04/05/18 14:00 04/05/18 14:00 04/05/18 14:00 04/05/18 14:00 04/05/18 14:00 Intake and Output: 04/05/18 04/05/18 06:59 18:59 Intake Total 1220 Output Total 2300 Balance -1080 - Medications Medications: Current Medications Aspirin (Aspirin Chewable) 81 mg PO DAILY [facility] Last Admin: 04/05/18 09:55 Dose: 81 mg Atorvastatin Calcium (Lipitor) 20 mg PO [facility] Last Admin: 04/04/18 21:19 Dose: 20 mg Furosemide (Lasix) 20 mg PO DAILY [facility] Last Admin: 04/05/18 09:57 Dose: 20 mg Gabapentin (Neurontin) 100 mg PO TID [facility]; Protocol Last Admin: 04/05/18 09:57 Dose: 100 mg Cefazolin Sodium/Dextrose (Ancef Iv 2 Gm Duplex) 2 gm in 50 mls @ 50 mls/hr IVPB Q8 [facility]; Protocol Last Admin: 04/05/18 05:31 Dose: 50 mls/hr Sodium Chloride (Sodium Chloride 0.45%) 1,000 mls @ 80 mls/hr IV .[id number] [facility] Stop: 04/07/18 08:00 Last Admin: 04/05/18 11:16 Dose: 80 mls/hr Insulin Detemir (Levemir) 20 unit SC [facility] Last Admin: 04/04/18 22:01 Dose: 20 units Insulin Human Lispro (Humalog Med) 0 units SC ACHS [facility]; Protocol Last Admin: 04/05/18 11:15 Dose: 7 units Losartan Potassium (Cozaar) 50 mg PO DAILY [facility] Last Admin: 04/05/18 09:56 Dose: 50 mg Metoprolol Tartrate (Lopressor) 100 mg PO BID [facility] Last Admin: 04/05/18 09:57 Dose: 100 mg Morphine Sulfate (Morphine) 1 mg IVP Q6H PRN PRN Reason: Pain, moderate (4-7) Last Admin: 04/05/18 11:16 Dose: 1 mg Multi-Ingredient Cream (Hydrocerin Cream) 0 ea TOP DAILY [facility] Last Admin: 04/05/18 09:56 Dose: 1 applic Mupirocin (Bactroban Ointment) 0 gm TOP DAILY [facility] Last Admin: 04/05/18 09:55 Dose: 1 applic Pantoprazole Sodium (Protonix Ec Tab) 40 mg PO 0600,1600 [facility] Last Admin: 04/05/18 05:31 Dose: 40 mg Ticagrelor (Brilinta) 90 mg PO BID [facility] Last Admin: 04/05/18 09:56 Dose: 90 mg Vitamin A (Vitamin A & D Oint Ud Foilpak) 1 ea TOP DAILY PRN PRN Reason: Dry skin Last Admin: 04/01/18 17:44 Dose: 1 ea - Labs Labs: 04/01/18 07:00 04/01/18 07:00 PT 12.6 SECONDS (9.4-12.5) H 03/29/18 17:55 INR 1.10 03/29/18 17:55 APTT 28.5 Seconds (25.1-36.5) 03/29/18 17:55 - Constitutional Appears: Non-toxic, No Acute Distress, Chronically Ill - Head Exam Head Exam: ATRAUMATIC, NORMOCEPHALIC - Eye Exam Eye Exam: EOMI, PERRL Pupil Exam: NORMAL ACCOMODATION, PERRL - ENT Exam ENT Exam: Mucous Membranes Moist, Normal External Ear Exam, TM's Normal Bilaterally - Respiratory Exam Respiratory Exam: Clear to Ausculation Bilateral, NORMAL BREATHING PATTERN. absent: Rales, Rhonchi, Wheezes - Cardiovascular Exam Cardiovascular Exam: REGULAR RHYTHM, RRR, +S1, +S2 - GI/Abdominal Exam GI & Abdominal Exam: Soft, Normal Bowel Sounds. absent: Distended, Tenderness - Extremities Exam Extremities Exam: Joint Swelling, Pedal Edema Additional comments: R foot: 2cm wound on 3rd toe, with minimal surrounding erythema. granulation tissue noted. no draining noted. Vasc: DP and PT pulses faintly palpable. Cap refill < 3 sec to remaining digits. Skin temperature warm to cool from proximal to distal. mile erythema noted to the R LE. Neuro: Gross and protective sensations are grossly diminished. Severe peripheral neuropathy. Derm:scar of previous 1st and 2nd metatarsal amputations noted. There is an superficial ulceration approximetly 0.4 cm x 0.3 cm x 0.2 cm noted to the tip of the 3rd toe. No malodor, positive purulence, No probe to bone. erythema noted to the 3rd toe proximal to the ulcer MSK: Muscle power intact 5/5 to all major muscle groups b/l. no pain on palpating the R periulcerative area. b/l LE: multiple healing ulcers - Neurological Exam Neurological Exam: Alert, Awake, CN II-XII Intact, Oriented x3 - Psychiatric Exam Psychiatric exam: Normal Affect, Normal Mood - Skin Additional comments: As above. Assessment and Plan - Assessment and Plan (Free Text) Assessment: 62 yo male who is a known poorly controlled diabetic with history of right 3rd toe infections that I last saw at the beginning of this year. History of Klesiella and MSSA growth sensitive to Ancef. Thankfully, the patient still maintains good renal function. Start patient on Ancef for antibiotic coverage as we wait for cultures to return. Supportive care. MRI readings showing osteomyelitis of the right 3rd middle phalanges. Cultures showing Staph Aureus. Showing MSSA. Maintaining Ancef. Will need at least 6 weeks of IV antibiotics possibly less if excision/amputation planned. Podiatry is not currently planning for surgical intervention. Awaiting vascular workup and recommendations. Limited option as per Dr. Massey. Continue on Ancef. Thank you for allowing me to participate in the care of the patient, we will follow with you.
--- NOTE | 2018-04-05 18:52 | PN ---
DATE: 04/05/2018 REASON FOR CONSULTATION: Followup, cardiac evaluation, coronary artery disease, status post CABG, status post stent in 2018, and preop evaluation for third toe amputation. This note is in addition to dictated by nurse practitioner. The patient is stable and going for peripheral angiogram tomorrow and going for PICC line today. Discussed with the patient in length. Should the patient needs amputation, hold Brilinta 48 hours before the amputation. Because the stent was done three months ago, 12/2017, the patient was cleared from cardiac point of view with moderate risk of comorbidity, otherwise, a low risk procedure. Interim, continue aspirin and continue Brilinta. The patient is resistant to Plavix. Continue antibiotic, continue losartan, continue gentle diuretics, continue atorvastatin, and continue metoprolol. Thank you Dr. Cavazos for providing us the opportunity in taking care of the patient, Malik Holley. We will follow with you. Lizzy Calzada MD
[2018-04-05] MEDS: Insulin Detemir 100 units/ml Vial (Levemir) SC SCH (22:00)
[2018-04-06] MEDS: Morphine 2 mg/ml ISec IVP PRN ×2 (00:47→19:17)
[2018-04-06] MEDS: Pantoprazole 40 mg EC Tab PO SCH ×2 (05:27→17:08)
[2018-04-06] MEDS: Insulin Lispro (humaLOG) MEDIUM Coverage SC SCH ×4 (07:17→21:42)
[2018-04-06] MEDS: ceFAZolin IV 2 gm in Dextrose 2 GM/50 ML BAG IVPB SCH ×2 (07:30→15:31)
--- NOTE | 2018-04-06 08:02 | CP.PCM.PN ---
Subjective - Date & Time of Evaluation Date of Evaluation: 04/06/18 Time of Evaluation: 06:50 - Subjective Subjective: Lying in bed, Awake, alert, no distress, unable to insert PICC line yesterday Reason for consultation and follow up: Cardiac evaluation of coronary artery disease, post CABG, post stent of circumflex 12/2017. pre-op evaluation for 3rd toe amputation Seen and examined by me and Dr. Calzada Objective - Vital Signs/Intake and Output Vital Signs (last 24 hours): Temp Pulse Resp BP Pulse Ox 98.5 F 60 20 142/82 96 04/06/18 06:00 04/06/18 06:00 04/06/18 06:00 04/06/18 06:00 04/06/18 06:00 Intake and Output: 04/06/18 04/06/18 06:59 18:59 Intake Total 1720 Output Total 2000 Balance -280 - Medications Medications: Current Medications Aspirin (Aspirin Chewable) 81 mg PO DAILY [facility] Last Admin: 04/05/18 09:55 Dose: 81 mg Atorvastatin Calcium (Lipitor) 20 mg PO [facility] Last Admin: 04/05/18 22:00 Dose: 20 mg Furosemide (Lasix) 20 mg PO DAILY [facility] Last Admin: 04/05/18 09:57 Dose: 20 mg Gabapentin (Neurontin) 100 mg PO TID [facility]; Protocol Last Admin: 04/05/18 17:19 Dose: 100 mg Sodium Chloride (Sodium Chloride 0.45%) 1,000 mls @ 80 mls/hr IV .[id number] [facility] Stop: 04/07/18 08:00 Last Admin: 04/05/18 22:01 Dose: 80 mls/hr Cefazolin Sodium/Dextrose (Ancef Iv 2 Gm Duplex) 2 gm in 50 mls @ 50 mls/hr IVPB Q8H [facility] Insulin Detemir (Levemir) 20 unit SC [facility] Last Admin: 04/05/18 22:00 Dose: 20 units Insulin Human Lispro (Humalog Med) 0 units SC [facility]; Protocol Last Admin: 04/05/18 21:14 Dose: Not Given Losartan Potassium (Cozaar) 50 mg PO DAILY [facility] Last Admin: 04/05/18 09:56 Dose: 50 mg Metoprolol Tartrate (Lopressor) 100 mg PO BID [facility] Last Admin: 04/05/18 17:18 Dose: Not Given Morphine Sulfate (Morphine) 1 mg IVP Q6H PRN PRN Reason: Pain, moderate (4-7) Last Admin: 04/06/18 00:47 Dose: 1 mg Multi-Ingredient Cream (Hydrocerin Cream) 0 ea TOP DAILY [facility] Last Admin: 04/05/18 09:56 Dose: 1 applic Mupirocin (Bactroban Ointment) 0 gm TOP DAILY [facility] Last Admin: 04/05/18 09:55 Dose: 1 applic Pantoprazole Sodium (Protonix Ec Tab) 40 mg PO 0600,1600 [facility] Last Admin: 04/06/18 05:27 Dose: 40 mg Ticagrelor (Brilinta) 90 mg PO BID [facility] Last Admin: 04/05/18 17:29 Dose: 90 mg Vitamin A (Vitamin A & D Oint Ud Foilpak) 1 ea TOP DAILY PRN PRN Reason: Dry skin Last Admin: 04/01/18 17:44 Dose: 1 ea - Labs Labs: 04/01/18 07:00 04/01/18 07:00 PT 12.6 SECONDS (9.4-12.5) H 03/29/18 17:55 INR 1.10 03/29/18 17:55 APTT 28.5 Seconds (25.1-36.5) 03/29/18 17:55 - Constitutional Appears: Non-toxic, No Acute Distress - Head Exam Head Exam: NORMAL INSPECTION, NORMOCEPHALIC - Eye Exam Eye Exam: Normal appearance Pupil Exam: NORMAL ACCOMODATION - ENT Exam ENT Exam: Mucous Membranes Moist, Normal Exam - Respiratory Exam Respiratory Exam: Clear to Ausculation Bilateral, NORMAL BREATHING PATTERN - Cardiovascular Exam Cardiovascular Exam: +S1, +S2 - GI/Abdominal Exam GI & Abdominal Exam: Soft, Normal Bowel Sounds - Extremities Exam Additional comments: right foot dressing - Neurological Exam Neurological Exam: Alert, Awake, Oriented x3 - Psychiatric Exam Psychiatric exam: Normal Affect, Normal Mood - Skin Skin Exam: Dry, Normal Color, Warm Assessment and Plan - Assessment and Plan (Free Text) Assessment: A 62 year old male who came in to the ER due to right 3rd toe wound draining pus and swelling. 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 NSTEMI and stent of circumflex in 12/2017. History of hypertension,diabetes, former smoker. Admitted for 3rd toe osteomyelitis requiring superintendent terminal IV antibiotics. After completion of IV antibiotics, possible amputation of right 3rd toe. Also referred to Vascular for further workup.For vascular angiogram today Plan: For vascular angiogram today Unable to insert PICC line yesterday for superintendent terminal antibiotics Referred to Dr. Massey to insert at IR Denies chest pain, no distress Cardiac status stable Heart rate stable Blood pressure controlled Hold Brilinta 48 hours prior to surgery (if right 3rd toe warrants surgery) Continue IV antibiotics as per ID Control glucose Continue current treatment Continue current medications Will follow up May discharge from cardiac standpoint Awaiting rehab placement Plan and treatment discussed with Dr. Calzada
[2018-04-06] MEDS ORDERED: Iodixanol 320 MG/ML 100 ML BOTTLE IV ONE (08:27)
[2018-04-06] MEDS ORDERED: Lidocaine 2% Inj (20ml) ONE (08:27)
[2018-04-06] MEDS ORDERED: Iodixanol 320 MG/ML 200 ML BOTTLE IV ONE (08:27)
[2018-04-06] MEDS ORDERED: Heparin 2,000 ML IV ONE (08:28)
[2018-04-06] MEDS ORDERED: Nitroglycerin 50mg in D5W 50 MG/250 ML BOTTLE IV ONE (08:28)
[2018-04-06] MEDS ORDERED: Midazolam 2 MG/2 ML VIAL ONE ×3 (08:42→09:50)
--- NOTE | 2018-04-06 09:12 | RAD ---
Date of service: 04/05/2018 HISTORY: post central line placement COMPARISON: 03/30/2018 FINDINGS: LUNGS: No active pulmonary disease. PLEURA: No significant pleural effusion identified, no pneumothorax apparent. CARDIOVASCULAR: Mild aortic calcification Normal cardiac size. No pulmonary vascular congestion. OSSEOUS STRUCTURES: Sternal wires VISUALIZED UPPER ABDOMEN: Normal. OTHER FINDINGS: None. IMPRESSION: No active disease.
[2018-04-06] MEDS: Mupirocin 2% Ointment 15 GM TUBE TOP SCH (10:15)
[2018-04-06] MEDS: Hydrocerin(120 gm) TOP SCH (10:17)
--- NOTE | 2018-04-06 11:48 | PN ---
DATE: 04/06/2018 SUBJECTIVE: The patient is a 62-year-old white male with peripheral vascular disease; osteomyelitis of the right third toe; poorly controlled diabetes mellitus, insulin dependent; bipolar depression; CAD status post graft. Patient is having a PICC line placed by Dr. Gianni Massey this morning. Patient was seen in surgery with Dr. Gianni Massey. He is also having an angioplasty done of the right iliac to establish flow to the right foot. Patient will receive long-term antibiotics to cure his osteomyelitis and attempt at revascularization of his leg. PHYSICAL EXAMINATION: VITAL SIGNS: Stable, the patient is unchanged, pain is minimal. He is afebrile. His temperature is 98.5. LABORATORY DATA: Unremarkable. White count is 7.8. BUN and creatinine are stable. Blood sugars are fairly well controlled and the last one is 223. IMPRESSION: Peripheral vascular disease, osteomyelitis, poorly controlled diabetes mellitus insulin dependent, coronary artery disease, hypertension, bipolar depression. Rasta Cavazos MD
--- NOTE | 2018-04-06 14:49 | CP.PCM.PN ---
Subjective - Date & Time of Evaluation Date of Evaluation: 04/06/18 Time of Evaluation: 13:15 - Subjective Subjective: Infectious Disease Follow Up: April 06, 2018 62 yo male with extensive medical history of DM, HTN, CAD, and tobacco use history presenting with erythema, induration, and swelling of the 3rd toe of the right foot. He states green pus from the wound area. The patient is not a well controlled diabetic. Drainage from nail bed of the 3rd toe as well. The patient is accompanied by his daughter. No other complaints at this time. The patient has a history of noncompliance with changes for his health and diabetic control. Awaiting cultures... growing MSSA. MRI done showing right 3rd middle phalanges osteomyelitis. Vascular workup in progress. No surgical interventions planned at this time. 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 Objective - Vital Signs/Intake and Output Vital Signs (last 24 hours): Temp Pulse Resp BP Pulse Ox 98 F 57 L 14 171/90 H 96 04/06/18 11:42 04/06/18 14:00 04/06/18 11:42 04/06/18 11:42 04/06/18 06:00 Intake and Output: 04/06/18 04/06/18 06:59 18:59 Intake Total 1720 Output Total 2000 Balance -280 - Medications Medications: Current Medications Aspirin (Aspirin Chewable) 81 mg PO DAILY [facility] Last Admin: 04/05/18 09:55 Dose: 81 mg Atorvastatin Calcium (Lipitor) 20 mg PO [facility] Last Admin: 04/05/18 22:00 Dose: 20 mg Furosemide (Lasix) 20 mg PO DAILY [facility] Last Admin: 04/05/18 09:57 Dose: 20 mg Gabapentin (Neurontin) 100 mg PO TID [facility]; Protocol Last Admin: 04/05/18 17:19 Dose: 100 mg Sodium Chloride (Sodium Chloride 0.45%) 1,000 mls @ 80 mls/hr IV .[id number] [facility] Stop: 04/07/18 08:00 Last Admin: 04/05/18 22:01 Dose: 80 mls/hr Cefazolin Sodium/Dextrose (Ancef Iv 2 Gm Duplex) 2 gm in 50 mls @ 50 mls/hr IVPB Q8H [facility] Insulin Detemir (Levemir) 20 unit SC [facility] Last Admin: 04/05/18 22:00 Dose: 20 units Insulin Human Lispro (Humalog Med) 0 units SC ACHS [facility]; Protocol Last Admin: 04/06/18 14:31 Dose: Not Given Losartan Potassium (Cozaar) 50 mg PO DAILY [facility] Last Admin: 04/05/18 09:56 Dose: 50 mg Metoprolol Tartrate (Lopressor) 100 mg PO BID [facility] Last Admin: 04/05/18 17:18 Dose: Not Given Morphine Sulfate (Morphine) 1 mg IVP Q6H PRN PRN Reason: Pain, moderate (4-7) Last Admin: 04/06/18 00:47 Dose: 1 mg Multi-Ingredient Cream (Hydrocerin Cream) 0 ea TOP DAILY [facility] Last Admin: 04/05/18 09:56 Dose: 1 applic Mupirocin (Bactroban Ointment) 0 gm TOP DAILY [facility] Last Admin: 04/05/18 09:55 Dose: 1 applic Ondansetron HCl (Zofran Inj) 4 mg IVP ONCE PRN PRN Reason: Nausea/Vomiting Pantoprazole Sodium (Protonix Ec Tab) 40 mg PO 0600,1600 [facility] Last Admin: 04/06/18 05:27 Dose: 40 mg Ticagrelor (Brilinta) 90 mg PO BID [facility] Last Admin: 04/05/18 17:29 Dose: 90 mg Vitamin A (Vitamin A & D Oint Ud Foilpak) 1 ea TOP DAILY PRN PRN Reason: Dry skin Last Admin: 04/01/18 17:44 Dose: 1 ea - Labs Labs: 04/01/18 07:00 04/01/18 07:00 PT 12.6 SECONDS (9.4-12.5) H 03/29/18 17:55 INR 1.10 03/29/18 17:55 APTT 28.5 Seconds (25.1-36.5) 03/29/18 17:55 - Constitutional Appears: Non-toxic, No Acute Distress, Chronically Ill - Head Exam Head Exam: ATRAUMATIC, NORMOCEPHALIC - Eye Exam Eye Exam: EOMI, PERRL Pupil Exam: NORMAL ACCOMODATION, PERRL - ENT Exam ENT Exam: Mucous Membranes Moist, Normal External Ear Exam, TM's Normal Bilaterally - Neck Exam Neck Exam: Full ROM, Normal Inspection - Respiratory Exam Respiratory Exam: Clear to Ausculation Bilateral, NORMAL BREATHING PATTERN. absent: Rales, Rhonchi, Wheezes - Cardiovascular Exam Cardiovascular Exam: REGULAR RHYTHM, RRR, +S1, +S2 - GI/Abdominal Exam GI & Abdominal Exam: Soft, Normal Bowel Sounds. absent: Distended, Tenderness - Extremities Exam Extremities Exam: Full ROM, Normal Inspection - Neurological Exam Neurological Exam: Alert, Awake, CN II-XII Intact, Oriented x3 - Psychiatric Exam Psychiatric exam: Normal Affect, Normal Mood - Skin Skin Exam: Intact, Normal Color Assessment and Plan - Assessment and Plan (Free Text) Assessment: 62 yo male who is a known poorly controlled diabetic with history of right 3rd toe infections that I last saw at the beginning of this year. History of Klesiella and MSSA growth sensitive to Ancef. Thankfully, the patient still maintains good renal function. Start patient on Ancef for antibiotic coverage as we wait for cultures to return. Supportive care. MRI readings showing osteomyelitis of the right 3rd middle phalanges. Cultures showing Staph Aureus. Showing MSSA. Maintaining Ancef. Will need at least 6 weeks of IV antibiotics possibly less if excision/amputation planned. Podiatry is not currently planning for surgical intervention. Awaiting vascular workup and recommendations. Limited option as per Dr. Massey. Continue on Ancef. Thank you for allowing me to participate in the care of the patient, we will follow with you.
--- NOTE | 2018-04-06 17:42 | US ---
Date of service: 04/06/2018 PROCEDURE: Abdominal aortogram and bilateral lower extremity runoff with right selective views. Ultrasound and fluoroscopically placed right upper extremity PICC line. HISTORY: Severe peripheral vascular disease. Ischemic right foot. Ischemic ulcer in osteomyelitis right foot. Long-term IV antibiotics. PHYSICIAN(S): Gianni Massey MD. TECHNIQUE: The relative risks and indications of the procedure were explained to the patient and consent obtained. The patient was hydrated prior to the procedure and the appropriate labs drawn. The patient was placed supine on the arteriogram table and the left groin prepped and draped usual sterile fashion. Conscious sedation monitoring were provided throughout the procedure by a nurse. Under ultrasound guidance the left common femoral artery was punctured with a micropuncture set. A 5 Spanish sheath was placed. Through the sheath and over guidewire a 5 Spanish flush catheter was placed in the abdominal aorta at the level renal arteries and a PA DSA abdominal and pelvic arteriogram performed. The catheter was pulled down to the bifurcation and bilateral oblique DSA pelvic arteriograms performed. Overlapping bilateral lower extremity DSA arteriograms were obtained from the inguinal ligaments to the ankles. A 5 Spanish Murillo 2 catheter was reformed and advanced over the bifurcation. It was placed in the stump of the occluded right external iliac artery. Multiple 0.014, 0.018, and 0.035 guidewires were used in an attempt to cross the chronic occlusion of the right external iliac artery, right common femoral artery, and proximal right profunda femoral artery. This was unsuccessful. Sheath was removed hemostasis obtained. The patient tolerated the procedure well. The relative risks and indications of the procedure were explained to the patient and consent obtained. The patient was placed supine on the arteriogram table and the right arm prepped and draped in the usual sterile fashion. A tourniquet was applied to the right axilla. 1% Xylocaine was used to anesthetize the skin and soft tissues at the puncture site above the elbow. The right brachial vein was punctured under direct ultrasound guidance with a micropuncture set. A 0.018 guidewire was advanced centrally and used to measure the length to the SVC/RA junction. A 5 Spanish single-lumen PICC line 42 cm long was advanced to the SVC/RA junction. The catheter was flushed and secured. The patient tolerated the procedure well. FINDINGS: There are 2 renal arteries bilaterally which are patent. The nephrograms are symmetric in appearance. The infrarenal abdominal aorta is calcified but patent. The aortic bifurcation is patent. The common iliac arteries are patent bilaterally. The internal iliac arteries are patent. There is a chronic occlusion of the right external iliac artery, right common femoral artery, right SFA, and right profunda femoral origin. There is reconstitution of distal right profunda femoral artery branches. The left common and external iliac arteries are patent. There is occlusion of the left common femoral artery. Right lower extremity: There is a chronic long segment occlusion of the right external iliac artery, right common femoral artery, and proximal right profunda femoral artery. The right SFA has a long segment occlusion. The areas of occlusion could not be crossed in an antegrade direction. The right popliteal artery reconstitutes at the patella. The right popliteal artery is patent and continuous. The right trifurcation is intact. There is disease of the distal right peroneal artery. There also some disease in the distal right anterior tibial artery. The right posterior tibial artery is small and patent. Left lower extremity: The left common femoral artery occludes at its bifurcation. The left SFA is occluded. There is occlusion of the proximal left profunda femoral artery. The left profunda femoral artery reconstitutes. The left popliteal artery and trifurcation is occluded. Chronic collaterals are seen. There is reconstitution of the mid left anterior tibial and posterior tibial arteries. IMPRESSION: 1. Unable to cross the chronic right external iliac artery occlusion, right common femoral artery occlusion, and proximal right profunda femoral artery occlusion in an antegrade direction. 2. Bilateral long segment SFA occlusions. 3. Left popliteal artery occlusion. 4. Bilateral tibial occlusive disease, greater on the left than the right. 1. Ultrasound and fluoroscopically placed right upper extremity PICC line. A 5 Spanish single-lumen PICC line 42 cm long was advanced to the SVC/RA junction.
--- NOTE | 2018-04-06 17:43 | VASCULAR ---
Date of service: 04/06/2018 PROCEDURE: HISTORY: Bilateral Femoral Angiogram COMPARISON: TECHNIQUE: FINDINGS: IMPRESSION: See bundled PICC line and arteriography report.
[2018-04-06] MEDS ORDERED: Influenza Vaccine 60 mcg/0.5 mL SYR (4YR UP) IM ONE (18:23)
[2018-04-06 19:15] VITALS: BP 151/73; PULSE 66
[2018-04-06 19:16] VITALS: RESP 18; TEMP 98.2
[2018-04-06] MEDS: Insulin Detemir 100 units/ml Vial (Levemir) SC SCH (21:49)
[2018-04-06 23:20] VITALS: O2SAT 96
--- NOTE | 2018-04-09 08:35 | PN ---
DATE: 04/06/2018 REASON FOR CONSULTATION AND FOLLOWUP: Cardiac evaluation, coronary artery disease, CABG, history of circumflex PTCA on 12/13/2017, preoperative evaluation for third toe amputation. SUBJECTIVE: The patient denies any chest pain, shortness of breath, or any palpitation. Going for peripheral angiogram. Yesterday, a PICC line was attempted in both arms, but was unable to do. Informed the engineering lab technician to do the PICC line by Dr. Massey before. The patient goes for peripheral angiogram, so it can be done there. It is explained to the patient that the patient needs to hold Brilinta for 48 hours before goes to amputation to prevent bleeding. The patient is cleared from a cardiology point of view to go for amputation with moderate risk as a low-risk procedure. Today, the patient is going for a peripheral angiogram, possible intervention, as well as PICC line. In the meantime, continue current medications including aspirin, Brilinta, insulin, atorvastatin, and metoprolol. We will repeat the blood workup in the morning. Thank you Dr. Lundberg/Dr. Cavazos for providing us the opportunity in taking care of the patient, Malik Holley. We will follow with you. Lizzy Calzada MD
== END 2018-04-06 21:50 | DRG 300 ==
LOC: ED 17:31 → ERH 19:03 → 5RSO 21:41 → 5RNO 04-05 19:29 → 2RSO 04-06 12:12 → 5RNO 04-06 17:57
PROVIDERS: ADMIT Internal Medicine; ATTEND Internal Medicine
PROC: 02HV33Z Insertion of Infusion Device into Superior Vena Cava, Percutaneous Approach (ICD-10-PCS; principal; 2018-04-06)
PROC: B54MZZA Ultrasonography of Right Upper Extremity Veins, Guidance (ICD-10-PCS; 2018-04-06)
PROC: B4001ZZ Plain Radiography of Abdominal Aorta using Low Osmolar Contrast (ICD-10-PCS; 2018-04-06)
DX: E10.52 Type 1 diabetes mellitus with diabetic peripheral angiopathy with gangrene (principal); M86.8X7 Other osteomyelitis, ankle and foot; E10.69 Type 1 diabetes mellitus with other specified complication; E10.621 Type 1 diabetes mellitus with foot ulcer; L97.519 Non-pressure chronic ulcer of other part of right foot with unspecified severity; L03.031 Cellulitis of right toe; E10.65 Type 1 diabetes mellitus with hyperglycemia; E10.42 Type 1 diabetes mellitus with diabetic polyneuropathy; A49.01 Methicillin susceptible Staphylococcus aureus infection, unspecified site; I25.10 Atherosclerotic heart disease of native coronary artery without angina pectoris; I11.0 Hypertensive heart disease with heart failure; I50.9 Heart failure, unspecified; F31.9 Bipolar disorder, unspecified; E78.00 Pure hypercholesterolemia, unspecified; E66.9 Obesity, unspecified; E87.6 Hypokalemia; I25.82 Chronic total occlusion of coronary artery; E78.5 Hyperlipidemia, unspecified; I25.2 Old myocardial infarction; Z79.4 Long term (current) use of insulin; Z87.891 Personal history of nicotine dependence; Z79.899 Other long term (current) drug therapy; Z91.19 Patient's noncompliance with other medical treatment and regimen; Z95.1 Presence of aortocoronary bypass graft; Z68.33 Body mass index [BMI] 33.0-33.9, adult; Z89.421 Acquired absence of other right toe(s); Z95.5 Presence of coronary angioplasty implant and graft

== ENCOUNTER 2018-08-12 18:20 | Inpatient (IN) | payer MEDICARE, OTHER ==
[2018-08-12 19:27] LABS: BASO # 0.03 K/mm3 (0.0-2.0); BASO % 0.2 % (0.0-3.0); EOS # 0.1 (0.0-0.7); EOS % 0.4 % (1.5-5.0); HEMOGLOBIN 11.1 g/dL (14.0-18.0); LYMPH # 1.4 (1.2-3.4); MEAN CORPUSCULAR HEMOGLOBIN 28.7 pg (25.0-35.0); MEAN CORPUSCULAR HGB CONC 33.7 g/dl (31.0-37.0); MEAN PLATELET VOLUME 8.9 fl (7.0-11.0); MONO # 0.6 (0.1-0.6); RBC 3.87 10^6/uL (3.5-6.1); RED CELL DISTRIBUTION WIDTH 13.9 % (11.5-14.5); WHITE BLOOD COUNT 12.5 10^3/uL (4.5-11.0)
[2018-08-12 19:31] LABS: ALB/GLOB RATIO 0.9 (1.1-1.8); ALBUMIN 3.2 g/dL (3.0-4.8); ALT/SGPT 25 U/L (7-56); AST/SGOT 44 U/L (17-59); BLOOD UREA NITROGEN 13 mg/dL (7-21); CALCIUM 8.5 mg/dL (8.4-10.5); GFR NON-AFRICAN AMERICAN > 60
--- NOTE | 2018-08-12 20:00 | ED PDOC ---
Arrival/HPI - General Chief Complaint: Chest Pain Time Seen by Provider: 08/12/18 18:26 Historian: Patient - History of Present Illness Narrative History of Present Illness (Text): 08/12/18 20:02 62 year old male with pmh of hypertension, diabetes, quadruple bypass presents with chest pain w/ palpations since this morning. Patient describes cp as a pressure in the chest. pt states pain was intermittent in the morningh but dottie me constant about 2 hours prior to arrival. pt states that intermittently he has been feeling short of breath. pt notes that he has been having bilateral lower leg swelling. Patient denies any general weakness, fevers, chills, headache, dizziness, cough, diaphoresis, abdominal pain, nausea, vomiting, diarrhea, back pain, neck pain, or any other complaint. Time/Duration: 24 hours Symptom Onset: Sudden Symptom Course: Unchanged Activities at Onset: Light Context: Home Past Medical History - Provider Review Nursing Documentation Reviewed: Yes - Travel History Have you recently traveled outside [place] w/in the past 3 mons?: No - Infectious Disease Hx of Infectious Diseases: None - Tetanus Immunization Tetanus Immunization: Unknown - Cardiac Hx Pacemaker: No - Pulmonary Hx Respiratory Disorders: No Hx Asthma: No Hx Bronchitis: No Hx Chronic Obstructive Pulmonary Disease (COPD): Yes Hx Emphysema: No Hx Pneumonia: Yes Hx Respiratory Aspiration: No Hx Respiratory Tract Infection: No Hx Sleep Apnea: Yes Hx Tuberculosis: No - Neurological HX Cerebrovascular Accident: Yes (R side weakness) - HEENT Hx HEENT Disorder: No 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) Hx Cataracts: No Hx Deafness: No Hx Difficulty Chewing: No Hx Epistaxis: No Hx Glaucoma: No Hx Macular Degeneration: No - Renal Hx Renal Disorder: No Hx Dialysis: No Hx Kidney Stones: No Hx Neurogenic Bladder: No Hx Pyelonephritis: No Hx Renal Cancer: No Hx Renal Failure: No - Endocrine/Metabolic Hx Diabetes Mellitus Type 2: Yes - Hematological/Oncological Hx Cancer: No - Integumentary Hx Dermatological Disorder: No Hx Basal Cell Carcinoma: No Hx Eczema: No Hx Melanoma: No Hx Psoriasis: No Hx Squamous Cell Carcinoma: No - Musculoskeletal/Rheumatological Hx Musculoskeletal Disorders: No Hx Arthritis: Yes Hx Back Pain: No Hx Degenerative Joint Disease: No Hx Falls: Yes Hx Fractures: No Hx Gout: No Hx Herniated Disk: No Hx Myasthenia Gravis: No Hx Osteoarthritis: No Hx Osteomyelitis: No Hx Osteoporosis: No Hx Rhabdomyolysis: No Hx Spinal Stenosis: No Hx Unsteady Gait: No - Gastrointestinal Hx Gastrointestinal Disorders: No Hx Colostomy: No Hx Crohn's Disease: No Hx Diverticulitis: No Hx Gall Bladder Disease: No Hx Gastroesophageal Reflux: No Hx Ileostomy: No Hx Liver Failure: No Hx Pancreatitis: No HX Swallowing Problems: No - Genitourinary/Gynecological Hx Genitourinary Disorders: No Hx Hematuria: No Hx Incontinence: No Hx Prostate Problems: No Hx Sexually Transmitted Diseases: No Hx Urinary Tract Infection: No - Psychiatric Hx Psychophysiologic Disorder: Yes Hx Anxiety: Yes Hx Bipolar Disorder: Yes Hx Depression: Yes Hx Emotional Abuse: No Hx Hallucinations: No Hx Panic Disorder: No Hx Post Traumatic Stress Disorder: No Hx Psychosis: No Hx Physical Abuse: No Hx Schizophrenia: Yes Hx Sexual Abuse: No Hx Substance Use: No - Surgical History Hx Mastectomy: No - Anesthesia Hx Anesthesia: Yes Hx Anesthesia Reactions: No Hx Malignant Hyperthermia: No - Suicidal Assessment Feels Threatened In Home Enviroment: No Family/Social History - Physician Review Nursing Documentation Reviewed: Yes Family/Social History: Unknown Family HX Smoking Status: Former Smoker Hx Alcohol Use: Yes Hx Substance Use: No Hx Substance Use Treatment: No Allergies/Home Meds Allergies/Adverse Reactions: Allergies No Known Allergies Allergy (Verified 03/29/18 17:47) Home Medications: Home Meds Medication Instructions Recorded Confirmed Dexlansoprazole [Dexilant] 60 mg PO DAILY 03/29/18 03/29/18 Empagliflozin [Jardiance] 10 mg PO DAILY 03/29/18 03/29/18 Insulin Glargine,Hum.rec.anlog 90 unit SQ BID 03/29/18 03/29/18 [Touavila Solostar] Liraglutide [Victoza 2-Dangelo] 0.6 mg SQ BID 03/29/18 03/29/18 traMADol [Ultram] 50 mg PO PRN PRN 03/29/18 03/29/18 Review of Systems - Physician Review All systems were reviewed & negative as marked: Yes - Review of Systems Constitutional: Normal. absent: Fevers Respiratory: SOB. absent: Cough Cardiovascular: Chest Pain, Palpitations, RICHARD Gastrointestinal: Normal. absent: Abdominal Pain, Constipation, Diarrhea, Nausea, Vomiting Genitourinary Male: absent: Dysuria, Frequency Musculoskeletal: Other (leg swelling). absent: Arthralgias, Back Pain, Neck Pain Neurological: absent: Headache, Dizziness Psychiatric: absent: Anxiety, Depression Physical Exam Vital Signs Reviewed: Yes Vital Signs Temp Pulse Resp BP Pulse Ox 08/12/18 18:21 98.7 F 95 H 18 166/93 H 95 Temperature: Afebrile Blood Pressure: Hypertensive Pulse: Tachycardic Respiratory Rate: Normal Appearance: Positive for: Well-Appearing, Non-Toxic, Comfortable Pain Distress: Mild Mental Status: Positive for: Alert and Oriented X 3 - Systems Exam Head: Present: Atraumatic, Normocephalic Conjunctiva: Present: Normal Mouth: Present: Moist Mucous Membranes Neck: Present: Normal Range of Motion Respiratory/Chest: Present: Good Air Exchange, Rales (bilaterally). No: Respiratory Distress, Accessory Muscle Use Cardiovascular: Present: Regular Rate and Rhythm, Normal S1, S2. No: Murmurs Abdomen: No: Tenderness, Distention, Peritoneal Signs Back: Present: Normal Inspection Upper Extremity: Present: Normal Inspection. No: Cyanosis, Edema Lower Extremity: Present: Edema (b/l) Neurological: Present: GCS=15, Speech Normal Skin: Present: Warm, Dry, Normal Color. No: Rashes Psychiatric: Present: Alert, Oriented x 3 Medical Decision Making ED Course and Treatment: 08/12/18 19:56 Impression: 62 year old male presents with chest pain w/ palpations and SOB intermittently since this morning Plan: -- Labs -- EKG -- CXR -- UA -- Reassess and disposition Prior Visits: Notes and results from previous visits were reviewed. Progress Notes: 08/12/18 20:36 EKG sinus rhythm with PACs at 98 bpm LVH QTC 485. No ST elevations. Chest x-ray: Shows vascular congestion bilaterally CBC WBC 12.5 CMP k 3.3 glucose; 128 trop; 3.14 BNP; [id number] after patient stood up to be weighted he felt SOB: repeat ekg ordered. repeat EKG: SINus tachycardiat at 108b/m with left fascicular block, LVH no st elevations. pt seen and evaluated by dr. mata. pt given lovenox 100mg SQ pt given 325mg asa pt given 80mg laxis IV. 08/12/18 20:[address] cavazos accepts admission to tele. impression; nstemi, chf admit - Lab Interpretations Lab Results: Total Bilirubin 0.6 mg/dL (0.2-1.3) 08/12/18 18:50 AST 44 U/L (17-59) 08/12/18 18:50 ALT 25 U/L (7-56) 08/12/18 18:50 Alkaline Phosphatase 126 U/L (38-126) D 08/12/18 18:50 Total Protein 6.7 g/dL (5.8-8.3) 08/12/18 18:50 Albumin 3.2 g/dL (3.0-4.8) 08/12/18 18:50 Globulin 3.5 gm/dL 08/12/18 18:50 Albumin/Globulin Ratio 0.9 (1.1-1.8) L 08/12/18 18:50 - RAD Interpretation Radiology Orders: 08/12/18 19:02 CHEST PORTABLE [RAD] Stat - Scribe Statement The provider has reviewed the documentation as recorded by the Francisco Breen All medical record entries made by the Paulibemil were at my direction and personally dictated by me. I have reviewed the chart and agree that the record accurately reflects my personal performance of the history, physical exam, medical decision making, and the department course for this patient. I have also personally directed, reviewed, and agree with the discharge instructions and disposition. Disposition/Present on Arrival - Present on Arrival Any Indicators Present on Arrival: Yes History of DVT/PE: Yes History of Uncontrolled Diabetes: Yes Urinary Catheter: No History of Decub. Ulcer: No History Surgical Site Infection Following: None - Disposition Have Diagnosis and Disposition been Completed?: Yes Diagnosis: NSTEMI (non-ST elevated myocardial infarction), CHF (congestive heart failure) Disposition: HOSPITALIZED Disposition Time: 20:39 Patient Plan: Admission, Telemetry Condition: FAIR Discharge Instructions (ExitCare): Heart Failure (ED) Referrals: Rasta Cavazos MD [Primary Care Provider] - Follow up with primary Forms: Lumoid ([place])
[2018-08-12 20:05] LABS: TROPONIN I 3.14 ng/mL
[2018-08-12 20:07] LABS: B-TYPE NATRIURETIC PEPTIDE 11800 pg/mL (0-450)
[2018-08-12 20:10] VITALS: BMI 35.2
[2018-08-12] MEDS ORDERED: Enoxaparin 100 mg Syringe SC STA (20:15)
[2018-08-12 20:59] LABS: URINE BILIRUBIN NEGATIVE (NEGATIVE); URINE BLOOD SMALL (NEGATIVE); URINE GLUCOSE (UA) 250 mg/dL (NEGATIVE); URINE LEUKOCYTE ESTERASE NEGATIVE Leu/uL (NEGATIVE); URINE PROTEIN >=300 mg/dL (<30 mg/dL); URINE UROBILINOGEN 0.2 E.U./dL (<1 E.U./dL)
[2018-08-12 21:06] LABS: URINE APPEARANCE CLEAR (CLEAR)
[2018-08-12 21:13] LABS: URINE RBC 15 - 20 /hpf (0-2)
[2018-08-12 21:14] LABS: INR 1.32; PARTIAL THROMBOPLASTIN TIME 31.3 Seconds (26.9-38.3); PROTHROMBIN TIME 14.7 SECONDS (9.4-12.5)
[2018-08-13] MEDS ORDERED: Potassium Chloride 20 mEq ER Tab PO ONE (03:58)
--- NOTE | 2018-08-13 09:40 | RAD ---
Date of service: 08/12/2018 HISTORY: chest pain COMPARISON: 04/05/2018 TECHNIQUE: 1 view obtained. FINDINGS: LUNGS: Left upper lobe infiltrate. Moderate vascular and interstitial congestion PLEURA: No significant pleural effusion identified, no pneumothorax apparent. CARDIOVASCULAR: Aortic calcification Normal cardiac size. OSSEOUS STRUCTURES: Sternal wires VISUALIZED UPPER ABDOMEN: Normal. OTHER FINDINGS: None. IMPRESSION: Left upper lobe infiltrate. Moderate vascular and interstitial congestion
[2018-08-13] MEDS: EMPAGLIFLOZIN 10 MG PO SCH (10:15)
[2018-08-13] MEDS: INSULIN GLARGINE HUM REC ANLOG SQ SCH ×2 (10:15→17:00)
[2018-08-13] MEDS: Insulin Reg-MEDIUM-Coverage SC SCH ×3 (12:00→21:54)
[2018-08-13] MEDS ORDERED: Lidocaine PF 2% (5 ml) Inj (For Cardiac Arrhy) ONE (12:33)
[2018-08-13] MEDS ORDERED: Nitroglycerin 50mg in D5W 50 MG/250 ML BOTTLE IV ONE (12:34)
[2018-08-13] MEDS ORDERED: Iodixanol 320 MG/ML 100 ML BOTTLE IV ONE (12:34)
[2018-08-13] MEDS ORDERED: Verapamil 2 ML ONE (12:34)
[2018-08-13] MEDS ORDERED: Iohexol 350mgl/ml 50 ML ONE (12:34)
[2018-08-13] MEDS ORDERED: Iodixanol 320 MG/ML 200 ML BOTTLE IV ONE (12:34)
[2018-08-13] MEDS ORDERED: Midazolam 2 MG/2 ML VIAL ONE (12:54)
--- NOTE | 2018-08-13 13:20 | CP.PCM.APN ---
Subjective - Date & Time of Evaluation Date of Evaluation: 08/13/18 Time of Evaluation: 09:30 - Subjective Subjective: pt seen and examined a t ashly, pt reports no cp or sob, pt being picked for cardiac cath .. will follow post cath Review of Systems - Review of Systems All systems: reviewed and no additional remarkable complaints except Objective - Vital Signs/Intake and Output Vital Signs (last 24 hours): Temp Pulse Resp BP Pulse Ox 97.7 F 92 H 20 163/89 H 97 08/13/18 06:00 08/13/18 10:23 08/13/18 06:00 08/13/18 10:23 08/13/18 06:00 Intake and Output: 08/13/18 08/13/18 06:59 18:59 Intake Total 600 Output Total 1125 Balance -525 - Medications Medications: Current Medications Aspirin (Aspirin Chewable) 81 mg PO DAILY [facility] Last Admin: 08/13/18 10:14 Dose: Not Given Atorvastatin Calcium (Lipitor) 80 mg PO DIN [facility] Furosemide (Lasix) 40 mg IVP Q12 [facility] Gabapentin (Neurontin) 100 mg PO TID [facility]; Protocol Last Admin: 08/13/18 12:01 Dose: Not Given Insulin Human Regular (Humulin R Med) 0 units SC ACHS [facility]; Protocol Last Admin: 08/13/18 12:00 Dose: Not Given Losartan Potassium (Cozaar) 100 mg PO DAILY [facility] Metoprolol Tartrate (Lopressor) 100 mg PO BID [facility] Last Admin: 08/13/18 10:23 Dose: 100 mg Empagliflozin [ Jardiance] 10 Mg ( Home Med) 10 mg PO DAILY [facility] Last Admin: 08/13/18 10:15 Dose: Not Given Insulin Glargine,Hum .Rec.Anlog [Toujeo] Home Med 90 unit SQ BID [facility] Last Admin: 08/13/18 10:15 Dose: Not Given Ondansetron HCl (Zofran Inj) 4 mg IVP Q6H PRN PRN Reason: Nausea/Vomiting Last Admin: 08/13/18 08:01 Dose: 4 mg Pantoprazole Sodium (Protonix Ec Tab) 40 mg PO DAILY [facility] Ticagrelor (Brilinta) 90 mg PO BID [facility] - Labs Labs: 08/12/18 18:50 08/12/18 18:50 PT 14.7 SECONDS (9.4-12.5) H 08/12/18 18:50 INR 1.32 08/12/18 18:50 APTT 31.3 Seconds (26.9-38.3) 08/12/18 18:50 - Constitutional Appears: Non-toxic, No Acute Distress - Respiratory Exam Respiratory Exam: Clear to Ausculation Bilateral, NORMAL BREATHING PATTERN - Cardiovascular Exam Cardiovascular Exam: +S1, +S2 - Extremities Exam Extremities Exam: Normal Capillary Refill - Neurological Exam Neurological Exam: Alert, Awake - Psychiatric Exam Psychiatric exam: Normal Mood - Skin Skin Exam: Dry, Intact Assessment and Plan - Assessment and Plan (Free Text) Assessment: ITS Impressions Chest X-Ray 08/12/18 19:02 IMPRESSION: Left upper lobe infiltrate. Moderate vascular and interstitial congestion 62 yr old whit male with pmh sig for htn, dm, cabgx4, exsmoker who presented with chest pain and palps now admitted for further eval and treatment with cardiology consultation. Pt also found to have possible left lobe infiltrate on cxr pt is being taken for cardiac cath today will follow BPCI/TIC - BPCIA/TIC Educated pt/family on BPCIA/CIR/Med to Bed Programs: N/A Flyers given, including [facility] Beneficiary letter: N/A Pt/family verbalized understanding & agreed to program: N/A
[2018-08-13] MEDS ORDERED: Eptifibatide 20 mg/10mL Inj IVP ONE (13:22)
[2018-08-13] MEDS ORDERED: Sodium Chloride 0.9% 1,000 ML IV SCH (14:30)
--- NOTE | 2018-08-13 15:01 | CPOSTOP ---
DATE: 08/13/2018 CARDIOVASCULAR LAB POST PROCEDURE NOTE PHYSICIAN: Dr. Lizzy Calzada. GENERAL LEDGER BOOKKEEPER: Jolanta battery technician. TYPE OF ANESTHESIA: Moderate conscious sedation. Total 2 mg of Versed and 100 of fentanyl periodically. Started 1 mg of Versed and 50 of fentanyl. PRE-PROCEDURE DIAGNOSES: Unstable angina, non-ST segment myocardial infarction, history of coronary artery disease, history of coronary artery bypass grafting, history of percutaneous transluminal coronary angioplasty. PROCEDURES PERFORMED: 1. Left heart catheterization. 2. BEDOYA injection and SVG injection. 3. PTCA of cahto circumflex. 4. PTCA of SVG to LPDA. FINDINGS: [place] triple vessel disease, patent BEDOYA per distal LAD occluded, patent SVG sequential to OM1 and LPDA, but distal SVG has 90% stenosis and patent SVG to RCA. FINAL DIAGNOSIS: Critical two vessels disease. POST-PROCEDURE CONDITION: The patient's condition is stable. VASCULAR ACCESS SITE: Left radial. CLOSURE DEVICE: TR-band. TOTAL RADIATION DOSE: 3537.4 milligray unit. CUMULATIVE RADIATION DOSE: 4883.0 milligray unit. FLUORO TIME: 22.3 minutes. Lizzy Calzada MD MTDD
--- NOTE | 2018-08-13 15:16 | CARD ---
APPROVED REPORT Date of service: 08/12/2018 EKG Measurement Heart [id number] WV [id number] <Conclusion> Sinus tachycardia with premature atrial complexes Left ventricular hypertrophy with QRS widening and repolarization abnormality Possible Inferior infarct, age undetermined Abnormal ECG
--- NOTE | 2018-08-13 15:17 | CARD ---
APPROVED REPORT Date of service: 08/12/2018 EKG Measurement Heart [id number] CT [id number] <Conclusion> Sinus rhythm with premature atrial complexes Left ventricular hypertrophy with repolarization abnormality Abnormal ECG
--- NOTE | 2018-08-13 15:58 | CARD ---
APPROVED REPORT Date of service: 08/13/2018 EKG Measurement Heart [id number] [place] [id number] <Conclusion> Normal sinus rhythm Left anterior fascicular block ST & T wave abnormality, consider lateral ischemia Prolonged QT Abnormal ECG
[2018-08-13] MEDS ORDERED: Morphine 2 mg/ml ISec IVP ONE (16:56)
--- NOTE | 2018-08-13 18:27 | CARD ---
APPROVED REPORT Date of service: 08/13/2018 EXAM: Two-dimensional and M-mode echocardiogram with Doppler and color Doppler. INDICATION Chest Pain Non STEMI ACS/LVFX 2D DIMENSIONS Left Atrium (2D)4.6 (1.6-4.0cm)IVSd1.3 (0.7-1.1cm) LVDd5.2 (3.9-5.9cm)PWd1.5 (0.7-1.1cm) LVDs4.2 (2.5-4.0cm)FS (%) 18.4 % LVEF (%)37.8 (>50%) M-Mode DIMENSIONS Aortic Root3.50 (2.2-3.7cm)Aortic Cusp Exc.1.70 (1.5-2.0cm) Aortic Valve AoV Peak Rsqctgkr201.0cm/Luis Enrique Peak GR.8mmHg Mitral Valve MV E Nymfyvfg708.0cm/sMV A Effpjlho42.4cm/sE/A ratio2.4 TDI Lateral E' Peak V7.99cm/sMedial E' Peak V3.80cm/sE/Lateral E'14.0 E/Medial E'29.5 Pulmonary Valve PV Peak Irmakhkz62.0cm/sPV Peak Grad.2mmHg Tricuspid Valve TR Peak Ysebocvw683hw/sRAP [id number] Peak Gr.36mmHg [id number] LEFT VENTRICLE The left ventricle is normal size. There is mild to moderate concentric left ventricular hypertrophy. The systolic function is moderately impaired.EF-35% There is moderate to severe hypokinesis in the mid-anteroseptal wall. Transmitral Doppler flow pattern is Grade II-pseudonormal filling dynamics. No left ventricle thrombus noted on this study. There is no ventricular septal defect visualized. There is no left ventricular aneurysm. There is no mass noted in the left ventricle. RIGHT VENTRICLE The right ventricle is mildly dilated. There is normal right ventricular wall thickness. Systolic function is mildly reduced. ATRIA The left atrium is mildly dilated. The right atrium is mildly dilated. The interatrial septum is intact with no evidence for an atrial septal defect. AORTIC VALVE The aortic valve is calcified but opens well. There is trivial aortic regurgitation. Aortic Sclerosis but no . There is no aortic valvular vegetation. MITRAL VALVE The mitral valve is thickened but opens well. Mitral regurgitation is mild. There is no mitral valve stenosis. There is no evidence of mitral valve prolapse. TRICUSPID VALVE The tricuspid valve leaflets are thickened , but open well. There is mild tricuspid regurgitation.RVSP-46 mmof hg. There is no tricuspid valve stenosis. There is no tricuspid valve prolapse or vegetation. PULMONIC VALVE The pulmonary valve is normal in structure. There is no pulmonic valvular regurgitation. There is no pulmonic valvular stenosis. GREAT VESSELS The aortic root is normal in size. The ascending aorta is normal in size. The pulmonary artery is normal. The IVC is normal in size and collapses >50% with inspiration. PERICARDIAL EFFUSION There is no pleural effusion. There is no pericardial effusion. <Conclusion> The left ventricle is normal size. There is mild to moderate concentric left ventricular hypertrophy. The systolic function is moderately impaired.EF-35% Aortic Sclerosis but no . Mitral regurgitation is mild. There is mild tricuspid regurgitation.RVSP-46 mmof hg. There is no pulmonic valvular regurgitation. The pulmonary artery is normal. There is no pericardial effusion.
--- NOTE | 2018-08-13 18:35 | HP ---
DATE OF EXAM: 08/13/2018 HISTORY OF PRESENT ILLNESS: The patient is a 62-year-old white male with history of bipolar depression; hypertension; coronary artery disease, status post multiple stents; insulin-dependent diabetes, poorly controlled; proteinuria; peripheral vascular disease, orthostatic hypertension, admitted after episodes of some chest pain and shortness of breath, came to emergency room, was found to have an elevated troponin and markedly elevated BNP. The patient was admitted to the hospital, started on anticoagulation and diuresed. The patient is seen in consultation with Dr. Calzada and will have the cardiac cath in the morning. REVIEW OF SYSTEMS CARDIAC: Positive for chest pain without radiation, palpitations. No diaphoresis. No nausea, vomiting, lightheadedness or dizziness. RESPIRATORY: Positive for shortness of breath without cough. GASTROINTESTINAL: Negative for nausea, vomiting, or diarrhea. GENITOURINARY: Negative for dysuria, hematuria, but positive for frequency. NEUROLOGIC: Within normal limits. PHYSICAL EXAMINATION GENERAL: Shows a well-developed, slightly obese white male in no apparent distress. The following morning, still complaining of 2/10 retrosternal chest pressure. NECK: Carotids are without bruits. CHEST: Clear to auscultation and percussion. ABDOMEN: Obese, but benign. EXTREMITIES: Without cyanosis, clubbing or edema. NEUROLOGIC: The patient does have a left footdrop. He has decreased pulses bilaterally. The patient is alert and oriented x3. Speech is fluent. Cranial nerves II to XII were intact. IMPRESSION: Non-ST elevation myocardial infarction in a patient with history of coronary artery disease, noninsulin-dependent diabetes mellitus, hypertension, and bipolar depression. Rasta Cavazos MD
[2018-08-13] MEDS ORDERED: Bacitracin 500 Units/gm Oint Foilpak UD ONE (18:57)
[2018-08-13 19:20] LABS: BASO # 0.02 K/mm3 (0.0-2.0); BASO % 0.2 % (0.0-3.0); EOS # 0.1 (0.0-0.7); EOS % 0.5 % (1.5-5.0); HEMOGLOBIN 11.2 g/dL (14.0-18.0); LYMPH # 0.7 (1.2-3.4); LYMPH % 5.2 % (22.0-35.0); MEAN CELL VOLUME 86.2 fl (80.0-105.0); MEAN CORPUSCULAR HEMOGLOBIN 28.7 pg (25.0-35.0); MEAN CORPUSCULAR HGB CONC 33.3 g/dl (31.0-37.0); MEAN PLATELET VOLUME 8.9 fl (7.0-11.0); MONO # 0.7 (0.1-0.6); MONO % 5.2 % (1.0-6.0); RBC 3.9 10^6/uL (3.5-6.1); RED CELL DISTRIBUTION WIDTH 14.1 % (11.5-14.5); WHITE BLOOD COUNT 12.7 10^3/uL (4.5-11.0)
[2018-08-13 19:34] LABS: CALCIUM 7.8 mg/dL (8.4-10.5)
--- NOTE | 2018-08-13 20:35 | CON ---
DATE: 08/13/2018 CONSULT SERVICE: Cardiology. REASON FOR CONSULTATION AND FOLLOWUP: Acute coronary syndrome, unstable angina, non-ST segment myocardial infarction, history of coronary artery disease, cardiac evaluation. BRIEF CLINICAL HISTORY: A 62-year-old male with past medical history significant for hypertension, diabetes, history of coronary artery disease, history of angioplasty who came yesterday, he was watching TV at 6 p.m. and starting chest pain who came to the emergency room associated with the shortness of breath and a feeling there is fluid in the lung, now feels better, but still having some chest discomfort. PAST MEDICAL HISTORY: Significant for diabetes, hypertension, hyperlipidemia, coronary artery disease status post quadruple bypass, history of peripheral arterial disease, history of PTCA. CURRENT MEDICATIONS: The patient is taking at home; metoprolol tartrate 100 mg p.o. b.i.d., Lopressor, Cozaar 50 mg, insulin, gabapentin, Neurontin 100 mg, Lasix 20 mg daily, Jardiance 10 mg, DEXILANT 60 mg, atorvastatin 200 mg p.o. at bedtime, aspirin 81 mg daily, tramadol 50 mg daily, cefazolin 2 g daily, vitamin E and D one tablet daily, Brilinta 90 mg daily, 40 mg daily, Bactroban cream locally, Victoza insulin and cream at the feet. ALLERGIES: NO KNOWN DRUG ALLERGIES. 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 Last catheterization as mentioned on 12/25/2017 that revealed as mentioned [place] triple-vessel disease, mid LAD, distal circumflex and proximal RCA occluded, BEDOYA to LAD patent, SVG to distal circumflex is patent, SVG to OM1 and RPDA sequential is patent, so quadruple bypass. Ejection fraction was 45%, EC was in the range of 20, mid circumflex with 85% stenosis with haziness so stented on 12/25/2017. The patient was found to be resistant to the Plavix on last catheterization on 12/25/2017 so changed to Brilinta. Most recent echocardiography that the patient had on 07/05/2017 that revealed normal LV size, mild concentric LVH, LV function normal. SOCIAL HISTORY: He quit smoking, denies any history of alcohol abuse. REVIEW OF SYSTEMS: As per HPI. PHYSICAL EXAMINATION VITAL SIGNS: Temperature afebrile, heart rate 101 and blood pressure 145/69. HEENT: PERRLA, intact. NECK: Supple. No carotid bruits or thyromegaly. CHEST: Clear to auscultation. HEART: S1 and S2 regular. ABDOMEN: Soft. EXTREMITIES: Clubbing and cyanosis negative. LABORATORY DATA: Blood workup as follows; WBC 12.5, hemoglobin 11.1, hematocrit 32.9, and platelet count 284. Chemistry shows sodium 137, potassium 3.3, chloride 104, carbon dioxide 28, anion gap of 8, BUN 13 and creatinine 1.1, troponin 3.14, now trending to 2.75. EKG shows normal sinus LVH, left anterior hemiblock. IMPRESSION: A 62-year-old male with past medical history significant for coronary artery disease, status post coronary artery bypass surgery with quadruple left internal mammary artery to left anterior descending, saphenous vein graft to right coronary artery, saphenous vein graft to obtuse marginal 1 and left posterior descending artery. Last catheterization on 12/25/2017 wrangell circumflex was done because of having 80% stenosis, admitted with unstable angina, diabetes, hypertension, hyperlipidemia, acute coronary syndrome, and non-ST segment myocardial infarction. RECOMMENDATION: We will keep n.p.o., load with Brilinta 180 mg daily, 325 mg of aspirin, keep n.p.o. Further recommendation after the cardiac catheterization. Risks, benefits, and alternatives were discussed with the patient. The patient agreed. So we will proceed for cardiac catheterization. Further recommendation after cardiac catheterization. We will get echo, lipid profile, TSH, hemoglobin A1c and keep n.p.o. for catheterization. We will follow with you. Lizzy Calzada MD [facility] # [id number]
--- NOTE | 2018-08-13 20:37 | CARD ---
APPROVED REPORT Date of service: 08/13/2018 Procedure(s) performed: Left Heart Catheterization BEDOYA Angiogram SVG Angiogram PTCA with Stenting of Mid Cx with BRUCE PTCA with Stenting of SVG to L PDA HISTORY The patient is a 62 year-old male with a history of : previous OR (> 7 days), most recent EF: 45%. (EF Method: LVG), previous CHF, previous CVA , peripheral vascular disease, diabetes mellitus with insulin treatment , previous diagnostic cath, tobacco history() : The patient is a former smoker , previous PCI (The PCI date was 2017), hypertension , previous CABG (The CABG date was 06/08/2011), dyslipidemia , cerebrovascular disease , Admitted with ACS/ NSTEMI, Hx of quadraple CABG in 2011.. INDICATION The indication(s) include : non-STEMI . CASE TECHNIQUE The patient was brought emergently to the Cardiac Catheterization Laboratory in a fasting state and was prepped and draped in a sterile manner. The left wrist was infiltrated with 2% Lidocaine subcutaneous anesthesia. A 6FR GLIDESHEATH ACCESS KIT sheath was inserted into the left radial artery without difficulty. Coronary angiography was performed using coronary diagnostic catheters. The left coronary system was accessed and visualized with a Diagnostic ,6 Fr JL 4 catheter. The right coronary system was accessed and visualized with a Diagnostic ,6 Fr MPA 1 catheter. The left ventricle was accessed and visualized with a 5F JR 4 CATH DXT 100 CM catheter. Left ventricular/Aortic Valve gradient assessed on pullback. Left ventriculogram was performed in MOORE projection. Closure device was deployed with a Fr TR Band (Large) without any complications. The patient tolerated the procedure well and there were no complications associated with the procedure. Vessel Analysis The patient's coronary anatomy is co-dominant. The left main coronary artery is a large size vessel without significant stenosis. The left main bifurcates to the left anterior descending and circumflex. The left anterior descending artery is a medium size vessel with diffuse calcification noted throughout this vessel and with significant stenosis. There is a 99% stenosis in the mid segment. The first diagonal branch is a small size vessel with diffuse calcification noted throughout this vessel and without significant stenosis. The circumflex artery is a medium size vessel with diffuse calcification noted throughout this vessel and with significant stenosis. There is a 90% stenosis in the proximal to mid segment. Very Distal CX occluded The first obtuse marginal branch is a small size vessel with diffuse calcification noted throughout this vessel and without significant stenosis. The second obtuse marginal branch is a medium size vessel with diffuse calcification noted throughout this vessel and with significant stenosis. There is a 100% stenosis in the proximal segment. The third obtuse marginal branch is a medium size vessel with diffuse calcification noted throughout this vessel and without significant stenosis. The left posterior descending artery is a medium size vessel with diffuse calcification noted throughout this vessel and without significant stenosis. There is a 100% stenosis in the proximal segment. The right coronary artery is a large size vessel with diffuse calcification noted throughout this vessel and with significant stenosis. There is a 100% stenosis in the proximal segment. The left internal mammary artery to the mid left anterior descending artery segment is patent But distal [place] LAD is occluded. The saphenous vein graft to the distal right coronary artery is patent . The saphenous vein graft to the sequential to OM2 and L PDA is patent, Limb to L pDA has 90% stenosis. . Left Ventricle The left ventricle is Borderline in size with Mildly decreased contractility. Ischemic cardiomyopathy. The left ventricular ejection fraction is estimated to be 40-45%. The left ventricular end diastolic pressure is 16 mmHg. There was no gradient across the aortic valve upon pullback. PCI Technique Lesion Anticoagulation was achieved with Heparin and Integrellin Boluses. Percutaneous coronary intervention was performed on the proximal to Midcircumflex artery segment. The lesion stenosis prior to intervention was 90% with WALDO 2 flow. A 6 Fr JL 4 Guide Catheter was used to engage the ostium. A Luge 182 Interventional Guidewire was used to cross the lesion. BALLOON DILATION A Balloon catheter 2.5 x 10 mm Sprinter RX was inserted and inflated up to 10atm for 20seconds. STENT DEPLOYMENT A drug-eluting stent STENT RESOLUTE ELIANA 2.75 X18 was inserted and inflated up to 18atm for 20seconds. Final angiography reveals 0 % stenosis with WALDO 3 flow. PCI Technique Lesion 2 Percutaneous Coronary Intervention was performed on the SVG to L PDA ( distal 1/3 rd of SVG). The lesion stenosis prior to intervention was 90% with WALDO 2 flow. A 6 Fr JL 4 Guide Catheter was used to engage the ostium. A Luge 182 Interventional Guidewire was used to cross the lesion. BALLOON DILATION A Balloon catheter 2.0 x 15 mm Sprinter RX was inserted and inflated up to 8.00atm for 11seconds. STENT DEPLOYMENT A drug-eluting stent STENT RESOLUTE ELIANA 2.75 X30 was inserted and inflated up to 18.00atm for 22seconds. Final angiography reveals 0 % stenosis with WALDO 3 flow. Conclusion [place] triple Vessel DIZ, Occluded proximal RCA, Mid RCA and distal CX, Proximal to mid Cx has 90% stenois, Cx gives multiple OM branches Patent BEDOYA to LAD But distal LAD occluded. Patent SVG to Distal RCA Patent Sequential SVG to OM2 and L pDA, Bult L PDa limb of SVG has 90% stenosis. Ischemic CMPO. EF-40-45%, EDP-16 mmof Hg. Successful PTCA of [place] Proximal to Mid Cx and SWVG to LPDA using BRUCE. Recommendations Cardiac Rehabilitation Referral Aggressive Medical TherapyCardiac Risk Reduction Program Weight Loss Reduction Program Mandatory continue ASA and brilinta for one year ( pt is resistant to Plavix on last cath). MUGA Scan to Assess LV FX, Monitor LV EF% closely in 3-6 months, and if remains less than 35% consider AICD. CC; Steph Burciaga MD.
[2018-08-14 07:11] LABS: BASO # 0.02 K/mm3 (0.0-2.0); BASO % 0.2 % (0.0-3.0); EOS # 0.2 (0.0-0.7); EOS % 1.6 % (1.5-5.0); HEMOGLOBIN 10.5 g/dL (14.0-18.0); LYMPH # 0.9 (1.2-3.4); LYMPH % 8.9 % (22.0-35.0); MEAN CORPUSCULAR HEMOGLOBIN 28.2 pg (25.0-35.0); MEAN CORPUSCULAR HGB CONC 32.8 g/dl (31.0-37.0); MEAN PLATELET VOLUME 9.2 fl (7.0-11.0); MONO # 0.7 (0.1-0.6); MONO % 6.5 % (1.0-6.0); RBC 3.72 10^6/uL (3.5-6.1); RED CELL DISTRIBUTION WIDTH 13.9 % (11.5-14.5); WHITE BLOOD COUNT 10.1 10^3/uL (4.5-11.0)
[2018-08-14 07:43] LABS: ALB/GLOB RATIO 0.9 (1.1-1.8); ALBUMIN 2.9 g/dL (3.0-4.8)
[2018-08-14] MEDS: Insulin Reg-MEDIUM-Coverage SC SCH ×3 (08:20→22:13)
[2018-08-14] MEDS ORDERED: Pantoprazole 40 mg EC Tab PO SCH (10:00)
[2018-08-14] MEDS ORDERED: Enoxaparin 30 mg Syringe SC SCH (10:15)
--- NOTE | 2018-08-14 10:37 | PN ---
DATE: 08/14/2018 SUBJECTIVE: A 62-year-old white male with status post non-STEMI myocardial infarction, status post cardiac catheterization by Dr. Calzada. The patient had 2 stents placed. He has no further chest pain. His chest is clear to auscultation. Heart examination, regular sinus rhythm. The patient having Microscan today to assess LV function. The patient also has severe diabetic neuropathy and foot . He also has proteinuria. He will be seen by Dr. Lundberg and most likely would be discharge in 24-48 hours. Rasta Cavazos MD
--- NOTE | 2018-08-14 10:55 | PQF ---
PROVIDER RESPONSE TEXT: Patient admitted with ACS / NSTEMI and Acute CHF secondary to Systolic Dysfunction. REVIEWER QUERY TEXT: CHF Acuity and Type Congestive Heart Failure is documented in the Medical Record. Please document the type and acuity (in cludes probable or suspected) Such as: Type: -- Systolic -- Diastolic -- Combined -- Other, please specify Acuity: -- Acute -- Chronic -- Acute on chronic -- Other, please specify Also please document the underlying cause of the CHF (includes probable or suspected) The patient's Clinical Indicators include: NSTEMI, Admitting CXR- Left upper lobe infiltrate.Moderate vascular and interstitial congestion BNP- 90439. IV Lasix in ER Query created by: Kimber Levine on 08/14/2018 8:04 AM Electronically signed by: Lizzy Calzada 08/14/2018 10:52 AM
[2018-08-14] MEDS: INSULIN GLARGINE HUM REC ANLOG SQ SCH ×2 (12:03→20:57)
[2018-08-14] MEDS: EMPAGLIFLOZIN 10 MG PO SCH (12:03)
--- NOTE | 2018-08-14 12:47 | CARD ---
APPROVED REPORT Date of service: 08/14/2018 INDICATION NSTEMI,CHF EVALUATE LV AND RV EF% PROCEDURE The above named patient recieved 28.3 millicuries of Tc99m tagged red blood cells intravenously. After achieving equilibrium, gated imaging of 16/frame/cycle was performed utillizing Gamma camera interfaced with a digital computer and gated device. Gated imaging was then performed in the left anterior oblique, anterior, and the left lateral projections. Findings Calculated LV Ejection Fraction is 53%. Impressions Calculated Ejection Fraction is 53 %.
--- NOTE | 2018-08-14 13:17 | CP.PCM.CON ---
<Rodriguez Munoz - Last Filed: 08/14/18 13:13> History of Present Illness - History of Present Illness History of Present Illness: Manish Munoz PGY2 - Nephrology Consult Note for Dr. Lundberg Consulted reason: DARSHANA HPI: 62 year old male with past medical history of HTN, DM2, CABG x4 who presented to [facility] [place] on 08/12/[place] with chest pain and palpitations. He reported associated shortness of breath and lower extremity edema. Patient was evaluated in ED and found to have EKG showing elevated BNP and troponin with an EKG showing sinus tachycardia without evidence of ST elevation. Chest x-ray showed bilateral vascular congestion. Patient was admitted for NSTEMI and evaluated by cardiology. He was loaded with Brillinta 180mg, 325mg Aspirin and taken for cardiac catheterization where PTCA of [place] band proximal to mid circumflex as well as drug eluting stent to left proximal diagonal artery was conducted. Patient was noted to have elevation of Creatinine following procedure. Patient is noted to have been diagnosed with DM2 since 2000 and elevated blood pressure for multiple decades. He indicates his brother had ended up on Dialysis after undergoing CABG. He denies any other significant family history related to kidney disease. He denies chest pain, shortness of breath, abdominal discomfort, urinary complaints, nausea, vomiting, fever, chills. He denies any previous work up of his renal function or recent illness. PMH: As above PSH: SOCHX: ALL: NKDA MEDS: MAR Reviewed Review of Systems - Review of Systems All systems: reviewed and no additional remarkable complaints except (as mentioned in HPI) Past Patient History - Infectious Disease Hx of Infectious Diseases: None - Tetanus Immunizations Tetanus Immunization: Unknown - Past Social History Smoking Status: Former Smoker - CARDIAC Hx Pacemaker: No - PULMONARY Hx Respiratory Disorders: No Hx Asthma: No Hx Bronchitis: No Hx Chronic Obstructive Pulmonary Disease (COPD): Yes Hx Emphysema: No Hx Pneumonia: Yes Hx Respiratory Aspiration: No Hx Respiratory Tract Infection: No Hx Sleep Apnea: Yes Hx Tuberculosis: No - NEUROLOGICAL HX Cerebrovascular Accident: Yes (R side weakness) - HEENT Hx HEENT Problems: No 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) Hx Cataracts: No Hx Deafness: No Hx Difficulty Chewing: No Hx Epistaxis: No Hx Glaucoma: No Hx Macular Degeneration: No - RENAL Hx Chronic Kidney Disease: No Hx Dialysis: No Hx Kidney Stones: No Hx Neurogenic Bladder: No Hx Pyelonephritis: No Hx Renal (Kidney) Cancer: No Hx Renal Failure: No - ENDOCRINE/METABOLIC Hx Diabetes Mellitus Type 2: Yes - HEMATOLOGICAL/ONCOLOGICAL Hx Cancer: No - INTEGUMENTARY Hx Dermatological Problems: No Hx Basil Cell: No Hx Eczema: No Hx Melanoma: No Hx Psoriasis: No Hx Squamous Cell: No - MUSCULOSKELETAL/RHEUMATOLOGICAL Hx Musculoskeletal Disorders: No Hx Arthritis: Yes Hx Back Pain: No Hx Degenerative Joint Disease: No Hx Falls: Yes Hx Fractures: No Hx Gout: No Hx Herniated Disk: No Hx Myasthenia Gravis: No Hx Osteoarthritis: No Hx Osteomyelitis: No Hx Osteoporosis: No Hx Rhabdomyolysis: No Hx Spinal Stenosis: No Hx Unsteady Gait: No - GASTROINTESTINAL Hx Gastrointestinal Disorders: No Hx Colostomy: No Hx Crohn's Disease: No Hx Diverticulitis: No Hx Gall Bladder Disease: No Hx Gastroesophageal Reflux: No Hx Ileostomy: No Hx Liver Failure: No Hx Pancreatitis: No HX Swallowing Problems: No - GENITOURINARY/GYNECOLOGICAL Hx Genitourinary Disorders: No Hx Hematuria: No Hx Incontinence: No Hx Prostate Problems: No Hx Sexually Transmitted Disorders: No Hx Urinary Tract Infection: No - PSYCHIATRIC Hx Psychophysiologic Disorder: Yes Hx Anxiety: Yes Hx Bipolar Disorder: Yes Hx Depression: Yes Hx Emotional Abuse: No Hx Hallucinations: No Hx Panic Symptoms: No Hx Post Traumatic Stress Disorder: No Hx Psychosis: No Hx Physical Abuse: No Hx Schizophrenia: Yes Hx Sexual Abuse: No Hx Substance Use: No - SURGICAL HISTORY Hx Mastectomy: No - ANESTHESIA Hx Anesthesia: Yes Hx Anesthesia Reactions: No Hx Malignant Hyperthermia: No Meds Allergies/Adverse Reactions: Allergies Allergy/AdvReac Type Severity Reaction Status Date / Time No Known Allergies Allergy Verified 03/29/18 17:47 - Medications Medications: Current Medications Amlodipine Besylate (Norvasc) 10 mg PO DAILY [facility] Last Admin: 08/14/18 12:02 Dose: 10 mg Aspirin (Aspirin Chewable) 81 mg PO DAILY [facility] Last Admin: 08/14/18 12:02 Dose: 81 mg Atorvastatin Calcium (Lipitor) 80 mg PO DIN [facility] Last Admin: 08/13/18 17:06 Dose: 80 mg Enoxaparin Sodium (Lovenox) 30 mg SC DAILY [facility]; Protocol Last Admin: 08/14/18 12:02 Dose: 30 mg Furosemide (Lasix) 40 mg PO DAILY [facility] Gabapentin (Neurontin) 100 mg PO TID [facility]; Protocol Last Admin: 08/14/18 12:02 Dose: 100 mg Hydralazine HCl (Apresoline) 10 mg IVP Q6 PRN PRN Reason: for SBP>160 Insulin Human Regular (Humulin R Med) 0 units SC ACHS [facility]; Protocol Last Admin: 08/14/18 08:20 Dose: Not Given Metoprolol Tartrate (Lopressor) 100 mg PO BID [facility] Last Admin: 08/14/18 12:03 Dose: 100 mg Empagliflozin [ Jardiance] 10 Mg ( Home Med) 10 mg PO DAILY [facility] Last Admin: 08/14/18 12:03 Dose: Not Given Insulin Glargine,Hum .Rec.Anlog [Toujeo] Home Med 90 unit SQ BID [facility] Last Admin: 08/14/18 12:03 Dose: Not Given Ondansetron HCl (Zofran Inj) 4 mg IVP Q6H PRN PRN Reason: Nausea/Vomiting Last Admin: 08/13/18 08:01 Dose: 4 mg Pantoprazole Sodium (Protonix Ec Tab) 40 mg PO DAILY [facility] Last Admin: 08/14/18 12:02 Dose: 40 mg Ticagrelor (Brilinta) 90 mg PO BID [facility] Last Admin: 08/14/18 12:02 Dose: 90 mg Physical Exam - Head Exam Head Exam: ATRAUMATIC, NORMOCEPHALIC - Eye Exam Eye Exam: EOMI, PERRL - ENT Exam ENT Exam: Mucous Membranes Moist Additional comments: poor dentition noted - Neck Exam Neck exam: Positive for: Full Rom - Respiratory Exam Respiratory Exam: Clear to Auscultation Bilateral, NORMAL BREATHING PATTERN. absent: Rales, Rhonchi, Wheezes - Cardiovascular Exam Cardiovascular Exam: REGULAR RHYTHM, +S1, +S2 - GI/Abdominal Exam GI & Abdominal Exam: Normal Bowel Sounds, Soft. absent: Firm, Rigid, Tenderness - Extremities Exam Extremities exam: Positive for: full ROM. Negative for: calf tenderness Additional comments: trace edema bilaterally - Neurological Exam Neurological exam: Alert, CN II-XII Intact, Normal Gait, Oriented x3, Reflexes Normal - Psychiatric Exam Psychiatric exam: Normal Affect, Normal Mood - Skin Skin Exam: Dry, Warm Results - Vital Signs Recent Vital Signs: Last Vital Signs Temp 97.9 F 08/14/18 12:27 Pulse 90 08/14/18 12:27 Resp 18 08/14/18 12:27 BP 156/73 H 08/14/18 12:27 Pulse Ox 100 08/14/18 00:01 - Labs Result Diagrams: 08/14/18 06:45 08/14/18 06:45 Labs: Laboratory Results - last 24 hr 08/13/18 08/13/18 08/13/18 17:33 19:14 19:14 WBC 12.7 H RBC 3.90 Hgb 11.2 L Hct 33.6 L MCV 86.2 MCH 28.7 MCHC 33.3 RDW 14.1 Plt Count 304 MPV 8.9 Neut % (Auto) 88.9 H Lymph % (Auto) 5.2 L [place] % (Auto) 5.2 Eos % (Auto) 0.5 L Baso % (Auto) 0.2 Lymph # (Auto) 0.7 L [place] # (Auto) 0.7 H Eos # (Auto) 0.1 Baso # (Auto) 0.02 Absolute Neuts (auto) 11.30 H Sodium 135 Potassium 4.0 Chloride 100 Carbon Dioxide 28 Anion Gap 11 BUN 17 Creatinine 1.5 Est GFR ( Amer) 57 Est GFR (Non-Af Amer) 47 POC Glucose (mg/dL) 215 H Random Glucose 306 H* D Hemoglobin A1c Calcium 7.8 L Phosphorus Magnesium Total Bilirubin AST ALT Alkaline Phosphatase Total Protein Albumin Globulin Albumin/Globulin Ratio Triglycerides Cholesterol LDL Cholesterol Direct HDL Cholesterol TSH 3rd Generation 08/14/18 08/14/18 08/14/18 06:45 06:45 06:45 WBC 10.1 D RBC 3.72 Hgb 10.5 L Hct 32.0 L MCV 86.0 MCH 28.2 MCHC 32.8 RDW 13.9 Plt Count 283 MPV 9.2 Neut % (Auto) 82.8 H Lymph % (Auto) 8.9 L [place] % (Auto) 6.5 H Eos % (Auto) 1.6 Baso % (Auto) 0.2 Lymph # (Auto) 0.9 L [place] # (Auto) 0.7 H Eos # (Auto) 0.2 Baso # (Auto) 0.02 Absolute Neuts (auto) 8.34 H Sodium 136 Potassium 4.0 Chloride 99 Carbon Dioxide 31 Anion Gap 10 BUN 23 H Creatinine 1.8 H Est GFR ( Amer) 46 Est GFR (Non-Af Amer) 38 POC Glucose (mg/dL) Random Glucose 208 H Hemoglobin A1c 10.6 H D Calcium 8.0 L Phosphorus 4.1 Magnesium 1.8 Total Bilirubin 0.9 AST 29 ALT 19 Alkaline Phosphatase 105 Total Protein 6.1 Albumin 2.9 L Globulin 3.3 Albumin/Globulin Ratio 0.9 L Triglycerides 128 Cholesterol 153 LDL Cholesterol Direct 97 HDL Cholesterol 30 TSH 3rd Generation 08/14/18 08/14/18 06:45 07:21 WBC RBC Hgb Hct MCV MCH MCHC RDW Plt Count MPV Neut % (Auto) Lymph % (Auto) [place] % (Auto) Eos % (Auto) Baso % (Auto) Lymph # (Auto) [place] # (Auto) Eos # (Auto) Baso # (Auto) Absolute Neuts (auto) Sodium Potassium Chloride Carbon Dioxide Anion Gap BUN Creatinine Est GFR ( Amer) Est GFR (Non-Af Amer) POC Glucose (mg/dL) 207 H Random Glucose Hemoglobin A1c Calcium Phosphorus Magnesium Total Bilirubin AST ALT Alkaline Phosphatase Total Protein Albumin Globulin Albumin/Globulin Ratio Triglycerides Cholesterol LDL Cholesterol Direct HDL Cholesterol TSH 3rd Generation 3.26 Assessment & Plan - Assessment and Plan (Free Text) Assessment: - DARSHANA in the setting of possible CKD secondary to uncontrolled DM2 and HTN - NSTEMI s/p stent x2 - CAD - Acute exacerbation of systolic CHF - HX CABGx4 - Uncontrolled DM2 - HTN - Proteinuria 62 year old male with DARSHANA secondary to contrast induced injury in the setting of potential CKD secondary to multifactoral including uncontrolled DM2 and long st anding HTN. Patient presented with hypervolemia and elevated troponin without evidence of ST elevations. He was taken to the [facility] for unstable angina and NSTEMI where 2 cardiac stents were placed. During procedure patient did receive contrast. Following the procedure patient continued to be diuresed with IV lasix BID and subsequently developed an elevation of his creatinine. The differential diagnosis for this elevation includes contrast vs. medication vs. CHF exacerbation vs. urinary outflow obstruction in the setting of likely CKD due long history of uncontrolled DM2 and HTN. At this point would assume patient to have intrinsic injury secondary to direct injury with IV lasix and IV contrast. Patient UOP is noted to be 45mL/hr over the past 24 hours. Patient is noted to be euvolemic at this point and is noted to have CHF with EF of 35%. Continue metoprolol and amlodipine for BP control. Continue brillita, aspirin and atorvastatin for CAD. At this time will recommend titrating down lasix with planned maintenance of euvolemia. WIll order urine osm, sodium, urea for further evaluation of other possible etiologies and continue to monitor Creatinine function over the next 24 hours. Will consider starting gentle IVF hydration keeping in mind patient volume status on admission and recent echocardiogram findings. Further recommendations per Dr. Lundberg - Date & Time Date: 08/14/18 Time: 12:30 <Ever Lundberg S - Last Filed: 08/14/18 14:25> Meds - Medications Medications: Current Medications Amlodipine Besylate (Norvasc) 10 mg PO DAILY [facility] Last Admin: 08/14/18 12:02 Dose: 10 mg Aspirin (Aspirin Chewable) 81 mg PO DAILY [facility] Last Admin: 08/14/18 12:02 Dose: 81 mg Atorvastatin Calcium (Lipitor) 80 mg PO DIN [facility] Last Admin: 08/13/18 17:06 Dose: 80 mg Enoxaparin Sodium (Lovenox) 30 mg SC DAILY [facility]; Protocol Last Admin: 08/14/18 12:02 Dose: 30 mg Furosemide (Lasix) 40 mg PO DAILY [facility] Gabapentin (Neurontin) 100 mg PO TID [facility]; Protocol Last Admin: 08/14/18 12:02 Dose: 100 mg Hydralazine HCl (Apresoline) 10 mg IVP Q6 PRN PRN Reason: for SBP>160 Insulin Human Regular (Humulin R Med) 0 units SC ACHS [facility]; Protocol Last Admin: 08/14/18 08:20 Dose: Not Given Metoprolol Tartrate (Lopressor) 100 mg PO BID [facility] Last Admin: 08/14/18 12:03 Dose: 100 mg Empagliflozin [ Jardiance] 10 Mg ( Home Med) 10 mg PO DAILY [facility] Last Admin: 08/14/18 12:03 Dose: Not Given Insulin Glargine,Hum .Rec.Anlog [Toujeo] Home Med 90 unit SQ BID [facility] Last Admin: 08/14/18 12:03 Dose: Not Given Ondansetron HCl (Zofran Inj) 4 mg IVP Q6H PRN PRN Reason: Nausea/Vomiting Last Admin: 08/13/18 08:01 Dose: 4 mg Pantoprazole Sodium (Protonix Ec Tab) 40 mg PO DAILY [facility] Last Admin: 08/14/18 12:02 Dose: 40 mg Ticagrelor (Brilinta) 90 mg PO BID [facility] Last Admin: 08/14/18 12:02 Dose: 90 mg Results - Vital Signs Recent Vital Signs: Last Vital Signs Temp 97.9 F 08/14/18 12:27 Pulse 90 08/14/18 12:27 Resp 18 08/14/18 12:27 BP 156/73 H 08/14/18 12:27 Pulse Ox 100 08/14/18 00:01 - Labs Result Diagrams: 08/14/18 06:45 08/14/18 06:45 Labs: Laboratory Results - last 24 hr 08/13/18 08/13/18 08/13/18 17:33 19:14 19:14 WBC 12.7 H RBC 3.90 Hgb 11.2 L Hct 33.6 L MCV 86.2 MCH 28.7 MCHC 33.3 RDW 14.1 Plt Count 304 MPV 8.9 Neut % (Auto) 88.9 H Lymph % (Auto) 5.2 L [place] % (Auto) 5.2 Eos % (Auto) 0.5 L Baso % (Auto) 0.2 Lymph # (Auto) 0.7 L [place] # (Auto) 0.7 H Eos # (Auto) 0.1 Baso # (Auto) 0.02 Absolute Neuts (auto) 11.30 H Sodium 135 Potassium 4.0 Chloride 100 Carbon Dioxide 28 Anion Gap 11 BUN 17 Creatinine 1.5 Est GFR ( Amer) 57 Est GFR (Non-Af Amer) 47 POC Glucose (mg/dL) 215 H Random Glucose 306 H* D Hemoglobin A1c Calcium 7.8 L Phosphorus Magnesium Total Bilirubin AST ALT Alkaline Phosphatase Total Protein Albumin Globulin Albumin/Globulin Ratio Triglycerides Cholesterol LDL Cholesterol Direct HDL Cholesterol TSH 3rd Generation 08/14/18 08/14/18 08/14/18 06:45 06:45 06:45 WBC 10.1 D RBC 3.72 Hgb 10.5 L Hct 32.0 L MCV 86.0 MCH 28.2 MCHC 32.8 RDW 13.9 Plt Count 283 MPV 9.2 Neut % (Auto) 82.8 H Lymph % (Auto) 8.9 L [place] % (Auto) 6.5 H Eos % (Auto) 1.6 Baso % (Auto) 0.2 Lymph # (Auto) 0.9 L [place] # (Auto) 0.7 H Eos # (Auto) 0.2 Baso # (Auto) 0.02 Absolute Neuts (auto) 8.34 H Sodium 136 Potassium 4.0 Chloride 99 Carbon Dioxide 31 Anion Gap 10 BUN 23 H Creatinine 1.8 H Est GFR ( Amer) 46 Est GFR (Non-Af Amer) 38 POC Glucose (mg/dL) Random Glucose 208 H Hemoglobin A1c 10.6 H D Calcium 8.0 L Phosphorus 4.1 Magnesium 1.8 Total Bilirubin 0.9 AST 29 ALT 19 Alkaline Phosphatase 105 Total Protein 6.1 Albumin 2.9 L Globulin 3.3 Albumin/Globulin Ratio 0.9 L Triglycerides 128 Cholesterol 153 LDL Cholesterol Direct 97 HDL Cholesterol 30 TSH 3rd Generation 08/14/18 08/14/18 06:45 07:21 WBC RBC Hgb Hct MCV MCH MCHC RDW Plt Count MPV Neut % (Auto) Lymph % (Auto) [place] % (Auto) Eos % (Auto) Baso % (Auto) Lymph # (Auto) [place] # (Auto) Eos # (Auto) Baso # (Auto) Absolute Neuts (auto) Sodium Potassium Chloride Carbon Dioxide Anion Gap BUN Creatinine Est GFR ( Amer) Est GFR (Non-Af Amer) POC Glucose (mg/dL) 207 H Random Glucose Hemoglobin A1c Calcium Phosphorus Magnesium Total Bilirubin AST ALT Alkaline Phosphatase Total Protein Albumin Globulin Albumin/Globulin Ratio Triglycerides Cholesterol LDL Cholesterol Direct HDL Cholesterol TSH 3rd Generation 3.26 Assessment & Plan - Assessment and Plan (Free Text) Assessment: Patient was seen and examined by me. I have reviewed the note of the director medical and have gone over the plan of care. I agree with the note. I have reviewed the medications and the last labs. Most likely DARSHANA due to contrast nephropathy.
--- NOTE | 2018-08-14 14:52 | CARD ---
APPROVED REPORT Date of service: 08/14/2018 EKG Measurement Heart [id number] <Conclusion> Sinus rhythm with premature atrial complexes Left axis deviation Left ventricular hypertrophy with repolarization abnormality Possible Inferior infarct, age undetermined Abnormal ECG
[2018-08-14 15:39] LABS: IRON 42 ug/dL (45-180)
[2018-08-14 15:43] LABS: CREATININE,RANDOM URINE 65 mg/dL
[2018-08-14 15:47] LABS: TOTAL PROTEIN,RANDOM URINE 440 mg/L
[2018-08-14 15:49] LABS: % IRON SATURATION 20 % (20-55); TOTAL IRON BINDING CAPACITY 216 ug/dL (261-462)
[2018-08-14 16:07] LABS: OSMOLALITY,URINE 340 mosm/kg (300-1000)
--- NOTE | 2018-08-14 21:45 | CON ---
DATE: 08/14/2018 HISTORY OF PRESENT ILLNESS: The patient was seen and examined. I do agree with the note of the director global medical affairs. I was involved in the plan of care. I have been asked by Dr. Cavazos to evaluate this patient for acute kidney injury. The patient has a history of hypertension, diabetes, coronary artery disease status post CABG, and had a cardiac cath recently by Dr. Calzada. The patient had a cardiac cath and had a stent that was placed in the left proximal diagonal artery. The patient developed acute kidney injury and the creatinine had increased to 1.8. The patient also has proteinuria. The urinalysis shows that the urine protein is greater than 300. Dr. Cavazos indicated that the patient had a 24-hour collection that showed 8 grams of protein. I will order a [id number] ratio. The patient has underlying CKD, stage III. The patient has baseline creatinine of 1.1. The current creatinine increased to 1.5 yesterday and it is 1.8 today. He has hypoalbuminemia with an albumin of 2.9. The patient's calcium is 8, but corrected the patient's calcium is within normal limits. The patient does have anemia and will most likely need iron studies. I will add iron studies to the blood work that has been done. Now the patient's blood pressure has been controlled with Norvasc. He is on metoprolol for his coronary artery disease. He is on Lipitor for dyslipidemia. The patient is on Lasix 40 mg, I will hold his Lasix for now because of the acute kidney injury. The patient's blood pressure is elevated at 156/73. He is on his diabetes medications with insulin. He is going to continue with Brilinta for his coronary artery disease. He is on a heart-healthy diet. He has uncontrolled diabetes, which is indicated by the hemoglobin A1c that is elevated at 10.6. We will continue to follow the patient closely. He does have CHF with EF of 35%. Ever Lundberg MD
[2018-08-15 05:32] VITALS: O2SAT 92
[2018-08-15 07:28] LABS: ALB/GLOB RATIO 0.8 (1.1-1.8); ALBUMIN 2.8 g/dL (3.0-4.8); CALCIUM 7.8 mg/dL (8.4-10.5)
[2018-08-15 07:35] LABS: BASO # 0.04 K/mm3 (0.0-2.0); BASO % 0.4 % (0.0-3.0); EOS # 0.2 (0.0-0.7); EOS % 2.7 % (1.5-5.0); HEMOGLOBIN 10.2 g/dL (14.0-18.0); LYMPH # 1.1 (1.2-3.4); LYMPH % 12.3 % (22.0-35.0); MEAN CELL VOLUME 85.2 fl (80.0-105.0); MEAN CORPUSCULAR HEMOGLOBIN 27.9 pg (25.0-35.0); MEAN CORPUSCULAR HGB CONC 32.8 g/dl (31.0-37.0); MEAN PLATELET VOLUME 9.3 fl (7.0-11.0); MONO # 0.7 (0.1-0.6); MONO % 7.3 % (1.0-6.0); RBC 3.65 10^6/uL (3.5-6.1); RED CELL DISTRIBUTION WIDTH 13.8 % (11.5-14.5); WHITE BLOOD COUNT 8.9 10^3/uL (4.5-11.0)
[2018-08-15] MEDS: Insulin Reg-MEDIUM-Coverage SC SCH ×4 (08:07→22:16)
--- NOTE | 2018-08-15 08:21 | PN ---
DATE: 08/14/2018 REASON FOR CONSULTATION: Acute non-STEMI, status post cardiac catheterization 2 vessel angioplasty. Denies any chest pain, shortness of breath, any palpitation. OBJECTIVE: GENERAL: Not in apparent distress. VITAL SIGNS: Temperature afebrile. Heart rate 87 and blood pressure 140/81. HEENT: PERRLA intact. NECK: Supple. No carotid bruit or thyromegaly. CHEST: Clear to auscultation. HEART: S1 and S2, regular. ABDOMEN: Soft. EXTREMITIES: Clubbing and cyanosis negative. LABORATORY DATA: Blood workup WBC 10.2, hematocrit 32.0 and platelet count 283. Chemistry shows sodium 130, potassium 4.0, chloride 90, carbon dioxide 31, anion gap of 10, BUN 23, creatinine 1.8, TSH 3.26, albumin 2.9, albumin-globulin ratio 0.9, total triglyceride 120, cholesterol 153, LDL 97 and HDL 30. IMPRESSION: A 62-year-old male with past medical history significant for coronary artery disease, status post coronary artery bypass graft in 2014 for quadruple bypass, status post recent coronary intervention circumflex 2017, admitted with unstable angina and non-ST myocardial infarction. Subsequently, the patient underwent 2 vessels STEMI, saphenous vein graft to left posterior descending artery and mid circumflex, ejection fraction by catheterization was decreased, by echo also decreased. The patient was started on heart failure therapy including hydralazine, aspirin, and Brilinta. The patient had Losartan and potassium as well as IV Lasix and metoprolol. Continue amlodipine because of hypertension. RECOMMENDATIONS: We will get MUGA scan today to assess LV function. We will decrease Lasix to once a day and start p.o. Lasix and start Entresto from tomorrow. We will follow with you. Thank you Dr. Cavazos for providing us the opportunity in taking care of the patient, Kishan Gan. We will follow with you. The patient had stenting done as mentioned above. Overall, EF decreased by echo 35%, aortic sclerosis mild mitral regurgitation, mild tricuspid regurgitation, RV systolic pressure 45. By cath, EF is 40%-45%. We will get the MUGA scan. Depending upon the EF MUGA, we will restart either Entresto or Losartan. If it is below 35, we will start Entresto. Overall, the patient is critical. Long-term prognosis is guarded. Thank you Dr. Cavazos for providing us the opportunity in taking care of the patient, Kishan Gan. We will switch Lasix to p.o. from tomorrow. We will hold Losartan today because of worsening renal insufficiency and restart tomorrow, if the renal function remains stable. We will start also DVT prophylaxis. I will put hydralazine p.r.n. because the patient got dye load yesterday, so we will hold for today. Repeat the blood workup in the morning. Also cut down the Lasix. We will start Lovenox 30 daily from today. Continue aspirin. Continue Brilinta as the patient . Lizzy Calzada MD
[2018-08-15] MEDS: EMPAGLIFLOZIN 10 MG PO SCH (09:44)
[2018-08-15] MEDS: INSULIN GLARGINE HUM REC ANLOG SQ SCH ×2 (09:44→17:44)
--- NOTE | 2018-08-15 10:34 | PN ---
DATE: 08/15/2018 SUBJECTIVE: A 62-year-old white male with status post non-STEMI myocardial infarction, status post catheterization with two stents placement by Dr. Calzada. ejection fraction over 50%. The patient is not a candidate for Entresto. The patient did have some contrast induced nephropathy. BUN and creatinine are currently at 35 and 2.2 which is increased from his baseline. He did have a recent outpatient 24-hour urine showing a protein excretion of over 8 g nephrotic range proteinuria. He is being seen is consultation by Dr. Lundberg . We will make adjustment for his elevated BUN and creatinine. He also has proteinuria. Cardiac torres he is stable. The patient will start ambulating. We will continue to monitor his renal function. Rasta Cavazos MD
[2018-08-15] MEDS: Sodium Chloride 0.9% 1,000 ML IV SCH ×2 (11:45→22:15)
--- NOTE | 2018-08-15 12:51 | CP.PCM.PN ---
<Rodriguez Munoz - Last Filed: 08/15/18 13:06> Subjective - Date & Time of Evaluation Date of Evaluation: 08/15/18 Time of Evaluation: 12:45 - Subjective Subjective: Manish Munoz PGY2 - Nephrology Progress Note for Dr. Lundberg Patient seen and examined at bedisde this AM. No acute events reported overnight. Patient indicates he has had adequate urine output and without complaints. He denies chest pain, shortness of breath at rest, abdominal discomfort, urinary complaints, weakness, nausea, vomiting, fever, chills. Objective - Vital Signs/Intake and Output Vital Signs (last 24 hours): Temp Pulse Resp BP Pulse Ox 97.6 F 69 20 131/76 92 L 08/15/18 12:00 08/15/18 12:00 08/15/18 12:00 08/15/18 12:00 08/15/18 05:32 Intake and Output: 08/15/18 08/15/18 06:59 18:59 Intake Total 450 Output Total 450 Balance 0 - Medications Medications: Current Medications Amlodipine Besylate (Norvasc) 10 mg PO DAILY [facility] Last Admin: 08/15/18 09:45 Dose: 10 mg Aspirin (Aspirin Chewable) 81 mg PO DAILY [facility] Last Admin: 08/15/18 09:44 Dose: 81 mg Atorvastatin Calcium (Lipitor) 80 mg PO DIN [facility] Last Admin: 08/14/18 17:27 Dose: 80 mg Clonidine HCl (Catapres) 0.1 mg PO BID [facility] Last Admin: 08/15/18 09:44 Dose: 0.1 mg Furosemide (Lasix) 40 mg PO DAILY [facility] Gabapentin (Neurontin) 100 mg PO TID [facility]; Protocol Last Admin: 08/15/18 09:45 Dose: 100 mg Heparin Sodium (Porcine) (Heparin) 5,000 units SC Q8 [facility]; Protocol Hydralazine HCl (Apresoline) 10 mg IVP Q6 PRN PRN Reason: for SBP>160 Last Admin: 08/15/18 05:24 Dose: 10 mg Sodium Chloride (Sodium Chloride 0.9%) 1,000 mls @ 75 mls/hr IV .[id number] [facility] Stop: 08/16/18 11:39 Last Admin: 08/15/18 11:45 Dose: 75 mls/hr Insulin Human Regular (Humulin R Med) 0 units SC ACHS [facility]; Protocol Last Admin: 08/15/18 11:55 Dose: 5 units Losartan Potassium (Cozaar) 50 mg PO DAILY [facility] Metoprolol Tartrate (Lopressor) 100 mg PO BID [facility] Last Admin: 08/15/18 09:44 Dose: 100 mg Empagliflozin [ Jardiance] 10 Mg ( Home Med) 10 mg PO DAILY [facility] Last Admin: 08/15/18 09:44 Dose: Not Given Insulin Glargine,Hum .Rec.Anlog [Toujeo] Home Med 90 unit SQ BID [facility] Last Admin: 08/15/18 09:44 Dose: Not Given Ondansetron HCl (Zofran Inj) 4 mg IVP Q6H PRN PRN Reason: Nausea/Vomiting Last Admin: 08/13/18 08:01 Dose: 4 mg Ticagrelor (Brilinta) 90 mg PO BID [facility] Last Admin: 08/15/18 09:44 Dose: 90 mg - Labs Labs: 08/15/18 06:40 08/15/18 06:40 PT 14.7 SECONDS (9.4-12.5) H 08/12/18 18:50 INR 1.32 08/12/18 18:50 APTT 31.3 Seconds (26.9-38.3) 08/12/18 18:50 - Constitutional Appears: Non-toxic, No Acute Distress - Head Exam Head Exam: ATRAUMATIC, NORMOCEPHALIC - Eye Exam Eye Exam: EOMI, PERRL - ENT Exam ENT Exam: Mucous Membranes Moist Additional comments: poor dentition - Neck Exam Neck Exam: Full ROM - Respiratory Exam Respiratory Exam: Clear to Ausculation Bilateral, NORMAL BREATHING PATTERN. absent: Rales, Rhonchi, Wheezes - Cardiovascular Exam Cardiovascular Exam: REGULAR RHYTHM, +S1, +S2 - GI/Abdominal Exam GI & Abdominal Exam: Soft, Normal Bowel Sounds. absent: Firm, Guarding, Rigid - Extremities Exam Extremities Exam: Normal Capillary Refill, Pedal Edema (1+ bilaterally ). absent: Calf Tenderness - Neurological Exam Neurological Exam: Alert, Awake, CN II-XII Intact, Normal Gait, Oriented x3 Neuro motor strength exam: Left Upper Extremity: 5, Right Upper Extremity: 5, Right Lower Extremity: 5 - Psychiatric Exam Psychiatric exam: Normal Affect, Normal Mood - Skin Skin Exam: Dry, Warm Assessment and Plan - Assessment and Plan (Free Text) Assessment: - DARSHANA - Proteinuria - NSTEMI s/p stent x2 - CAD - Acute exacerbation of systolic CHF - HX CABGx4 - Uncontrolled DM2 - HTN Patient is noted to have elevated protein in his urine, spot protein/creatine ration yielded estimated 24 hour protein to be roughly 6.8 grams of protein. This significant proteinuria, elevation in creatinine, edema and normal albumin places this patient elevation in renal function into more of a nephrotic syndrome picture. Patient is to have more extensive work up into other etiologies. Will order renal ultrasound, complement levels, CATE, lupus panel, HI V, hepatitis B, C, urine protein, serum protein electrophoresis, ANCA. Will follow up this work up. Place patient on IVF 75ml/Hr at this time with close monitoring of volume status and respiratory effort. Continue to monitor patient renal function and urine output daily. Continue metoprolol and amlodipine for BP control. Continue brillita, aspirin and atorvastatin for CAD. Holding losartan, protonix at this time for renal protective strategy. Also change patient from lovenox to heparin due to acute renal injury. Contrast induced injury remains high on differential but with elevated proteinuria nephrotic work up needs to be conducted. Further recommendations per Dr. Lundberg <Ever Lundberg S - Last Filed: 08/15/18 15:41> Objective - Vital Signs/Intake and Output Vital Signs (last 24 hours): Temp Pulse Resp BP Pulse Ox 97.6 F 57 L 20 131/76 92 L 08/15/18 12:00 08/15/18 14:00 08/15/18 12:00 08/15/18 12:00 08/15/18 05:32 Intake and Output: 08/15/18 08/15/18 06:59 18:59 Intake Total 450 Output Total 450 Balance 0 - Medications Medications: Current Medications Amlodipine Besylate (Norvasc) 10 mg PO DAILY [facility] Last Admin: 08/15/18 09:45 Dose: 10 mg Aspirin (Aspirin Chewable) 81 mg PO DAILY [facility] Last Admin: 08/15/18 09:44 Dose: 81 mg Atorvastatin Calcium (Lipitor) 80 mg PO DIN [facility] Last Admin: 08/14/18 17:27 Dose: 80 mg Clonidine HCl (Catapres) 0.1 mg PO BID [facility] Last Admin: 08/15/18 09:44 Dose: 0.1 mg Furosemide (Lasix) 40 mg PO DAILY [facility] Gabapentin (Neurontin) 100 mg PO TID [facility]; Protocol Last Admin: 08/15/18 09:45 Dose: 100 mg Heparin Sodium (Porcine) (Heparin) 5,000 units SC Q8 [facility]; Protocol Hydralazine HCl (Apresoline) 10 mg IVP Q6 PRN PRN Reason: for SBP>160 Last Admin: 08/15/18 05:24 Dose: 10 mg Sodium Chloride (Sodium Chloride 0.9%) 1,000 mls @ 75 mls/hr IV .[id number] [facility] Stop: 08/16/18 11:39 Last Admin: 08/15/18 11:45 Dose: 75 mls/hr Insulin Human Regular (Humulin R Med) 0 units SC ACHS [facility]; Protocol Last Admin: 08/15/18 11:55 Dose: 5 units Losartan Potassium (Cozaar) 50 mg PO DAILY [facility] Metoprolol Tartrate (Lopressor) 100 mg PO BID [facility] Last Admin: 08/15/18 09:44 Dose: 100 mg Empagliflozin [ Jardiance] 10 Mg ( Home Med) 10 mg PO DAILY [facility] Last Admin: 08/15/18 09:44 Dose: Not Given Insulin Glargine,Hum .Rec.Anlog [Toujeo] Home Med 90 unit SQ BID [facility] Last Admin: 08/15/18 09:44 Dose: Not Given Ondansetron HCl (Zofran Inj) 4 mg IVP Q6H PRN PRN Reason: Nausea/Vomiting Last Admin: 08/13/18 08:01 Dose: 4 mg Ticagrelor (Brilinta) 90 mg PO BID [facility] Last Admin: 08/15/18 09:44 Dose: 90 mg - Labs Labs: 08/15/18 06:40 08/15/18 06:40 PT 14.7 SECONDS (9.4-12.5) H 08/12/18 18:50 INR 1.32 08/12/18 18:50 APTT 31.3 Seconds (26.9-38.3) 08/12/18 18:50 Assessment and Plan - Assessment and Plan (Free Text) Assessment: Pt seen and examined by me. I have reviewed the note of the medical records manager and I agree with it. I have discussed the assessment and plan with the resident. I have reviewed the medications and the last labs. Pt with DARSHANA which was present before the contrast was given. It was prerenal, since the pt was given Lasix and the Cr increased. The pt then received contrast. She is on ASA for her CAD. She has nephrotic range proteniuria and I will do further serological workup to r/o secondary causes. I will place him on IVF. BP is elevated and is on Amlodipin and Metoprolol. Will monitor for now asn pt is not able to get CARLINE/ARB for HTN. Diabetic nephropathy is still a strong possibility. Will get renal US. D/C Lovenox as pt has DARSHANA. D/C Protonix as this medication can cause DARSHANA.
--- NOTE | 2018-08-15 12:55 | PN ---
DATE: 08/15/2018 REASON FOR CONSULTATION AND FOLLOWUP: Acute non-STEMI, status post cardiac catheterization, two vessel angioplasty, decomposed congestive heart failure, [id number] systolic dysfunction. PHYSICAL EXAMINATION: VITAL SIGNS: Temperature afebrile. Heart rate 76 and blood pressure 155/76. HEENT: PERRLA. Extraocular muscles intact. NECK: Supple. No carotid bruit or thyromegaly. CHEST: Clear to auscultation. HEART: S1 and S2, regular. ABDOMEN: Soft. EXTREMITIES: Clubbing and cyanosis negative. LABORATORY DATA: WBC is 8.9, hemoglobin , hematocrit 31.1 and platelets of 274. Chemistry shows sodium 134, potassium 3.6, carbon dioxide 28, anion gap of 27, BUN 13 and creatinine 2.2. The patient had a MUGA scan done that showed ejection fraction of 53%. IMPRESSION: A 62-year-old male with a past medical history significant for coronary artery disease status post coronary artery bypass graft in 2014, quadruple bypass, history of percutaneous coronary intervention in December or January 2018 admitted with non-ST segmental myocardial infarction and decomposed congestive heart failure. Subsequently underwent two vessel angioplasty and hopi circumflex, saphenous vein graft to left posterior descending artery. Ejection fraction temporarily decreased after angioplasty. Yesterday MUGA done that showed ejection fraction of . The patient does not qualify for Entresto, we will resume back on ARB inhibitor, yesterday ARB was held. We will start low dose of losartan at 25 mg daily, continue metoprolol, continue atorvastatin, continue Lasix p.o., continue aspirin, continue Brilinta. THE PATIENT IS RESISTANT TO PLAVIX. We will put back on Lasix and started gentle fluid by Dr. Lundberg. We will follow with you. I will repeat the lab in the morning. Lizzy Calzada MD
--- NOTE | 2018-08-15 16:09 | US ---
PROCEDURE: Bilateral renal artery duplex ultrasound. CLINICAL HISTORY: Renal artery stenosis. Uncontrolled hypertension. Evaluate for renovascular hypertension. PHYSICIAN(S): Gianni Massey M.D. TECHNIQUE: Duplex sonography with color-flow Doppler was used to evaluate the visualized segments of the main renal arteries. The patient was evaluated in a fasting state. Imaging in a supine and decubitus position was performed. Limited evaluation of the arcuate waveforms and resistive indices were performed. FINDINGS: The overall quality of the study is adequate. The kidneys are normal in size, shape, and location. The right kidney measures 11.3cm in length and the left kidney measures 12.3cm in length. No solid renal masses, abnormal calcifications, or hydronephrosis is seen. The main right renal artery is well visualized from the aorta to the hilum. The peak systolic velocity in the right main renal artery is 94 cm/sec. This is consistent with a 0 to 49% stenosis in the main right renal artery. The arcuate waveforms are normal. The resistive index is normal. The main left renal artery is somewhat tortuous but fairly well seen.. The peak systolic velocity in the main left renal artery is 113cm/sec. This corresponds to a 0 to 49% stenosis in the main left renal artery. The arcuate waveforms and resistive indices are normal. IMPRESSION: 1. The main renal arteries are fairly well visualized. 2. No sonographically significant stenosis is identified. 3. The kidneys are normal and symmetric in size. There are no solid renal masses, abnormal calcifications or hydronephrosis noted.
[2018-08-15 17:16] LABS: HEPATITIS B SURFACE AG Negative (NEGATIVE)
[2018-08-15 17:22] LABS: HEPATITIS A IGM NEGATIVE (NEGATIVE); HEPATITIS B CORE AB NEGATIVE (NEGATIVE)
[2018-08-15 17:34] LABS: HEPATITIS C ANTIBODY NEGATIVE (NEGATIVE)
[2018-08-16] MEDS ORDERED: Levalbuterol 0.63 MG/3 ML Inhal Soln UD IH ONE (07:01)
[2018-08-16 07:17] LABS: BASO # 0.03 K/mm3 (0.0-2.0); BASO % 0.3 % (0.0-3.0); EOS # 0.2 (0.0-0.7); EOS % 2.3 % (1.5-5.0); HEMOGLOBIN 9.8 g/dL (14.0-18.0); LYMPH # 1.1 (1.2-3.4); LYMPH % 11.7 % (22.0-35.0); MEAN CELL VOLUME 85.3 fl (80.0-105.0); MEAN CORPUSCULAR HEMOGLOBIN 28.3 pg (25.0-35.0); MEAN CORPUSCULAR HGB CONC 33.2 g/dl (31.0-37.0); MEAN PLATELET VOLUME 9.2 fl (7.0-11.0); MONO # 0.5 (0.1-0.6); RBC 3.46 10^6/uL (3.5-6.1); RED CELL DISTRIBUTION WIDTH 13.9 % (11.5-14.5); WHITE BLOOD COUNT 9.7 10^3/uL (4.5-11.0)
[2018-08-16] MEDS ORDERED: Levalbuterol 0.63 MG/3 ML Inhal Soln UD IH PRN (08:05)
[2018-08-16 08:21] LABS: CALCIUM 7.9 mg/dL (8.4-10.5)
[2018-08-16] MEDS: Insulin Reg-MEDIUM-Coverage SC SCH ×4 (08:57→21:29)
--- NOTE | 2018-08-16 10:20 | CP.PCM.PN ---
Subjective - Date & Time of Evaluation Date of Evaluation: 08/16/18 Time of Evaluation: 06:45 - Subjective Subjective: Awake, alert, complaining of mild shortness of breath Reason for consultation and follow up:Cardiac follow up; Acute non STEMI, decom pensated acute on chronic systolic dysfunction congestive heart failure, coronary artery disease post stents Seen and examined by me and Dr. Calzada Objective - Vital Signs/Intake and Output Vital Signs (last 24 hours): Temp Pulse Resp BP Pulse Ox 98.2 F 64 18 155/70 H 92 L 08/16/18 05:50 08/16/18 05:51 08/16/18 05:50 08/16/18 09:00 08/16/18 05:50 Intake and Output: 08/16/18 08/16/18 06:59 18:59 Intake Total 2362 Output Total 885 Balance 1477 - Medications Medications: Current Medications Amlodipine Besylate (Norvasc) 10 mg PO DAILY [facility] Last Admin: 08/15/18 09:45 Dose: 10 mg Aspirin (Aspirin Chewable) 81 mg PO DAILY [facility] Last Admin: 08/15/18 09:44 Dose: 81 mg Atorvastatin Calcium (Lipitor) 80 mg PO DIN [facility] Last Admin: 08/15/18 17:44 Dose: 80 mg Clonidine HCl (Catapres) 0.1 mg PO BID [facility] Last Admin: 08/15/18 17:43 Dose: 0.1 mg Furosemide (Lasix) 40 mg PO DAILY [facility] Gabapentin (Neurontin) 100 mg PO TID [facility]; Protocol Last Admin: 08/15/18 17:44 Dose: 100 mg Heparin Sodium (Porcine) (Heparin) 5,000 units SC Q8 [facility]; Protocol Last Admin: 08/16/18 05:20 Dose: 5,000 units Hydralazine HCl (Apresoline) 10 mg IVP Q6 PRN PRN Reason: for SBP>160 Last Admin: 08/15/18 05:24 Dose: 10 mg Sodium Chloride (Sodium Chloride 0.9%) 1,000 mls @ 75 mls/hr IV .[id number] [facility] Stop: 08/16/18 11:39 Last Admin: 08/15/18 22:15 Dose: 75 mls/hr Insulin Human Regular (Humulin R Med) 0 units SC ACHS [facility]; Protocol Last Admin: 08/16/18 08:57 Dose: 3 units Levalbuterol HCl (Xopenex) 0.63 mg IH [id number] PRN PRN Reason: Shortness of Breath Losartan Potassium (Cozaar) 50 mg PO DAILY [facility] Metoprolol Tartrate (Lopressor) 100 mg PO BID [facility] Last Admin: 08/15/18 17:44 Dose: 100 mg Empagliflozin [ Jardiance] 10 Mg ( Home Med) 10 mg PO DAILY [facility] Last Admin: 08/15/18 09:44 Dose: Not Given Insulin Glargine,Hum .Rec.Anlog [Toujeo] Home Med 90 unit SQ BID [facility] Last Admin: 08/15/18 17:44 Dose: Not Given Ondansetron HCl (Zofran Inj) 4 mg IVP Q6H PRN PRN Reason: Nausea/Vomiting Last Admin: 08/13/18 08:01 Dose: 4 mg Ticagrelor (Brilinta) 90 mg PO BID [facility] Last Admin: 08/15/18 17:43 Dose: 90 mg - Labs Labs: 08/16/18 07:00 08/16/18 07:00 PT 14.7 SECONDS (9.4-12.5) H 08/12/18 18:50 INR 1.32 08/12/18 18:50 APTT 31.3 Seconds (26.9-38.3) 08/12/18 18:50 - Constitutional Appears: Non-toxic - Eye Exam Pupil Exam: NORMAL ACCOMODATION - ENT Exam ENT Exam: Mucous Membranes Dry - Respiratory Exam Respiratory Exam: Decreased Breath Sounds, Clear to Ausculation Bilateral Additional comments: mild shortness of breath - Cardiovascular Exam Cardiovascular Exam: REGULAR RHYTHM, +S1, +S2 - GI/Abdominal Exam GI & Abdominal Exam: Soft, Normal Bowel Sounds - Extremities Exam Extremities Exam: Full ROM Additional comments: 1-2+ edema - Neurological Exam Neurological Exam: Alert, Awake, Oriented x3 - Psychiatric Exam Psychiatric exam: Normal Affect, Normal Mood - Skin Skin Exam: Dry, Normal Color, Warm Assessment and Plan - Assessment and Plan (Free Text) Assessment: A 62 year old male obese who came in to the ER due to chest pain. Admitted for non-STEMI. History of peripheral vascular disease, CVA, hypertension, diabetes, coronary artery disease post coronary artery bypass grafting x 4 in 06/08/2011.Post PCI 12/2017. Cardiac cath done in this admission and showed marshall triple vessel disease, patent BEDOYA to distal LAD, patent squential SVT to OM1 and LPDA but distal SVG has 90% stenosis and patent SVG to RCA. PTCA of marshall circumflex and PTCA of SVG to LPDA done. LVEF 40-45%.MUGA done and LVEF53%. Resistant to Plavix so on Brilinta. Continue to diurese. on gentle fluid hydration for elevated creatinine. Complaining of mild shortness of breath. Plan: Mild shortness of breath Continue to diurese, extra Lasix today Gentle IV fluid hydration On Norvasc 10 mg daily, ASA 81 mg daily,Catapres 0.1 mg BID Lasix 40 mg daily,Cozaar 50 mg daily,Lopressor 100 mg BID, Brilinta 90 mg BID Continue current treatment Continue current medications Glucose control Will follow up Plan and treatment discussed with Dr. Calzada
[2018-08-16] MEDS: EMPAGLIFLOZIN 10 MG PO SCH (10:32)
[2018-08-16] MEDS: INSULIN GLARGINE HUM REC ANLOG SQ SCH ×2 (10:32→18:04)
[2018-08-16] MEDS: POLYETHYLENE GLYCOL 3350 17 GM/Dose PACKET PO SCH ×2 (10:58→18:06)
[2018-08-16] MEDS: Albuterol-Ipratrop 3 mg / 0.5 (3 ml) UD IH SCH ×2 (13:28→20:09)
--- NOTE | 2018-08-16 13:28 | PN ---
DATE: 08/16/2018 A 62-year-old white male, status post longstanding myocardial infarction, status post catheterization with two stents placed. Post-catheterization renal insufficiency, history of nephrotic-range proteinuria, insulin-dependent diabetes mellitus. The patient is improving slowly; however, still has elevated BUN and creatinine of 40 and 2.4. Hemoglobin is 9.8. Blood pressure 155/70. Blood sugar is 245 today. He is afebrile. The patient will start physical therapy and outpatient therapy. Continue to follow renal function. Continue treatment of post-contrast nephropathy and nephrotic syndrome. Chest is clear to auscultation. Heart examination regular sinus rhythm. The patient has no further chest pain. Rasta Cavazos MD
--- NOTE | 2018-08-16 13:53 | CP.PCM.PCO ---
Physician Communication Note - Physician Communication Note Physician Communication Note: PT eval pending
--- NOTE | 2018-08-16 14:22 | CP.PCM.PN ---
<Rodriguez Munoz - Last Filed: 08/16/18 14:30> Subjective - Date & Time of Evaluation Date of Evaluation: 08/16/18 Time of Evaluation: 08:30 - Subjective Subjective: Manish Munoz PGY2 - Nephrology Progress Note for Dr. Lundberg Patient seen and examined. He indicates that he is having some difficulty breathing. He reports adequate urination. He denies chest pain, abdominal discomfort, dizziness, urinary complaints. Patient requests evaluation from physical therapy as he wants help moving about his room. Objective - Vital Signs/Intake and Output Vital Signs (last 24 hours): Temp Pulse Resp BP Pulse Ox 97.6 F 80 19 149/77 92 L 08/16/18 12:00 08/16/18 12:00 08/16/18 12:00 08/16/18 12:00 08/16/18 05:50 Intake and Output: 08/16/18 08/16/18 06:59 18:59 Intake Total 2362 Output Total 885 Balance 1477 - Medications Medications: Current Medications Albuterol/Ipratropium (Duoneb 3 Mg/0.5 Mg (3 Ml) Ud) 3 ml IH [id number] [facility] Last Admin: 08/16/18 13:28 Dose: 3 ml Amlodipine Besylate (Norvasc) 10 mg PO DAILY [facility] Last Admin: 08/16/18 10:33 Dose: 10 mg Aspirin (Aspirin Chewable) 81 mg PO DAILY [facility] Last Admin: 08/16/18 10:31 Dose: 81 mg Atorvastatin Calcium (Lipitor) 80 mg PO DIN [facility] Last Admin: 08/15/18 17:44 Dose: 80 mg Clonidine HCl (Catapres) 0.1 mg PO BID [facility] Last Admin: 08/16/18 10:31 Dose: 0.1 mg Furosemide (Lasix) 40 mg PO DAILY [facility] Last Admin: 08/16/18 10:32 Dose: 40 mg Gabapentin (Neurontin) 100 mg PO TID [facility]; Protocol Last Admin: 08/16/18 10:33 Dose: 100 mg Heparin Sodium (Porcine) (Heparin) 5,000 units SC Q8 [facility]; Protocol Last Admin: 08/16/18 05:20 Dose: 5,000 units Hydralazine HCl (Apresoline) 10 mg IVP Q6 PRN PRN Reason: for SBP>160 Last Admin: 08/15/18 05:24 Dose: 10 mg Insulin Human Regular (Humulin R Med) 0 units SC ACHS [facility]; Protocol Last Admin: 08/16/18 12:33 Dose: 7 units Levalbuterol HCl (Xopenex) 0.63 mg IH [id number] PRN PRN Reason: Shortness of Breath Losartan Potassium (Cozaar) 50 mg PO DAILY [facility] Last Admin: 08/16/18 10:32 Dose: 50 mg Metoprolol Tartrate (Lopressor) 100 mg PO BID [facility] Last Admin: 08/16/18 10:33 Dose: 100 mg Empagliflozin [ Jardiance] 10 Mg ( Home Med) 10 mg PO DAILY [facility] Last Admin: 08/16/18 10:32 Dose: Not Given Insulin Glargine,Hum .Rec.Anlog [Toujeo] Home Med 90 unit SQ BID [facility] Last Admin: 08/16/18 10:32 Dose: Not Given Ondansetron HCl (Zofran Inj) 4 mg IVP Q6H PRN PRN Reason: Nausea/Vomiting Last Admin: 08/13/18 08:01 Dose: 4 mg Polyethylene Glycol (Miralax) 17 gm PO BID [facility] Last Admin: 08/16/18 10:58 Dose: 17 gm Ticagrelor (Brilinta) 90 mg PO BID [facility] Last Admin: 08/16/18 10:31 Dose: 90 mg - Labs Labs: 08/16/18 07:00 08/16/18 07:00 PT 14.7 SECONDS (9.4-12.5) H 08/12/18 18:50 INR 1.32 08/12/18 18:50 APTT 31.3 Seconds (26.9-38.3) 08/12/18 18:50 - Constitutional Appears: No Acute Distress - Head Exam Head Exam: ATRAUMATIC, NORMOCEPHALIC - Eye Exam Eye Exam: EOMI, PERRL - ENT Exam ENT Exam: Mucous Membranes Moist - Neck Exam Neck Exam: Full ROM - Respiratory Exam Respiratory Exam: Rales (mild right base), NORMAL BREATHING PATTERN - Cardiovascular Exam Cardiovascular Exam: REGULAR RHYTHM, +S1, +S2 - GI/Abdominal Exam GI & Abdominal Exam: Soft, Normal Bowel Sounds - Extremities Exam Extremities Exam: Full ROM. absent: Calf Tenderness, Pedal Edema - Neurological Exam Neurological Exam: Alert, Awake, Oriented x3 Neuro motor strength exam: Left Upper Extremity: 5, Right Upper Extremity: 5, Left Lower Extremity: 5, Right Lower Extremity: 5 - Psychiatric Exam Psychiatric exam: Normal Affect, Normal Mood - Skin Skin Exam: Dry, Warm Assessment and Plan - Assessment and Plan (Free Text) Assessment: - DARSHANA likely secondary to contrast nephropathy - Proteinuria - nephrotic range - NSTEMI s/p stent x2 - CAD - Acute exacerbation of systolic CHF - HX CABGx4 - Uncontrolled DM2 - HTN Patient nephrotic syndrome work up continues to populate. For the most part the work up has been negative. He continues to have adequate urine output and his increasing creatinine appears to be plateauing. WIll continue to monitor his Cr/BUN over the next 24 hours. He is finishing his prescribed IVF today and appears to be euvolemic clinically. Will continue to promote and maintain euvolemia. He has metoproll and amlodipine for BP control, brillinta, aspirin and atorvastatin to continue for CAD s/p stent. Continue to hold losaratan and protonix due to renal injury. Renal ultrasound showed no evidence of stenosis o r structural abnormalitiy. His protein and serum electrophoresis are pending. Follow up lab results. Further recommendations per Dr. Lundberg Patient seen, case and plan discussed and approved with attending, Dr. Lundberg <Ever Lundberg S - Last Filed: 08/16/18 20:39> Objective - Vital Signs/Intake and Output Vital Signs (last 24 hours): Temp Pulse Resp BP Pulse Ox 97.6 F 77 19 129/73 92 L 08/16/18 17:50 08/16/18 18:06 08/16/18 17:50 08/16/18 18:06 08/16/18 05:50 - Medications Medications: Current Medications Albuterol/Ipratropium (Duoneb 3 Mg/0.5 Mg (3 Ml) Ud) 3 ml IH [id number] [facility] Last Admin: 08/16/18 20:09 Dose: 3 ml Amlodipine Besylate (Norvasc) 10 mg PO DAILY [facility] Last Admin: 08/16/18 10:33 Dose: 10 mg Aspirin (Aspirin Chewable) 81 mg PO DAILY [facility] Last Admin: 08/16/18 10:31 Dose: 81 mg Atorvastatin Calcium (Lipitor) 80 mg PO DIN [facility] Last Admin: 08/16/18 18:06 Dose: 80 mg Clonidine HCl (Catapres) 0.1 mg PO BID [facility] Last Admin: 08/16/18 18:06 Dose: 0.1 mg Furosemide (Lasix) 40 mg PO DAILY [facility] Last Admin: 08/16/18 10:32 Dose: 40 mg Gabapentin (Neurontin) 100 mg PO TID [facility]; Protocol Last Admin: 08/16/18 18:06 Dose: 100 mg Heparin Sodium (Porcine) (Heparin) 5,000 units SC Q8 [facility]; Protocol Last Admin: 08/16/18 15:00 Dose: 5,000 units Hydralazine HCl (Apresoline) 10 mg IVP Q6 PRN PRN Reason: for SBP>160 Last Admin: 08/15/18 05:24 Dose: 10 mg Insulin Human Regular (Humulin R Med) 0 units SC ACHS [facility]; Protocol Last Admin: 08/16/18 18:07 Dose: 7 units Levalbuterol HCl (Xopenex) 0.63 mg IH [id number] PRN PRN Reason: Shortness of Breath Losartan Potassium (Cozaar) 50 mg PO DAILY [facility] Last Admin: 08/16/18 10:32 Dose: 50 mg Metoprolol Tartrate (Lopressor) 100 mg PO BID [facility] Last Admin: 08/16/18 18:06 Dose: 100 mg Empagliflozin [ Jardiance] 10 Mg ( Home Med) 10 mg PO DAILY [facility] Last Admin: 08/16/18 10:32 Dose: Not Given Insulin Glargine,Hum .Rec.Anlog [Toujeo] Home Med 90 unit SQ BID [facility] Last Admin: 08/16/18 18:04 Dose: Not Given Ondansetron HCl (Zofran Inj) 4 mg IVP Q6H PRN PRN Reason: Nausea/Vomiting Last Admin: 08/13/18 08:01 Dose: 4 mg Polyethylene Glycol (Miralax) 17 gm PO BID [facility] Last Admin: 08/16/18 18:06 Dose: 17 gm Ticagrelor (Brilinta) 90 mg PO BID [facility] Last Admin: 08/16/18 18:06 Dose: 90 mg - Labs Labs: 08/16/18 07:00 08/16/18 07:00 PT 14.7 SECONDS (9.4-12.5) H 08/12/18 18:50 INR 1.32 08/12/18 18:50 APTT 31.3 Seconds (26.9-38.3) 08/12/18 18:50 Assessment and Plan - Assessment and Plan (Free Text) Assessment: Pt seen and examined by me. I have reviewed the note of the medical science liaison and I agree with it. I have discussed the assessment and plan with the resident. I have reviewed the medications and the last labs.
[2018-08-16] MEDS ORDERED: Potassium Chloride 20 mEq ER Tab PO ONE ×2 (15:37→18:00)
--- NOTE | 2018-08-16 22:59 | PN ---
DATE: 08/16/2018 SUBJECTIVE: The patient was seen and examined, I do agree with the note of the biomedical engineering internship. I was involved in the plan of care. The patient has acute kidney injury. The creatinine is 2.4. He has coronary artery disease and had stents placed. The patient is currently comfortable. We will continue to follow the patient's creatine. I did speak to the patient's and updated her today. The patient is on Lipitor for dyslipidemia. He is on metoprolol for his coronary artery disease. He is on MiraLax for constipation. I did speak to Dr. Cavazos regarding the case. The patient's creatinine is starting to not increase as quickly as it initially was. The patient has iron saturation that is 20%. Hemoglobin is stable at 9.8. The patient's CATE has been negative, C complement has been negative. The hepatitis B, hepatitis C, has been negative as well. The patient does have significant proteinuria, this may be related to a diabetic nephropathy. Ever Lundberg MD
[2018-08-17] MEDS: Albuterol-Ipratrop 3 mg / 0.5 (3 ml) UD IH SCH ×3 (01:03→13:28)
[2018-08-17] MEDS ORDERED: MethylPREDNISolone 40 mg Vial IVP STA (01:49)
--- NOTE | 2018-08-17 02:01 | CP.PCM.PCO ---
Physician Communication Note - Physician Communication Note Physician Communication Note: see above
[2018-08-17] MEDS: Insulin Reg-MEDIUM-Coverage SC SCH ×2 (07:57→12:25)
--- NOTE | 2018-08-17 08:04 | CP.PCM.PN ---
Subjective - Date & Time of Evaluation Date of Evaluation: 08/17/18 Time of Evaluation: 06:35 - Subjective Subjective: Awake, alert, feels okay, denies shortness of breath Reason for consultation and follow up:Cardiac follow up; Acute non STEMI, decompensated acute on chronic systolic dysfunction congestive heart failure, coronary artery disease post stents Seen and examined by me and Dr. Calzada Objective - Vital Signs/Intake and Output Vital Signs (last 24 hours): Temp Pulse Resp BP Pulse Ox 98.2 F 86 18 183/80 H 92 L 08/17/18 06:00 08/17/18 06:00 08/17/18 06:00 08/17/18 06:00 08/17/18 06:00 Intake and Output: 08/17/18 08/17/18 06:59 18:59 Intake Total 450 Output Total 1100 Balance -650 - Medications Medications: Current Medications Albuterol/Ipratropium (Duoneb 3 Mg/0.5 Mg (3 Ml) Ud) 3 ml IH [id number] [facility] Last Admin: 08/17/18 01:03 Dose: 3 ml Amlodipine Besylate (Norvasc) 10 mg PO DAILY [facility] Last Admin: 08/16/18 10:33 Dose: 10 mg Aspirin (Aspirin Chewable) 81 mg PO DAILY [facility] Last Admin: 08/16/18 10:31 Dose: 81 mg Atorvastatin Calcium (Lipitor) 80 mg PO DIN [facility] Last Admin: 08/16/18 18:06 Dose: 80 mg Clonidine HCl (Catapres) 0.1 mg PO BID [facility] Last Admin: 08/16/18 18:06 Dose: 0.1 mg Furosemide (Lasix) 40 mg PO DAILY [facility] Last Admin: 08/16/18 10:32 Dose: 40 mg Gabapentin (Neurontin) 100 mg PO TID [facility]; Protocol Last Admin: 08/16/18 18:06 Dose: 100 mg Heparin Sodium (Porcine) (Heparin) 5,000 units SC Q8 [facility]; Protocol Last Admin: 08/17/18 05:07 Dose: 5,000 units Hydralazine HCl (Apresoline) 10 mg IVP Q6 PRN PRN Reason: for SBP>160 Last Admin: 08/17/18 05:35 Dose: 10 mg Insulin Human Regular (Humulin R Med) 0 units SC ACHS [facility]; Protocol Last Admin: 08/17/18 07:57 Dose: 8 units Levalbuterol HCl (Xopenex) 0.63 mg IH [id number] PRN PRN Reason: Shortness of Breath Last Admin: 08/17/18 03:48 Dose: 0.63 mg Losartan Potassium (Cozaar) 50 mg PO DAILY [facility] Last Admin: 08/16/18 10:32 Dose: 50 mg Metoprolol Tartrate (Lopressor) 100 mg PO BID [facility] Last Admin: 08/16/18 18:06 Dose: 100 mg Empagliflozin [ Jardiance] 10 Mg ( Home Med) 10 mg PO DAILY [facility] Last Admin: 08/16/18 10:32 Dose: Not Given Insulin Glargine,Hum .Rec.Anlog [Toujeo] Home Med 90 unit SQ BID [facility] Last Admin: 08/16/18 18:04 Dose: Not Given Ondansetron HCl (Zofran Inj) 4 mg IVP Q6H PRN PRN Reason: Nausea/Vomiting Last Admin: 08/13/18 08:01 Dose: 4 mg Polyethylene Glycol (Miralax) 17 gm PO BID [facility] Last Admin: 08/16/18 18:06 Dose: 17 gm Ticagrelor (Brilinta) 90 mg PO BID [facility] Last Admin: 08/16/18 18:06 Dose: 90 mg - Labs Labs: 08/16/18 07:00 08/16/18 07:00 PT 14.7 SECONDS (9.4-12.5) H 08/12/18 18:50 INR 1.32 08/12/18 18:50 APTT 31.3 Seconds (26.9-38.3) 08/12/18 18:50 - Constitutional Appears: Non-toxic, No Acute Distress - Head Exam Head Exam: NORMAL INSPECTION, NORMOCEPHALIC - Eye Exam Eye Exam: Normal appearance Pupil Exam: NORMAL ACCOMODATION - Respiratory Exam Respiratory Exam: Decreased Breath Sounds, Clear to Ausculation Bilateral, NORMAL BREATHING PATTERN - Cardiovascular Exam Cardiovascular Exam: REGULAR RHYTHM, +S1, +S2 - GI/Abdominal Exam GI & Abdominal Exam: Soft, Normal Bowel Sounds - Extremities Exam Extremities Exam: Full ROM Additional comments: 1-2+ edema - Neurological Exam Neurological Exam: Alert, Awake, Oriented x3 - Psychiatric Exam Psychiatric exam: Normal Affect, Normal Mood - Skin Skin Exam: Dry, Normal Color, Warm Assessment and Plan - Assessment and Plan (Free Text) Assessment: A 62 year old male obese who came in to the ER due to chest pain. Admitted for non-STEMI. History of peripheral vascular disease, CVA, hypertension, diabetes, coronary artery disease post coronary artery bypass grafting x 4 in 06/08/2011.Post PCI 12/2017. Cardiac cath done in this admission and showed kas[place] triple vessel disease, patent BEDOYA to distal LAD, patent squential SVT to OM1 and LPDA but distal SVG has 90% stenosis and patent SVG to RCA. PTCA of kasaan circumflex and PTCA of SVG to LPDA done. LVEF 40-45%.MUGA done and LVEF53%. Resistant to Plavix so on Brilinta. Continue to diurese. on gentle fluid hydration for elevated creatinine. Feels better today, denies shortness of breath. Discontinue telemetry. Discharge planning. Plan: Denies shortness of breath Heart rate stable Blood pressure stable Will discontinue telemetry Continue to diurese On Norvasc 10 mg daily, ASA 81 mg daily,Catapres 0.1 mg BID Lasix 40 mg daily,Cozaar 50 mg daily,Lopressor 100 mg BID, Brilinta 90 mg BID Continue current treatment Continue current medications Discharge planning Glucose control Will follow up Plan and treatment discussed with Dr. Calzada
[2018-08-17 08:10] LABS: BASO # 0.02 K/mm3 (0.0-2.0); BASO % 0.2 % (0.0-3.0); EOS % 0.1 % (1.5-5.0); HEMOGLOBIN 10.4 g/dL (14.0-18.0); LYMPH # 0.4 (1.2-3.4); LYMPH % 3.2 % (22.0-35.0); MEAN CELL VOLUME 85.8 fl (80.0-105.0); MEAN CORPUSCULAR HEMOGLOBIN 27.9 pg (25.0-35.0); MEAN CORPUSCULAR HGB CONC 32.5 g/dl (31.0-37.0); MEAN PLATELET VOLUME 9.6 fl (7.0-11.0); MONO # 0.1 (0.1-0.6); MONO % 0.8 % (1.0-6.0); PLATELET COUNT 337 10^3/uL (120.0-450.0); RBC 3.73 10^6/uL (3.5-6.1); WHITE BLOOD COUNT 11.4 10^3/uL (4.5-11.0)
[2018-08-17 08:30] LABS: CALCIUM 8.4 mg/dL (8.4-10.5)
[2018-08-17 08:43] LABS: ATYPICAL LYMPHOCYTE 1 % (0.0-0.0); LYMPHOCYTE 2 % (22.0-35.0); MONOCYTE 2 % (1.0-6.0); NEUTROPHIL 95 % (50.0-70.0)
[2018-08-17] MEDS: POLYETHYLENE GLYCOL 3350 17 GM/Dose PACKET PO SCH (09:16)
--- NOTE | 2018-08-17 11:01 | CP.PCM.PN ---
<Rodriguez Munoz - Last Filed: 08/17/18 10:58> Subjective - Date & Time of Evaluation Date of Evaluation: 08/17/18 Time of Evaluation: 10:58 - Subjective Subjective: Manish Munoz PGY2 - Nephrology Progress Note for Dr. Lundberg Patient seen and examined this AM. No acute events reported overnight. Patient clinically unchanged, reports mild respiratory difficulties off and on that are under control with current management. Denies chest pain, abdominal pain, nausea, vomiting, fever, chills, hematuria. Objective - Vital Signs/Intake and Output Vital Signs (last 24 hours): Temp Pulse Resp BP Pulse Ox 98.2 F 99 H 18 162/82 H 92 L 08/17/18 06:00 08/17/18 09:17 08/17/18 06:00 08/17/18 09:17 08/17/18 06:00 Intake and Output: 08/17/18 08/17/18 06:59 18:59 Intake Total 450 Output Total 1100 Balance -650 - Medications Medications: Current Medications Albuterol/Ipratropium (Duoneb 3 Mg/0.5 Mg (3 Ml) Ud) 3 ml IH [id number] [facility] Last Admin: 08/17/18 08:09 Dose: 3 ml Amlodipine Besylate (Norvasc) 10 mg PO DAILY [facility] Last Admin: 08/17/18 09:17 Dose: 10 mg Aspirin (Aspirin Chewable) 81 mg PO DAILY [facility] Last Admin: 08/17/18 09:18 Dose: 81 mg Atorvastatin Calcium (Lipitor) 80 mg PO DIN [facility] Last Admin: 08/16/18 18:06 Dose: 80 mg Clonidine HCl (Catapres) 0.1 mg PO BID [facility] Last Admin: 08/17/18 09:17 Dose: 0.1 mg Furosemide (Lasix) 40 mg PO DAILY [facility] Last Admin: 08/17/18 09:17 Dose: 40 mg Gabapentin (Neurontin) 100 mg PO TID [facility]; Protocol Last Admin: 08/17/18 09:17 Dose: 100 mg Heparin Sodium (Porcine) (Heparin) 5,000 units SC Q8 [facility]; Protocol Last Admin: 08/17/18 05:07 Dose: 5,000 units Hydralazine HCl (Apresoline) 10 mg IVP Q6 PRN PRN Reason: for SBP>160 Last Admin: 08/17/18 05:35 Dose: 10 mg Insulin Human Regular (Humulin R Med) 0 units SC ACHS [facility]; Protocol Last Admin: 08/17/18 07:57 Dose: 8 units Levalbuterol HCl (Xopenex) 0.63 mg IH [id number] PRN PRN Reason: Shortness of Breath Last Admin: 08/17/18 03:48 Dose: 0.63 mg Losartan Potassium (Cozaar) 50 mg PO DAILY [facility] Last Admin: 08/17/18 09:17 Dose: 50 mg Metoprolol Tartrate (Lopressor) 100 mg PO BID [facility] Last Admin: 08/17/18 09:16 Dose: 100 mg Empagliflozin [ Jardiance] 10 Mg ( Home Med) 10 mg PO DAILY [facility] Last Admin: 08/16/18 10:32 Dose: Not Given Insulin Glargine,Hum .Rec.Anlog [Toujeo] Home Med 90 unit SQ BID [facility] Last Admin: 08/16/18 18:04 Dose: Not Given Ondansetron HCl (Zofran Inj) 4 mg IVP Q6H PRN PRN Reason: Nausea/Vomiting Last Admin: 08/13/18 08:01 Dose: 4 mg Polyethylene Glycol (Miralax) 17 gm PO BID [facility] Last Admin: 08/17/18 09:16 Dose: 17 gm Ticagrelor (Brilinta) 90 mg PO BID [facility] Last Admin: 08/17/18 09:17 Dose: 90 mg - Labs Labs: 08/17/18 07:30 08/17/18 07:30 PT 14.7 SECONDS (9.4-12.5) H 08/12/18 18:50 INR 1.32 08/12/18 18:50 APTT 31.3 Seconds (26.9-38.3) 08/12/18 18:50 - Constitutional Appears: No Acute Distress - Head Exam Head Exam: ATRAUMATIC, NORMOCEPHALIC - Eye Exam Eye Exam: EOMI, PERRL - ENT Exam ENT Exam: Mucous Membranes Moist - Respiratory Exam Respiratory Exam: Rales, NORMAL BREATHING PATTERN - Cardiovascular Exam Cardiovascular Exam: REGULAR RHYTHM, +S1, +S2 - GI/Abdominal Exam GI & Abdominal Exam: Soft, Normal Bowel Sounds. absent: Firm, Guarding, Rigid - Extremities Exam Extremities Exam: Full ROM, Pedal Edema (mild bilaterally ) - Neurological Exam Neurological Exam: Alert, Awake, Oriented x3 Neuro motor strength exam: Left Upper Extremity: 5, Right Upper Extremity: 5, Left Lower Extremity: 5, Right Lower Extremity: 5 - Psychiatric Exam Psychiatric exam: Normal Affect, Normal Mood - Skin Skin Exam: Dry, Warm Assessment and Plan - Assessment and Plan (Free Text) Assessment: - DARSHANA likely secondary to contrast nephropathy - Proteinuria - nephrotic range - NSTEMI s/p stent x2 - CAD - Acute exacerbation of systolic CHF - HX CABGx4 - Uncontrolled DM2 - HTN Patient renal function improving, appears to plateaued and on the decline. Patient appears euvolemic. Urine output is good. Patient has metoprolol and amlodipine for BP control. He continues to be on ASA, Brillinta, Atorvastatin due to CAD s/p stent. Patient continues to be on lopressor, lasix, and losartan for CHF. Protein and serum electrophoresis still pending. Patient renal function appears to be returning to baseline. He is cleared for discharge at this point with appropriate follow up with primary care and lab work within 1 week upon discharge for monitoring of renal function. Patient seen, case and plan discussed and approved with attending, Dr. Lundberg <Ever Lundberg S - Last Filed: 08/17/18 12:07> Objective - Vital Signs/Intake and Output Vital Signs (last 24 hours): Temp Pulse Resp BP Pulse Ox 98.2 F 99 H 18 162/82 H 92 L 08/17/18 06:00 08/17/18 09:17 08/17/18 06:00 08/17/18 09:17 08/17/18 06:00 Intake and Output: 08/17/18 08/17/18 06:59 18:59 Intake Total 450 Output Total 1100 Balance -650 - Medications Medications: Current Medications Albuterol/Ipratropium (Duoneb 3 Mg/0.5 Mg (3 Ml) Ud) 3 ml IH [id number] [facility] Last Admin: 08/17/18 08:09 Dose: 3 ml Amlodipine Besylate (Norvasc) 10 mg PO DAILY [facility] Last Admin: 08/17/18 09:17 Dose: 10 mg Aspirin (Aspirin Chewable) 81 mg PO DAILY [facility] Last Admin: 08/17/18 09:18 Dose: 81 mg Atorvastatin Calcium (Lipitor) 80 mg PO DIN [facility] Last Admin: 08/16/18 18:06 Dose: 80 mg Clonidine HCl (Catapres) 0.1 mg PO BID [facility] Last Admin: 08/17/18 09:17 Dose: 0.1 mg Furosemide (Lasix) 40 mg PO DAILY [facility] Last Admin: 08/17/18 09:17 Dose: 40 mg Gabapentin (Neurontin) 100 mg PO TID [facility]; Protocol Last Admin: 08/17/18 09:17 Dose: 100 mg Heparin Sodium (Porcine) (Heparin) 5,000 units SC Q8 [facility]; Protocol Last Admin: 08/17/18 05:07 Dose: 5,000 units Hydralazine HCl (Apresoline) 10 mg IVP Q6 PRN PRN Reason: for SBP>160 Last Admin: 08/17/18 05:35 Dose: 10 mg Insulin Human Regular (Humulin R Med) 0 units SC ACHS [facility]; Protocol Last Admin: 08/17/18 07:57 Dose: 8 units Levalbuterol HCl (Xopenex) 0.63 mg IH [id number] PRN PRN Reason: Shortness of Breath Last Admin: 08/17/18 03:48 Dose: 0.63 mg Losartan Potassium (Cozaar) 50 mg PO DAILY [facility] Last Admin: 08/17/18 09:17 Dose: 50 mg Metoprolol Tartrate (Lopressor) 100 mg PO BID [facility] Last Admin: 08/17/18 09:16 Dose: 100 mg Empagliflozin [ Jardiance] 10 Mg ( Home Med) 10 mg PO DAILY [facility] Last Admin: 08/17/18 12:02 Dose: Not Given Insulin Glargine,Hum .Rec.Anlog [Toujeo] Home Med 90 unit SQ BID [facility] Last Admin: 08/17/18 12:03 Dose: Not Given Ondansetron HCl (Zofran Inj) 4 mg IVP Q6H PRN PRN Reason: Nausea/Vomiting Last Admin: 08/13/18 08:01 Dose: 4 mg Polyethylene Glycol (Miralax) 17 gm PO BID [facility] Last Admin: 08/17/18 09:16 Dose: 17 gm Ticagrelor (Brilinta) 90 mg PO BID [facility] Last Admin: 08/17/18 09:17 Dose: 90 mg - Labs Labs: 08/17/18 07:30 08/17/18 07:30 PT 14.7 SECONDS (9.4-12.5) H 08/12/18 18:50 INR 1.32 08/12/18 18:50 APTT 31.3 Seconds (26.9-38.3) 08/12/18 18:50 Assessment and Plan - Assessment and Plan (Free Text) Assessment: Patient was seen and examined by me. I have reviewed the note of the medical management trainer and have gone over the plan of care. I agree with the note. I have reviewed the medications and the last labs.
[2018-08-17] MEDS: EMPAGLIFLOZIN 10 MG PO SCH (12:02)
[2018-08-17] MEDS: INSULIN GLARGINE HUM REC ANLOG SQ SCH (12:03)
[2018-08-17] MEDS ORDERED: Insulin Regular 1 UNITS/0.01 ML ML SC STA (12:10)
--- NOTE | 2018-08-17 12:19 | PN ---
DATE: 08/17/2018 SUBJECTIVE: A 62-year-old white male admitted to the hospital with coronary artery disease. He also has renal insufficiency. BUN and creatinine are 42 and 2. The patient is approved for . We are waiting transfer, waiting for approval from insurance for transfer. The patient has no further shortness of breath. He does have nephrotic-range proteinuria and diabetic nephropathy. He was seen in consultation by Dr. Lundberg for Renal. PHYSICAL EXAMINATION: VITAL SIGNS: Stable. ASSESSMENT AND PLAN: The patient will be continuing to monitor his renal function, but he will be discharged for rehabilitation as soon as a bed is clear. Rasta Cavazos MD
--- NOTE | 2018-08-17 14:47 | PN ---
DATE: 08/17/2018 SUBJECTIVE: The patient was seen and examined. I do agree with the note of the durable medical equipment repairer. I was involved in the plan of care. The patient has acute kidney injury and his creatinine is 2. He has started to improve. He should continue to improve. He does have heavy proteinuria and this is most likely secondary to his diabetes. The patient has diabetic nephropathy. He has history of coronary artery disease. He is on Lipitor for his dyslipidemia. He has been started on Lasix. He was having shortness of breath overnight. The patient had a cardiac cath done by Dr. Calzada. The patient can be discharged and have repeat chemistry done as an outpatient while he is at the rehab facility. He is on Colace for his constipation. He is on Norvasc for his hypertension. He has been restarted on his losartan for his heart disease. He is also continuing with his Brilinta and aspirin. We will reorder CBC for the morning. Ever Lundberg MD
[2018-08-17 14:48] VITALS: BP 157/75; PULSE 67; RESP 19; TEMP 97
[2018-08-18 01:13] LABS: ANCA SCREEN NEGATIVE (NEGATIVE)
--- NOTE | 2018-08-18 22:00 | DS ---
HISTORY OF PRESENT ILLNESS: The patient is a 62-year-old white male admitted to the hospital with chest pain and was found to have non-STEMI myocardial infarction and was seen by Dr. Calzada. The patient was 2 stents placed. The patient did have some renal insufficiency, but improved, but does have nephrotic range proteinuria and was seen in consultation by Dr. Lundberg. The patient was stented and able to be discharge to rehab as to continue physical therapy and occupational therapy and followup on his renal insufficiency. The patient also has intermittent diabetes mellitus, bipolar, depression, hypertension, and peripheral vascular disease. FINAL DISCHARGE DIAGNOSES: Acute non-ST elevation myocardial infarction, coronary artery disease, stents x2, nephrotic range proteinuria, insulin-dependent diabetes mellitus, peripheral vascular disease, peripheral neuropathy, footdrop, bipolar, and depression. Rasta Cavazos MD
[2018-08-20 18:47] LABS: ALBUMIN (PEP) 2.2 g/dL (3.8-4.8); ALPHA-1-GLOBULIN (PEP) 0.4 g/dL (0.2-0.3)
== END 2018-08-17 18:24 | DRG 246 ==
LOC: ED 18:20 → ERH 20:44 → 2RNO 22:02 → 2RSO 08-13 10:36
PROVIDERS: ADMIT Internal Medicine; ATTEND Internal Medicine
PROC: 027035Z Dilation of Coronary Artery, One Artery with Two Drug-eluting Intraluminal Devices, Percutaneous Approach (ICD-10-PCS; principal; 2018-08-13)
PROC: 4A023N7 Measurement of Cardiac Sampling and Pressure, Left Heart, Percutaneous Approach (ICD-10-PCS; 2018-08-13)
PROC: B211YZZ Fluoroscopy of Multiple Coronary Arteries using Other Contrast (ICD-10-PCS; 2018-08-13)
PROC: B215YZZ Fluoroscopy of Left Heart using Other Contrast (ICD-10-PCS; 2018-08-13)
PROC: B218YZZ Fluoroscopy of Left Internal Mammary Bypass Graft using Other Contrast (ICD-10-PCS; 2018-08-13)
PROC: B212YZZ Fluoroscopy of Single Coronary Artery Bypass Graft using Other Contrast (ICD-10-PCS; 2018-08-13)
DX: I21.4 Non-ST elevation (NSTEMI) myocardial infarction (principal); I50.23 Acute on chronic systolic (congestive) heart failure; N17.9 Acute kidney failure, unspecified; I13.0 Hypertensive heart and chronic kidney disease with heart failure and stage 1 through stage 4 chronic kidney disease, or unspecified chronic kidney disease; F31.30 Bipolar disorder, current episode depressed, mild or moderate severity, unspecified; I25.110 Atherosclerotic heart disease of native coronary artery with unstable angina pectoris; E11.65 Type 2 diabetes mellitus with hyperglycemia; T50.8X5A Adverse effect of diagnostic agents, initial encounter; N14.1 Nephropathy induced by other drugs, medicaments and biological substances; E88.09 Other disorders of plasma-protein metabolism, not elsewhere classified; N18.3 Chronic kidney disease, stage 3 (moderate); E11.22 Type 2 diabetes mellitus with diabetic chronic kidney disease; R80.9 Proteinuria, unspecified; D64.9 Anemia, unspecified; E11.51 Type 2 diabetes mellitus with diabetic peripheral angiopathy without gangrene; E11.40 Type 2 diabetes mellitus with diabetic neuropathy, unspecified; E11.42 Type 2 diabetes mellitus with diabetic polyneuropathy; E78.5 Hyperlipidemia, unspecified; I25.5 Ischemic cardiomyopathy; K59.00 Constipation, unspecified; E66.9 Obesity, unspecified; E11.21 Type 2 diabetes mellitus with diabetic nephropathy; J44.9 Chronic obstructive pulmonary disease, unspecified; M21.379 Foot drop, unspecified foot; I25.2 Old myocardial infarction; Z68.33 Body mass index [BMI] 33.0-33.9, adult; Z86.73 Personal history of transient ischemic attack (TIA), and cerebral infarction without residual deficits; Z79.84 Long term (current) use of oral hypoglycemic drugs; Z79.899 Other long term (current) drug therapy; Z79.4 Long term (current) use of insulin; Z87.891 Personal history of nicotine dependence; Z79.02 Long term (current) use of antithrombotics/antiplatelets; Z95.5 Presence of coronary angioplasty implant and graft; Z95.1 Presence of aortocoronary bypass graft

== ENCOUNTER 2018-09-19 16:07 | Emergency (ER) | payer MEDICARE, OTHER ==
[2018-09-19 16:08] VITALS: BMI 35.2
[2018-09-19 16:23] VITALS: RESP 18; TEMP 98.1
--- NOTE | 2018-09-19 16:33 | ED PDOC ---
Arrival/HPI - General Chief Complaint: High Blood Pressure Time Seen by Provider: 09/19/18 16:16 Historian: Patient - History of Present Illness Narrative History of Present Illness (Text): 09/19/18 16:16 Patient is a 62 year old male, with a past medical history of hypertension and diabetes, sent to the emergency department by Dr. Cavazos for elevated blood pressure and blood sugar since today. Patient informs his physical therapist (routine physical therapy at home) called Dr. Cavazos concerned for elevated blood pressure and was advised to visit ED. Patient informs blood pressure at home read 181 / 80; blood sugar read 348. Patient also notes multiple episodes of vomiting, cough, and right lower quadrant pain. Patient informs forgetting to take antihypertensive and antidiabetic medications today. Patient denies fevers, headache, dizziness, chest pain, shortness of breath, diarrhea, dysuria, hematuria, back pain, neck pain, or any other complaint. 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) Hx Cataracts: No Hx Deafness: No Hx Difficulty Chewing: No Hx Epistaxis: No Hx Glaucoma: No Hx Macular Degeneration: No - Renal Hx Renal Failure: No - Endocrine/Metabolic Hx Diabetes Mellitus Type 2: Yes - Hematological/Oncological Hx Cancer: No - Integumentary Hx Dermatological Disorder: No Hx Basal Cell Carcinoma: No Hx Eczema: No Hx Melanoma: No Hx Psoriasis: No Hx Squamous Cell Carcinoma: No - Musculoskeletal/Rheumatological Hx Arthritis: Yes - Gastrointestinal Hx Gastrointestinal Disorders: No Hx Colostomy: No Hx Crohn's Disease: No Hx Diverticulitis: No Hx Gall Bladder Disease: No Hx Gastroesophageal Reflux: No Hx Ileostomy: No Hx Liver Failure: No Hx Pancreatitis: No HX Swallowing Problems: No - Genitourinary/Gynecological Hx Genitourinary Disorders: No Hx Hematuria: No Hx Incontinence: No Hx Prostate Problems: No Hx Sexually Transmitted Diseases: No Hx Urinary Tract Infection: No - Psychiatric Hx Psychophysiologic Disorder: Yes Hx Anxiety: Yes Hx Bipolar Disorder: Yes Hx Depression: Yes Hx Emotional Abuse: No Hx Hallucinations: No Hx Panic Disorder: No Hx Post Traumatic Stress Disorder: No Hx Psychosis: No Hx Physical Abuse: No Hx Schizophrenia: Yes Hx Sexual Abuse: No Hx Substance Use: No - Surgical History Hx Mastectomy: No - Anesthesia Hx Anesthesia: Yes Hx Anesthesia Reactions: No Hx Malignant Hyperthermia: No - Suicidal Assessment Feels Threatened In Home Enviroment: No Family/Social History - Physician Review Nursing Documentation Reviewed: Yes Family/Social History: Unknown Family HX Smoking Status: Former Smoker Hx Alcohol Use: Yes Hx Substance Use: No Hx Substance Use Treatment: No Allergies/Home Meds Allergies/Adverse Reactions: Allergies No Known Allergies Allergy (Verified 09/19/18 16:24) Home Medications: Home Meds Medication Instructions Recorded Confirmed Dexlansoprazole [Dexilant] 60 mg PO DAILY 03/29/18 03/29/18 Empagliflozin [Jardiance] 10 mg PO DAILY 03/29/18 03/29/18 Insulin Glargine,Hum.rec.anlog 90 unit SQ BID 03/29/18 03/29/18 [Toujeo Solostar] Liraglutide [Victoza 2-Dangelo] 0.6 mg SQ BID 03/29/18 03/29/18 traMADol [Ultram] 50 mg PO PRN PRN 03/29/18 03/29/18 Review of Systems - Physician Review All systems were reviewed & negative as marked: Yes - Review of Systems Constitutional: Other (elevated blood sugar). absent: Fevers Respiratory: absent: SOB, Cough Cardiovascular: Other (elevated blood pressure ). absent: Chest Pain Gastrointestinal: Abdominal Pain (RLQ), Nausea, Vomiting. absent: Diarrhea Genitourinary Male: absent: Dysuria, Hematuria Musculoskeletal: absent: Back Pain, Neck Pain Neurological: absent: Headache, Dizziness Physical Exam Vital Signs Reviewed: Yes Vital Signs Temp Pulse Resp BP Pulse Ox 09/19/18 16:23 98.1 F 96 H 18 160/90 H 99 Temperature: Afebrile Blood Pressure: Hypertensive Pulse: Regular Respiratory Rate: Normal Appearance: Positive for: Well-Appearing, Non-Toxic, Comfortable Pain Distress: None Mental Status: Positive for: Alert and Oriented X 3 - Systems Exam Head: Present: Atraumatic, Normocephalic Pupils: Present: PERRL Extroacular Muscles: Present: EOMI Conjunctiva: Present: Normal Mouth: Present: Moist Mucous Membranes Neck: Present: Normal Range of Motion Respiratory/Chest: Present: Clear to Auscultation, Good Air Exchange. No: Respiratory Distress, Accessory Muscle Use, Wheezes, Rales, Rhonchi Cardiovascular: Present: Regular Rate and Rhythm, Normal S1, S2. No: Murmurs, Rub, Gallop Abdomen: Present: Normal Bowel Sounds. No: Tenderness, Distention, Peritoneal Signs, Rebound, Guarding Back: Present: Normal Inspection Upper Extremity: Present: Normal Inspection. No: Cyanosis, Edema Lower Extremity: Present: Other (right foot bandaged). No: Edema Neurological: Present: GCS=15, CN II-XII Intact, Speech Normal Skin: Present: Warm, Dry, Normal Color. No: Rashes Psychiatric: Present: Alert, Oriented x 3, Normal Insight, Normal Concentration Medical Decision Making ED Course and Treatment: 09/19/18 16:16 Impression: Patient is a 62 year old male, with a past medical history of diabetes and hypertension, sent to the ED by Dr. Cavazos for elevated blood pressure and blood sugar. Plan: -- Labs -- Cozaar -- Humulin -- Reassess and disposition Prior Visits: Notes and results from previous visits were reviewed. Progress Notes: - Scribe Statement The provider has reviewed the documentation as recorded by the Scribe Lois Acosta All medical record entries made by the Scribe were at my direction and personally dictated by me. I have reviewed the chart and agree that the record accurately reflects my personal performance of the history, physical exam, medical decision making, and the department course for this patient. I have also personally directed, reviewed, and agree with the discharge instructions and disposition. Disposition/Present on Arrival - Present on Arrival Any Indicators Present on Arrival: Yes History of DVT/PE: Yes History of Uncontrolled Diabetes: Yes Urinary Catheter: No History of Decub. Ulcer: No History Surgical Site Infection Following: None - Disposition Have Diagnosis and Disposition been Completed?: Yes Diagnosis: Hyperglycemia, Hypertension Disposition: HOME/ ROUTINE Disposition Time: 17:40 Patient Problems: Current Active Problems Problem Status Onset Hyperglycemia Acute Hypertension Acute Condition: IMPROVED Discharge Instructions (ExitCare): High Blood Pressure in Adults, Foot Care for Diabetics Additional Instructions: LOIS DE SOUZA, thank you for letting us take care of you today. The emergency medical care you received today was directed at your acute symptoms. If you were prescribed any medication, please fill it and take as directed. It may take several days for your symptoms to resolve. Return to the Emergency Department if your symptoms worsen, do not improve, or if you have any other problems. Please contact your doctor or call one of the physicians/clinics you have been referred to that are listed on the Patient Visit Information form that is included in your discharge packet. Bring any paperwork you were given at discharge with you along with any medications you are taking to your follow up visit. Our treatment cannot replace ongoing medical care by a primary care provider outside of the emergency department. Thank you for allowing the [facility] team to be part of your care today. TAKE YOUR MEDICATIONS PRESCRIBED EVERYDAY. Follow up with Dr. Cavazos tomorrow to make an appointment for the end of this week. Referrals: Rasta Cavazos MD [Staff Provider] - Follow up with primary Forms: [employer] ([place])
[2018-09-19] MEDS ORDERED: Insulin Regular 1 UNITS/0.01 ML ML IVP STA (16:36)
[2018-09-19 17:01] LABS: BASO # 0.04 K/mm3 (0.0-2.0); BASO % 0.6 % (0.0-3.0); EOS # 0.1 (0.0-0.7); EOS % 1.5 % (1.5-5.0); HEMOGLOBIN 10.3 g/dL (14.0-18.0); LYMPH # 1.1 (1.2-3.4); LYMPH % 16.6 % (22.0-35.0); MEAN CELL VOLUME 84.1 fl (80.0-105.0); MEAN CORPUSCULAR HEMOGLOBIN 27.8 pg (25.0-35.0); MEAN CORPUSCULAR HGB CONC 33.1 g/dl (31.0-37.0); MEAN PLATELET VOLUME 9.1 fl (7.0-11.0); MONO # 0.3 (0.1-0.6); MONO % 4.5 % (1.0-6.0); RBC 3.7 10^6/uL (3.5-6.1); RED CELL DISTRIBUTION WIDTH 14.3 % (11.5-14.5); WHITE BLOOD COUNT 6.7 10^3/uL (4.5-11.0)
[2018-09-19 17:07] LABS: ALB/GLOB RATIO 0.9 (1.1-1.8); ALBUMIN 3.5 g/dL (3.0-4.8); ALT/SGPT 8 U/L (7-56); AST/SGOT 18 U/L (17-59); BLOOD UREA NITROGEN 19 mg/dL (7-21); CALCIUM 8.6 mg/dL (8.4-10.5); GFR NON-AFRICAN AMERICAN 56
[2018-09-19 17:10] LABS: VENOUS BLOOD GAS BASE EXCESS -2.8 mmol/L (0.0-2.0); VENOUS BLOOD GAS PO2 35 mm/Hg (30-55); VENOUS BLOOD PH 7.26 (7.32-7.43)
[2018-09-19 23:17] VITALS: BP 148/86; PULSE 89; O2SAT 98
== END 2018-09-19 23:19 | disposition home or self-care (01) ==
LOC: ED 16:07
DX: I10 Essential (primary) hypertension (principal); E11.65 Type 2 diabetes mellitus with hyperglycemia; J44.9 Chronic obstructive pulmonary disease, unspecified; H54.62 Unqualified visual loss, left eye, normal vision right eye; Z86.73 Personal history of transient ischemic attack (TIA), and cerebral infarction without residual deficits; Z95.1 Presence of aortocoronary bypass graft; Z87.891 Personal history of nicotine dependence

== ENCOUNTER 2018-10-02 23:16 | Inpatient (IN) | payer MEDICARE, OTHER ==
[2018-10-02 23:16] VITALS: BMI 35.2
[2018-10-03 00:21] LABS: BASO # 0.04 K/mm3 (0.0-2.0); BASO % 0.4 % (0.0-3.0); EOS # 0.1 (0.0-0.7); EOS % 0.9 % (1.5-5.0); HEMOGLOBIN 10.8 g/dL (14.0-18.0); LYMPH # 1.2 (1.2-3.4); LYMPH % 10.5 % (22.0-35.0); MEAN CELL VOLUME 82.4 fl (80.0-105.0); MEAN PLATELET VOLUME 9.3 fl (7.0-11.0); MONO # 0.7 (0.1-0.6); MONO % 6.8 % (1.0-6.0); RBC 3.86 10^6/uL (3.5-6.1); RED CELL DISTRIBUTION WIDTH 14.8 % (11.5-14.5)
[2018-10-03 00:25] LABS: INR 1.27; PARTIAL THROMBOPLASTIN TIME 30.9 Seconds (26.9-38.3); PROTHROMBIN TIME 14.1 SECONDS (9.4-12.5)
[2018-10-03 00:36] LABS: TROPONIN I 0.03 ng/mL
[2018-10-03 00:38] LABS: ALBUMIN 3.8 g/dL (3.0-4.8); CALCIUM 8.9 mg/dL (8.4-10.5)
[2018-10-03] MEDS: Sodium Chloride 0.9% 1,000 ML IV SCH (01:22)
--- NOTE | 2018-10-03 01:40 | ED PDOC ---
Arrival/HPI - General Chief Complaint: Altered Mental Status Time Seen by Provider: 10/02/18 23:51 Historian: Patient, Spouse - History of Present Illness Narrative History of Present Illness (Text): 10/03/18 00:14 62 year old male, whose past medical history includes hypertension, CAD with stents, diabetes, peripheral vascular disease, and orthostatic hypertension, presents to the emergency department by EMS, for AMS. Initially in triage notes, patient was noted as having periods of AMS during the day. On arrival to the ER, patient was triaged and protocol labs were ordered, TIA/CVA had not been entertained by triage at that time as patient was normal with no stroke history at that time . Upon evaluation of patient, and discussion with now present, it was further elucidated that patient had been sleeping all day, and 2-3 hours before arrival, was noted by to be confused, poorly responsive, and having some questionable drooping of left side of his mouth and face. This was transient, and upon arrival to the ER, patient was awake, alert, and oriented x3. Patient has no facial drooping or focal weakness. Given this history, elucidated by the at this time, code stroke was called at 00:14. Patient denies any headache or shortness of breath. Patient informs of some occasional right-sided chest and shoulder pain. Patient also denies any fevers, chills, dizziness, chest pain, dyspnea on exertion, cough, abdominal pain, nausea, vomiting, diarrhea, back pain, neck pain, or any other complaint. Time/Duration: 1-3 hours Symptom Onset: Gradual Symptom Course: Resolved Activities at Onset: Rest, Light, Sleeping Context: Home Past Medical History - Provider Review Nursing Documentation Reviewed: Yes - Infectious Disease Hx of Infectious Diseases: None - Tetanus Immunization Tetanus Immunization: Unknown - Cardiac Hx Cardiac Disorders: Yes (EF 35%, S/P CABG.) Hx Hypertension: Yes - Pulmonary Hx Respiratory Disorders: Yes Hx Chronic Obstructive Pulmonary Disease (COPD): Yes - Neurological Hx Neurological Disorder: Yes HX Cerebrovascular Accident: Yes (R side weakness) - HEENT Hx HEENT Disorder: No 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) Hx Cataracts: No Hx Deafness: No Hx Difficulty Chewing: No Hx Epistaxis: No Hx Glaucoma: No Hx Macular Degeneration: No - Renal Hx Renal Failure: No - Endocrine/Metabolic Hx Endocrine Disorders: Yes Hx Diabetes Mellitus Type 2: Yes - Hematological/Oncological Hx Cancer: No - Integumentary Hx Dermatological Disorder: No Hx Basal Cell Carcinoma: No Hx Eczema: No Hx Melanoma: No Hx Psoriasis: No Hx Squamous Cell Carcinoma: No - Musculoskeletal/Rheumatological Hx Musculoskeletal Disorders: Yes Hx Arthritis: Yes - Gastrointestinal Hx Gastrointestinal Disorders: No Hx Colostomy: No Hx Crohn's Disease: No Hx Diverticulitis: No Hx Gall Bladder Disease: No Hx Gastroesophageal Reflux: No Hx Ileostomy: No Hx Liver Failure: No Hx Pancreatitis: No HX Swallowing Problems: No - Genitourinary/Gynecological Hx Genitourinary Disorders: No Hx Hematuria: No Hx Incontinence: No Hx Prostate Problems: No Hx Sexually Transmitted Diseases: No Hx Urinary Tract Infection: No - Psychiatric Hx Psychophysiologic Disorder: Yes Hx Anxiety: Yes Hx Bipolar Disorder: Yes Hx Depression: Yes Hx Emotional Abuse: No Hx Hallucinations: No Hx Panic Disorder: No Hx Post Traumatic Stress Disorder: No Hx Psychosis: No Hx Physical Abuse: No Hx Schizophrenia: Yes Hx Sexual Abuse: No Hx Substance Use: No - Surgical History Hx Amputation: Yes (R first and second toes) Hx Mastectomy: No - Anesthesia Hx Anesthesia: Yes Hx Anesthesia Reactions: No Hx Malignant Hyperthermia: No - Suicidal Assessment Feels Threatened In Home Enviroment: No Family/Social History - Physician Review Nursing Documentation Reviewed: Yes Family/Social History: No Known Family HX Smoking Status: Former Smoker Hx Alcohol Use: Yes Hx Substance Use: No Hx Substance Use Treatment: No Allergies/Home Meds Allergies/Adverse Reactions: Allergies No Known Allergies Allergy (Verified 09/19/18 16:24) Home Medications: Home Meds Medication Instructions Recorded Confirmed Dexlansoprazole [Dexilant] 60 mg PO DAILY 03/29/18 03/29/18 Empagliflozin [Jardiance] 10 mg PO DAILY 03/29/18 03/29/18 Insulin Glargine,Hum.rec.anlog 90 unit SQ BID 03/29/18 03/29/18 [Kya Solemily] Liraglutide [Victoza 2-Dangelo] 0.6 mg SQ BID 03/29/18 03/29/18 traMADol [Ultram] 50 mg PO PRN PRN 03/29/18 03/29/18 Review of Systems - Physician Review All systems were reviewed & negative as marked: Yes - Review of Systems Constitutional: absent: Fevers, Night Sweats Respiratory: absent: SOB, Cough Cardiovascular: Chest Pain. absent: RICHARD Gastrointestinal: absent: Abdominal Pain, Diarrhea, Nausea, Vomiting Musculoskeletal: absent: Back Pain, Neck Pain Neurological: Facial Droop (Prior to arrival), Other (Prior to arrival AMS symptoms). absent: Headache, Dizziness Physical Exam Vital Signs Reviewed: Yes Vital Signs Temp Pulse Resp BP Pulse Ox 10/03/18 01:24 77 19 162/74 H 96 10/02/18 23:23 97.7 F 61 18 128/101 H 97 Temperature: Afebrile Blood Pressure: Hypertensive Pulse: Regular Respiratory Rate: Normal Appearance: Positive for: Well-Appearing, Non-Toxic, Comfortable Pain Distress: None Mental Status: Positive for: Alert and Oriented X 3 - Systems Exam Head: Present: Atraumatic, Normocephalic Pupils: Present: PERRL Extroacular Muscles: Present: EOMI Conjunctiva: Present: Normal Mouth: Present: Moist Mucous Membranes Neck: Present: Normal Range of Motion Respiratory/Chest: Present: Clear to Auscultation, Good Air Exchange. No: Respiratory Distress, Accessory Muscle Use Cardiovascular: Present: Regular Rate and Rhythm, Normal S1, S2. No: Murmurs Abdomen: No: Tenderness, Distention, Peritoneal Signs Back: Present: Normal Inspection Upper Extremity: Present: Normal Inspection. No: Cyanosis, Edema Lower Extremity: Present: Normal Inspection. No: Edema Neurological: Present: GCS=15, CN II-XII Intact, Speech Normal, Motor Func Grossly Intact, Normal Sensory Function Skin: Present: Warm, Dry, Normal Color. No: Rashes Psychiatric: Present: Alert, Oriented x 3, Normal Insight, Normal Concentration Medical Decision Making ED Course and Treatment: 10/03/18 01:46 Impression: 62 year old male presents for evaluation of episode of AMS and chest pain. Plan: -- Type and Screen -- CT Head -- EKG -- Labs -- Stroke team Consult -- Chest X-ray -- Aspirin -- Reassess and disposition Prior Visits: Notes and results from previous visits were reviewed. Progress Notes: 10/03/18 12:14 Code stroke called. 10/03/18 01:15 CT scan of the head CLINICAL HISTORY: Stroke. TECHNIQUE: Multiple axial CT images were obtained through the brain without IV contrast material. COMPARISON: 07/04/17. COMMENTS: Unchanged peritrigonal benign chronic white matter calcifications. Unchanged bilateral benign-appearing calcifications of the dentate nuclei. There is normal configuration of sella turcica. There are no intra or extra- axial collections. There is no mass effect or midline shift. There is no evidence of hematoma formation. No hydrocephalus is present. The ventricles are symmetrical. No abnormal calcifications are present. There is diffuse age-appropriate cerebellar and cerebral atrophy with proportionally dilated ventricles and cortical sulci. There are bilateral periventricular and subcortical white matter hypolucencies compatible with mild chronic microvascular disease. Otherwise, no significant focal abnormalities are seen either in the posterior fossa or supratentorial compartment. IMPRESSION: 1. Age-appropriate cerebellar and cerebral atrophy. 2. Mild chronic microvascular disease. 3. No evidence of acute intracranial pathology. 10/03/18 01:[address] Ott, not a candidate for tPA, aspirin given. No further studies ordered at this time. 10/03/18 03:17 Chest X-ray reviewed by me, shows: No acute process. 10/03/18 04:44 Case discussed with [employer] covering for Dr Cavazos accepts to his service, states further consults will be placed by Dr Cavazos - Lab Interpretations Lab Results: PT 14.1 SECONDS (9.4-12.5) H 10/03/18 00:05 INR 1.27 10/03/18 00:05 APTT 30.9 Seconds (26.9-38.3) 10/03/18 00:05 Troponin I 0.03 ng/mL D 10/03/18 00:05 Total Bilirubin 0.5 mg/dL (0.2-1.3) 10/03/18 00:05 AST 25 U/L (17-59) 10/03/18 00:05 ALT 12 U/L (7-56) 10/03/18 00:05 Alkaline Phosphatase 102 U/L (38-126) 10/03/18 00:05 Total Protein 7.6 g/dL (5.8-8.3) 10/03/18 00:05 Albumin 3.8 g/dL (3.0-4.8) 10/03/18 00:05 Globulin 3.8 gm/dL 10/03/18 00:05 Albumin/Globulin Ratio 1.0 (1.1-1.8) L 10/03/18 00:05 - RAD Interpretation Radiology Orders: 10/03/18 00:06 CHEST ONE VIEW [RAD] Stat 10/03/18 00:17 HEAD W/O (CODE STROKE) [CT] Stat - Medication Orders Current Medication Orders: Sodium Chloride (Sodium Chloride 0.9%) 1,000 mls @ 100 mls/hr IV .Q10H LANRE Discontinued Medications Aspirin (Aspirin) 325 mg PO STAT STA Stop: 10/03/18 01:05 NIHSS Scale ([place]) Time Performed: 12:14 - How Severe is the Stoke Baseline Level of Consciousness: 0=Alert LOC to Questions: 0=Both comments correct LOC to commands: 0=Obeys both correctly Best Gaze: 0=Normal Visual: 0=No visual loss Facial: 0=Normal Motor Arm - Left: 0=No drift Motor Arm - Right: 0=No drift Motor Leg - Left: 0=No drift Motor Leg - Right: 0=No drift Limb Ataxia: 0=Absent Sensory: 0=Normal Best Language: 0=No aphasia Dysarthia: 0=Normal articulation Extinction & Inattention (Neglect): 0=Normal, no object Score: 0 Risk Level: No Stroke Risk rTPA Inclusion/Exclusion - Refusal of Treatment Patient Refused Treatment: No - Inclusion Criteria for Altepase All of the below criteria for inclusion were reviewed: Yes Patient is 18 years or Older: Yes The Clinical Diagnosis of Ischemic Stroke That is Causing a Potentially Disabling Neurological Deficit: No Time of Onset is Well Established to be Less Than 270 Minute Before Treatment Would Begin: No Risk/Benefit Discussed With Patient/Family Member Present: Yes - Exclusion Criteria for Altepase Current Intracranial Hemorrhage: No Subarachnoid hemorrhage: No Active Internal Bleeding: No Recent (within 3 months) Intracranial or Intraspinal Surgery: No Presence of intracranial conditions that may increase the risk of bleeding: Not Applicable Bleeding Diathesis Including but not limited to: Not Applicable Current Severe Uncontrolled Hypertension: No - Warning to TPA With Conditions Following Conditions Weighed Against Anticipated Benefit: No Disposition/Present on Arrival - Present on Arrival Any Indicators Present on Arrival: No History of DVT/PE: Yes History of Uncontrolled Diabetes: Yes Urinary Catheter: No History of Decub. Ulcer: No History Surgical Site Infection Following: None - Disposition Have Diagnosis and Disposition been Completed?: Yes Diagnosis: TIA (transient ischemic attack), Chest pain Disposition: HOSPITALIZED Disposition Time: 03:12 Patient Plan: Observation Patient Problems: Current Active Problems Problem Status Onset Chest pain Acute TIA (transient ischemic attack) Acute Condition: STABLE
[2018-10-03 01:46] LABS: HDL CHOLESTEROL 28 mg/dL (29-60)
[2018-10-03 01:57] LABS: LDL CHOLESTEROL 81 mg/dL (0-129)
[2018-10-03] MEDS ORDERED: Potassium Chloride 20 mEq ER Tab PO STA (03:16)
--- NOTE | 2018-10-03 08:02 | CT ---
Date of service: 10/03/2018 PROCEDURE: CT HEAD WITHOUT CONTRAST. HISTORY: Code Stroke COMPARISON: 12/05/2016 and 07/04/2017. TECHNIQUE: Axial computed tomography images were obtained through the head/brain without intravenous contrast. Supplemental Coronal and Sagittal projections created and reviewed. Radiation dose: Total exam DLP = 893.94 mGy-cm. This CT exam was performed using one or more of the following dose reduction techniques: Automated exposure control, adjustment of the mA and/or kV according to patient size, and/or use of iterative reconstruction technique. FINDINGS: HEMORRHAGE: No intracranial hemorrhage. Diffuse cortical calcifications consistent with laminar sclerosis. Stable cerebellar and basal ganglia calcifications. BRAIN: No mass effect or edema. No atrophy or chronic microvascular ischemic changes. VENTRICLES: Unremarkable. No hydrocephalus. CALVARIUM: Unremarkable. PARANASAL SINUSES: Unremarkable as visualized. No significant inflammatory changes. MASTOID AIR CELLS: Unremarkable as visualized. No inflammatory changes. OTHER FINDINGS: None. IMPRESSION: No acute intracranial abnormalities. No significant findings to account for the clinical presentation. No significant interval change compared to the prior examination(s). Concordant results (preliminary interpretation) provided by LONDON JONES. Procedure Completed: 00:23. Preliminary Report: Interpreted and electronically signed: 00:42. Final Interpretation: 07:57.
--- NOTE | 2018-10-03 08:31 | RAD ---
Date of service: 10/03/2018 HISTORY: CHEST PAIN COMPARISON: Portable chest 08/12/2017. TECHNIQUE: 1 view obtained. FINDINGS: LUNGS: No acute pulmonary disease. Apparent resolution of prior mid left sided pulmonary infiltrate PLEURA: No pneumothorax bilaterally. No right pleural effusion. Trace left pleural effusion identified. CARDIOVASCULAR: Calcific atherosclerotic changes are seen related to the thoracic aorta. Cardiac size remains upper limits normal. Apparent resolution of prior pulmonary vascular congestion. OSSEOUS STRUCTURES: Post CABG changes reiterated including median sternotomy. VISUALIZED UPPER ABDOMEN: Normal. OTHER FINDINGS: None. IMPRESSION: Trace of pleural effusion identified. None is seen at the right. Apparent resolution of prior mid left-sided pulmonary infiltrate and pulmonary vascular congestion.
[2018-10-03] MEDS: Non Formulary Medication (Dexlansoprazole [Dexilant] 60 MG) PO SCH (09:45)
[2018-10-03] MEDS: Non Formulary Medication (Empagliflozin [Jardiance] 10 MG) PO SCH (09:47)
[2018-10-03] MEDS: TOUJEO SQ SCH ×2 (09:49→17:48)
[2018-10-03] MEDS ORDERED: Non Formulary Medication (Dexlansoprazole [Dexilant] 60 MG) PO SCH (10:00)
[2018-10-03] MEDS ORDERED: Non Formulary Medication (Empagliflozin [Jardiance] 10 MG) PO SCH (10:00)
--- NOTE | 2018-10-03 10:54 | CARD ---
APPROVED REPORT Date of service: 10/02/2018 EKG Measurement Heart [id number] <Conclusion> Sinus rhythm with occasional premature ventricular complexes and premature atrial complexes Left anterior fascicular block Left ventricular hypertrophy with repolarization abnormality Inferior infarct, age undetermined Abnormal ECG
--- NOTE | 2018-10-03 11:27 | CP.PCM.APN ---
Subjective - Date & Time of Evaluation Date of Evaluation: 10/03/18 Time of Evaluation: 09:15 - Subjective Subjective: pt seen and examined a t bedside, pt in NAD but states he doesn't feel back to his normal self, denies any specific complaints, in NAD Review of Systems - Constitutional Constitutional: As Per HPI Objective - Vital Signs/Intake and Output Vital Signs (last 24 hours): Temp Pulse Resp BP Pulse Ox 97.6 F 86 20 172/90 H 97 10/03/18 06:00 10/03/18 09:43 10/03/18 06:00 10/03/18 09:44 10/03/18 06:00 - Medications Medications: Current Medications Aspirin (Aspirin Chewable) 81 mg PO DAILY [facility] Last Admin: 10/03/18 09:42 Dose: 81 mg Atorvastatin Calcium (Lipitor) 20 mg PO HS [facility] Furosemide (Lasix) 20 mg PO DAILY [facility] Last Admin: 10/03/18 09:44 Dose: 20 mg Gabapentin (Neurontin) 100 mg PO TID [facility]; Protocol Last Admin: 10/03/18 09:43 Dose: 100 mg Sodium Chloride (Sodium Chloride 0.9%) 1,000 mls @ 100 mls/hr IV .Q10H [facility] Last Admin: 10/03/18 01:22 Dose: 100 mls/hr Insulin Human Regular (Humulin R Med) 0 units SC ACHS [facility]; Protocol Losartan Potassium (Cozaar) 50 mg PO DAILY [facility] Last Admin: 10/03/18 09:49 Dose: Not Given Metoprolol Tartrate (Lopressor) 100 mg PO BID [facility] Last Admin: 10/03/18 09:43 Dose: 100 mg Toujeo Solostar ((Home Med)) 90 unit SQ BID [facility] Last Admin: 10/03/18 09:49 Dose: Not Given Non-Formulary Medication (Dexlansoprazole [Dexilant]) 60 mg PO DAILY [facility] Last Admin: 10/03/18 09:45 Dose: Not Given Non-Formulary Medication (Empagliflozin [Jardiance]) 10 mg PO DAILY [facility] Last Admin: 10/03/18 09:47 Dose: 10 mg Tramadol HCl (Ultram) 50 mg PO DAILY PRN PRN Reason: Pain, moderate (4-7) - Labs Labs: 10/03/18 00:05 10/03/18 00:05 PT 14.1 SECONDS (9.4-12.5) H 10/03/18 00:05 INR 1.27 10/03/18 00:05 APTT 30.9 Seconds (26.9-38.3) 10/03/18 00:05 - Constitutional Appears: No Acute Distress - Head Exam Head Exam: NORMAL INSPECTION - Eye Exam Pupil Exam: NORMAL ACCOMODATION - ENT Exam ENT Exam: Mucous Membranes Moist - Neck Exam Neck Exam: Full ROM - Respiratory Exam Respiratory Exam: Decreased Breath Sounds - Cardiovascular Exam Cardiovascular Exam: +S1, +S2 - Neurological Exam Additional comments: Huffman ,Right lower ext weaker than left - Psychiatric Exam Psychiatric exam: Normal Affect, Normal Mood - Skin Skin Exam: Dry, Intact Assessment and Plan - Assessment and Plan (Free Text) Assessment: 62 yr old with pmh sig for cad s/p cabg, htn, pvd, orthostatic hypotension, 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 pt had head ct that was negative, awaiting MRI brain. pt trop noted plan of care discussed with pt re: MRI needed pt on asa, statin regimen will follow MRI results. BPCI/TIC - BPCIA/TIC Educated pt/family on BPCIA/CIR/Med to Bed Programs: N/A Flyers given, including [facility] Beneficiary letter: N/A Pt/family verbalized understanding & agreed to program: N/A
--- NOTE | 2018-10-03 11:50 | CP.PCM.CON ---
History of Present Illness - History of Present Illness History of Present Illness: Neurology Consultation Note: Consult requested by Dr. Cavazos Mr. Holley is a 62-year-old man with a past medical history of hypertension, CAD with stents, diabetes, peripheral vascular disease, and orthostatic hypertension, who presented to the ED last night with resolved confusion that was noted by his several hours earlier. He had no deficits and was back to baseline with an NIHSS of 0. Presumed to have a TIA. CT head did not show any acute findings. The patient does not have any recollection of what happened and states that he feels as though there was a block of time missing. He has had episodes of confusion occurring more frequently. Review of Systems - Constitutional Constitutional: As Per HPI - EENT Eyes: absent: As Per HPI, Blind Spots, Blurred Vision, Change in Vision, Decreased Night Vision, Diplopia, Discharge, Dry Eye, Exophthalmos, Floaters, Irritation, Itchy Eyes, Loss of Peripheral Vision, Pain, Photophobia, Requires Corrective Lenses, Sees Flashes, Spots in Vision, Tunnel Vision, Other Visual Disturbances, Loss of Vision, Other Ears: absent: As Per HPI, Decreased Hearing, Ear Discharge, Ear Pain, Tinnitus, Abnormal Hearing, Disequilibrium, Dizziness, Other Nose/Mouth/Throat: absent: As Per HPI, Epistaxis, Nasal Congestion, Nasal D ischarge, Nasal Obstruction, Nasal Trauma, Nose Pain, Post Nasal Drip, Sinus Pain, Sinus Pressure, Bleeding Gums, Change in Voice, Dental Pain, Dry Mouth, Dysphagia, Halitosis, Hoarsness, Lip Swelling, Mouth Lesions, Mouth Pain, Odynophagia, Sore Throat, Throat Swelling, Tongue Swelling, Facial Pain, Neck Pain, Neck Mass, Other - Cardiovascular Cardiovascular: absent: As Per HPI, Acrocyanosis, Chest Pain, Chest Pain at Rest, Chest Pain with Activity, Claudication, Diaphoresis, Dyspnea, Dyspnea on Exertion, Edema, Irregular Heart Rhythm, Pain Radiating to Arm/Neck/Jaw, Leg Edema, Leg Ulcers, Lightheadedness, Orthopnea, Palpitations, Paroxysmal Nocturnal Dyspnea, Pedal Edema, Radiating Pain, Rapid Heart Rate, Slow Heart Rate, Syncope, Other - Respiratory Respiratory: absent: As Per HPI, Cough, Dyspnea, Hemoptysis, Dyspnea on Exertion, Wheezing, Snoring, Stridor, Pain on Inspiration, Chest Congestion, Excessive Mucous Production, Change in Mucous Color, Pain with Coughing, Other - Musculoskeletal Musculoskeletal: absent: As Per HPI, Abnormal Gait, Arthralgias, Atrophy, Back Pain, Deformity, Joint Swelling, Limited Range of Motion, Loss of Height, Muscle Cramps, Muscle Weakness, Myalgias, Neck Pain, Numbness, Radiating Pain into Limb, Stiffness, Tingling, Other - Neurological Neurological: As Per HPI - Psychiatric Psychiatric: absent: As Per HPI, Abnormal Sleep Pattern, Anhedonia, Anxiety, Auditory Hallucinations, Behavioral Changes, Change in Appetite, Change in Libido, Confusion, Depression, Difficulty Concentrating, Hallucinations, Homicidal Ideation, Hopelessness, Irritability, Memory Loss, Mood Swings, Panic Attacks, Paranoia, Suicidal Ideation, Visual Hallucinations, Tactile Hallucinations, Other - Endocrine Endocrine: absent: As Per HPI, Change in Body Appearance, Change in Libido, Cold Intolorance, Deepening of Voice, Excessive Sweating, Fatigue, Flushing, Heat Intolorance, Increase in Ring/Shoe/Hat Size, Palpitations, Polydipsia, Polyphagia, Polyuria, Other Past Patient History - Infectious Disease Hx of Infectious Diseases: None - Tetanus Immunizations Tetanus Immunization: Unknown - Past Social History Smoking Status: Former Smoker - CARDIAC Hx Cardiac Disorders: Yes (EF 35%, S/P CABG.) Hx Hypertension: Yes - PULMONARY Hx Respiratory Disorders: Yes Hx Chronic Obstructive Pulmonary Disease (COPD): Yes - NEUROLOGICAL Hx Neurological Disorder: Yes HX Cerebrovascular Accident: Yes (R side weakness) - HEENT Hx HEENT Problems: No 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) Hx Cataracts: No Hx Deafness: No Hx Difficulty Chewing: No Hx Epistaxis: No Hx Glaucoma: No Hx Macular Degeneration: No - RENAL Hx Renal Failure: No - ENDOCRINE/METABOLIC Hx Endocrine Disorders: Yes Hx Diabetes Mellitus Type 2: Yes - HEMATOLOGICAL/ONCOLOGICAL Hx Cancer: No - INTEGUMENTARY Hx Dermatological Problems: No Hx Basil Cell: No Hx Eczema: No Hx Melanoma: No Hx Psoriasis: No Hx Squamous Cell: No - MUSCULOSKELETAL/RHEUMATOLOGICAL Hx Musculoskeletal Disorders: Yes Hx Arthritis: Yes Hx Falls: Yes - GASTROINTESTINAL Hx Gastrointestinal Disorders: No Hx Colostomy: No Hx Crohn's Disease: No Hx Diverticulitis: No Hx Gall Bladder Disease: No Hx Gastroesophageal Reflux: No Hx Ileostomy: No Hx Liver Failure: No Hx Pancreatitis: No HX Swallowing Problems: No - GENITOURINARY/GYNECOLOGICAL Hx Genitourinary Disorders: No Hx Hematuria: No Hx Incontinence: No Hx Prostate Problems: No Hx Sexually Transmitted Disorders: No Hx Urinary Tract Infection: No - PSYCHIATRIC Hx Psychophysiologic Disorder: Yes Hx Anxiety: Yes Hx Bipolar Disorder: Yes Hx Depression: Yes Hx Emotional Abuse: No Hx Hallucinations: No Hx Panic Symptoms: No Hx Post Traumatic Stress Disorder: No Hx Psychosis: No Hx Physical Abuse: No Hx Schizophrenia: Yes Hx Sexual Abuse: No - SURGICAL HISTORY Hx Amputation: Yes (R first and second toes) Hx Mastectomy: No - ANESTHESIA Hx Anesthesia: Yes Hx Anesthesia Reactions: No Hx Malignant Hyperthermia: No Meds Allergies/Adverse Reactions: Allergies Allergy/AdvReac Type Severity Reaction Status Date / Time No Known Allergies Allergy Verified 09/19/18 16:24 - Medications Medications: Current Medications Aspirin (Aspirin Chewable) 81 mg PO DAILY [facility] Last Admin: 10/03/18 09:42 Dose: 81 mg Atorvastatin Calcium (Lipitor) 20 mg PO [facility] Furosemide (Lasix) 20 mg PO DAILY [facility] Last Admin: 10/03/18 09:44 Dose: 20 mg Gabapentin (Neurontin) 100 mg PO TID [facility]; Protocol Last Admin: 10/03/18 09:43 Dose: 100 mg Sodium Chloride (Sodium Chloride 0.9%) 1,000 mls @ 100 mls/hr IV .Q10H [facility] Last Admin: 10/03/18 01:22 Dose: 100 mls/hr Insulin Human Regular (Humulin R Med) 0 units SC [facility]; Protocol Losartan Potassium (Cozaar) 50 mg PO DAILY [facility] Last Admin: 10/03/18 09:49 Dose: Not Given Metoprolol Tartrate (Lopressor) 100 mg PO BID [facility] Last Admin: 10/03/18 09:43 Dose: 100 mg Toujeo Solostar ((Home Med)) 90 unit SQ BID [facility] Last Admin: 10/03/18 09:49 Dose: Not Given Non-Formulary Medication (Dexlansoprazole [Dexilant]) 60 mg PO DAILY [facility] Last Admin: 10/03/18 09:45 Dose: Not Given Non-Formulary Medication (Empagliflozin [Jardiance]) 10 mg PO DAILY [facility] Last Admin: 10/03/18 09:47 Dose: 10 mg Tramadol HCl (Ultram) 50 mg PO DAILY PRN PRN Reason: Pain, moderate (4-7) Physical Exam - Constitutional Appears: Well - Head Exam Head Exam: ATRAUMATIC, NORMAL INSPECTION, NORMOCEPHALIC - Eye Exam Eye Exam: EOMI, Normal appearance, PERRL Pupil Exam: NORMAL ACCOMODATION, PERRL - ENT Exam ENT Exam: Mucous Membranes Moist, Normal Exam - Neck Exam Neck exam: Positive for: Normal Inspection - Respiratory Exam Respiratory Exam: Clear to Auscultation Bilateral, NORMAL BREATHING PATTERN - Cardiovascular Exam Cardiovascular Exam: REGULAR RHYTHM, +S1, +S2 - GI/Abdominal Exam GI & Abdominal Exam: Normal Bowel Sounds, Soft. absent: Tenderness - Extremities Exam Extremities exam: Positive for: normal inspection - Back Exam Back exam: NORMAL INSPECTION - Neurological Exam Neurological exam: Alert, CN II-XII Intact, Normal Gait, Oriented x3, Reflexes Normal - Psychiatric Exam Psychiatric exam: Normal Affect, Normal Mood - Skin Skin Exam: Dry, Intact, Normal Color, Warm Results - Vital Signs Recent Vital Signs: Last Vital Signs Temp 97.6 F 10/03/18 06:00 Pulse 86 10/03/18 09:43 Resp 20 10/03/18 06:00 BP 172/90 H 10/03/18 09:44 Pulse Ox 97 10/03/18 06:00 - Labs Result Diagrams: 10/03/18 00:05 10/03/18 00:05 Labs: Laboratory Results - last 24 hr 10/03/18 10/03/18 10/03/18 00:05 00:05 00:05 WBC 11.0 D RBC 3.86 Hgb 10.8 L Hct 31.8 L MCV 82.4 MCH 28.0 MCHC 34.0 RDW 14.8 H Plt Count 241 MPV 9.3 Neut % (Auto) 81.4 H Lymph % (Auto) 10.5 L Dillon % (Auto) 6.8 H Eos % (Auto) 0.9 L Baso % (Auto) 0.4 Lymph # (Auto) 1.2 Dillon # (Auto) 0.7 H Eos # (Auto) 0.1 Baso # (Auto) 0.04 Absolute Neuts (auto) 8.92 H PT 14.1 H INR 1.27 APTT 30.9 Sodium 138 Potassium 3.2 L Chloride 103 Carbon Dioxide 26 Anion Gap 12 BUN 18 Creatinine 1.7 H Est GFR ( Amer) 50 Est GFR (Non-Af Amer) 41 POC Glucose (mg/dL) Random Glucose 59 L Calcium 8.9 Total Bilirubin 0.5 AST 25 ALT 12 Alkaline Phosphatase 102 Lactate Dehydrogenase 401 Total Creatine Kinase 36 Troponin I 0.03 D Total Protein 7.6 Albumin 3.8 Globulin 3.8 Albumin/Globulin Ratio 1.0 L Triglycerides Cholesterol LDL Cholesterol Direct HDL Cholesterol Blood Type Antibody Screen BBK History Checked 10/03/18 10/03/18 10/03/18 00:05 01:50 04:21 WBC RBC Hgb Hct MCV MCH MCHC RDW Plt Count MPV Neut % (Auto) Lymph % (Auto) Dillon % (Auto) Eos % (Auto) Baso % (Auto) Lymph # (Auto) Dillon # (Auto) Eos # (Auto) Baso # (Auto) Absolute Neuts (auto) PT INR APTT Sodium Potassium Chloride Carbon Dioxide Anion Gap BUN Creatinine Est GFR ( Amer) Est GFR (Non-Af Amer) POC Glucose (mg/dL) 84 Random Glucose Calcium Total Bilirubin AST ALT Alkaline Phosphatase Lactate Dehydrogenase Total Creatine Kinase Troponin I Total Protein Albumin Globulin Albumin/Globulin Ratio Triglycerides 122 Cholesterol 134 LDL Cholesterol Direct 81 HDL Cholesterol 28 L Blood Type O POSITIVE Antibody Screen Negative BBK History Checked Patient has bt 10/03/18 10/03/18 10/03/18 07:31 08:30 11:16 WBC RBC Hgb Hct MCV MCH MCHC RDW Plt Count MPV Neut % (Auto) Lymph % (Auto) Dillon % (Auto) Eos % (Auto) Baso % (Auto) Lymph # (Auto) Dillon # (Auto) Eos # (Auto) Baso # (Auto) Absolute Neuts (auto) PT INR APTT Sodium Potassium Chloride Carbon Dioxide Anion Gap BUN Creatinine Est GFR ( Amer) Est GFR (Non-Af Amer) POC Glucose (mg/dL) 133 H 207 H Random Glucose Calcium Total Bilirubin AST ALT Alkaline Phosphatase Lactate Dehydrogenase Total Creatine Kinase Troponin I 0.03 Total Protein Albumin Globulin Albumin/Globulin Ratio Triglycerides Cholesterol LDL Cholesterol Direct HDL Cholesterol Blood Type Antibody Screen BBK History Checked Assessment & Plan (1) TIA (transient ischemic attack) Assessment and Plan: Based on the history provided, the patient may be having complex partial seizures. I recommend obtaining an MRI of the brain without contrast as well as an EEG for one hour to evaluate further. Continue Aspirin 81 mg daily and add Plavix 75 mg daily. Continue current management for chronic medical conditions per the primary team. Thank you for this consultation. Status: Acute
[2018-10-03] MEDS: Insulin Reg-MEDIUM-Coverage SC SCH ×3 (14:33→21:58)
--- NOTE | 2018-10-03 16:21 | MRI ---
Date of service: 10/03/2018 PROCEDURE: MRI BRAIN WITHOUT CONTRAST HISTORY: r/o cva COMPARISON: Brain MRI with and without contrast 10/06/2016. TECHNIQUE: Multiplanar, multisequence MR images of the brain were obtained without intravenous contrast enhancement. FINDINGS: HEMORRHAGE: Focal see masseter in is again seen at the lateral left thalamus though diminished in the interval. DWI: No evidence of an acute or early subacute infarction. BRAIN PARENCHYMA: Extensive white matter signal abnormalities are seen primarily in periventricular white matter throughout the cerebrum once again but also in additional deep central white matter and basal ganglia white matter tracts once again. [id number] diffuse cerebral atrophy is identified once again. Superior and inferior gabrielle white-matter signal abnormality is stable as well as limited insert bilateral white matter changes. 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 No mass-effect or extra-axial fluid collection is evident. VENTRICLES: Unremarkable. No hydrocephalus. CRANIUM: Unremarkable. ORBITS: Grossly unremarkable. PARANASAL SINUSES/MASTOIDS: Clear VASCULAR SYSTEM: Skull base flow voids intact. OTHER FINDINGS: None. IMPRESSION: No acute or subacute brain infarction appreciate. No other definite acute intracranial findings. Advanced chronic microangiopathy mild to moderate diffuse cerebral atrophy may be present however given corpus callosum abnormal signal changes other pre-existing white-matter disease, including potentially demyelination would be difficult to completely exclude underlying chronic microangiopathy and as a past disease, given the current imaging pattern. Further clinical correlation is advised.
--- NOTE | 2018-10-03 19:55 | HP ---
DATE OF EXAM: 10/03/2018 HISTORY OF PRESENT ILLNESS: A 62-year-old white male with a long history of coronary artery disease, status open heart surgery and history of CVA in the past; history of left dropfoot; history of insulin-dependant diabetes, poorly controlled; history of bipolar, depression; history of hypertension; history of peripheral vascular disease, status post diabetic foot infections and amputations by Dr. Car. The patient has a long history of contentious activity with his at home in the process of possible divorce. The patient also has a long history of not always taking his cardiac, hypertensive and diabetic medications on a regular basis, having multiple episodes of hypertension and uncontrolled diabetes, on multiple admissions to this hospital. The patient states that his recent admission developed when on the day of admission, the patient's noted that his speech was make some slurred and also stated that he had some asymmetry in his facial expression. The patient denies both of these accusations. The patient was taken by EMS to the hospital, code stroke was called, CT was negative and the patient was admitted to the hospital. SOCIAL HISTORY: Negative for alcohol, tobacco or illicit drug use. The patient has no travel history. FAMILY HISTORY: Unremarkable. PAST MEDICAL HISTORY: As stated above. Insulin-dependant diabetes mellitus, coronary artery disease, bipolar depression, hypertension, peripheral vascular disease, diabetic foot infections, dropfoot. PAST SURGICAL HISTORY: Positive for open heart surgery, bypass surgery and amputations. REVIEW OF SYSTEMS: All systems are reviewed. Nothing acute is noted. The patient does state that he denies chest pain, shortness of breath, palpitations, nausea, vomiting, diarrhea, lightheadedness, dizziness, loss of strength, loss of sensation and change in voice, change in vision and denies loss of balance etc. PHYSICAL EXAMINATION: GENERAL: Shows a well-developed slightly obese white male, in no apparent distress. Awake and alert. Speech is fluent. NEUROLOGIC: Cranial nerves II through XII are intact. Strength is equal in the upper and lower extremities. There is some slight residual weakness in the right lower extremity associated with a history consistent with a history of CVA in the past. There is also a left dropfoot noted on physical examination. There is several toes missing from her right foot. Pulse are poor bilaterally; pretibial and posterior tibial and popliteal and dorsal pedal. CHEST: Clear to auscultation. HEART: Regular sinus rhythm. There is a sternotomy scar in the anterior chest. IMPRESSION: Transient ischemic attack versus cerebrovascular accident in a 62-year-old white male with multiple comorbid conditions, history of cerebrovascular accident in the past, rule out transient ischemic attack versus cerebrovascular accident. Rasta Cavazos MD
[2018-10-04] MEDS: Sodium Chloride 0.9% 1,000 ML IV SCH (06:57)
[2018-10-04 07:28] LABS: ALB/GLOB RATIO 0.9 (1.1-1.8); ALBUMIN 3.1 g/dL (3.0-4.8); ALT/SGPT 14 U/L (7-56); AST/SGOT 22 U/L (17-59); BLOOD UREA NITROGEN 14 mg/dL (7-21); CALCIUM 8.5 mg/dL (8.4-10.5); GFR NON-AFRICAN AMERICAN 56
[2018-10-04] MEDS: Insulin Reg-MEDIUM-Coverage SC SCH ×4 (08:14→21:19)
--- NOTE | 2018-10-04 09:23 | PCM.EEG ---
Electroencephalogram Report - Electroencephalogram Report Procedure Date: 10/03/18 Medication: Lipitor, Losartan, GBP Interpretation: Technical Information: This was a 16 -channel EEG, 1-channel EKG routine EEG performed using an [employer] machine. Electrodes were applied using the 10/20 international placement system. Start; 18;33 End; 19;24 Total 1 hour Clinical Information: alter mental status During resting wakefulness there was a symmetric posterior dominant rhythm at 8.5-9.5 Hz, 30-50 uV, which was reactive to eye opening and closing. Drowsiness (18;47) was associated with fragmentation of the posterior dominant rhythm and with slow roving eye movements. Light sleep was not recorded There was non specific bitemporal slowing seen. Hyperventilation was not performed. Photic stimulation was performed and there were no changes on the record. Focal abnormality; none ECG was associated with a normal sinus rhythm. Impression: This is a normal awake and drowsy electroencephalogram.
[2018-10-04] MEDS: Non Formulary Medication (Empagliflozin [Jardiance] 10 MG) PO SCH (09:24)
[2018-10-04] MEDS: Non Formulary Medication (Dexlansoprazole [Dexilant] 60 MG) PO SCH (09:24)
[2018-10-04] MEDS: TOUJEO SQ SCH ×2 (09:24→18:09)
--- NOTE | 2018-10-04 12:51 | CP.PCM.PCO ---
Physician Communication Note - Physician Communication Note Physician Communication Note: Review of MRI and EEG Addendum Addendum: The patient's MRI and EEG did not show any concerning findings to explain his symptoms. He likely had a TIA. Continue dual antiplatelet therapy with aspirin 81 mg daily and Plavix 75 mg daily. Follow-up with outpatient neurology.
--- NOTE | 2018-10-04 15:53 | CP.PCM.PN ---
<Henry Traore - Last Filed: 10/04/18 15:48> Subjective - Date & Time of Evaluation Date of Evaluation: 10/04/18 Time of Evaluation: 08:40 - Subjective Subjective: Henry Traore D.O. PGY-3, Internal Medicine Resident, Dr. Lundberg's Service, Progress Note 62-year-old male with a past medical history of CAD status post CABG, IDDM, CVA with residual left foot drop, bipolar disorder, depression disorder, h ypertension, peripheral vascular disease, diabetic nephropathy, diabetic neuropathy, previous amputation of several right toes who presents for complaints of slurred speech and facial droop. Patient was seen and examined at bedside. States that all his symptoms have resolved. Feeling somewhat weak however. Has not been walking around much. Objective - Vital Signs/Intake and Output Vital Signs (last 24 hours): Temp Pulse Resp BP Pulse Ox 98.5 F 67 18 190/84 H 97 10/04/18 12:00 10/04/18 14:00 10/04/18 12:00 10/04/18 12:00 10/04/18 10:43 Intake and Output: 10/04/18 10/04/18 06:59 18:59 Intake Total 2100 Output Total 3120 Balance -1020 - Medications Medications: Current Medications Aspirin (Aspirin Chewable) 81 mg PO DAILY COUNTS INCLUDE 234 BEDS AT THE [facility] Last Admin: 10/04/18 09:19 Dose: 81 mg Atorvastatin Calcium (Lipitor) 20 mg PO HS COUNTS INCLUDE 234 BEDS AT THE [facility] Last Admin: 10/03/18 21:57 Dose: 20 mg Furosemide (Lasix) 20 mg PO DAILY COUNTS INCLUDE 234 BEDS AT THE [facility] Last Admin: 10/04/18 09:15 Dose: 20 mg Gabapentin (Neurontin) 100 mg PO TID COUNTS INCLUDE 234 BEDS AT THE [facility]; Protocol Last Admin: 10/04/18 13:42 Dose: 100 mg Insulin Human Regular (Humulin R Med) 0 units SC ACHS COUNTS INCLUDE 234 BEDS AT THE [facility]; Protocol Last Admin: 10/04/18 12:19 Dose: 7 unit Losartan Potassium (Cozaar) 50 mg PO DAILY COUNTS INCLUDE 234 BEDS AT THE [facility] Last Admin: 10/04/18 09:18 Dose: 50 mg Metoprolol Tartrate (Lopressor) 100 mg PO BID COUNTS INCLUDE 234 BEDS AT THE [facility] Last Admin: 10/04/18 09:19 Dose: 100 mg Toujeo Solostar ((Home Med)) 90 unit SQ BID COUNTS INCLUDE 234 BEDS AT THE [facility] Last Admin: 05/30/19 09:24 Dose: Not Given Non-Formulary Medication (Dexlansoprazole [Dexilant]) 60 mg PO DAILY COUNTS INCLUDE 234 BEDS AT THE [facility] Last Admin: 10/04/18 09:24 Dose: Not Given Non-Formulary Medication (Empagliflozin [Jardiance]) 10 mg PO DAILY COUNTS INCLUDE 234 BEDS AT THE [facility] Last Admin: 10/04/18 09:24 Dose: Not Given Tramadol HCl (Ultram) 50 mg PO DAILY PRN PRN Reason: Pain, moderate (4-7) - Labs Labs: 10/03/18 00:05 10/04/18 06:30 PT 14.1 SECONDS (9.4-12.5) H 10/03/18 00:05 INR 1.27 10/03/18 00:05 APTT 30.9 Seconds (26.9-38.3) 10/03/18 00:05 - Constitutional Appears: Non-toxic, Chronically Ill - Head Exam Head Exam: ATRAUMATIC, NORMOCEPHALIC - Eye Exam Eye Exam: EOMI. absent: Scleral icterus - ENT Exam ENT Exam: Mucous Membranes Moist, Normal Oropharynx - Neck Exam Neck Exam: Normal Inspection - Respiratory Exam Respiratory Exam: Clear to Ausculation Bilateral. absent: Rhonchi, Wheezes - Cardiovascular Exam Cardiovascular Exam: +S1, +S2. absent: Gallop, Rubs - GI/Abdominal Exam GI & Abdominal Exam: Soft, Normal Bowel Sounds. absent: Tenderness - Extremities Exam Extremities Exam: absent: Pedal Edema - Neurological Exam Neurological Exam: Alert, Awake - Skin Skin Exam: Dry, Warm Assessment and Plan - Assessment and Plan (Free Text) Assessment: 62-year-old male with a past medical history of CAD status post CABG, IDDM, CVA with residual left foot drop, bipolar disorder, depression disorder, hypertension, peripheral vascular disease, diabetic nephropathy, diabetic neuropathy, previous amputation of several right toes who presents for complaints of slurred speech and facial droop, found to have a TIA. Plan: 1. TIA 2. CAD status post CABG and HFrEF of 35% 3. Previous CVA with left foot drop 4. IDDM 5. Bipolar disorder/depression 6. Hypertension 7. Peripheral vascular disease 8. Diabetic neuropathy 9. GERD Patient has been evaluated by neurology. Patient underwent MRI which shows advanced chronic microangiopathic disease with mild to moderate diffuse cerebral atrophy. There is consistent with his other vascular issues. Patient's EEG also showed normal awake and drowsy electroencephalogram. Recommendations from neurology reviewed and appreciated. Patient is to be continued on dual antiplatelet therapy with aspirin and Plavix for this issue as well as a CAD. For his CAD also continues on Lipitor. For his diabetic neuropathy continues on gabapentin. For his insulin-dependent diabetes he states that his daughter is bringing his Toujeo pen from home which he will continue on 90 units twice daily. His daughter is also bringing his Jardiance and his dexilant for his GERD. Patient is also on insulin sliding scale and Accu-Cheks before meals at bedtime. For his hypertension he is continued on his home losartan and metopr olol. Given his blood pressure continues to be somewhat uncontrolled we will increase his losartan from 50 to 100 mg. We will also change his furosemide time to 1800 for better nightime BP control. For his neuropathy he also continues on tramadol. TCU evaluation requested. Patient will be discontinued from telemetry. We will continue to monitor his clinical status closely. Patient was seen and examined and case discussed at length with attending physician. <Ever Lundberg S - Last Filed: 10/04/18 17:04> Objective - Vital Signs/Intake and Output Vital Signs (last 24 hours): Temp Pulse Resp BP Pulse Ox 98.2 F 57 L 18 179/79 H 97 10/04/18 16:55 10/04/18 16:55 10/04/18 16:55 10/04/18 16:55 10/04/18 10:43 Intake and Output: 10/04/18 10/04/18 06:59 18:59 Intake Total 2100 Output Total 3120 Balance -1020 - Medications Medications: Current Medications Aspirin (Aspirin Chewable) 81 mg PO DAILY COUNTS INCLUDE 234 BEDS AT [facility] Last Admin: 10/04/18 09:19 Dose: 81 mg Atorvastatin Calcium (Lipitor) 20 mg PO HS COUNTS INCLUDE 234 BEDS AT [facility] Last Admin: 10/03/18 21:57 Dose: 20 mg Furosemide (Lasix) 20 mg PO 1800 COUNTS INCLUDE 234 BEDS AT THE [facility] Gabapentin (Neurontin) 100 mg PO TID COUNTS INCLUDE 234 BEDS AT THE [facility]; Protocol Last Admin: 10/04/18 13:42 Dose: 100 mg Insulin Human Regular (Humulin R Med) 0 units SC ACHS COUNTS INCLUDE 234 BEDS AT THE [facility]; Protocol Last Admin: 10/04/18 16:33 Dose: 7 unit Losartan Potassium (Cozaar) 100 mg PO DAILY COUNTS INCLUDE 234 BEDS AT THE [facility] Magnesium Oxide (Mag-Ox) 400 mg PO DAILY COUNTS INCLUDE 234 BEDS AT THE [facility] Metoprolol Tartrate (Lopressor) 100 mg PO BID COUNTS INCLUDE 234 BEDS AT THE [facility] Last Admin: 10/04/18 09:19 Dose: 100 mg Toujeo Solostar ((Home Med)) 90 unit SQ BID COUNTS INCLUDE 234 BEDS AT [facility] Last Admin: 10/04/18 09:24 Dose: Not Given Non-Formulary Medication (Dexlansoprazole [Dexilant]) 60 mg PO DAILY COUNTS INCLUDE 234 BEDS AT THE [facility] Last Admin: 10/04/18 09:24 Dose: Not Given Non-Formulary Medication (Empagliflozin [Jardiance]) 10 mg PO DAILY COUNTS INCLUDE 234 BEDS AT THE [facility] Last Admin: 10/04/18 09:24 Dose: Not Given Tramadol HCl (Ultram) 50 mg PO DAILY PRN PRN Reason: Pain, moderate (4-7) - Labs Labs: 10/03/18 00:05 10/04/18 06:30 PT 14.1 SECONDS (9.4-12.5) H 10/03/18 00:05 INR 1.27 10/03/18 00:05 APTT 30.9 Seconds (26.9-38.3) 10/03/18 00:05 Assessment and Plan - Assessment and Plan (Free Text) Plan: Patient was seen and examined by me. I have reviewed the note of the medical field representative and have gone over the plan of care. I agree with the note. I have reviewed the medications and the last labs.
[2018-10-04] MEDS: Magnesium Oxide 400 mg Tab UD PO SCH (17:27)
--- NOTE | 2018-10-04 22:16 | PN ---
DATE: 10/04/2018 The patient was seen and examined. I do agree with the note of the manager medical. I was involved in the plan of care. The patient came into the hospital with TIA and also chest pain. He had an MRI that was reviewed, no acute abnormalities found. The patient also had an EEG that did not show seizures. The patient has a history of coronary artery disease and CABG. He is on aspirin and Plavix for his coronary artery disease. The patient is on gabapentin for his diabetic neuropathy. The patient is on insulin sliding scale for his diabetes. He has history of bipolar disorder which is stable. He is on losartan for his hypertension. The patient has diabetes type 2 with neuropathy as a complication. He has GERD. He is seen by physical therapy. He has no complaints of any pain. We will await for the input from the consultants. I will see if the patient requires rehab after the physical therapist has evaluated the patient. Ever Lundberg MD
[2018-10-05 07:20] LABS: ALB/GLOB RATIO 0.9 (1.1-1.8); ALT/SGPT 18 U/L (7-56); AST/SGOT 27 U/L (17-59); BLOOD UREA NITROGEN 17 mg/dL (7-21); CALCIUM 8.5 mg/dL (8.4-10.5); GFR NON-AFRICAN AMERICAN 51
[2018-10-05] MEDS: Insulin Reg-MEDIUM-Coverage SC SCH ×3 (07:59→17:08)
[2018-10-05] MEDS: Magnesium Oxide 400 mg Tab UD PO SCH (09:25)
[2018-10-05] MEDS: Non Formulary Medication (Dexlansoprazole [Dexilant] 60 MG) PO SCH (09:27)
[2018-10-05] MEDS: Non Formulary Medication (Empagliflozin [Jardiance] 10 MG) PO SCH (09:27)
[2018-10-05] MEDS: TOUJEO SQ SCH (10:00)
[2018-10-05] MEDS ORDERED: Magnesium Sulfate 2 gm/50 ml 2 GM/50 ML BAG IVPB ONE (10:35)
--- NOTE | 2018-10-05 10:38 | CP.PCM.PCO ---
Physician Communication Note - Physician Communication Note Physician Communication Note: pt with auth for tcu, anticipate DC to tcu today
--- NOTE | 2018-10-05 10:45 | CP.PCM.PN ---
<Henry Traore - Last Filed: 10/05/18 10:27> Subjective - Date & Time of Evaluation Date of Evaluation: 10/05/18 Time of Evaluation: 07:20 - Subjective Subjective: Henry Traore D.O. PGY-3, Internal Medicine Resident, Dr. Lundberg's Service, Progress Note 62-year-old male with a past medical history of CAD status post CABG, IDDM, CVA with residual left foot drop, bipolar disorder, depression disorder, h ypertension, peripheral vascular disease, diabetic nephropathy, diabetic neuropathy, previous amputation of several right toes who presents for complaints of slurred speech and facial droop. Patient was seen and examined at bedside. States feeling somewhat better. No overnight events. Objective - Vital Signs/Intake and Output Vital Signs (last 24 hours): Temp Pulse Resp BP Pulse Ox 98.5 F 61 18 158/88 H 94 L 10/05/18 06:00 10/05/18 09:25 10/05/18 06:00 10/05/18 09:25 10/05/18 06:00 - Medications Medications: Current Medications Aspirin (Aspirin Chewable) 81 mg PO DAILY [facility] Last Admin: 10/05/18 09:26 Dose: 81 mg Atorvastatin Calcium (Lipitor) 20 mg PO HS [facility] Last Admin: 10/04/18 21:33 Dose: 20 mg Furosemide (Lasix) 20 mg PO 1800 [facility] Last Admin: 10/04/18 17:31 Dose: 20 mg Gabapentin (Neurontin) 100 mg PO TID [facility]; Protocol Last Admin: 10/05/18 09:25 Dose: 100 mg Insulin Human Regular (Humulin R Med) 0 units SC ACHS [facility]; Protocol Last Admin: 10/05/18 07:59 Dose: 3 unit Losartan Potassium (Cozaar) 100 mg PO DAILY [facility] Last Admin: 10/05/18 09:25 Dose: 100 mg Magnesium Oxide (Mag-Ox) 400 mg PO DAILY [facility] Last Admin: 10/05/18 09:25 Dose: 400 mg Metoprolol Tartrate (Lopressor) 100 mg PO BID [facility] Last Admin: 10/05/18 09:25 Dose: 100 mg Toujeo Solostar ((Home Med)) 90 unit SQ BID [facility] Last Admin: 10/04/18 18:09 Dose: Not Given Non-Formulary Medication (Dexlansoprazole [Dexilant]) 60 mg PO DAILY [facility] Last Admin: 10/05/18 09:27 Dose: Not Given Non-Formulary Medication (Empagliflozin [Jardiance]) 10 mg PO DAILY [facility] Last Admin: 10/05/18 09:27 Dose: Not Given Tramadol HCl (Ultram) 50 mg PO DAILY PRN PRN Reason: Pain, moderate (4-7) Last Admin: 10/05/18 09:32 Dose: 50 mg - Labs Labs: 10/03/18 00:05 10/05/18 06:10 PT 14.1 SECONDS (9.4-12.5) H 10/03/18 00:05 INR 1.27 10/03/18 00:05 APTT 30.9 Seconds (26.9-38.3) 10/03/18 00:05 - Constitutional Appears: Non-toxic, Chronically Ill - Head Exam Head Exam: ATRAUMATIC, NORMOCEPHALIC - Eye Exam Eye Exam: EOMI. absent: Scleral icterus - ENT Exam ENT Exam: Mucous Membranes Moist, Normal Oropharynx - Neck Exam Neck Exam: Normal Inspection, soft - Respiratory Exam Respiratory Exam: Clear to Ausculation Bilateral. absent: Rhonchi, Wheezes - Cardiovascular Exam Cardiovascular Exam: +S1, +S2. absent: Gallop, Rubs - GI/Abdominal Exam GI & Abdominal Exam: Soft, Normal Bowel Sounds. absent: Tenderness - Extremities Exam Extremities Exam: absent: Pedal Edema - Neurological Exam Neurological Exam: Alert, Awake - Skin Skin Exam: Dry, Warm Assessment and Plan - Assessment and Plan (Free Text) Assessment: 62-year-old male with a past medical history of CAD status post CABG, IDDM, CVA with residual left foot drop, bipolar disorder, depression disorder, hypertension, peripheral vascular disease, diabetic nephropathy, diabetic neuropathy, previous amputation of several right toes who presents for complaints of slurred speech and facial droop, found to have a TIA. Plan: 1. TIA 2. CAD status post CABG and HFrEF of 35% 3. Previous CVA with left foot drop 4. IDDM 5. Bipolar disorder/depression 6. Hypertension 7. Peripheral vascular disease 8. Diabetic neuropathy 9. GERD Clinically patient has improved. As mentioned previously the MRI showed advanced chronic microangiopathic disease and mild to moderate diffuse cerebral atrophy and his EEG was negative. Input by neurology was reviewed and appreciated. Patient was recommended by physical therapy to continue with this in the transitional care unit. Patient is accepted patient will be able to transition. Currently the patient continues with dual antiplatelet therapy aspirin and Plavix for both TIA and for CAD. Also on Lipitor for his CAD. For his diabetic nephropathy patient is currently doing well with gabapentin. As far as his insulin-dependent diabetes the patient has been unable to have his home Toujeo and so we will place him on Levemir. We will also continue with Accu-Cheks and regular insulin sliding scale. A1c here was 8.8%. For his hypertension the patient has had some improvement in his blood pressure readings over the last 24 hours since we increased his losartan to 100mg. We will continue with this and his metoprolol as well. For his heart failure history continues with furosemide. Also for his neuropathy he continues with tramadol. We will replet his magnesium today. We will continue to follow. Patient was seen and examined and case discussed at length with attending physician. <Ever Lundberg S - Last Filed: 10/06/18 19:24> Objective - Vital Signs/Intake and Output Vital Signs (last 24 hours): Temp Pulse Resp BP Pulse Ox 97.9 F 58 L 20 162/79 H 93 L 10/05/18 17:15 10/05/18 17:15 10/05/18 17:15 10/05/18 17:15 10/05/18 17:15 - Labs Labs: 10/03/18 00:05 10/05/18 06:10 PT 14.1 SECONDS (9.4-12.5) H 10/03/18 00:05 INR 1.27 10/03/18 00:05 APTT 30.9 Seconds (26.9-38.3) 10/03/18 00:05 Assessment and Plan - Assessment and Plan (Free Text) Plan: Pt seen and examined by me. I have reviewed the note of the medical imaging tech and I agree with it. I have discussed the assessment and plan with the resident. I have reviewed the medications and the last labs. Pt had a TIA. It has improved. He is waiting to go to TCU. He is on ASA and Plavix for the TIA and the CAD. He is on Gabapentin for the diabetic neuropathy. Pt is on Losartan for HTN.
[2018-10-05] MEDS ORDERED: DEXLANSOPRAZOLE 60 MG PO SCH (12:11)
[2018-10-05] MEDS: Insulin Detemir 100 units/ml Vial (Levemir) SC SCH ×2 (13:52→17:07)
[2018-10-05 17:16] VITALS: BP 162/79; PULSE 58; RESP 20; TEMP 97.9; O2SAT 93
--- NOTE | 2018-10-06 23:14 | CP.PCM.DIS ---
<Henry Traore - Last Filed: 10/06/18 23:11> Provider - Provider Date of Admission: 10/04/18 12:59 Attending physician: Rasta Cavazos MD Primary care physician: Rasta Cavazos MD Consults: 10/03/18 00:17 Stroke Team Consult Stat Comment: Consulting Provider: Neurohospitalist Consulting Physician: NEUROHOSP Neurohospitalist for Consult: Chucho Ott Neurohospitalist for Consult: Libby Champion Reason for Consult: tia 10/03/18 05:59 Social Work Referral Routine Comment: patient meets criteria Physician Instructions: Reason For Exam: protocol 10/03/18 06:06 Case Management Referral Routine Comment: Physician Instructions: Reason For Exam: protocol 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 10/04/18 11:31 TCU [Evaluation for TRCU] Routine Comment: Physician Instructions: Reason For Exam: p.t recs Time Spent in preparation of Discharge (in minutes): 45 Diagnosis - Discharge Diagnosis (1) TIA (transient ischemic attack) Status: Acute (2) HTN (hypertension) Status: Chronic (3) Diabetic neuropathy Status: Chronic (4) CHF (congestive heart failure) Status: Chronic (5) Uncontrolled diabetes mellitus Status: Chronic Hospital Course - Lab Results Lab Results: Most Recent Lab Values WBC 11.0 10^3/uL (4.5-11.0) D 10/03/18 00:05 RBC 3.86 10^6/uL (3.5-6.1) 10/03/18 00:05 Hgb 10.8 g/dL (14.0-18.0) L 10/03/18 00:05 Hct 31.8 % (42.0-52.0) L 10/03/18 00:05 MCV 82.4 fl (80.0-105.0) 10/03/18 00:05 MCH 28.0 pg (25.0-35.0) 10/03/18 00:05 MCHC 34.0 g/dl (31.0-37.0) 10/03/18 00:05 RDW 14.8 % (11.5-14.5) H 10/03/18 00:05 Plt Count 241 10^3/uL (120.0-450.0) 10/03/18 00:05 MPV 9.3 fl (7.0-11.0) 10/03/18 00:05 Neut % (Auto) 81.4 % (50.0-68.0) H 10/03/18 00:05 Lymph % (Auto) 10.5 % (22.0-35.0) L 10/03/18 00:05 Wilkes % (Auto) 6.8 % (1.0-6.0) H 10/03/18 00:05 Eos % (Auto) 0.9 % (1.5-5.0) L 10/03/18 00:05 Baso % (Auto) 0.4 % (0.0-3.0) 10/03/18 00:05 Lymph # (Auto) 1.2 (1.2-3.4) 10/03/18 00:05 Wilkes # (Auto) 0.7 (0.1-0.6) H 10/03/18 00:05 Eos # (Auto) 0.1 (0.0-0.7) 10/03/18 00:05 Baso # (Auto) 0.04 K/mm3 (0.0-2.0) 10/03/18 00:05 Absolute Neuts (auto) 8.92 (1.4-6.5) H 10/03/18 00:05 PT 14.1 SECONDS (9.4-12.5) H 10/03/18 00:05 INR 1.27 10/03/18 00:05 APTT 30.9 Seconds (26.9-38.3) 10/03/18 00:05 Sodium 134 mmol/L (132-148) 10/05/18 06:10 Potassium 3.9 mmol/L (3.6-5.0) 10/05/18 06:10 Chloride 102 mmol/L (98-107) 10/05/18 06:10 Carbon Dioxide 28 mmol/L (21-33) 10/05/18 06:10 Anion Gap 8 (10-20) L 10/05/18 06:10 BUN 17 mg/dL (7-21) 10/05/18 06:10 Creatinine 1.4 mg/dl (0.8-1.5) 10/05/18 06:10 Est GFR ( Amer) > 60 10/05/18 06:10 Est GFR (Non-Af Amer) 51 10/05/18 06:10 POC Glucose (mg/dL) 300 mg/dL (65-110) H 10/05/18 16:08 Random Glucose 215 mg/dL (70-110) H 10/05/18 06:10 Hemoglobin A1c 8.8 % (4.2-6.5) H 10/03/18 00:05 Calcium 8.5 mg/dL (8.4-10.5) 10/05/18 06:10 Phosphorus 3.9 mg/dL (2.5-4.5) 10/05/18 06:10 Magnesium 1.5 mg/dL (1.7-2.2) L 10/05/18 06:10 Total Bilirubin 0.4 mg/dL (0.2-1.3) 10/05/18 06:10 AST 27 U/L (17-59) 10/05/18 06:10 ALT 18 U/L (7-56) 10/05/18 06:10 Alkaline Phosphatase 96 U/L (38-126) 10/05/18 06:10 Lactate Dehydrogenase 401 U/L (333-699) 10/03/18 00:05 Total Creatine Kinase 36 U/L (35-230) 10/03/18 00:05 Troponin I 0.03 ng/mL 10/03/18 08:30 Total Protein 6.2 g/dL (5.8-8.3) 10/05/18 06:10 Albumin 3.0 g/dL (3.0-4.8) 10/05/18 06:10 Globulin 3.3 gm/dL 10/05/18 06:10 Albumin/Globulin Ratio 0.9 (1.1-1.8) L 10/05/18 06:10 Triglycerides 122 mg/dL (35-160) 10/03/18 00:05 Cholesterol 134 mg/dL (130-200) 10/03/18 00:05 LDL Cholesterol Direct 81 mg/dL (0-129) 10/03/18 00:05 HDL Cholesterol 28 mg/dL (29-60) L 10/03/18 00:05 Blood Type O POSITIVE 10/03/18 01:50 Antibody Screen Negative 10/03/18 01:50 BBK History Checked Patient has bt 10/03/18 01:50 - Hospital Course Hospital Course: Henry Traore D.O. PGY-3, Internal Medicine Resident, Dr. Lundberg's Service, Discharge Summary 62-year-old male with a past medical history of CAD status post CABG, IDDM, CVA with residual left foot drop, bipolar disorder, depression disorder, hypertension, peripheral vascular disease, diabetic nephropathy, diabetic neuropathy, previous amputation of several right toes who presents for complaints of slurred speech and facial droop. Patient had a head CT that was negative for any bleed. Patient was evaluated by neurology. Patient had a brain MRI which showed advanced chronic microangiopathic changes but no acute stroke. Patient also had EEG which was normal. Patient was placed on dual antiplatelet regimen for his TIA. Patient was maintained on his home ASA, metoprolol, gabapentin, losartan, jardiance, and tramadol for management of his diabetes, CAD, HTN, and diabetic neuropathy. Patient did not have home toujeo and so he was maintained on levemir instead. Patient for his GERD was continued on his home dexilant. Refer to today's progress note for more details. Patient will be transferred to TCU for continued physical therapy per PT recommendations. Discussed with patient at bedside. Discussed with nursing staff. Discussed with CM. - Date & Time of H&P Date of H&P: 10/05/18 Time of H&P: 19:30 Discharge Exam - Head Exam Head Exam: ATRAUMATIC, NORMOCEPHALIC - Eye Exam Additional comments: no icterus, EOMI - ENT Exam ENT Exam: Mucous Membranes Moist, Normal Oropharynx - Neck Exam Neck Exam: Normal Inspection, soft - Respiratory Exam Respiratory Exam: Clear to Ausculation Bilateral. absent: Rhonchi, Wheezes - Cardiovascular Exam Cardiovascular Exam: +S1, +S2. absent: Gallop, Rubs - GI/Abdominal Exam GI & Abdominal Exam: Soft, Normal Bowel Sounds. absent: Tenderness - Extremities Exam Extremities Exam: absent: Pedal Edema - Neurological Exam Neurological Exam: Alert, Awake - Skin Skin Exam: Dry, Warm Discharge Plan - Follow Up Plan Condition: STABLE Disposition: REHAB FACILITY/REHAB UNIT Instructions: Stroke (DC), Transient Ischemic Attack (DC) Additional Instructions: MD TO FOLLOW ON TCU. REPORT PAIN, DIZZINESS, WEAKNESS TO STAFF Referrals: Rasta Cavazos MD [Primary Care Provider] - <Ever Lundberg S - Last Filed: 10/07/18 15:20> Provider - Provider Date of Admission: 10/04/18 12:59 Attending physician: Rasta Cavazos MD Primary care physician: Rasta Cavazos MD Consults: 10/03/18 00:17 Stroke Team Consult Stat Comment: Consulting Provider: Neurohospitalist Consulting Physician: NEUROHOSP Neurohospitalist for Consult: Chucho Ott Neurohospitalist for Consult: Libby Champion Reason for Consult: tia 10/03/18 05:59 Social Work Referral Routine Comment: patient meets criteria Physician Instructions: Reason For Exam: protocol 10/03/18 06:06 Case Management Referral Routine Comment: Physician Instructions: Reason For Exam: protocol 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 10/04/18 11:31 TCU [Evaluation for TRCU] Routine Comment: Physician Instructions: Reason For Exam: p.t [facility] Course - Lab Results Lab Results: Most Recent Lab Values WBC 11.0 10^3/uL (4.5-11.0) D 10/03/18 00:05 RBC 3.86 10^6/uL (3.5-6.1) 10/03/18 00:05 Hgb 10.8 g/dL (14.0-18.0) L 10/03/18 00:05 Hct 31.8 % (42.0-52.0) L 10/03/18 00:05 MCV 82.4 fl (80.0-105.0) 10/03/18 00:05 MCH 28.0 pg (25.0-35.0) 10/03/18 00:05 MCHC 34.0 g/dl (31.0-37.0) 10/03/18 00:05 RDW 14.8 % (11.5-14.5) H 10/03/18 00:05 Plt Count 241 10^3/uL (120.0-450.0) 10/03/18 00:05 MPV 9.3 fl (7.0-11.0) 10/03/18 00:05 Neut % (Auto) 81.4 % (50.0-68.0) H 10/03/18 00:05 Lymph % (Auto) 10.5 % (22.0-35.0) L 10/03/18 00:05 Wilkes % (Auto) 6.8 % (1.0-6.0) H 10/03/18 00:05 Eos % (Auto) 0.9 % (1.5-5.0) L 10/03/18 00:05 Baso % (Auto) 0.4 % (0.0-3.0) 10/03/18 00:05 Lymph # (Auto) 1.2 (1.2-3.4) 10/03/18 00:05 Wilkes # (Auto) 0.7 (0.1-0.6) H 10/03/18 00:05 Eos # (Auto) 0.1 (0.0-0.7) 10/03/18 00:05 Baso # (Auto) 0.04 K/mm3 (0.0-2.0) 10/03/18 00:05 Absolute Neuts (auto) 8.92 (1.4-6.5) H 10/03/18 00:05 PT 14.1 SECONDS (9.4-12.5) H 10/03/18 00:05 INR 1.27 10/03/18 00:05 APTT 30.9 Seconds (26.9-38.3) 10/03/18 00:05 Sodium 134 mmol/L (132-148) 10/05/18 06:10 Potassium 3.9 mmol/L (3.6-5.0) 10/05/18 06:10 Chloride 102 mmol/L (98-107) 10/05/18 06:10 Carbon Dioxide 28 mmol/L (21-33) 10/05/18 06:10 Anion Gap 8 (10-20) L 10/05/18 06:10 BUN 17 mg/dL (7-21) 10/05/18 06:10 Creatinine 1.4 mg/dl (0.8-1.5) 10/05/18 06:10 Est GFR ( Amer) > 60 10/05/18 06:10 Est GFR (Non-Af Amer) 51 10/05/18 06:10 POC Glucose (mg/dL) 300 mg/dL (65-110) H 10/05/18 16:08 Random Glucose 215 mg/dL (70-110) H 10/05/18 06:10 Hemoglobin A1c 8.8 % (4.2-6.5) H 10/03/18 00:05 Calcium 8.5 mg/dL (8.4-10.5) 10/05/18 06:10 Phosphorus 3.9 mg/dL (2.5-4.5) 10/05/18 06:10 Magnesium 1.5 mg/dL (1.7-2.2) L 10/05/18 06:10 Total Bilirubin 0.4 mg/dL (0.2-1.3) 10/05/18 06:10 AST 27 U/L (17-59) 10/05/18 06:10 ALT 18 U/L (7-56) 10/05/18 06:10 Alkaline Phosphatase 96 U/L (38-126) 10/05/18 06:10 Lactate Dehydrogenase 401 U/L (333-699) 10/03/18 00:05 Total Creatine Kinase 36 U/L (35-230) 10/03/18 00:05 Troponin I 0.03 ng/mL 10/03/18 08:30 Total Protein 6.2 g/dL (5.8-8.3) 10/05/18 06:10 Albumin 3.0 g/dL (3.0-4.8) 10/05/18 06:10 Globulin 3.3 gm/dL 10/05/18 06:10 Albumin/Globulin Ratio 0.9 (1.1-1.8) L 10/05/18 06:10 Triglycerides 122 mg/dL (35-160) 10/03/18 00:05 Cholesterol 134 mg/dL (130-200) 10/03/18 00:05 LDL Cholesterol Direct 81 mg/dL (0-129) 10/03/18 00:05 HDL Cholesterol 28 mg/dL (29-60) L 10/03/18 00:05 Blood Type O POSITIVE 10/03/18 01:50 Antibody Screen Negative 10/03/18 01:50 BBK History Checked Patient has bt 10/03/18 01:50 - Hospital Course Hospital Course: Pt seen and examined by me. I have reviewed the note of the hospital medical assistant and I agree with it. I have discussed the assessment and plan with the resident. I have reviewed the medications and the last labs. Pt was sent to the TCU yesterday.
== END 2018-10-05 18:43 | DRG 69 ==
LOC: ED 23:16 → ERH 10-03 03:12 → 2RNO 10-03 04:27 → OBSVTOIN 10-04 12:59 → 3RSO 10-04 18:53
PROVIDERS: ADMIT Internal Medicine; ATTEND Internal Medicine
DX: G45.9 Transient cerebral ischemic attack, unspecified (principal); F31.30 Bipolar disorder, current episode depressed, mild or moderate severity, unspecified; I50.20 Unspecified systolic (congestive) heart failure; I69.351 Hemiplegia and hemiparesis following cerebral infarction affecting right dominant side; I11.0 Hypertensive heart disease with heart failure; E11.51 Type 2 diabetes mellitus with diabetic peripheral angiopathy without gangrene; E11.40 Type 2 diabetes mellitus with diabetic neuropathy, unspecified; E11.65 Type 2 diabetes mellitus with hyperglycemia; I25.10 Atherosclerotic heart disease of native coronary artery without angina pectoris; J44.9 Chronic obstructive pulmonary disease, unspecified; K21.9 Gastro-esophageal reflux disease without esophagitis; E11.21 Type 2 diabetes mellitus with diabetic nephropathy; H54.62 Unqualified visual loss, left eye, normal vision right eye; I69.392 Facial weakness following cerebral infarction; Z79.4 Long term (current) use of insulin; Z79.02 Long term (current) use of antithrombotics/antiplatelets; Z79.82 Long term (current) use of aspirin; Z87.891 Personal history of nicotine dependence; Z95.1 Presence of aortocoronary bypass graft; Z95.5 Presence of coronary angioplasty implant and graft; Z89.421 Acquired absence of other right toe(s)